=== PATIENT | male | born 1955 | race Caucasian/White ===

== ENCOUNTER 2017-04-14 22:13 | Inpatient (IN) | payer OTHER ==
[2017-04-14] MEDS: ATORVASTATIN 10 MG TAB PO (21:00)
[2017-04-14 23:29] LABS: ADD MAN DIFF? NO
[2017-04-14 23:34] LABS: AADO2 Arterial 567.1 mmHg (7.0-24.0); ABNORMAL IP MESSAGE 1; Allen Test ACCEPTAB; Arterial Base Excess 0.2 mmol/L (-3.0-3); Arterial Blood Gas Oxygen Sat 98.2 mmHG (95.0-98.0); Arterial COHb 0.3 % (0.0-3.0); Arterial Fraction of Oxyhgb 97.5 % (93.0-99.0); Arterial HCO3 23.1 mmol/L (22.0-26.0); Arterial MetHb 0.4 % (0.0-1.5); Arterial Total Hemglobin 18.1 g/dl (12.0-18.0); Arterial pCO2 33.4 mmhg (35-45); BASOPHIL # 0.1 10^3/ul (0.0-0.1); BASOPHILS % 0.5 % (0.0-2.0); Blood Gas IEPAP 20/10; Blood Gas PS 10; EOSINOPHILS % 0.1 % (0.0-7.0); HEMATOCRIT 50.1 % (42.0-52.0); HEMOGLOBIN 17.2 g/dl (14.0-18.0); LYMPHOCYTES # 1.7 10^3/ul (0.8-2.9); LYMPHOCYTES % 10.2 % (15.0-51.0); MEAN CORPUSCULAR HGB CONC 34.3 g/dl (32.0-37.0); MEAN CORPUSCULAR VOLUME 87.4 fl (82.0-101.0); MEAN PLATELET VOLUME 10.7 fl (7.4-10.4); MODE BIPAP - S/T; MONOCYTE # 1.9 10^3/ul (0.3-0.9); MONOCYTES % 11.3 % (0.0-11.0); NEUTROPHIL # 12.9 10^3/ul (1.6-7.5); NEUTROPHILS % 77.5 % (39.0-77.0); PLATELET COUNT 189 10^3/UL (140-415); POSITIVE DIFF @See below; RED BLOOD COUNT 5.73 10^6/ul (4.70-6.10); RED CELL DISTRIBUTION WIDTH 14.6 % (11.5-14.5); Site Left Radial
[2017-04-14 23:34] LABS: WHITE BLOOD COUNT 16.6 10^3/ul (4.8-10.8)
[2017-04-14 23:45] LABS: HEMOGLOBIN A1C 5.5 % (0-5.9)
[2017-04-14 23:52] LABS: ALANINE AMINOTRANSFERASE 55 IU/L (13-69); ALBUMIN 4.2 g/dl (3.3-4.9); ALBUMIN/GLOBULIN RATIO 1.35; ALKALINE PHOSPHATASE 63 IU/L (42-121); ANION GAP 16 (8-16); ASPARTATE AMINO TRANSFERASE 115 IU/L (15-46); BILIRUBIN,INDIRECT 1.4 mg/dl (0-1.1); BILIRUBIN,TOTAL 1.4 mg/dl (0.2-1.3); BLOOD UREA NITROGEN 21 mg/dl (7-20); CALCIUM 9.4 mg/dl (8.4-10.2); CARBON DIOXIDE 23 mmol/L (21-31); CHLORIDE 107 mmol/L (97-110); CHOL/HDL RATIO 2.8 RATIO; CHOLESTEROL 169 mg/dl (100-200); CREATINE KINASE 470 IU/L (23-200); CREATININE 1.26 mg/dl (0.61-1.24); GLUCOSE 142 mg/dl (70-220); HDL CHOLESTEROL 59 mg/dl (30-78); LDL CHOLESTEROL,CALCULATED 89 mg/dl; MAGNESIUM 2.2 mg/dl (1.7-2.5); PHOSPHORUS 3.3 mg/dl (2.5-4.9); POTASSIUM 3.7 mmol/L (3.5-5.1); SODIUM 142 mmol/L (135-144); TOTAL PROTEIN 7.3 g/dl (6.1-8.1); TRIGLYCERIDES 103 mg/dl (0-149)
[2017-04-14] MEDS: AMIODARONE 900 MG in DEXTROSE 5% 482 ML IV (23:54)
[2017-04-14] MEDS: HEPARIN 25000 UNITS/250 ML 250 ML IV (23:58)
[2017-04-15 00:02] LABS: CK INDEX 8.7
[2017-04-15] MEDS: DEXTROSE 5%-0.45% NACL 1,000 ML IV ×2 (00:08→15:26)
[2017-04-15] MEDS: ATORVASTATIN 80 MG TAB PO (00:09)
[2017-04-15 00:21] LABS: THYROID STIMULATING HORMONE 0.615 MIU/L (0.465-4.680)
[2017-04-15 02:06] LABS: INR 1.01; PROTIME 13.4 Sec (11.9-14.9)
[2017-04-15 02:08] LABS: PARTIAL THROMBOPLASTIN TIME 50.3 Sec (25.0-35.0)
[2017-04-15] MEDS ORDERED: FUROSEMIDE 20 MG INJ (05:21)
[2017-04-15] MEDS ORDERED: PROPOFOL 100 ML (05:35)
[2017-04-15] MEDS: FUROSEMIDE 20 MG INJ IV ×2 (05:49→05:50)
[2017-04-15] MEDS: PROPOFOL 100 ML IV ×5 (05:51→21:45)
[2017-04-15 06:16] LABS: CREATINE KINASE 366 IU/L (23-200)
[2017-04-15 06:29] LABS: CK INDEX 6.5
[2017-04-15] MEDS ORDERED: NORepinephrine 8MG/250 ML BAG (07:00)
[2017-04-15] MEDS ORDERED: SUCCINYLCHOLINE CHLORIDE 100 MG/5 ML SYG IV (07:00)
[2017-04-15] MEDS ORDERED: ETOMIDATE 20 MG INJ (07:00)
[2017-04-15 07:14] LABS: PARTIAL THROMBOPLASTIN TIME 96.3 Sec (25.0-35.0)
[2017-04-15] MEDS: NORepinephrine 8MG/250 ML (PMX 250 ML IV (07:32)
[2017-04-15 08:01] LABS: ADD MAN DIFF? NO
[2017-04-15 08:02] LABS: WHITE BLOOD COUNT 23.9 10^3/ul (4.8-10.8)
[2017-04-15 08:02] LABS: ABNORMAL IP MESSAGE 1; BASOPHIL # 0.1 10^3/ul (0.0-0.1); BASOPHILS % 0.4 % (0.0-2.0); EOSINOPHILS % 0.1 % (0.0-7.0); HEMATOCRIT 55.5 % (42.0-52.0); HEMOGLOBIN 18.1 g/dl (14.0-18.0); LYMPHOCYTES # 4.6 10^3/ul (0.8-2.9); LYMPHOCYTES % 19.3 % (15.0-51.0); MEAN CORPUSCULAR HEMOGLOBIN 30.1 pg (29.0-33.0); MEAN CORPUSCULAR HGB CONC 32.6 g/dl (32.0-37.0); MEAN CORPUSCULAR VOLUME 92.2 fl (82.0-101.0); MEAN PLATELET VOLUME 11.4 fl (7.4-10.4); MONOCYTE # 3.8 10^3/ul (0.3-0.9); MONOCYTES % 15.9 % (0.0-11.0); NEUTROPHIL # 15.2 10^3/ul (1.6-7.5); NEUTROPHILS % 63.7 % (39.0-77.0); PLATELET COUNT 230 10^3/UL (140-415); POSITIVE DIFF @See below; RED BLOOD COUNT 6.02 10^6/ul (4.70-6.10); RED CELL DISTRIBUTION WIDTH 14.3 % (11.5-14.5)
[2017-04-15 08:16] LABS: AADO2 Arterial 576.2 mmHg (7.0-24.0); Allen Test ACCEPTAB; Arterial Base Excess -5.5 mmol/L (-3.0-3); Arterial Blood Gas Oxygen Sat 95.7 mmHG (95.0-98.0); Arterial COHb 0.3 % (0.0-3.0); Arterial HCO3 21.4 mmol/L (22.0-26.0); Arterial MetHb 0.4 % (0.0-1.5); Arterial Total Hemglobin 18.6 g/dl (12.0-18.0); Arterial pCO2 46.2 mmhg (35-45); MODE VENT - AC; Site Right Radial
[2017-04-15 08:20] LABS: MAGNESIUM 2.4 mg/dl (1.7-2.5)
[2017-04-15 08:20] LABS: ALANINE AMINOTRANSFERASE 43 IU/L (13-69); ALBUMIN 4.5 g/dl (3.3-4.9); ALBUMIN/GLOBULIN RATIO 1.73; ALKALINE PHOSPHATASE 71 IU/L (42-121); ANION GAP 22 (8-16); ASPARTATE AMINO TRANSFERASE 101 IU/L (15-46); BILIRUBIN,INDIRECT 1.6 mg/dl (0-1.1); BILIRUBIN,TOTAL 1.6 mg/dl (0.2-1.3); BLOOD UREA NITROGEN 20 mg/dl (7-20); CALCIUM 9.2 mg/dl (8.4-10.2); CARBON DIOXIDE 23 mmol/L (21-31); CHLORIDE 107 mmol/L (97-110); CREATININE 1.56 mg/dl (0.61-1.24); GLUCOSE 204 mg/dl (70-220); POTASSIUM 4.5 mmol/L (3.5-5.1); SODIUM 147 mmol/L (135-144); TOTAL PROTEIN 7.1 g/dl (6.1-8.1)
[2017-04-15] MEDS: FUROSEMIDE 40 MG INJ IV ×2 (08:47→11:33)
[2017-04-15] MEDS: LOSARTAN 25 MG TAB PO (09:00)
[2017-04-15] MEDS: ISOSORBIDE MONONITRATE(SR)30 MG TAB PO (09:00)
[2017-04-15] MEDS: CLOPIDOGREL 75 MG TAB PO (09:03)
[2017-04-15] MEDS: ASPIRIN 81 MG TAB PO (09:04)
[2017-04-15] MEDS: POTASSIUM CHLORIDE 100 ML IVPB (09:34)
[2017-04-15] MEDS: DOPamine-D5W 1.6 MG/ML 250 ML IV (09:48)
[2017-04-15] MEDS: FENTAnyl (DRIP) 1000 mcg/100mL 100 ML IV (10:12)
[2017-04-15 10:14] LABS: PARTIAL THROMBOPLASTIN TIME 50.3 Sec (25.0-35.0)
[2017-04-15 10:15] LABS: 50/50 PTT 1 HOUR 46.8 Sec; 50/50 PTT IMMED 36.5 Sec
[2017-04-15] MEDS ORDERED: DEXTROSE 50% 50 ML SYRINGE IV ×2 (10:30)
[2017-04-15] MEDS ORDERED: GLUCOSE GEL 15 GRAM TUBE BUCCAL (10:30)
[2017-04-15] MEDS ORDERED: GLUCAGON 1 MG INJ IM (10:30)
[2017-04-15] MEDS ORDERED: GLUCOSE GEL 15 GRAM TUBE PO ×2 (10:30)
[2017-04-15] MEDS: AZTREONAM 1 GM/NS (PMX) 50 ML IVPB ×2 (11:33→20:39)
[2017-04-15] MEDS: NICOTINE (14 MG/24 HR) PATCH TRANSDERM (11:43)
[2017-04-15] MEDS: LIDOCAINE 1% (MPF) 5 ML VIAL SC (12:15)
[2017-04-15 12:18] LABS: AADO2 Arterial 585.2 mmHg (7.0-24.0); Allen Test ACCEPTAB; Arterial Base Excess -2.4 mmol/L (-3.0-3); Arterial COHb 0.3 % (0.0-3.0); Arterial Fraction of Oxyhgb 96.2 % (93.0-99.0); Arterial HCO3 21.7 mmol/L (22.0-26.0); Arterial MetHb 0.5 % (0.0-1.5); Arterial Total Hemglobin 18.3 g/dl (12.0-18.0); Arterial pCO2 36.4 mmhg (35-45); MODE VENT - AC; Site Left Radial
[2017-04-15] MEDS: INSULIN ASPART [NOVOLOG] 3 ML PEN SC ×3 (14:40→20:44)
[2017-04-15 15:22] LABS: ADD UMIC YES; UR ASCORBIC ACID NEGATIVE (NEGATIVE); UR BILIRUBIN (Dip) NEGATIVE (NEGATIVE); UR BLOOD (Dip) 3+ mg/dL (NEGATIVE); UR CLARITY CLEAR (CLEAR); UR COLOR YELLOW (YELLOW); UR GLUCOSE (Dip) NEGATIVE (NEGATIVE); UR KETONES (Dip) NEGATIVE (NEGATIVE); UR LEUKOCYTE ESTERASE (Dip) NEGATIVE Leu/ul (NEGATIVE); UR MUCUS FEW /HPF (NONE SEEN); UR NITRITE (Dip) NEGATIVE (NEGATIVE); UR RBC 18 /HPF (0-5); UR TOTAL PROTEIN (Dip) NEGATIVE (NEGATIVE); UR UROBILINOGEN (Dip) NEGATIVE (NEGATIVE); UR WBC 1 /HPF (0-5)
[2017-04-15 15:26] LABS: ANION GAP 15 (8-16); BLOOD UREA NITROGEN 27 mg/dl (7-20); CALCIUM 8.7 mg/dl (8.4-10.2); CARBON DIOXIDE 28 mmol/L (21-31); CHLORIDE 105 mmol/L (97-110); CREATININE 1.67 mg/dl (0.61-1.24); GLUCOSE 131 mg/dl (70-220); MAGNESIUM 2.1 mg/dl (1.7-2.5); POTASSIUM 3.6 mmol/L (3.5-5.1); SODIUM 144 mmol/L (135-144)
[2017-04-15] MEDS: POTASSIUM CHLORIDE 50 ML IVPB ×2 (15:31→16:47)
[2017-04-15 15:37] LABS: SODIUM,URINE RANDOM 21 mmol/L (30-90)
[2017-04-15 16:10] LABS: PARTIAL THROMBOPLASTIN TIME 74.8 Sec (25.0-35.0)
[2017-04-16] MEDS: HEPARIN 25000 UNITS/250 ML 250 ML IV (00:02)
[2017-04-16 00:12] LABS: PARTIAL THROMBOPLASTIN TIME 79.6 Sec (25.0-35.0)
[2017-04-16] MEDS: INSULIN ASPART [NOVOLOG] 3 ML PEN SC ×5 (01:00→18:00)
[2017-04-16] MEDS: ACCU-CHEK XX (01:32)
[2017-04-16] MEDS: DOPamine-D5W 1.6 MG/ML 250 ML IV (01:36)
[2017-04-16] MEDS: AMIODARONE 900 MG in DEXTROSE 5% 482 ML IV (02:42)
[2017-04-16] MEDS: PROPOFOL 100 ML IV ×4 (05:09→22:14)
[2017-04-16] MEDS: FENTAnyl (DRIP) 1000 mcg/100mL 100 ML IV (05:18)
[2017-04-16 06:33] LABS: ADD MAN DIFF? NO
[2017-04-16 06:41] LABS: ABNORMAL IP MESSAGE 1; BASOPHILS % 0.3 % (0.0-2.0); EOSINOPHILS # 0.1 10^3/ul (0.0-0.5); EOSINOPHILS % 0.7 % (0.0-7.0); HEMATOCRIT 49.5 % (42.0-52.0); HEMOGLOBIN 16.2 g/dl (14.0-18.0); LYMPHOCYTES # 2.1 10^3/ul (0.8-2.9); LYMPHOCYTES % 14.9 % (15.0-51.0); MEAN CORPUSCULAR HEMOGLOBIN 29.7 pg (29.0-33.0); MEAN CORPUSCULAR HGB CONC 32.7 g/dl (32.0-37.0); MEAN CORPUSCULAR VOLUME 90.7 fl (82.0-101.0); MEAN PLATELET VOLUME 10.5 fl (7.4-10.4); MONOCYTE # 1.8 10^3/ul (0.3-0.9); MONOCYTES % 12.9 % (0.0-11.0); NEUTROPHIL # 9.8 10^3/ul (1.6-7.5); NEUTROPHILS % 70.8 % (39.0-77.0); PLATELET COUNT 150 10^3/UL (140-415); POSITIVE DIFF @See below; RED BLOOD COUNT 5.46 10^6/ul (4.70-6.10); RED CELL DISTRIBUTION WIDTH 14.3 % (11.5-14.5)
[2017-04-16 06:41] LABS: WHITE BLOOD COUNT 13.8 10^3/ul (4.8-10.8)
[2017-04-16 07:05] LABS: PARTIAL THROMBOPLASTIN TIME 64.8 Sec (25.0-35.0)
[2017-04-16 07:14] LABS: ANION GAP 16 (8-16); BLOOD UREA NITROGEN 38 mg/dl (7-20); CALCIUM 8.8 mg/dl (8.4-10.2); CARBON DIOXIDE 27 mmol/L (21-31); CHLORIDE 106 mmol/L (97-110); CREATININE 2.08 mg/dl (0.61-1.24); GLUCOSE 115 mg/dl (70-220); MAGNESIUM 2.4 mg/dl (1.7-2.5); POTASSIUM 4.2 mmol/L (3.5-5.1); SODIUM 145 mmol/L (135-144)
[2017-04-16] MEDS: CLOPIDOGREL 75 MG TAB PO (09:01)
[2017-04-16] MEDS: ASPIRIN 81 MG TAB PO (09:01)
[2017-04-16] MEDS: AMIODARONE 200 MG TAB NGT ×2 (09:02→21:12)
[2017-04-16] MEDS: AZTREONAM 1 GM/NS (PMX) 50 ML IVPB ×2 (09:12→21:11)
[2017-04-16] MEDS: DOBUTamine/D5W 1 MG/ML DRIP 250 ML IV ×2 (09:19→18:53)
[2017-04-16] MEDS: NICOTINE (14 MG/24 HR) PATCH TRANSDERM (09:20)
[2017-04-16 09:56] LABS: AADO2 Arterial 379.3 mmHg (7.0-24.0); Allen Test ACCEPTAB; Arterial Base Excess -0.9 mmol/L (-3.0-3); Arterial Blood Gas Oxygen Sat 95.5 mmHG (95.0-98.0); Arterial COHb 0.5 % (0.0-3.0); Arterial Fraction of Oxyhgb 94.8 % (93.0-99.0); Arterial HCO3 23.5 mmol/L (22.0-26.0); Arterial MetHb 0.2 % (0.0-1.5); Arterial Total Hemglobin 16.4 g/dl (12.0-18.0); Arterial pCO2 38.5 mmhg (35-45); MODE VENT - AC; Site Right Radial
[2017-04-16] MEDS: ACETAZOLAMIDE 500 MG INJ IV (10:16)
[2017-04-16 14:07] LABS: CREATININE, RANDOM URINE 64 mg/dL (20-370); MICROALBUMIN 3.1 mg/dL; MICROALBUMIN/CREATININE RATIO 48 (<30)
[2017-04-16 14:17] LABS: PARTIAL THROMBOPLASTIN TIME 38.4 Sec (25.0-35.0)
[2017-04-16] MEDS: HEPARIN 1000 UNITS/ML 10 ML INJ IV (14:34)
[2017-04-16 14:41] LABS: ANION GAP 13 (8-16); BLOOD UREA NITROGEN 39 mg/dl (7-20); CALCIUM 8.7 mg/dl (8.4-10.2); CARBON DIOXIDE 26 mmol/L (21-31); CHLORIDE 106 mmol/L (97-110); CREATININE 1.94 mg/dl (0.61-1.24); GLUCOSE 114 mg/dl (70-220); MAGNESIUM 2.3 mg/dl (1.7-2.5); POTASSIUM 3.4 mmol/L (3.5-5.1); SODIUM 142 mmol/L (135-144)
[2017-04-16] MEDS ORDERED: POTASSIUM CHLORIDE 50 ML (16:51)
[2017-04-16] MEDS ORDERED: POTASSIUM CHLORIDE 100 ML IVPB (18:00)
[2017-04-16] MEDS: POTASSIUM CHLORIDE 50 ML IVPB (18:05)
[2017-04-16] MEDS: FUROSEMIDE 40 MG INJ IV (19:06)
[2017-04-16] MEDS: ATORVASTATIN 10 MG TAB PO (21:12)
[2017-04-16 21:30] LABS: PARTIAL THROMBOPLASTIN TIME 76.7 Sec (25.0-35.0)
[2017-04-16 22:35] LABS: MAGNESIUM 2.3 mg/dl (1.7-2.5)
[2017-04-16 23:01] LABS: ANION GAP 13 (8-16); BLOOD UREA NITROGEN 37 mg/dl (7-20); CALCIUM 8.5 mg/dl (8.4-10.2); CARBON DIOXIDE 27 mmol/L (21-31); CHLORIDE 104 mmol/L (97-110); CREATININE 1.75 mg/dl (0.61-1.24); GLUCOSE 128 mg/dl (70-220); POTASSIUM 3.4 mmol/L (3.5-5.1); SODIUM 141 mmol/L (135-144)
[2017-04-17] MEDS: HEPARIN 25000 UNITS/250 ML 250 ML IV (00:30)
[2017-04-17] MEDS: DOPamine-D5W 1.6 MG/ML 250 ML IV (00:30)
[2017-04-17] MEDS: FENTAnyl (DRIP) 1000 mcg/100mL 100 ML IV ×2 (00:36→20:54)
[2017-04-17] MEDS: POTASSIUM CHLORIDE 50 ML IVPB ×2 (00:57→10:58)
[2017-04-17] MEDS: ACCU-CHEK XX (02:00)
[2017-04-17] MEDS: DOBUTamine/D5W 1 MG/ML DRIP 250 ML IV ×2 (03:32→05:15)
[2017-04-17] MEDS: PROPOFOL 100 ML IV ×3 (04:57→19:44)
[2017-04-17 05:22] LABS: ADD MAN DIFF? NO
[2017-04-17 05:28] LABS: BASOPHILS % 0.2 % (0.0-2.0); EOSINOPHILS # 0.1 10^3/ul (0.0-0.5); EOSINOPHILS % 0.8 % (0.0-7.0); HEMATOCRIT 39.3 % (42.0-52.0); LYMPHOCYTES # 1.1 10^3/ul (0.8-2.9); LYMPHOCYTES % 10.1 % (15.0-51.0); MEAN CORPUSCULAR HGB CONC 33.1 g/dl (32.0-37.0); MEAN CORPUSCULAR VOLUME 90.6 fl (82.0-101.0); MEAN PLATELET VOLUME 11.2 fl (7.4-10.4); MONOCYTE # 1.4 10^3/ul (0.3-0.9); MONOCYTES % 12.8 % (0.0-11.0); NEUTROPHIL # 8.1 10^3/ul (1.6-7.5); NEUTROPHILS % 75.7 % (39.0-77.0); PLATELET COUNT 122 10^3/UL (140-415); RED BLOOD COUNT 4.34 10^6/ul (4.70-6.10); RED CELL DISTRIBUTION WIDTH 14.2 % (11.5-14.5)
[2017-04-17 05:28] LABS: WHITE BLOOD COUNT 10.7 10^3/ul (4.8-10.8)
[2017-04-17 05:48] LABS: ANION GAP 13 (8-16); BLOOD UREA NITROGEN 32 mg/dl (7-20); CALCIUM 7.8 mg/dl (8.4-10.2); CARBON DIOXIDE 26 mmol/L (21-31); CHLORIDE 101 mmol/L (97-110); CREATININE 1.26 mg/dl (0.61-1.24); GLUCOSE 393 mg/dl (70-220); MAGNESIUM 2.2 mg/dl (1.7-2.5); PHOSPHORUS 3.5 mg/dl (2.5-4.9); SODIUM 133 mmol/L (135-144)
[2017-04-17 05:51] LABS: POTASSIUM 6.6 mmol/L (3.5-5.1)
[2017-04-17 05:57] LABS: PARTIAL THROMBOPLASTIN TIME 65.7 Sec (25.0-35.0)
[2017-04-17] MEDS: INSULIN ASPART [NOVOLOG] 3 ML PEN SC ×4 (06:00→18:00)
[2017-04-17 06:27] LABS: ADD MAN DIFF? NO
[2017-04-17 06:39] LABS: WHITE BLOOD COUNT 10.1 10^3/ul (4.8-10.8)
[2017-04-17 06:39] LABS: ABNORMAL IP MESSAGE 1; BASOPHILS % 0.3 % (0.0-2.0); EOSINOPHILS # 0.8 10^3/ul (0.0-0.5); HEMOGLOBIN 13.2 g/dl (14.0-18.0); LYMPHOCYTES # 1.1 10^3/ul (0.8-2.9); LYMPHOCYTES % 11.1 % (15.0-51.0); MEAN CORPUSCULAR HEMOGLOBIN 30.1 pg (29.0-33.0); MEAN CORPUSCULAR HGB CONC 33.8 g/dl (32.0-37.0); MEAN CORPUSCULAR VOLUME 88.8 fl (82.0-101.0); MEAN PLATELET VOLUME 10.8 fl (7.4-10.4); MONOCYTE # 1.3 10^3/ul (0.3-0.9); MONOCYTES % 12.8 % (0.0-11.0); NEUTROPHIL # 6.8 10^3/ul (1.6-7.5); NEUTROPHILS % 67.6 % (39.0-77.0); PLATELET COUNT 119 10^3/UL (140-415); POSITIVE DIFF @See below; RED BLOOD COUNT 4.39 10^6/ul (4.70-6.10); RED CELL DISTRIBUTION WIDTH 14.5 % (11.5-14.5)
[2017-04-17 06:59] LABS: PARTIAL THROMBOPLASTIN TIME 47.7 Sec (25.0-35.0)
[2017-04-17 07:05] LABS: ANION GAP 14 (8-16); BLOOD UREA NITROGEN 34 mg/dl (7-20); CALCIUM 8.8 mg/dl (8.4-10.2); CARBON DIOXIDE 25 mmol/L (21-31); CHLORIDE 106 mmol/L (97-110); CREATININE 1.51 mg/dl (0.61-1.24); GLUCOSE 124 mg/dl (70-220); MAGNESIUM 2.4 mg/dl (1.7-2.5); POTASSIUM 3.5 mmol/L (3.5-5.1); SODIUM 141 mmol/L (135-144)
[2017-04-17] MEDS: ASPIRIN 81 MG TAB PO (09:00)
[2017-04-17] MEDS: AZTREONAM 1 GM/NS (PMX) 50 ML IVPB ×2 (10:15→20:39)
[2017-04-17] MEDS: AMIODARONE 200 MG TAB NGT ×2 (10:16→20:39)
[2017-04-17] MEDS: CLOPIDOGREL 75 MG TAB PO (10:16)
[2017-04-17] MEDS: NICOTINE (14 MG/24 HR) PATCH TRANSDERM (10:16)
[2017-04-17] MEDS: FUROSEMIDE 40 MG INJ IV ×2 (10:19→18:00)
[2017-04-17 14:10] LABS: PARTIAL THROMBOPLASTIN TIME 106.8 Sec (25.0-35.0)
[2017-04-17] MEDS: ATORVASTATIN 10 MG TAB PO (20:39)
[2017-04-18] MEDS: ACCU-CHEK XX (02:00)
[2017-04-18] MEDS: PROPOFOL 100 ML IV ×3 (04:58→23:56)
[2017-04-18 05:48] LABS: ADD MAN DIFF? NO
[2017-04-18 05:57] LABS: ABNORMAL IP MESSAGE 1; BASOPHILS % 0.2 % (0.0-2.0); EOSINOPHILS # 0.2 10^3/ul (0.0-0.5); EOSINOPHILS % 1.7 % (0.0-7.0); HEMOGLOBIN 13.5 g/dl (14.0-18.0); LYMPHOCYTES % 8.6 % (15.0-51.0); MEAN CORPUSCULAR HEMOGLOBIN 30.5 pg (29.0-33.0); MEAN CORPUSCULAR HGB CONC 33.8 g/dl (32.0-37.0); MEAN CORPUSCULAR VOLUME 90.3 fl (82.0-101.0); MEAN PLATELET VOLUME 11.1 fl (7.4-10.4); MONOCYTE # 1.6 10^3/ul (0.3-0.9); MONOCYTES % 13.1 % (0.0-11.0); NEUTROPHIL # 9.2 10^3/ul (1.6-7.5); PLATELET COUNT 140 10^3/UL (140-415); POSITIVE DIFF @See below; RED BLOOD COUNT 4.43 10^6/ul (4.70-6.10); RED CELL DISTRIBUTION WIDTH 14.5 % (11.5-14.5)
[2017-04-18] MEDS: INSULIN ASPART [NOVOLOG] 3 ML PEN SC ×4 (06:00→18:00)
[2017-04-18] MEDS: FUROSEMIDE 40 MG INJ IV (06:21)
[2017-04-18] MEDS: DOPamine-D5W 1.6 MG/ML 250 ML IV (06:32)
[2017-04-18 06:39] LABS: ANION GAP 16 (8-16); BLOOD UREA NITROGEN 32 mg/dl (7-20); CALCIUM 8.7 mg/dl (8.4-10.2); CARBON DIOXIDE 24 mmol/L (21-31); CHLORIDE 102 mmol/L (97-110); CREATININE 1.13 mg/dl (0.61-1.24); GLUCOSE 205 mg/dl (70-220); MAGNESIUM 2.4 mg/dl (1.7-2.5); PHOSPHORUS 3.6 mg/dl (2.5-4.9); POTASSIUM 3.7 mmol/L (3.5-5.1); SODIUM 138 mmol/L (135-144)
[2017-04-18] MEDS: POTASSIUM CHLORIDE 50 ML IVPB ×2 (08:00)
[2017-04-18] MEDS: AZTREONAM 1 GM/NS (PMX) 50 ML IVPB (08:00)
[2017-04-18 08:06] LABS: AADO2 Arterial 366.5 mmHg (7.0-24.0); Arterial Base Excess 0.5 mmol/L (-3.0-3); Arterial Blood Gas Oxygen Sat 97.1 mmHG (95.0-98.0); Arterial COHb 0.9 % (0.0-3.0); Arterial HCO3 24.8 mmol/L (22.0-26.0); Arterial MetHb 0.2 % (0.0-1.5); Arterial Total Hemglobin 14.5 g/dl (12.0-18.0); Arterial pCO2 38.6 mmhg (35-45); MODE VENT - AC; Site Left Radial
[2017-04-18] MEDS ORDERED: POTASSIUM CHLORIDE 50 ML IVPB (08:30)
[2017-04-18] MEDS: CLOPIDOGREL 75 MG TAB PO (09:01)
[2017-04-18] MEDS: ASPIRIN 81 MG TAB PO (09:01)
[2017-04-18] MEDS: NICOTINE (14 MG/24 HR) PATCH TRANSDERM (09:02)
[2017-04-18] MEDS: AMIODARONE 200 MG TAB NGT ×2 (10:20→20:37)
[2017-04-18] MEDS: POTASSIUM CHLORIDE 10 MEQ in SOD CHLORIDE 0.9% 100 ML IVPB ×2 (10:24→11:29)
[2017-04-18] MEDS: MEROPENEM 1 GM/50ML(PMX) 50 ML IVPB ×3 (10:27→21:33)
[2017-04-18] MEDS: BUMETANIDE 12 MG in DEXTROSE 5% 72 ML IV (13:43)
[2017-04-18] MEDS: ATORVASTATIN 10 MG TAB PO (20:36)
[2017-04-19] MEDS: ACCU-CHEK XX (02:00)
[2017-04-19] MEDS: FENTAnyl (DRIP) 1000 mcg/100mL 100 ML IV (04:24)
[2017-04-19 04:55] LABS: ADD MAN DIFF? NO
[2017-04-19 05:03] LABS: BASOPHILS % 0.3 % (0.0-2.0); EOSINOPHILS # 0.3 10^3/ul (0.0-0.5); EOSINOPHILS % 2.6 % (0.0-7.0); HEMATOCRIT 40.5 % (42.0-52.0); HEMOGLOBIN 13.6 g/dl (14.0-18.0); LYMPHOCYTES # 1.3 10^3/ul (0.8-2.9); LYMPHOCYTES % 12.8 % (15.0-51.0); MEAN CORPUSCULAR HEMOGLOBIN 30.4 pg (29.0-33.0); MEAN CORPUSCULAR HGB CONC 33.6 g/dl (32.0-37.0); MEAN CORPUSCULAR VOLUME 90.4 fl (82.0-101.0); MEAN PLATELET VOLUME 10.9 fl (7.4-10.4); MONOCYTE # 1.1 10^3/ul (0.3-0.9); NEUTROPHIL # 7.4 10^3/ul (1.6-7.5); NEUTROPHILS % 72.8 % (39.0-77.0); PLATELET COUNT 145 10^3/UL (140-415); RED BLOOD COUNT 4.48 10^6/ul (4.70-6.10); RED CELL DISTRIBUTION WIDTH 14.2 % (11.5-14.5)
[2017-04-19 05:03] LABS: WHITE BLOOD COUNT 10.2 10^3/ul (4.8-10.8)
[2017-04-19] MEDS: INSULIN ASPART [NOVOLOG] 3 ML PEN SC ×4 (05:27→18:00)
[2017-04-19] MEDS: MEROPENEM 1 GM/50ML(PMX) 50 ML IVPB ×3 (05:27→21:00)
[2017-04-19 05:29] LABS: ANION GAP 16 (8-16); BLOOD UREA NITROGEN 42 mg/dl (7-20); CALCIUM 8.9 mg/dl (8.4-10.2); CARBON DIOXIDE 28 mmol/L (21-31); CHLORIDE 104 mmol/L (97-110); GLUCOSE 135 mg/dl (70-220); MAGNESIUM 2.5 mg/dl (1.7-2.5); PHOSPHORUS 3.4 mg/dl (2.5-4.9); SODIUM 145 mmol/L (135-144)
[2017-04-19] MEDS ORDERED: POTASSIUM CHLORIDE 50 ML IVPB (08:00)
[2017-04-19 09:08] LABS: AADO2 Arterial 277.4 mmHg (7.0-24.0); Arterial Base Excess 2.7 mmol/L (-3.0-3); Arterial Blood Gas Oxygen Sat 98.1 mmHG (95.0-98.0); Arterial COHb 0.4 % (0.0-3.0); Arterial Fraction of Oxyhgb 97.5 % (93.0-99.0); Arterial HCO3 26.9 mmol/L (22.0-26.0); Arterial MetHb 0.2 % (0.0-1.5); Arterial Total Hemglobin 14.5 g/dl (12.0-18.0); MODE VENT - AC; Site Right Brachial
[2017-04-19] MEDS: AMIODARONE 200 MG TAB NGT ×2 (09:25→20:59)
[2017-04-19] MEDS: CLOPIDOGREL 75 MG TAB PO (09:25)
[2017-04-19] MEDS: NICOTINE (14 MG/24 HR) PATCH TRANSDERM (09:26)
[2017-04-19] MEDS: ASPIRIN 81 MG TAB PO (09:26)
[2017-04-19] MEDS: PROPOFOL 100 ML IV (14:25)
[2017-04-19] MEDS: POTASSIUM CHLORIDE 30 MEQ in SOD CHLORIDE 0.9% 250 ML IV (14:30)
[2017-04-19] MEDS: ATORVASTATIN 10 MG TAB PO (21:00)
[2017-04-20] MEDS: PROPOFOL 100 ML IV ×3 (00:09→18:43)
[2017-04-20] MEDS: FENTAnyl (DRIP) 1000 mcg/100mL 100 ML IV (00:11)
[2017-04-20] MEDS: ACCU-CHEK XX (02:00)
[2017-04-20 04:54] LABS: ADD MAN DIFF? NO
[2017-04-20 05:00] LABS: ABNORMAL IP MESSAGE 1; BASOPHIL # 0.1 10^3/ul (0.0-0.1); BASOPHILS % 0.5 % (0.0-2.0); EOSINOPHILS # 0.4 10^3/ul (0.0-0.5); HEMATOCRIT 37.5 % (42.0-52.0); HEMOGLOBIN 12.6 g/dl (14.0-18.0); LYMPHOCYTES # 1.5 10^3/ul (0.8-2.9); LYMPHOCYTES % 14.1 % (15.0-51.0); MEAN CORPUSCULAR HEMOGLOBIN 30.4 pg (29.0-33.0); MEAN CORPUSCULAR HGB CONC 33.6 g/dl (32.0-37.0); MEAN CORPUSCULAR VOLUME 90.6 fl (82.0-101.0); MEAN PLATELET VOLUME 11.1 fl (7.4-10.4); MONOCYTE # 1.6 10^3/ul (0.3-0.9); MONOCYTES % 15.2 % (0.0-11.0); NEUTROPHIL # 6.8 10^3/ul (1.6-7.5); NEUTROPHILS % 65.7 % (39.0-77.0); PLATELET COUNT 145 10^3/UL (140-415); POSITIVE DIFF @See below; RED BLOOD COUNT 4.14 10^6/ul (4.70-6.10); RED CELL DISTRIBUTION WIDTH 14.4 % (11.5-14.5)
[2017-04-20 05:00] LABS: WHITE BLOOD COUNT 10.3 10^3/ul (4.8-10.8)
[2017-04-20 05:23] LABS: ANION GAP 12 (8-16); BLOOD UREA NITROGEN 47 mg/dl (7-20); CALCIUM 8.8 mg/dl (8.4-10.2); CARBON DIOXIDE 29 mmol/L (21-31); CHLORIDE 107 mmol/L (97-110); CREATININE 1.28 mg/dl (0.61-1.24); GLUCOSE 107 mg/dl (70-220); MAGNESIUM 2.5 mg/dl (1.7-2.5); PHOSPHORUS 3.1 mg/dl (2.5-4.9); POTASSIUM 3.4 mmol/L (3.5-5.1); SODIUM 145 mmol/L (135-144)
[2017-04-20] MEDS: INSULIN ASPART [NOVOLOG] 3 ML PEN SC ×5 (05:50→23:09)
[2017-04-20] MEDS: MEROPENEM 1 GM/50ML(PMX) 50 ML IVPB ×3 (05:50→23:09)
[2017-04-20] MEDS: CLOPIDOGREL 75 MG TAB PO (08:14)
[2017-04-20] MEDS: AMIODARONE 200 MG TAB NGT ×2 (08:15→20:07)
[2017-04-20] MEDS: ASPIRIN 81 MG TAB PO (08:15)
[2017-04-20] MEDS: NICOTINE (14 MG/24 HR) PATCH TRANSDERM (08:16)
[2017-04-20] MEDS: POTASSIUM CHLORIDE 100 ML IVPB ×2 (08:21→10:00)
[2017-04-20] MEDS: ATORVASTATIN 10 MG TAB PO (20:07)
[2017-04-21] MEDS: ACCU-CHEK XX (02:00)
[2017-04-21] MEDS: PROPOFOL 100 ML IV ×3 (02:40→22:56)
[2017-04-21 05:37] LABS: ADD MAN DIFF? NO
[2017-04-21 05:46] LABS: ABNORMAL IP MESSAGE 1; BASOPHIL # 0.1 10^3/ul (0.0-0.1); BASOPHILS % 0.4 % (0.0-2.0); EOSINOPHILS # 0.4 10^3/ul (0.0-0.5); EOSINOPHILS % 3.6 % (0.0-7.0); HEMATOCRIT 38.7 % (42.0-52.0); HEMOGLOBIN 12.8 g/dl (14.0-18.0); LYMPHOCYTES % 17.5 % (15.0-51.0); MEAN CORPUSCULAR HEMOGLOBIN 30.3 pg (29.0-33.0); MEAN CORPUSCULAR HGB CONC 33.1 g/dl (32.0-37.0); MEAN CORPUSCULAR VOLUME 91.5 fl (82.0-101.0); MEAN PLATELET VOLUME 11.4 fl (7.4-10.4); MONOCYTE # 1.6 10^3/ul (0.3-0.9); MONOCYTES % 13.9 % (0.0-11.0); NEUTROPHIL # 7.2 10^3/ul (1.6-7.5); NEUTROPHILS % 63.9 % (39.0-77.0); PLATELET COUNT 158 10^3/UL (140-415); POSITIVE DIFF @See below; RED BLOOD COUNT 4.23 10^6/ul (4.70-6.10); RED CELL DISTRIBUTION WIDTH 14.6 % (11.5-14.5)
[2017-04-21 05:46] LABS: WHITE BLOOD COUNT 11.2 10^3/ul (4.8-10.8)
[2017-04-21] MEDS: INSULIN ASPART [NOVOLOG] 3 ML PEN SC ×3 (06:00→17:31)
[2017-04-21] MEDS: MEROPENEM 1 GM/50ML(PMX) 50 ML IVPB (06:39)
[2017-04-21 06:45] LABS: ANION GAP 13 (8-16); BLOOD UREA NITROGEN 44 mg/dl (7-20); CARBON DIOXIDE 30 mmol/L (21-31); CHLORIDE 108 mmol/L (97-110); CREATININE 1.13 mg/dl (0.61-1.24); GLUCOSE 110 mg/dl (70-220); POTASSIUM 3.7 mmol/L (3.5-5.1); SODIUM 147 mmol/L (135-144)
[2017-04-21] MEDS: POTASSIUM CHLORIDE 50 ML IVPB (08:00)
[2017-04-21] MEDS: AMIODARONE 200 MG TAB NGT ×2 (08:40→20:57)
[2017-04-21] MEDS: NICOTINE (14 MG/24 HR) PATCH TRANSDERM (08:43)
[2017-04-21] MEDS: ASPIRIN 81 MG TAB PO (08:46)
[2017-04-21] MEDS: CLOPIDOGREL 75 MG TAB PO (08:46)
[2017-04-21] MEDS: LEVOFLOXACIN 750 MG TABLET PO (11:18)
[2017-04-21] MEDS: POTASSIUM CHLORIDE 10 MEQ in SOD CHLORIDE 0.9% 100 ML IVPB (13:43)
[2017-04-21] MEDS: FENTAnyl (DRIP) 1000 mcg/100mL 100 ML IV (14:07)
[2017-04-21] MEDS ORDERED: HEPARIN 1000 UNITS/ML 10 ML INJ (15:05)
[2017-04-21] MEDS ORDERED: IOHEXOL 350MG/ML 50 ML BTL (15:10)
[2017-04-21] MEDS ORDERED: IODIXANOL LOCM 100 ML BTL ×2 (15:10→15:37)
[2017-04-21] MEDS ORDERED: LIDOCAINE 1% (MDV) 20 ML INJ (15:37)
[2017-04-21] MEDS ORDERED: CLOPIDOGREL 300 MG TAB (16:05)
[2017-04-21] MEDS: SOD CHLORIDE 0.9% 1,000 ML IV (17:23)
[2017-04-21] MEDS: ATORVASTATIN 10 MG TAB PO (20:56)
[2017-04-21] MEDS: FAMOTIDINE 20 MG TAB NGT (20:57)
[2017-04-22] MEDS: ACCU-CHEK XX (02:00)
[2017-04-22 05:44] LABS: ADD MAN DIFF? NO
[2017-04-22 05:46] LABS: BASOPHIL # 0.1 10^3/ul (0.0-0.1); BASOPHILS % 0.5 % (0.0-2.0); EOSINOPHILS # 0.3 10^3/ul (0.0-0.5); EOSINOPHILS % 2.7 % (0.0-7.0); HEMATOCRIT 35.5 % (42.0-52.0); HEMOGLOBIN 11.7 g/dl (14.0-18.0); LYMPHOCYTES # 1.5 10^3/ul (0.8-2.9); LYMPHOCYTES % 15.5 % (15.0-51.0); MEAN CORPUSCULAR HEMOGLOBIN 30.2 pg (29.0-33.0); MEAN CORPUSCULAR VOLUME 91.5 fl (82.0-101.0); MEAN PLATELET VOLUME 11.6 fl (7.4-10.4); MONOCYTE # 1.3 10^3/ul (0.3-0.9); NEUTROPHIL # 6.2 10^3/ul (1.6-7.5); NEUTROPHILS % 66.1 % (39.0-77.0); PLATELET COUNT 180 10^3/UL (140-415); RED BLOOD COUNT 3.88 10^6/ul (4.70-6.10); RED CELL DISTRIBUTION WIDTH 14.2 % (11.5-14.5)
[2017-04-22 05:46] LABS: WHITE BLOOD COUNT 9.4 10^3/ul (4.8-10.8)
[2017-04-22] MEDS: LEVOFLOXACIN 750 MG TABLET PO (05:46)
[2017-04-22] MEDS: INSULIN ASPART [NOVOLOG] 3 ML PEN SC ×4 (05:47→17:32)
[2017-04-22 06:03] LABS: ANION GAP 12 (8-16); BLOOD UREA NITROGEN 36 mg/dl (7-20); CALCIUM 8.8 mg/dl (8.4-10.2); CARBON DIOXIDE 29 mmol/L (21-31); CHLORIDE 111 mmol/L (97-110); CREATININE 1.06 mg/dl (0.61-1.24); GLUCOSE 94 mg/dl (70-220); POTASSIUM 3.8 mmol/L (3.5-5.1); SODIUM 148 mmol/L (135-144)
[2017-04-22 06:13] LABS: PHOSPHORUS 3.2 mg/dl (2.5-4.9)
[2017-04-22 06:13] LABS: MAGNESIUM 2.2 mg/dl (1.7-2.5)
[2017-04-22] MEDS: AMIODARONE 200 MG TAB NGT ×2 (09:05→20:50)
[2017-04-22] MEDS: NICOTINE (14 MG/24 HR) PATCH TRANSDERM (09:05)
[2017-04-22] MEDS: CLOPIDOGREL 75 MG TAB PO (09:05)
[2017-04-22] MEDS: ASPIRIN 81 MG TAB PO (09:05)
[2017-04-22] MEDS: FAMOTIDINE 20 MG TAB NGT ×2 (09:05→20:50)
[2017-04-22] MEDS: PROPOFOL 100 ML IV (11:12)
[2017-04-22] MEDS: ATORVASTATIN 10 MG TAB PO (20:51)
[2017-04-23] MEDS: ACCU-CHEK XX (02:00)
[2017-04-23] MEDS: PROPOFOL 100 ML IV (03:06)
[2017-04-23 05:47] LABS: ADD MAN DIFF? NO
[2017-04-23 05:55] LABS: ABNORMAL IP MESSAGE 1; BASOPHIL # 0.1 10^3/ul (0.0-0.1); BASOPHILS % 0.5 % (0.0-2.0); EOSINOPHILS # 0.3 10^3/ul (0.0-0.5); EOSINOPHILS % 2.6 % (0.0-7.0); HEMATOCRIT 35.9 % (42.0-52.0); HEMOGLOBIN 11.9 g/dl (14.0-18.0); LYMPHOCYTES # 1.7 10^3/ul (0.8-2.9); LYMPHOCYTES % 15.8 % (15.0-51.0); MEAN CORPUSCULAR HEMOGLOBIN 30.4 pg (29.0-33.0); MEAN CORPUSCULAR HGB CONC 33.1 g/dl (32.0-37.0); MEAN CORPUSCULAR VOLUME 91.8 fl (82.0-101.0); MEAN PLATELET VOLUME 11.8 fl (7.4-10.4); MONOCYTE # 1.6 10^3/ul (0.3-0.9); MONOCYTES % 15.3 % (0.0-11.0); NEUTROPHIL # 6.8 10^3/ul (1.6-7.5); NEUTROPHILS % 64.4 % (39.0-77.0); PLATELET COUNT 200 10^3/UL (140-415); POSITIVE DIFF @See below; RED BLOOD COUNT 3.91 10^6/ul (4.70-6.10); RED CELL DISTRIBUTION WIDTH 14.2 % (11.5-14.5)
[2017-04-23 05:55] LABS: WHITE BLOOD COUNT 10.5 10^3/ul (4.8-10.8)
[2017-04-23] MEDS: INSULIN ASPART [NOVOLOG] 3 ML PEN SC ×3 (06:00→11:30)
[2017-04-23 06:46] LABS: ANION GAP 13 (8-16); BLOOD UREA NITROGEN 37 mg/dl (7-20); CALCIUM 8.7 mg/dl (8.4-10.2); CARBON DIOXIDE 28 mmol/L (21-31); CHLORIDE 109 mmol/L (97-110); CREATININE 1.03 mg/dl (0.61-1.24); GLUCOSE 85 mg/dl (70-220); POTASSIUM 3.8 mmol/L (3.5-5.1); SODIUM 146 mmol/L (135-144)
[2017-04-23] MEDS: LEVOFLOXACIN 750 MG TABLET PO (06:46)
[2017-04-23] MEDS: ASPIRIN 81 MG TAB PO (09:02)
[2017-04-23] MEDS: FUROSEMIDE 40 MG INJ IV (09:02)
[2017-04-23] MEDS: AMIODARONE 200 MG TAB NGT (09:02)
[2017-04-23] MEDS: CLOPIDOGREL 75 MG TAB PO (09:03)
[2017-04-23] MEDS: FAMOTIDINE 20 MG TAB NGT (09:03)
[2017-04-23] MEDS: NICOTINE (14 MG/24 HR) PATCH TRANSDERM (09:03)
[2017-04-23 09:15] LABS: AADO2 Arterial 108.9 mmHg (7.0-24.0); Allen Test ACCEPTAB; Arterial Base Excess 2.6 mmol/L (-3.0-3); Arterial HCO3 25.2 mmol/L (22.0-26.0); Arterial pCO2 33.3 mmhg (35-45); MODE VENT - AC; Site Right Radial
[2017-04-23 11:12] LABS: AADO2 Arterial 82.8 mmHg (7.0-24.0); Allen Test ACCEPTAB; Arterial Base Excess 4.3 mmol/L (-3.0-3); Arterial Blood Gas Oxygen Sat 96.9 mmHG (95.0-98.0); Arterial COHb 0.1 % (0.0-3.0); Arterial Fraction of Oxyhgb 96.6 % (93.0-99.0); Arterial HCO3 27.2 mmol/L (22.0-26.0); Arterial MetHb 0.2 % (0.0-1.5); Arterial Total Hemglobin 13.6 g/dl (12.0-18.0); Arterial pCO2 35.4 mmhg (35-45); Blood Gas PS 10; MODE VENT - CPAP; Site Right Radial
[2017-04-23] MEDS: DOCUSATE SODIUM 10 MG/ML (10ML CUP) NGT ×2 (13:35→21:30)
[2017-04-23] MEDS: ATORVASTATIN 10 MG TAB PO (21:29)
[2017-04-24] MEDS: ACCU-CHEK XX (02:00)
[2017-04-24 05:38] LABS: ADD MAN DIFF? NO
[2017-04-24 05:44] LABS: WHITE BLOOD COUNT 12.1 10^3/ul (4.8-10.8)
[2017-04-24 05:44] LABS: BASOPHIL # 0.1 10^3/ul (0.0-0.1); BASOPHILS % 0.5 % (0.0-2.0); EOSINOPHILS # 0.1 10^3/ul (0.0-0.5); EOSINOPHILS % 0.8 % (0.0-7.0); HEMATOCRIT 39.8 % (42.0-52.0); HEMOGLOBIN 13.1 g/dl (14.0-18.0); LYMPHOCYTES # 1.4 10^3/ul (0.8-2.9); LYMPHOCYTES % 11.7 % (15.0-51.0); MEAN CORPUSCULAR HEMOGLOBIN 29.7 pg (29.0-33.0); MEAN CORPUSCULAR HGB CONC 32.9 g/dl (32.0-37.0); MEAN CORPUSCULAR VOLUME 90.2 fl (82.0-101.0); MEAN PLATELET VOLUME 11.6 fl (7.4-10.4); MONOCYTE # 1.5 10^3/ul (0.3-0.9); NEUTROPHIL # 8.9 10^3/ul (1.6-7.5); NEUTROPHILS % 73.6 % (39.0-77.0); PLATELET COUNT 264 10^3/UL (140-415); RED BLOOD COUNT 4.41 10^6/ul (4.70-6.10); RED CELL DISTRIBUTION WIDTH 13.7 % (11.5-14.5)
[2017-04-24 06:02] LABS: MAGNESIUM 2.2 mg/dl (1.7-2.5)
[2017-04-24 06:07] LABS: ANION GAP 15 (8-16); BLOOD UREA NITROGEN 34 mg/dl (7-20); CALCIUM 9.1 mg/dl (8.4-10.2); CARBON DIOXIDE 29 mmol/L (21-31); CHLORIDE 110 mmol/L (97-110); CREATININE 1.08 mg/dl (0.61-1.24); GLUCOSE 86 mg/dl (70-220); POTASSIUM 3.8 mmol/L (3.5-5.1); SODIUM 150 mmol/L (135-144)
[2017-04-24] MEDS: LEVOFLOXACIN 750 MG TABLET PO (06:36)
[2017-04-24] MEDS: DEXTROSE 5% 1,000 ML IV (08:30)
[2017-04-24] MEDS: DOCUSATE SODIUM 10 MG/ML (10ML CUP) NGT ×2 (11:04→21:09)
[2017-04-24] MEDS: ASPIRIN 81 MG TAB PO (11:04)
[2017-04-24] MEDS: CLOPIDOGREL 75 MG TAB PO (11:05)
[2017-04-24] MEDS: NICOTINE (14 MG/24 HR) PATCH TRANSDERM (11:06)
[2017-04-24] MEDS: VALSARTAN 80 MG TAB PO (13:00)
[2017-04-24] MEDS: ATORVASTATIN 10 MG TAB PO (21:13)
[2017-04-25] MEDS: DEXTROSE 5% 1,000 ML IV ×2 (04:29→08:25)
[2017-04-25] MEDS: LEVOFLOXACIN 750 MG TABLET PO (05:36)
[2017-04-25 07:34] LABS: ADD MAN DIFF? NO
[2017-04-25 07:41] LABS: WHITE BLOOD COUNT 11.4 10^3/ul (4.8-10.8)
[2017-04-25 07:41] LABS: BASOPHIL # 0.1 10^3/ul (0.0-0.1); BASOPHILS % 0.5 % (0.0-2.0); EOSINOPHILS # 0.5 10^3/ul (0.0-0.5); HEMATOCRIT 37.4 % (42.0-52.0); HEMOGLOBIN 12.2 g/dl (14.0-18.0); LYMPHOCYTES # 2.3 10^3/ul (0.8-2.9); MEAN CORPUSCULAR HEMOGLOBIN 29.5 pg (29.0-33.0); MEAN CORPUSCULAR HGB CONC 32.6 g/dl (32.0-37.0); MEAN CORPUSCULAR VOLUME 90.6 fl (82.0-101.0); MEAN PLATELET VOLUME 10.8 fl (7.4-10.4); MONOCYTE # 1.2 10^3/ul (0.3-0.9); MONOCYTES % 10.3 % (0.0-11.0); NEUTROPHIL # 7.3 10^3/ul (1.6-7.5); NEUTROPHILS % 63.9 % (39.0-77.0); PLATELET COUNT 291 10^3/UL (140-415); RED BLOOD COUNT 4.13 10^6/ul (4.70-6.10); RED CELL DISTRIBUTION WIDTH 13.5 % (11.5-14.5)
[2017-04-25 08:01] LABS: ANION GAP 12 (8-16); BLOOD UREA NITROGEN 27 mg/dl (7-20); CALCIUM 9.2 mg/dl (8.4-10.2); CARBON DIOXIDE 30 mmol/L (21-31); CHLORIDE 103 mmol/L (97-110); CREATININE 1.07 mg/dl (0.61-1.24); GLUCOSE 98 mg/dl (70-220); POTASSIUM 3.4 mmol/L (3.5-5.1); SODIUM 142 mmol/L (135-144)
[2017-04-25 08:06] LABS: PHOSPHORUS 3.2 mg/dl (2.5-4.9)
[2017-04-25 08:06] LABS: MAGNESIUM 2.1 mg/dl (1.7-2.5)
[2017-04-25] MEDS: NICOTINE (14 MG/24 HR) PATCH TRANSDERM (08:18)
[2017-04-25] MEDS: DOCUSATE SODIUM 10 MG/ML (10ML CUP) NGT (08:21)
[2017-04-25] MEDS: CLOPIDOGREL 75 MG TAB PO (08:21)
[2017-04-25] MEDS: VALSARTAN 80 MG TAB PO ×2 (08:21→21:00)
[2017-04-25] MEDS: ASPIRIN 81 MG TAB PO (08:21)
[2017-04-25] MEDS: POTASSIUM CHLORIDE (SR) 20 MEQ TAB PO (08:56)
[2017-04-25] MEDS: ATORVASTATIN 10 MG TAB PO (21:17)
[2017-04-25] MEDS: DOCUSATE SODIUM 100 MG CAP PO (21:17)
[2017-04-26] MEDS: LEVOFLOXACIN 750 MG TABLET PO (05:56)
[2017-04-26 08:36] LABS: ADD MAN DIFF? NO
[2017-04-26 08:43] LABS: ABNORMAL IP MESSAGE 1; BASOPHIL # 0.1 10^3/ul (0.0-0.1); BASOPHILS % 0.6 % (0.0-2.0); EOSINOPHILS # 0.5 10^3/ul (0.0-0.5); EOSINOPHILS % 3.8 % (0.0-7.0); HEMATOCRIT 37.2 % (42.0-52.0); HEMOGLOBIN 12.5 g/dl (14.0-18.0); LYMPHOCYTES % 16.9 % (15.0-51.0); MEAN CORPUSCULAR HEMOGLOBIN 29.9 pg (29.0-33.0); MEAN CORPUSCULAR HGB CONC 33.6 g/dl (32.0-37.0); MEAN PLATELET VOLUME 11.1 fl (7.4-10.4); MONOCYTE # 1.6 10^3/ul (0.3-0.9); MONOCYTES % 12.9 % (0.0-11.0); NEUTROPHIL # 7.7 10^3/ul (1.6-7.5); NEUTROPHILS % 64.4 % (39.0-77.0); PLATELET COUNT 302 10^3/UL (140-415); POSITIVE DIFF @See below; RED BLOOD COUNT 4.18 10^6/ul (4.70-6.10); RED CELL DISTRIBUTION WIDTH 13.5 % (11.5-14.5)
[2017-04-26] MEDS: NICOTINE (14 MG/24 HR) PATCH TRANSDERM (08:49)
[2017-04-26] MEDS: CLOPIDOGREL 75 MG TAB PO (08:49)
[2017-04-26] MEDS: VALSARTAN 80 MG TAB PO ×2 (08:49→20:53)
[2017-04-26] MEDS: ASPIRIN 81 MG TAB PO (08:49)
[2017-04-26] MEDS: DOCUSATE SODIUM 100 MG CAP PO ×2 (08:49→21:00)
[2017-04-26] MEDS: METOPROLOL (XL) 25 MG TAB PO (08:50)
[2017-04-26 09:07] LABS: ANION GAP 12 (8-16); BLOOD UREA NITROGEN 22 mg/dl (7-20); CALCIUM 8.9 mg/dl (8.4-10.2); CARBON DIOXIDE 29 mmol/L (21-31); CHLORIDE 103 mmol/L (97-110); GLUCOSE 91 mg/dl (70-220); PHOSPHORUS 3.2 mg/dl (2.5-4.9); POTASSIUM 3.7 mmol/L (3.5-5.1); SODIUM 140 mmol/L (135-144)
[2017-04-26] MEDS: ATORVASTATIN 10 MG TAB PO (21:05)
[2017-04-27] MEDS: LEVOFLOXACIN 750 MG TABLET PO (05:46)
[2017-04-27] MEDS: ASPIRIN 81 MG TAB PO (08:24)
[2017-04-27] MEDS: CLOPIDOGREL 75 MG TAB PO (08:24)
[2017-04-27] MEDS: NICOTINE (14 MG/24 HR) PATCH TRANSDERM (08:24)
[2017-04-27] MEDS: DOCUSATE SODIUM 100 MG CAP PO ×2 (08:24→21:13)
[2017-04-27] MEDS: ATORVASTATIN 10 MG TAB PO (21:13)
[2017-04-28] MEDS: LEVOFLOXACIN 750 MG TABLET PO (05:18)
[2017-04-28 06:42] LABS: ADD MAN DIFF? NO
[2017-04-28 06:48] LABS: WHITE BLOOD COUNT 10.6 10^3/ul (4.8-10.8)
[2017-04-28 06:48] LABS: BASOPHIL # 0.1 10^3/ul (0.0-0.1); BASOPHILS % 0.9 % (0.0-2.0); EOSINOPHILS # 0.5 10^3/ul (0.0-0.5); HEMATOCRIT 35.4 % (42.0-52.0); HEMOGLOBIN 11.8 g/dl (14.0-18.0); MEAN CORPUSCULAR HEMOGLOBIN 29.4 pg (29.0-33.0); MEAN CORPUSCULAR HGB CONC 33.3 g/dl (32.0-37.0); MEAN CORPUSCULAR VOLUME 88.3 fl (82.0-101.0); MEAN PLATELET VOLUME 10.4 fl (7.4-10.4); MONOCYTE # 1.3 10^3/ul (0.3-0.9); MONOCYTES % 11.8 % (0.0-11.0); NEUTROPHIL # 6.5 10^3/ul (1.6-7.5); NEUTROPHILS % 61.8 % (39.0-77.0); PLATELET COUNT 320 10^3/UL (140-415); RED BLOOD COUNT 4.01 10^6/ul (4.70-6.10); RED CELL DISTRIBUTION WIDTH 13.5 % (11.5-14.5)
[2017-04-28 07:33] LABS: ANION GAP 11 (8-16); BLOOD UREA NITROGEN 17 mg/dl (7-20); CALCIUM 8.9 mg/dl (8.4-10.2); CARBON DIOXIDE 29 mmol/L (21-31); CHLORIDE 107 mmol/L (97-110); CREATININE 1.02 mg/dl (0.61-1.24); GLUCOSE 95 mg/dl (70-220); PHOSPHORUS 3.4 mg/dl (2.5-4.9); POTASSIUM 3.8 mmol/L (3.5-5.1); SODIUM 143 mmol/L (135-144)
[2017-04-28] MEDS: ASPIRIN 81 MG TAB PO (09:15)
[2017-04-28] MEDS: CLOPIDOGREL 75 MG TAB PO (09:15)
[2017-04-28] MEDS: DOCUSATE SODIUM 100 MG CAP PO (09:15)
[2017-04-28] MEDS: NICOTINE (14 MG/24 HR) PATCH TRANSDERM (09:15)
== END 2017-04-28 18:55 | disposition home health service (06) | DRG 246 ==
LOC: TEL 04-24 16:01 → PP2 04-26 17:19 → ICU 22:13
PROC: 027034Z Dilation of Coronary Artery, One Artery with Drug-eluting Intraluminal Device, Percutaneous Approach (ICD-10-PCS; principal; 2017-04-21 14:15)
PROC: 5A1955Z Respiratory Ventilation, Greater than 96 Consecutive Hours (ICD-10-PCS; 2017-04-21 14:15)
PROC: 4A023N7 Measurement of Cardiac Sampling and Pressure, Left Heart, Percutaneous Approach (ICD-10-PCS; 2017-04-21 14:15)
PROC: B211YZZ Fluoroscopy of Multiple Coronary Arteries using Other Contrast (ICD-10-PCS; 2017-04-21 14:15)
PROC: 0BH17EZ Insertion of Endotracheal Airway into Trachea, Via Natural or Artificial Opening (ICD-10-PCS; 2017-04-21 14:15)
PROC: 02HV33Z Insertion of Infusion Device into Superior Vena Cava, Percutaneous Approach (ICD-10-PCS; 2017-04-21 14:15)
DX: I21.4 Non-ST elevation (NSTEMI) myocardial infarction (principal); J96.01 Acute respiratory failure with hypoxia; R57.0 Cardiogenic shock; G92 Toxic encephalopathy; J69.0 Pneumonitis due to inhalation of food and vomit; I47.2 Ventricular tachycardia; I50.23 Acute on chronic systolic (congestive) heart failure; J81.1 Chronic pulmonary edema; N17.9 Acute kidney failure, unspecified; E87.0 Hyperosmolality and hypernatremia; I13.0 Hypertensive heart and chronic kidney disease with heart failure and stage 1 through stage 4 chronic kidney disease, or unspecified chronic kidney disease; N18.3 Chronic kidney disease, stage 3 (moderate); I25.5 Ischemic cardiomyopathy; I25.10 Atherosclerotic heart disease of native coronary artery without angina pectoris; I95.9 Hypotension, unspecified; I73.9 Peripheral vascular disease, unspecified; I48.0 Paroxysmal atrial fibrillation; E78.5 Hyperlipidemia, unspecified; F17.200 Nicotine dependence, unspecified, uncomplicated; E87.6 Hypokalemia; E83.9 Disorder of mineral metabolism, unspecified; D64.9 Anemia, unspecified; D69.6 Thrombocytopenia, unspecified; Z95.5 Presence of coronary angioplasty implant and graft; I25.2 Old myocardial infarction; Z95.810 Presence of automatic (implantable) cardiac defibrillator
CPT/HCPCS: 31500; 36569; 36600; 71045; 73060-RT; 76775; 76937; 80048; 80053; 80061; 81001; 81003; 82043; 82550; 82553; 82803; 82962; 83036; 83735; 84100; 84155; 84300; 84443; 84484; 85025; 85335; 85610; 85730; 87070; 87081; 89220; 92526; 92610; 93005; 93306; 93454; 94002; 94003; 94660; 94770; 97116; 97163; 97530; J1120; J1940

== ENCOUNTER 2017-10-09 22:53 | Inpatient (IN) | payer OTHER ==
[2017-10-09] MEDS: DOBUTamine/D5W 1 MG/ML DRIP 250 ML IV (23:18)
[2017-10-09] MEDS: SOD CHLORIDE 0.9% 1,000 ML IV (23:18)
[2017-10-09] MEDS ORDERED: EPINEPHrine 4 MG in DEXTROSE 5% 246 ML IV (23:30)
[2017-10-09 23:55] LABS: WHITE BLOOD COUNT 13.7 10^3/ul (4.8-10.8)
[2017-10-09 23:56] LABS: ABNORMAL IP MESSAGE 1; HEMATOCRIT 45.9 % (42.0-52.0); HEMOGLOBIN 14.1 g/dl (14.0-18.0); MEAN CORPUSCULAR HEMOGLOBIN 29.9 pg (29.0-33.0); MEAN CORPUSCULAR HGB CONC 30.7 g/dl (32.0-37.0); MEAN CORPUSCULAR VOLUME 97.5 fl (82.0-101.0); MEAN PLATELET VOLUME 11.1 fl (7.4-10.4); NUCLEATED RED BLOOD CELLS% 0.4 /100WBC (0.0-0.0); PLATELET COUNT 137 10^3/UL (140-415); POSITIVE DIFF @See below; RED BLOOD COUNT 4.71 10^6/ul (4.70-6.10); RED CELL DISTRIBUTION WIDTH 14.4 % (11.5-14.5)
[2017-10-10] MEDS ORDERED: DOPamine-D5W 1.6 MG/ML 250 ML
[2017-10-10] MEDS ORDERED: EPINEPHrine 0.1 MG/ML SYG
[2017-10-10] MEDS ORDERED: NA BICARBONATE 8.4% 50 ML SYG
[2017-10-10 00:17] LABS: ADD MAN DIFF? YES; ALANINE AMINOTRANSFERASE 42 IU/L (13-69); ALBUMIN 2.6 g/dl (3.3-4.9); ALBUMIN/GLOBULIN RATIO 1.23; ALKALINE PHOSPHATASE 36 IU/L (42-121); ANION GAP 22 (8-16); ASPARTATE AMINO TRANSFERASE 36 IU/L (15-46); BILIRUBIN,INDIRECT 0.2 mg/dl (0-1.1); BILIRUBIN,TOTAL 0.2 mg/dl (0.2-1.3); BLOOD UREA NITROGEN 20 mg/dl (7-20); CALCIUM 7.8 mg/dl (8.4-10.2); CARBON DIOXIDE 22 mmol/L (21-31); CHLORIDE 104 mmol/L (97-110); CREATININE 1.18 mg/dl (0.61-1.24); GLUCOSE 261 mg/dl (70-220); POTASSIUM 3.2 mmol/L (3.5-5.1); SODIUM 145 mmol/L (135-144); TOTAL PROTEIN 4.7 g/dl (6.1-8.1)
[2017-10-10] MEDS: SOD CHLORIDE 0.9% 1,000 ML IV ×3 (00:18→13:10)
[2017-10-10 00:20] LABS: PROTIME 17.4 Sec (11.9-14.9); PT RATIO 1.4
[2017-10-10 00:22] LABS: PARTIAL THROMBOPLASTIN TIME 59.3 Sec (25.0-35.0)
[2017-10-10 00:28] LABS: B-TYPE NATRIURETIC PEPTIDE 4280 PG/ML (0-125); TROPONIN-I 0.016 ng/ml (0.000-0.120)
[2017-10-10] MEDS ORDERED: ONDANSETRON 4 MG INJ IV (00:30)
[2017-10-10] MEDS ORDERED: ACETAMINOPHEN 325 MG TAB PO (00:30)
[2017-10-10] MEDS ORDERED: DOBUTamine/D5W 1 MG/ML DRIP 250 ML IV (00:30)
[2017-10-10 00:35] LABS: AADO2 Arterial 559.6 mmHg (7.0-24.0); Allen Test ACCEPTAB; Arterial Base Excess -11.9 mmol/L (-3.0-3); Arterial Blood Gas Oxygen Sat 90.4 mmHG (95.0-98.0); Arterial COHb 2.3 % (0.0-3.0); Arterial HCO3 19.7 mmol/L (22.0-26.0); Arterial MetHb 0.4 % (0.0-1.5); MODE VENT - AC; Site Right Radial
[2017-10-10] MEDS: NA BICARBONATE 8.4% 50 ML SYG IV (01:00)
[2017-10-10] MEDS: CLINDAMYCIN 900 MG/D5W (PMX) 50 ML IVPB (01:00)
[2017-10-10] MEDS ORDERED: MEPERIDINE 25 MG INJ IV ×2 (01:00)
[2017-10-10 01:01] LABS: ANISOCYTOSIS 1+ (0-0); BAND NEUTROPHILS #M 0.1 10^3/ul (0.0-0.6); BAND NEUTROPHILS % (M) 1 % (0-4); EOSINOPHILS % (M) 1 % (0-7); GIANT THROMBO% (M) 1 % (0-0); LYMPHOCYTES #M 9.4 10^3/ul (0.8-2.9); LYMPHOCYTES % (M) 69 % (15-51); METAMYELOCYTES #M 0.1 10^3/ul (0.0-0.0); METAMYELOCYTES %M 1 % (0-0); MONOCYTE #M 0.4 10^3/ul (0.3-0.9); MONOCYTES % (M) 3 % (0-11); MYELOCYTES #M 0.1 10^3/ul (0.0-0.0); MYELOCYTES % (M) 1 % (0-0); PLATELET ESTIMATE DECREASED; POIKILOCYTOSIS 3+ (0-0); SEG NEUT #M 3.3 10^3/ul (1.6-7.5); SEGMENTED NEUTROPHILS (M) % 24 % (39-77); SMUDGE%M 7 % (0-0)
[2017-10-10] MEDS: PROPOFOL 100 ML IV ×3 (02:17→17:48)
[2017-10-10 02:44] LABS: AADO2 Arterial 433.6 mmHg (7.0-24.0); Allen Test ACCEPTAB; Arterial Base Excess -7.5 mmol/L (-3.0-3); Arterial Blood Gas Oxygen Sat 99.2 mmHG (95.0-98.0); Arterial Fraction of Oxyhgb 97.9 % (93.0-99.0); Arterial HCO3 18.7 mmol/L (22.0-26.0); Arterial MetHb 0.3 % (0.0-1.5); Arterial Total Hemglobin 16.4 g/dl (12.0-18.0); Arterial pCO2 40.5 mmhg (35-45); MODE VENT - AC; Site Right Radial
[2017-10-10] MEDS: DOPamine-D5W 1.6 MG/ML 250 ML IV (03:10)
[2017-10-10] MEDS: NORepinephrine 8MG/250 ML (PMX 250 ML IV (03:14)
[2017-10-10] MEDS ORDERED: FENTAnyl (DRIP) 1000 mcg/100mL 100 ML IV (03:30)
[2017-10-10] MEDS ORDERED: MIDAZOLAM (DRIP) 50 mg/50 mL 50 ML IV (03:30)
[2017-10-10] MEDS: VECURONIUM 100 MG in DEXTROSE 5% 100 ML IV (03:44)
[2017-10-10] MEDS: FUROSEMIDE 40 MG INJ IV (03:55)
[2017-10-10] MEDS: POTASSIUM CHLORIDE 100 ML IVPB ×4 (03:55→16:10)
[2017-10-10] MEDS: ARTIFICIAL TEARS 15 ML OPH BOTH EYES ×4 (05:26→23:21)
[2017-10-10] MEDS: PANTOPRAZOLE 40 MG INJ IV (05:26)
[2017-10-10] MEDS: OCULAR LUBRICANT 3.5 GM OPH OINT BOTH EYES ×4 (05:26→23:20)
[2017-10-10 06:46] LABS: INR 1.25; PROTIME 15.9 Sec (11.9-14.9); PT RATIO 1.2
[2017-10-10 06:47] LABS: PARTIAL THROMBOPLASTIN TIME 33.9 Sec (25.0-35.0)
[2017-10-10] MEDS ORDERED: DEXTROSE 50% 50 ML SYRINGE IV ×2 (07:00)
[2017-10-10] MEDS: ACCU-CHEK XX ×18 (07:00→23:08)
[2017-10-10 07:07] LABS: LIPASE 65 U/L (23-300)
[2017-10-10 07:07] LABS: PHOSPHORUS 1.8 mg/dl (2.5-4.9)
[2017-10-10 07:10] LABS: ALANINE AMINOTRANSFERASE 200 IU/L (13-69); ALBUMIN 3.7 g/dl (3.3-4.9); ALBUMIN/GLOBULIN RATIO 1.37; ALKALINE PHOSPHATASE 134 IU/L (42-121); AMYLASE 141 U/L (11-123); ANION GAP 14 (8-16); ASPARTATE AMINO TRANSFERASE 223 IU/L (15-46); BILIRUBIN,INDIRECT 0.7 mg/dl (0-1.1); BILIRUBIN,TOTAL 0.7 mg/dl (0.2-1.3); BLOOD UREA NITROGEN 24 mg/dl (7-20); CALCIUM 8.1 mg/dl (8.4-10.2); CARBON DIOXIDE 23 mmol/L (21-31); CHLORIDE 109 mmol/L (97-110); CREATININE 1.22 mg/dl (0.61-1.24); GLUCOSE 251 mg/dl (70-220); MAGNESIUM 2.4 mg/dl (1.7-2.5); POTASSIUM 4.1 mmol/L (3.5-5.1); SODIUM 142 mmol/L (135-144); TOTAL PROTEIN 6.4 g/dl (6.1-8.1)
[2017-10-10 07:54] LABS: AADO2 Arterial 493.4 mmHg (7.0-24.0); Allen Test ACCEPTAB; Arterial Base Excess -4.1 mmol/L (-3.0-3); Arterial Blood Gas Oxygen Sat 91.6 mmHG (95.0-98.0); Arterial COHb 0.3 % (0.0-3.0); Arterial Fraction of Oxyhgb 91.1 % (93.0-99.0); Arterial HCO3 21.5 mmol/L (22.0-26.0); Arterial MetHb 0.3 % (0.0-1.5); Arterial Total Hemglobin 18.8 g/dl (12.0-18.0); Arterial pCO2 34.2 mmhg (35-45); MODE VENT - AC; Site Right Radial; Temperature 32.7 C
[2017-10-10 07:57] LABS: CHOLESTEROL 146 mg/dl (100-200)
[2017-10-10 07:57] LABS: CHOL/HDL RATIO 3.5 RATIO; HDL CHOLESTEROL 41 mg/dl (30-78); LDL CHOLESTEROL,CALCULATED 66 mg/dl; TRIGLYCERIDES 195 mg/dl (0-149)
[2017-10-10 08:17] LABS: D-DIMER > 10000.00 ng/ml (<460)
[2017-10-10 08:20] LABS: HEMOGLOBIN A1C 5.8 % (0-5.9)
[2017-10-10] MEDS: INSULIN HUMAN REGULAR 100 UNIT in SOD CHLORIDE 0.9% 99 ML IV (08:25)
[2017-10-10] MEDS: ASPIRIN 81 MG TAB NGT (09:57)
[2017-10-10] MEDS: CLOPIDOGREL 75 MG TAB NGT (09:57)
[2017-10-10] MEDS: POTASSIUM PHOSPHATE 20 MEQ in SOD CHLORIDE 0.9% 250 ML IVPB (10:53)
[2017-10-10 11:08] LABS: LIPASE 40 U/L (23-300); PHOSPHORUS 1.6 mg/dl (2.5-4.9)
[2017-10-10 11:08] LABS: CALCIUM 7.9 mg/dl (8.4-10.2)
[2017-10-10 11:10] LABS: INR 1.34; PROTIME 16.8 Sec (11.9-14.9); PT RATIO 1.3
[2017-10-10 11:11] LABS: PARTIAL THROMBOPLASTIN TIME 31.8 Sec (25.0-35.0)
[2017-10-10] MEDS ORDERED: CEFEPIME HCL 1 GM VIAL IV (11:30)
[2017-10-10 12:35] LABS: ALANINE AMINOTRANSFERASE 179 IU/L (13-69); ALBUMIN 3.7 g/dl (3.3-4.9); ALBUMIN/GLOBULIN RATIO 1.37; ALKALINE PHOSPHATASE 101 IU/L (42-121); AMYLASE 154 U/L (11-123); ANION GAP 10 (8-16); ASPARTATE AMINO TRANSFERASE 176 IU/L (15-46); BILIRUBIN,INDIRECT 0.6 mg/dl (0-1.1); BILIRUBIN,TOTAL 0.6 mg/dl (0.2-1.3); BLOOD UREA NITROGEN 25 mg/dl (7-20); CALCIUM 7.8 mg/dl (8.4-10.2); CARBON DIOXIDE 25 mmol/L (21-31); CHLORIDE 110 mmol/L (97-110); CREATININE 1.26 mg/dl (0.61-1.24); GLUCOSE 146 mg/dl (70-220); MAGNESIUM 2.3 mg/dl (1.7-2.5); POTASSIUM 3.3 mmol/L (3.5-5.1); SODIUM 142 mmol/L (135-144); TOTAL PROTEIN 6.4 g/dl (6.1-8.1)
[2017-10-10 12:54] LABS: D-DIMER > 10000.00 ng/ml (<460)
[2017-10-10] MEDS: CEFEPIME 2GM/50 ML IVPB ×2 (13:04→20:14)
[2017-10-10 13:07] LABS: AADO2 Arterial 319.1 mmHg (7.0-24.0); Allen Test ACCEPTAB; Arterial Base Excess -2.8 mmol/L (-3.0-3); Arterial Blood Gas Oxygen Sat 99.6 mmHG (95.0-98.0); Arterial COHb 0.3 % (0.0-3.0); Arterial MetHb 0.3 % (0.0-1.5); Arterial Total Hemglobin 17.9 g/dl (12.0-18.0); Arterial pCO2 33.7 mmhg (35-45); MODE VENT - AC; Site Right Radial; Temperature 33.9 C
[2017-10-10 13:21] LABS: CREATININE,URINE RANDOM 157.79 mg/dl (20-370)
[2017-10-10 13:21] LABS: SODIUM,URINE RANDOM 50 mmol/L (30-90)
[2017-10-10 13:38] LABS: ADD MAN DIFF? NO
[2017-10-10 13:44] LABS: WHITE BLOOD COUNT 16.8 10^3/ul (4.8-10.8)
[2017-10-10 13:44] LABS: BASOPHIL # 0.1 10^3/ul (0.0-0.1); BASOPHILS % 0.3 % (0.0-2.0); EOSINOPHILS % 0.1 % (0.0-7.0); HEMATOCRIT 51.5 % (42.0-52.0); LYMPHOCYTES # 1.2 10^3/ul (0.8-2.9); LYMPHOCYTES % 7.3 % (15.0-51.0); MEAN CORPUSCULAR HEMOGLOBIN 29.9 pg (29.0-33.0); MEAN CORPUSCULAR VOLUME 90.7 fl (82.0-101.0); MEAN PLATELET VOLUME 10.2 fl (7.4-10.4); MONOCYTE # 0.9 10^3/ul (0.3-0.9); MONOCYTES % 5.3 % (0.0-11.0); NEUTROPHIL # 14.4 10^3/ul (1.6-7.5); PLATELET COUNT 164 10^3/UL (140-415); RED BLOOD COUNT 5.68 10^6/ul (4.70-6.10); RED CELL DISTRIBUTION WIDTH 14.4 % (11.5-14.5)
[2017-10-10 17:06] LABS: ADD MAN DIFF? NO
[2017-10-10 17:07] LABS: BASOPHILS % 0.3 % (0.0-2.0); EOSINOPHILS % 0.1 % (0.0-7.0); HEMATOCRIT 50.8 % (42.0-52.0); HEMOGLOBIN 16.7 g/dl (14.0-18.0); LYMPHOCYTES # 1.1 10^3/ul (0.8-2.9); LYMPHOCYTES % 8.2 % (15.0-51.0); MEAN CORPUSCULAR HEMOGLOBIN 29.5 pg (29.0-33.0); MEAN CORPUSCULAR HGB CONC 32.9 g/dl (32.0-37.0); MEAN CORPUSCULAR VOLUME 89.8 fl (82.0-101.0); MEAN PLATELET VOLUME 9.7 fl (7.4-10.4); MONOCYTE # 0.8 10^3/ul (0.3-0.9); MONOCYTES % 6.1 % (0.0-11.0); NEUTROPHIL # 11.5 10^3/ul (1.6-7.5); PLATELET COUNT 117 10^3/UL (140-415); RED BLOOD COUNT 5.66 10^6/ul (4.70-6.10); RED CELL DISTRIBUTION WIDTH 14.4 % (11.5-14.5)
[2017-10-10 17:07] LABS: WHITE BLOOD COUNT 13.6 10^3/ul (4.8-10.8)
[2017-10-10 17:25] LABS: LIPASE 33 U/L (23-300)
[2017-10-10 17:25] LABS: CALCIUM 7.8 mg/dl (8.4-10.2)
[2017-10-10 17:26] LABS: ALANINE AMINOTRANSFERASE 153 IU/L (13-69); ALBUMIN 3.4 g/dl (3.3-4.9); ALKALINE PHOSPHATASE 87 IU/L (42-121); AMYLASE 152 U/L (11-123); ANION GAP 12 (8-16); ASPARTATE AMINO TRANSFERASE 120 IU/L (15-46); BILIRUBIN,INDIRECT 0.6 mg/dl (0-1.1); BILIRUBIN,TOTAL 0.6 mg/dl (0.2-1.3); BLOOD UREA NITROGEN 29 mg/dl (7-20); CALCIUM 7.7 mg/dl (8.4-10.2); CARBON DIOXIDE 25 mmol/L (21-31); CHLORIDE 109 mmol/L (97-110); CREATININE 1.25 mg/dl (0.61-1.24); GLUCOSE 118 mg/dl (70-220); MAGNESIUM 2.2 mg/dl (1.7-2.5); POTASSIUM 4.2 mmol/L (3.5-5.1); SODIUM 142 mmol/L (135-144)
[2017-10-10 17:32] LABS: AADO2 Arterial 334.2 mmHg (7.0-24.0); Allen Test ACCEPTAB; Arterial Base Excess -3.1 mmol/L (-3.0-3); Arterial Blood Gas Oxygen Sat 98.8 mmHG (95.0-98.0); Arterial COHb 0.3 % (0.0-3.0); Arterial Fraction of Oxyhgb 98.2 % (93.0-99.0); Arterial HCO3 21.7 mmol/L (22.0-26.0); Arterial MetHb 0.3 % (0.0-1.5); Arterial Total Hemglobin 18.1 g/dl (12.0-18.0); Arterial pCO2 31.9 mmhg (35-45); MODE VENT - AC; Site Right Radial; Temperature 32.7 C
[2017-10-10 17:49] LABS: INR 1.29; PROTIME 16.3 Sec (11.9-14.9); PT RATIO 1.3
[2017-10-10 18:43] LABS: D-DIMER > 10000.00 ng/ml (<460)
[2017-10-10] MEDS: CILOSTAZOL 100 MG TAB PO (20:15)
[2017-10-10] MEDS: MAGNESIUM OXIDE 400 MG TAB PO (20:15)
[2017-10-10] MEDS: ATORVASTATIN 80 MG TAB NGT (20:15)
[2017-10-10] MEDS: FAMOTIDINE 20 MG TAB PO (20:15)
[2017-10-10 23:19] LABS: AADO2 Arterial 125.6 mmHg (7.0-24.0); Arterial Base Excess -4.2 mmol/L (-3.0-3); Arterial Blood Gas Oxygen Sat 92.6 mmHG (95.0-98.0); Arterial COHb 0 % (0.0-3.0); Arterial Fraction of Oxyhgb 92.3 % (93.0-99.0); Arterial HCO3 20.7 mmol/L (22.0-26.0); Arterial MetHb 0.3 % (0.0-1.5); Arterial Total Hemglobin 18.9 g/dl (12.0-18.0); Arterial pCO2 32.5 mmhg (35-45); MODE VENT - AC; Site Right Brachial; Temperature 33.4 C
[2017-10-10 23:41] LABS: INR 1.21; PROTIME 15.5 Sec (11.9-14.9); PT RATIO 1.2
[2017-10-10 23:42] LABS: PARTIAL THROMBOPLASTIN TIME 30.8 Sec (25.0-35.0)
[2017-10-10 23:49] LABS: CALCIUM 7.9 mg/dl (8.4-10.2)
[2017-10-10 23:49] LABS: LIPASE 19 U/L (23-300); PHOSPHORUS 3.4 mg/dl (2.5-4.9)
[2017-10-11] MEDS: ACETAMINOPHEN 650 MG SUPP PR ×4 (00:08→17:40)
[2017-10-11] MEDS: ACETAMINOPHEN 650MG/20.3ML CUP PO ×4 (00:09→17:40)
[2017-10-11 00:44] LABS: HEMATOCRIT 51.5 % (42.0-52.0); HEMOGLOBIN 17.1 g/dl (14.0-18.0); MEAN CORPUSCULAR HEMOGLOBIN 29.8 pg (29.0-33.0); MEAN CORPUSCULAR HGB CONC 33.2 g/dl (32.0-37.0); MEAN CORPUSCULAR VOLUME 89.7 fl (82.0-101.0); MEAN PLATELET VOLUME 10.2 fl (7.4-10.4); PLATELET COUNT 117 10^3/UL (140-415); POSITIVE DIFF @See below; RED BLOOD COUNT 5.74 10^6/ul (4.70-6.10); RED CELL DISTRIBUTION WIDTH 14.5 % (11.5-14.5)
[2017-10-11 00:44] LABS: WHITE BLOOD COUNT 14.1 10^3/ul (4.8-10.8)
[2017-10-11 00:59] LABS: ADD MAN DIFF? YES
[2017-10-11] MEDS: ACCU-CHEK XX ×23 (01:00→22:55)
[2017-10-11 01:05] LABS: ALANINE AMINOTRANSFERASE 140 IU/L (13-69); ALBUMIN 3.2 g/dl (3.3-4.9); ALBUMIN/GLOBULIN RATIO 1.18; ALKALINE PHOSPHATASE 83 IU/L (42-121); AMYLASE 140 U/L (11-123); ANION GAP 11 (8-16); ASPARTATE AMINO TRANSFERASE 98 IU/L (15-46); BILIRUBIN,INDIRECT 0.7 mg/dl (0-1.1); BILIRUBIN,TOTAL 0.7 mg/dl (0.2-1.3); BLOOD UREA NITROGEN 32 mg/dl (7-20); CALCIUM 7.9 mg/dl (8.4-10.2); CARBON DIOXIDE 24 mmol/L (21-31); CHLORIDE 110 mmol/L (97-110); CREATININE 1.14 mg/dl (0.61-1.24); GLUCOSE 126 mg/dl (70-220); MAGNESIUM 2.3 mg/dl (1.7-2.5); POTASSIUM 4.4 mmol/L (3.5-5.1); SODIUM 141 mmol/L (135-144); TOTAL PROTEIN 5.9 g/dl (6.1-8.1)
[2017-10-11 01:25] LABS: ANISOCYTOSIS 1+ (0-0); BAND NEUTROPHILS #M 4.5 10^3/ul (0.0-0.6); BAND NEUTROPHILS % (M) 32 % (0-4); EOSINOPHILS % (M) 5 % (0-7); GIANT THROMBO% (M) 1 % (0-0); LYMPHOCYTES #M 0.4 10^3/ul (0.8-2.9); LYMPHOCYTES % (M) 3 % (15-51); MONOCYTE #M 0.8 10^3/ul (0.3-0.9); MONOCYTES % (M) 6 % (0-11); PLATELET ESTIMATE DECREASED; POIKILOCYTOSIS 3+ (0-0); SEG NEUT #M 8.2 10^3/ul (1.6-7.5); SEGMENTED NEUTROPHILS (M) % 54 % (39-77); SMUDGE%M 17 % (0-0)
[2017-10-11] MEDS: VECURONIUM 100 MG in DEXTROSE 5% 100 ML IV (01:39)
[2017-10-11] MEDS: SOD CHLORIDE 0.9% 1,000 ML IV ×2 (01:39→13:32)
[2017-10-11 04:02] LABS: D-DIMER > 10000.00 ng/ml (<460)
[2017-10-11 05:11] LABS: AADO2 Arterial 270.7 mmHg (7.0-24.0); Allen Test ACCEPTAB; Arterial Base Excess -5.5 mmol/L (-3.0-3); Arterial Blood Gas Oxygen Sat 94.1 mmHG (95.0-98.0); Arterial COHb 0.5 % (0.0-3.0); Arterial Fraction of Oxyhgb 93.3 % (93.0-99.0); Arterial HCO3 18.6 mmol/L (22.0-26.0); Arterial MetHb 0.3 % (0.0-1.5); Arterial Total Hemglobin 18.2 g/dl (12.0-18.0); Arterial pCO2 28.8 mmhg (35-45); MODE VENT - AC; Site Right Brachial; Temperature 33.6 C
[2017-10-11] MEDS: OCULAR LUBRICANT 3.5 GM OPH OINT BOTH EYES ×3 (05:15→17:40)
[2017-10-11] MEDS: ARTIFICIAL TEARS 15 ML OPH BOTH EYES ×3 (05:15→17:40)
[2017-10-11 05:30] LABS: ADD MAN DIFF? NO
[2017-10-11 05:38] LABS: BASOPHILS % 0.2 % (0.0-2.0); EOSINOPHILS % 0.1 % (0.0-7.0); HEMATOCRIT 50.5 % (42.0-52.0); HEMOGLOBIN 16.8 g/dl (14.0-18.0); LYMPHOCYTES # 0.8 10^3/ul (0.8-2.9); MEAN CORPUSCULAR HEMOGLOBIN 29.8 pg (29.0-33.0); MEAN CORPUSCULAR HGB CONC 33.3 g/dl (32.0-37.0); MEAN CORPUSCULAR VOLUME 89.5 fl (82.0-101.0); MEAN PLATELET VOLUME 9.9 fl (7.4-10.4); MONOCYTE # 0.8 10^3/ul (0.3-0.9); NEUTROPHIL # 15.1 10^3/ul (1.6-7.5); NEUTROPHILS % 89.2 % (39.0-77.0); PLATELET COUNT 130 10^3/UL (140-415); POSITIVE DIFF @See below; RED BLOOD COUNT 5.64 10^6/ul (4.70-6.10); RED CELL DISTRIBUTION WIDTH 14.8 % (11.5-14.5)
[2017-10-11 05:38] LABS: WHITE BLOOD COUNT 16.9 10^3/ul (4.8-10.8)
[2017-10-11 05:54] LABS: ALANINE AMINOTRANSFERASE 131 IU/L (13-69); ALBUMIN 3.1 g/dl (3.3-4.9); ALBUMIN/GLOBULIN RATIO 1.24; ALKALINE PHOSPHATASE 85 IU/L (42-121); AMYLASE 95 U/L (11-123); ANION GAP 15 (8-16); ASPARTATE AMINO TRANSFERASE 90 IU/L (15-46); BILIRUBIN,INDIRECT 0.6 mg/dl (0-1.1); BILIRUBIN,TOTAL 0.6 mg/dl (0.2-1.3); BLOOD UREA NITROGEN 32 mg/dl (7-20); CALCIUM 7.9 mg/dl (8.4-10.2); CARBON DIOXIDE 21 mmol/L (21-31); CHLORIDE 112 mmol/L (97-110); CREATININE 1.06 mg/dl (0.61-1.24); GLUCOSE 118 mg/dl (70-220); INR 1.18; LIPASE 15 U/L (23-300); MAGNESIUM 2.2 mg/dl (1.7-2.5); PHOSPHORUS 3.7 mg/dl (2.5-4.9); POTASSIUM 3.9 mmol/L (3.5-5.1); PROTIME 15.2 Sec (11.9-14.9); PT RATIO 1.2; SODIUM 144 mmol/L (135-144); TOTAL PROTEIN 5.6 g/dl (6.1-8.1)
[2017-10-11 05:54] LABS: CALCIUM 7.8 mg/dl (8.4-10.2)
[2017-10-11 05:55] LABS: PARTIAL THROMBOPLASTIN TIME 32.5 Sec (25.0-35.0)
[2017-10-11 06:06] LABS: TROPONIN-I 0.948 ng/ml (0.000-0.120)
[2017-10-11] MEDS: PROPOFOL 100 ML IV (06:12)
[2017-10-11 06:59] LABS: D-DIMER 9313.59 ng/ml (<460)
[2017-10-11] MEDS: BUMETANIDE 1 MG INJ IV (08:51)
[2017-10-11] MEDS: POTASSIUM CHLORIDE 50 ML IVPB (08:53)
[2017-10-11] MEDS: CEFEPIME 2GM/50 ML IVPB ×2 (08:53→20:11)
[2017-10-11] MEDS: CILOSTAZOL 100 MG TAB PO ×2 (09:12→20:11)
[2017-10-11] MEDS: ASPIRIN 81 MG TAB NGT (09:12)
[2017-10-11] MEDS: MAGNESIUM OXIDE 400 MG TAB PO ×2 (09:12→20:11)
[2017-10-11] MEDS: CLOPIDOGREL 75 MG TAB NGT (09:12)
[2017-10-11 11:56] LABS: INR 1.21; PROTIME 15.5 Sec (11.9-14.9); PT RATIO 1.2
[2017-10-11 11:57] LABS: PARTIAL THROMBOPLASTIN TIME 31.5 Sec (25.0-35.0)
[2017-10-11 12:01] LABS: LIPASE 17 U/L (23-300); PHOSPHORUS 3.6 mg/dl (2.5-4.9)
[2017-10-11 12:01] LABS: CALCIUM 7.7 mg/dl (8.4-10.2)
[2017-10-11 12:02] LABS: AADO2 Arterial 329.2 mmHg (7.0-24.0); Allen Test ACCEPTAB; Arterial Blood Gas Oxygen Sat 98.1 mmHG (95.0-98.0); Arterial COHb 0.4 % (0.0-3.0); Arterial Fraction of Oxyhgb 97.4 % (93.0-99.0); Arterial HCO3 21.2 mmol/L (22.0-26.0); Arterial MetHb 0.3 % (0.0-1.5); Arterial pCO2 36.3 mmhg (35-45); MODE VENT - AC; Site Right Radial
[2017-10-11 12:14] LABS: D-DIMER 5940.12 ng/ml (<460)
[2017-10-11 12:14] LABS: TROPONIN-I 0.852 ng/ml (0.000-0.120)
[2017-10-11 13:38] LABS: ADD MAN DIFF? NO
[2017-10-11 13:41] LABS: WHITE BLOOD COUNT 15.8 10^3/ul (4.8-10.8)
[2017-10-11 13:41] LABS: ABNORMAL IP MESSAGE 1; BASOPHILS % 0.3 % (0.0-2.0); HEMATOCRIT 48.8 % (42.0-52.0); HEMOGLOBIN 16.3 g/dl (14.0-18.0); LYMPHOCYTES # 0.5 10^3/ul (0.8-2.9); LYMPHOCYTES % 3.3 % (15.0-51.0); MEAN CORPUSCULAR HEMOGLOBIN 29.9 pg (29.0-33.0); MEAN CORPUSCULAR HGB CONC 33.4 g/dl (32.0-37.0); MEAN CORPUSCULAR VOLUME 89.4 fl (82.0-101.0); MEAN PLATELET VOLUME 10.2 fl (7.4-10.4); MONOCYTE # 0.7 10^3/ul (0.3-0.9); MONOCYTES % 4.5 % (0.0-11.0); NEUTROPHIL # 14.5 10^3/ul (1.6-7.5); NEUTROPHILS % 91.4 % (39.0-77.0); PLATELET COUNT 115 10^3/UL (140-415); POSITIVE DIFF @See below; RED BLOOD COUNT 5.46 10^6/ul (4.70-6.10); RED CELL DISTRIBUTION WIDTH 14.6 % (11.5-14.5)
[2017-10-11 14:04] LABS: ALANINE AMINOTRANSFERASE 116 IU/L (13-69); ALBUMIN 3.1 g/dl (3.3-4.9); ALBUMIN/GLOBULIN RATIO 1.14; ALKALINE PHOSPHATASE 74 IU/L (42-121); AMYLASE 91 U/L (11-123); ANION GAP 14 (8-16); ASPARTATE AMINO TRANSFERASE 86 IU/L (15-46); BILIRUBIN,INDIRECT 0.5 mg/dl (0-1.1); BILIRUBIN,TOTAL 0.5 mg/dl (0.2-1.3); BLOOD UREA NITROGEN 32 mg/dl (7-20); CALCIUM 7.7 mg/dl (8.4-10.2); CARBON DIOXIDE 23 mmol/L (21-31); CHLORIDE 111 mmol/L (97-110); CREATININE 1.09 mg/dl (0.61-1.24); GLUCOSE 143 mg/dl (70-220); MAGNESIUM 2.2 mg/dl (1.7-2.5); POTASSIUM 3.4 mmol/L (3.5-5.1); SODIUM 145 mmol/L (135-144); TOTAL PROTEIN 5.8 g/dl (6.1-8.1)
[2017-10-11 15:52] LABS: ALANINE AMINOTRANSFERASE 131 IU/L (13-69); ALBUMIN 3.2 g/dl (3.3-4.9); ALBUMIN/GLOBULIN RATIO 1.33; ALKALINE PHOSPHATASE 81 IU/L (42-121); AMYLASE 76 U/L (11-123); ANION GAP 13 (8-16); ASPARTATE AMINO TRANSFERASE 84 IU/L (15-46); BILIRUBIN,INDIRECT 0.5 mg/dl (0-1.1); BILIRUBIN,TOTAL 0.5 mg/dl (0.2-1.3); BLOOD UREA NITROGEN 34 mg/dl (7-20); CALCIUM 7.8 mg/dl (8.4-10.2); CARBON DIOXIDE 23 mmol/L (21-31); CHLORIDE 110 mmol/L (97-110); CREATININE 1.08 mg/dl (0.61-1.24); GLUCOSE 123 mg/dl (70-220); MAGNESIUM 2.2 mg/dl (1.7-2.5); POTASSIUM 3.5 mmol/L (3.5-5.1); SODIUM 142 mmol/L (135-144); TOTAL PROTEIN 5.6 g/dl (6.1-8.1)
[2017-10-11 18:00] LABS: ADD MAN DIFF? NO
[2017-10-11 18:02] LABS: BASOPHILS % 0.1 % (0.0-2.0); HEMATOCRIT 48.4 % (42.0-52.0); HEMOGLOBIN 16.3 g/dl (14.0-18.0); LYMPHOCYTES # 0.8 10^3/ul (0.8-2.9); LYMPHOCYTES % 4.7 % (15.0-51.0); MEAN CORPUSCULAR HEMOGLOBIN 29.7 pg (29.0-33.0); MEAN CORPUSCULAR HGB CONC 33.7 g/dl (32.0-37.0); MEAN CORPUSCULAR VOLUME 88.3 fl (82.0-101.0); MEAN PLATELET VOLUME 10.3 fl (7.4-10.4); MONOCYTE # 1.1 10^3/ul (0.3-0.9); MONOCYTES % 6.3 % (0.0-11.0); NEUTROPHIL # 15.7 10^3/ul (1.6-7.5); NEUTROPHILS % 88.2 % (39.0-77.0); PLATELET COUNT 120 10^3/UL (140-415); POSITIVE DIFF @See below; RED BLOOD COUNT 5.48 10^6/ul (4.70-6.10); RED CELL DISTRIBUTION WIDTH 14.9 % (11.5-14.5)
[2017-10-11 18:02] LABS: WHITE BLOOD COUNT 17.8 10^3/ul (4.8-10.8)
[2017-10-11 18:08] LABS: AADO2 Arterial 304.2 mmHg (7.0-24.0); Allen Test ACCEPTAB; Arterial Base Excess -4.9 mmol/L (-3.0-3); Arterial Blood Gas Oxygen Sat 98.4 mmHG (95.0-98.0); Arterial COHb 0.2 % (0.0-3.0); Arterial Fraction of Oxyhgb 97.9 % (93.0-99.0); Arterial HCO3 19.4 mmol/L (22.0-26.0); Arterial MetHb 0.3 % (0.0-1.5); Arterial Total Hemglobin 17.3 g/dl (12.0-18.0); Arterial pCO2 33.6 mmhg (35-45); MODE VENT - AC; Site Right Radial; Temperature 36.3 C
[2017-10-11 18:20] LABS: LIPASE 18 U/L (23-300); PHOSPHORUS 3.8 mg/dl (2.5-4.9)
[2017-10-11 18:20] LABS: CALCIUM 7.7 mg/dl (8.4-10.2)
[2017-10-11 18:37] LABS: INR 1.28; PARTIAL THROMBOPLASTIN TIME 33.4 Sec (25.0-35.0); PROTIME 16.2 Sec (11.9-14.9); PT RATIO 1.3
[2017-10-11 18:42] LABS: ANISOCYTOSIS 1+ (0-0); BAND NEUTROPHILS #M 7.8 10^3/ul (0.0-0.6); BAND NEUTROPHILS % (M) 44 % (0-4); EOSINOPHILS % (M) 1 % (0-7); LYMPHOCYTES #M 0.1 10^3/ul (0.8-2.9); LYMPHOCYTES % (M) 1 % (15-51); MONOCYTE #M 0.5 10^3/ul (0.3-0.9); MONOCYTES % (M) 3 % (0-11); PLATELET ESTIMATE DECREASED; POIKILOCYTOSIS 3+ (0-0); POLYCHROMASIA 1+ (0-0); SEG NEUT #M 10.5 10^3/ul (1.6-7.5); SEGMENTED NEUTROPHILS (M) % 51 % (39-77); SMUDGE%M 7 % (0-0)
[2017-10-11] MEDS: FAMOTIDINE 20 MG TAB PO (20:11)
[2017-10-11] MEDS: ATORVASTATIN 80 MG TAB NGT (20:11)
[2017-10-11 23:50] LABS: INR 1.27; PROTIME 16.1 Sec (11.9-14.9); PT RATIO 1.3
[2017-10-11 23:51] LABS: PARTIAL THROMBOPLASTIN TIME 30.5 Sec (25.0-35.0)
[2017-10-11 23:55] LABS: CALCIUM 7.8 mg/dl (8.4-10.2)
[2017-10-11 23:55] LABS: LIPASE 25 U/L (23-300); PHOSPHORUS 4.3 mg/dl (2.5-4.9)
[2017-10-12 00:16] LABS: D-DIMER 4792.25 ng/ml (<460)
[2017-10-12] MEDS: ACCU-CHEK XX (00:23)
[2017-10-12] MEDS: ARTIFICIAL TEARS 15 ML OPH BOTH EYES ×4 (00:25→17:47)
[2017-10-12] MEDS: OCULAR LUBRICANT 3.5 GM OPH OINT BOTH EYES ×4 (00:25→17:47)
[2017-10-12] MEDS ORDERED: GLUCOSE GEL 15 GRAM TUBE PO ×2 (01:00)
[2017-10-12] MEDS ORDERED: GLUCOSE GEL 15 GRAM TUBE BUCCAL (01:00)
[2017-10-12] MEDS ORDERED: GLUCAGON 1 MG INJ IM (01:00)
[2017-10-12] MEDS ORDERED: DEXTROSE 50% 50 ML SYRINGE IV ×2 (01:00)
[2017-10-12] MEDS ORDERED: ACCU-CHEK XX (02:00)
[2017-10-12] MEDS: ACETAMINOPHEN 650MG/20.3ML CUP PO (02:59)
[2017-10-12] MEDS: SOD CHLORIDE 0.9% 1,000 ML IV (02:59)
[2017-10-12] MEDS: INSULIN ASPART [NOVOLOG] 3 ML PEN SC (05:00)
[2017-10-12 05:08] LABS: ADD MAN DIFF? NO
[2017-10-12 05:12] LABS: BASOPHILS % 0.2 % (0.0-2.0); HEMATOCRIT 45.1 % (42.0-52.0); HEMOGLOBIN 15.1 g/dl (14.0-18.0); LYMPHOCYTES % 5.3 % (15.0-51.0); MEAN CORPUSCULAR HEMOGLOBIN 30.2 pg (29.0-33.0); MEAN CORPUSCULAR HGB CONC 33.5 g/dl (32.0-37.0); MEAN CORPUSCULAR VOLUME 90.2 fl (82.0-101.0); MEAN PLATELET VOLUME 10.3 fl (7.4-10.4); MONOCYTE # 1.4 10^3/ul (0.3-0.9); MONOCYTES % 7.2 % (0.0-11.0); NEUTROPHILS % 85.9 % (39.0-77.0); PLATELET COUNT 121 10^3/UL (140-415); POSITIVE DIFF @See below; RED CELL DISTRIBUTION WIDTH 15.2 % (11.5-14.5)
[2017-10-12 05:12] LABS: WHITE BLOOD COUNT 18.7 10^3/ul (4.8-10.8)
[2017-10-12 05:44] LABS: ANION GAP 10 (8-16); BLOOD UREA NITROGEN 29 mg/dl (7-20); CALCIUM 7.7 mg/dl (8.4-10.2); CARBON DIOXIDE 27 mmol/L (21-31); CHLORIDE 112 mmol/L (97-110); CREATININE 1.09 mg/dl (0.61-1.24); GLUCOSE 128 mg/dl (70-220); POTASSIUM 3.4 mmol/L (3.5-5.1); SODIUM 146 mmol/L (135-144)
[2017-10-12] MEDS: ASPIRIN 81 MG TAB NGT (09:07)
[2017-10-12] MEDS: CEFEPIME 2GM/50 ML IVPB ×2 (09:07→21:18)
[2017-10-12] MEDS: POTASSIUM CHLORIDE 50 ML IVPB ×2 (09:08→18:22)
[2017-10-12] MEDS: CILOSTAZOL 100 MG TAB PO ×2 (09:08→21:17)
[2017-10-12] MEDS: MAGNESIUM OXIDE 400 MG TAB PO ×2 (09:08→21:17)
[2017-10-12] MEDS: CLOPIDOGREL 75 MG TAB NGT (09:08)
[2017-10-12] MEDS: DEXTROSE 5%-0.45% NACL 1,000 ML IV ×2 (09:10→23:09)
[2017-10-12] MEDS: ATORVASTATIN 80 MG TAB NGT (21:18)
[2017-10-12] MEDS: FAMOTIDINE 20 MG TAB PO (21:18)
[2017-10-12] MEDS: SOD CHLORIDE 0.9% 500 ML IV (23:09)
[2017-10-12] MEDS: POTASSIUM CHLORIDE 20 MEQ POWDER FOR ORAL SOLN NGT (23:10)
[2017-10-13] MEDS: OCULAR LUBRICANT 3.5 GM OPH OINT BOTH EYES ×4 (01:17→17:22)
[2017-10-13] MEDS: ARTIFICIAL TEARS 15 ML OPH BOTH EYES ×4 (01:17→17:22)
[2017-10-13 05:24] LABS: ABNORMAL IP MESSAGE 1; HEMATOCRIT 38.2 % (42.0-52.0); HEMOGLOBIN 12.5 g/dl (14.0-18.0); MEAN CORPUSCULAR HGB CONC 32.7 g/dl (32.0-37.0); MEAN CORPUSCULAR VOLUME 91.8 fl (82.0-101.0); MEAN PLATELET VOLUME 10.5 fl (7.4-10.4); PLATELET COUNT 83 10^3/UL (140-415); POSITIVE DIFF @See below; RED BLOOD COUNT 4.16 10^6/ul (4.70-6.10); RED CELL DISTRIBUTION WIDTH 15.3 % (11.5-14.5)
[2017-10-13 05:24] LABS: WHITE BLOOD COUNT 14.2 10^3/ul (4.8-10.8)
[2017-10-13 05:25] LABS: ADD MAN DIFF? YES
[2017-10-13 05:56] LABS: ANION GAP 7 (8-16); BLOOD UREA NITROGEN 23 mg/dl (7-20); CALCIUM 7.7 mg/dl (8.4-10.2); CARBON DIOXIDE 26 mmol/L (21-31); CHLORIDE 115 mmol/L (97-110); CREATININE 0.86 mg/dl (0.61-1.24); GLUCOSE 120 mg/dl (70-220); MAGNESIUM 2.6 mg/dl (1.7-2.5); SODIUM 144 mmol/L (135-144)
[2017-10-13 07:47] LABS: ANISOCYTOSIS 1+ (0-0); BAND NEUTROPHILS #M 3.9 10^3/ul (0.0-0.6); BAND NEUTROPHILS % (M) 28 % (0-4); LYMPHOCYTES #M 1.2 10^3/ul (0.8-2.9); LYMPHOCYTES % (M) 9 % (15-51); MONOCYTE #M 0.2 10^3/ul (0.3-0.9); MONOCYTES % (M) 2 % (0-11); PLATELET ESTIMATE NORMAL; SEG NEUT #M 9.2 10^3/ul (1.6-7.5); SEGMENTED NEUTROPHILS (M) % 61 % (39-77); SMUDGE%M 5 % (0-0)
[2017-10-13] MEDS: MAGNESIUM OXIDE 400 MG TAB PO ×2 (09:00→20:47)
[2017-10-13] MEDS: FUROSEMIDE 20 MG INJ IV (09:10)
[2017-10-13] MEDS: CLOPIDOGREL 75 MG TAB NGT (09:10)
[2017-10-13] MEDS: ASPIRIN 81 MG TAB NGT (09:10)
[2017-10-13] MEDS: CILOSTAZOL 100 MG TAB PO ×2 (09:11→20:47)
[2017-10-13] MEDS: CEFEPIME 2GM/50 ML IVPB ×2 (09:12→20:51)
[2017-10-13] MEDS: DEXTROSE 5%-0.45% NACL 1,000 ML IV (13:23)
[2017-10-13] MEDS: ATORVASTATIN 80 MG TAB NGT (20:47)
[2017-10-13] MEDS: FAMOTIDINE 20 MG TAB PO (20:47)
[2017-10-14 05:23] LABS: ADD MAN DIFF? NO
[2017-10-14] MEDS: ARTIFICIAL TEARS 15 ML OPH BOTH EYES ×4 (05:29→18:00)
[2017-10-14] MEDS: DEXTROSE 5%-0.45% NACL 1,000 ML IV (05:29)
[2017-10-14] MEDS: OCULAR LUBRICANT 3.5 GM OPH OINT BOTH EYES ×4 (05:29→18:00)
[2017-10-14 05:32] LABS: WHITE BLOOD COUNT 13.1 10^3/ul (4.8-10.8)
[2017-10-14 05:32] LABS: ABNORMAL IP MESSAGE 1; BASOPHILS % 0.3 % (0.0-2.0); EOSINOPHILS # 0.1 10^3/ul (0.0-0.5); EOSINOPHILS % 0.6 % (0.0-7.0); HEMATOCRIT 36.2 % (42.0-52.0); HEMOGLOBIN 11.9 g/dl (14.0-18.0); LYMPHOCYTES # 1.5 10^3/ul (0.8-2.9); LYMPHOCYTES % 11.1 % (15.0-51.0); MEAN CORPUSCULAR HEMOGLOBIN 29.9 pg (29.0-33.0); MEAN CORPUSCULAR HGB CONC 32.9 g/dl (32.0-37.0); MEAN PLATELET VOLUME 11.3 fl (7.4-10.4); MONOCYTE # 1.4 10^3/ul (0.3-0.9); MONOCYTES % 10.3 % (0.0-11.0); NEUTROPHIL # 10.2 10^3/ul (1.6-7.5); NEUTROPHILS % 77.4 % (39.0-77.0); PLATELET COUNT 78 10^3/UL (140-415); POSITIVE DIFF @See below; RED BLOOD COUNT 3.98 10^6/ul (4.70-6.10); RED CELL DISTRIBUTION WIDTH 15.4 % (11.5-14.5)
[2017-10-14 05:58] LABS: ANION GAP 9 (8-16); BLOOD UREA NITROGEN 23 mg/dl (7-20); CALCIUM 8.3 mg/dl (8.4-10.2); CARBON DIOXIDE 27 mmol/L (21-31); CHLORIDE 112 mmol/L (97-110); CREATININE 0.87 mg/dl (0.61-1.24); GLUCOSE 116 mg/dl (70-220); MAGNESIUM 2.4 mg/dl (1.7-2.5); PHOSPHORUS 1.4 mg/dl (2.5-4.9); POTASSIUM 3.5 mmol/L (3.5-5.1); SODIUM 144 mmol/L (135-144)
[2017-10-14] MEDS: POTASSIUM PHOSPHATE 40 MEQ in SOD CHLORIDE 0.9% 250 ML IVPB (07:59)
[2017-10-14] MEDS: PROPOFOL 100 ML IV ×2 (08:34→23:08)
[2017-10-14] MEDS: ASPIRIN 81 MG TAB NGT (08:36)
[2017-10-14] MEDS: MAGNESIUM OXIDE 400 MG TAB PO ×2 (08:37→20:58)
[2017-10-14] MEDS: CLOPIDOGREL 75 MG TAB NGT (08:37)
[2017-10-14] MEDS: LOSARTAN 25 MG TAB GTB (08:37)
[2017-10-14] MEDS: CILOSTAZOL 100 MG TAB PO ×2 (09:46→20:57)
[2017-10-14] MEDS: CEFEPIME 2GM/50 ML IVPB (09:46)
[2017-10-14] MEDS ORDERED: MAGNESIUM SULFATE (GM) 50% 2 ML INJ IM (10:30)
[2017-10-14] MEDS: POTASSIUM PHOSPHATE 20 MEQ in SOD CHLORIDE 0.9% 250 ML IVPB (16:51)
[2017-10-14] MEDS: FAMOTIDINE 20 MG TAB PO (20:57)
[2017-10-14] MEDS: ATORVASTATIN 80 MG TAB NGT (20:57)
[2017-10-15] MEDS: OCULAR LUBRICANT 3.5 GM OPH OINT BOTH EYES ×4 (01:04→18:39)
[2017-10-15] MEDS: ARTIFICIAL TEARS 15 ML OPH BOTH EYES ×4 (01:04→18:39)
[2017-10-15] MEDS: METOPROLOL 25 MG TAB NGT ×2 (01:08→05:51)
[2017-10-15 06:45] LABS: ANION GAP 8 (8-16); BLOOD UREA NITROGEN 21 mg/dl (7-20); CALCIUM 8.6 mg/dl (8.4-10.2); CARBON DIOXIDE 28 mmol/L (21-31); CHLORIDE 112 mmol/L (97-110); CREATININE 0.82 mg/dl (0.61-1.24); GLUCOSE 116 mg/dl (70-220); MAGNESIUM 2.2 mg/dl (1.7-2.5); PHOSPHORUS 2.8 mg/dl (2.5-4.9); POTASSIUM 3.8 mmol/L (3.5-5.1); SODIUM 144 mmol/L (135-144)
[2017-10-15] MEDS: CILOSTAZOL 100 MG TAB PO ×2 (08:43→21:00)
[2017-10-15] MEDS: ASPIRIN 81 MG TAB NGT (08:43)
[2017-10-15] MEDS: CLOPIDOGREL 75 MG TAB NGT (08:43)
[2017-10-15] MEDS: MAGNESIUM OXIDE 400 MG TAB PO ×2 (08:43→21:00)
[2017-10-15] MEDS: FUROSEMIDE 20 MG INJ IV (08:44)
[2017-10-15] MEDS: LOSARTAN 25 MG TAB GTB (08:44)
[2017-10-15 09:16] LABS: ADD MAN DIFF? NO
[2017-10-15 09:18] LABS: ABNORMAL IP MESSAGE 1; BASOPHILS % 0.2 % (0.0-2.0); EOSINOPHILS # 0.2 10^3/ul (0.0-0.5); EOSINOPHILS % 1.3 % (0.0-7.0); HEMATOCRIT 34.9 % (42.0-52.0); HEMOGLOBIN 11.7 g/dl (14.0-18.0); LYMPHOCYTES % 8.3 % (15.0-51.0); MEAN CORPUSCULAR HEMOGLOBIN 30.8 pg (29.0-33.0); MEAN CORPUSCULAR HGB CONC 33.5 g/dl (32.0-37.0); MEAN CORPUSCULAR VOLUME 91.8 fl (82.0-101.0); MEAN PLATELET VOLUME 11.4 fl (7.4-10.4); MONOCYTE # 1.6 10^3/ul (0.3-0.9); MONOCYTES % 12.9 % (0.0-11.0); NEUTROPHIL # 9.2 10^3/ul (1.6-7.5); NEUTROPHILS % 76.6 % (39.0-77.0); PLATELET COUNT 87 10^3/UL (140-415); POSITIVE DIFF @See below; RED CELL DISTRIBUTION WIDTH 15.3 % (11.5-14.5)
[2017-10-15 09:18] LABS: WHITE BLOOD COUNT 12.1 10^3/ul (4.8-10.8)
[2017-10-15] MEDS: METOPROLOL 50 MG TAB NGT ×2 (12:40→18:46)
[2017-10-15] MEDS: PROPOFOL 100 ML IV (18:39)
[2017-10-15] MEDS: FAMOTIDINE 20 MG TAB PO (21:00)
[2017-10-15] MEDS: ATORVASTATIN 80 MG TAB NGT (21:00)
[2017-10-16] MEDS: ARTIFICIAL TEARS 15 ML OPH BOTH EYES ×4 (00:35→18:48)
[2017-10-16] MEDS: METOPROLOL 50 MG TAB NGT ×4 (00:35→18:49)
[2017-10-16] MEDS: OCULAR LUBRICANT 3.5 GM OPH OINT BOTH EYES ×4 (00:35→18:48)
[2017-10-16 05:23] LABS: ADD MAN DIFF? NO
[2017-10-16 05:30] LABS: WHITE BLOOD COUNT 11.2 10^3/ul (4.8-10.8)
[2017-10-16 05:30] LABS: ABNORMAL IP MESSAGE 1; BASOPHILS % 0.4 % (0.0-2.0); EOSINOPHILS # 0.1 10^3/ul (0.0-0.5); EOSINOPHILS % 1.2 % (0.0-7.0); HEMATOCRIT 36.8 % (42.0-52.0); LYMPHOCYTES # 1.2 10^3/ul (0.8-2.9); LYMPHOCYTES % 10.3 % (15.0-51.0); MEAN CORPUSCULAR HEMOGLOBIN 29.7 pg (29.0-33.0); MEAN CORPUSCULAR HGB CONC 32.6 g/dl (32.0-37.0); MEAN CORPUSCULAR VOLUME 91.1 fl (82.0-101.0); MEAN PLATELET VOLUME 11.6 fl (7.4-10.4); MONOCYTE # 1.6 10^3/ul (0.3-0.9); MONOCYTES % 14.5 % (0.0-11.0); NEUTROPHIL # 8.1 10^3/ul (1.6-7.5); NEUTROPHILS % 72.5 % (39.0-77.0); PLATELET COUNT 115 10^3/UL (140-415); POSITIVE DIFF @See below; RED BLOOD COUNT 4.04 10^6/ul (4.70-6.10); RED CELL DISTRIBUTION WIDTH 15.1 % (11.5-14.5)
[2017-10-16 05:50] LABS: ANION GAP 10 (8-16); BLOOD UREA NITROGEN 23 mg/dl (7-20); CALCIUM 8.9 mg/dl (8.4-10.2); CARBON DIOXIDE 28 mmol/L (21-31); CHLORIDE 109 mmol/L (97-110); CREATININE 0.78 mg/dl (0.61-1.24); GLUCOSE 114 mg/dl (70-220); MAGNESIUM 2.2 mg/dl (1.7-2.5); PHOSPHORUS 2.9 mg/dl (2.5-4.9); POTASSIUM 3.8 mmol/L (3.5-5.1); SODIUM 143 mmol/L (135-144)
[2017-10-16] MEDS: ASPIRIN 81 MG TAB NGT (08:48)
[2017-10-16] MEDS: CLOPIDOGREL 75 MG TAB NGT (08:48)
[2017-10-16] MEDS: CILOSTAZOL 100 MG TAB PO ×2 (08:48→20:06)
[2017-10-16] MEDS: MAGNESIUM OXIDE 400 MG TAB PO ×2 (08:48→20:06)
[2017-10-16] MEDS: FUROSEMIDE 20 MG INJ IV (08:51)
[2017-10-16] MEDS: LOSARTAN 25 MG TAB GTB (08:51)
[2017-10-16] MEDS: PROPOFOL 100 ML IV (19:01)
[2017-10-16] MEDS: ATORVASTATIN 80 MG TAB NGT (20:06)
[2017-10-16] MEDS: FAMOTIDINE 20 MG TAB PO (20:06)
[2017-10-17] MEDS: PROPOFOL 100 ML IV ×2 (04:19→17:59)
[2017-10-17] MEDS: ARTIFICIAL TEARS 15 ML OPH BOTH EYES ×4 (05:43→17:57)
[2017-10-17] MEDS: OCULAR LUBRICANT 3.5 GM OPH OINT BOTH EYES ×4 (05:43→17:58)
[2017-10-17] MEDS: METOPROLOL 50 MG TAB NGT ×4 (05:43→17:58)
[2017-10-17 05:46] LABS: ANION GAP 13 (8-16); BLOOD UREA NITROGEN 27 mg/dl (7-20); CALCIUM 9.1 mg/dl (8.4-10.2); CARBON DIOXIDE 29 mmol/L (21-31); CHLORIDE 109 mmol/L (97-110); CREATININE 0.82 mg/dl (0.61-1.24); GLUCOSE 111 mg/dl (70-220); MAGNESIUM 2.3 mg/dl (1.7-2.5); PHOSPHORUS 2.7 mg/dl (2.5-4.9); POTASSIUM 4.2 mmol/L (3.5-5.1); SODIUM 147 mmol/L (135-144)
[2017-10-17] MEDS: FUROSEMIDE 20 MG INJ IV (08:44)
[2017-10-17] MEDS: CLOPIDOGREL 75 MG TAB NGT (08:44)
[2017-10-17] MEDS: MAGNESIUM OXIDE 400 MG TAB PO ×2 (08:44→21:10)
[2017-10-17] MEDS: ASPIRIN 81 MG TAB NGT (08:44)
[2017-10-17] MEDS: LOSARTAN 25 MG TAB GTB (08:44)
[2017-10-17] MEDS: CILOSTAZOL 100 MG TAB PO ×2 (08:44→21:10)
[2017-10-17] MEDS: ATORVASTATIN 80 MG TAB NGT (21:10)
[2017-10-17] MEDS: FAMOTIDINE 20 MG TAB PO (21:10)
[2017-10-18] MEDS: OCULAR LUBRICANT 3.5 GM OPH OINT BOTH EYES ×5 (00:23→23:25)
[2017-10-18] MEDS: ARTIFICIAL TEARS 15 ML OPH BOTH EYES ×5 (00:23→23:25)
[2017-10-18] MEDS: PROPOFOL 100 ML IV (04:25)
[2017-10-18 05:08] LABS: ADD MAN DIFF? NO
[2017-10-18 05:20] LABS: BASOPHILS % 0.3 % (0.0-2.0); EOSINOPHILS # 0.1 10^3/ul (0.0-0.5); EOSINOPHILS % 0.6 % (0.0-7.0); HEMATOCRIT 34.7 % (42.0-52.0); HEMOGLOBIN 11.5 g/dl (14.0-18.0); LYMPHOCYTES # 1.1 10^3/ul (0.8-2.9); LYMPHOCYTES % 7.4 % (15.0-51.0); MEAN CORPUSCULAR HEMOGLOBIN 30.2 pg (29.0-33.0); MEAN CORPUSCULAR HGB CONC 33.1 g/dl (32.0-37.0); MEAN CORPUSCULAR VOLUME 91.1 fl (82.0-101.0); MEAN PLATELET VOLUME 10.7 fl (7.4-10.4); MONOCYTE # 1.3 10^3/ul (0.3-0.9); MONOCYTES % 8.2 % (0.0-11.0); NEUTROPHIL # 12.6 10^3/ul (1.6-7.5); NEUTROPHILS % 82.7 % (39.0-77.0); PLATELET COUNT 189 10^3/UL (140-415); POSITIVE DIFF @See below; RED BLOOD COUNT 3.81 10^6/ul (4.70-6.10); RED CELL DISTRIBUTION WIDTH 15.4 % (11.5-14.5)
[2017-10-18 05:20] LABS: WHITE BLOOD COUNT 15.3 10^3/ul (4.8-10.8)
[2017-10-18] MEDS: METOPROLOL 50 MG TAB NGT ×5 (05:47→23:25)
[2017-10-18 05:52] LABS: ANION GAP 11 (8-16); BLOOD UREA NITROGEN 27 mg/dl (7-20); CALCIUM 9.1 mg/dl (8.4-10.2); CARBON DIOXIDE 34 mmol/L (21-31); CHLORIDE 104 mmol/L (97-110); CREATININE 0.83 mg/dl (0.61-1.24); GLUCOSE 130 mg/dl (70-220); MAGNESIUM 2.3 mg/dl (1.7-2.5); POTASSIUM 3.8 mmol/L (3.5-5.1); SODIUM 145 mmol/L (135-144)
[2017-10-18] MEDS: ASPIRIN 81 MG TAB NGT (08:22)
[2017-10-18] MEDS: FUROSEMIDE 20 MG INJ IV (08:23)
[2017-10-18] MEDS: CILOSTAZOL 100 MG TAB PO ×2 (08:23→21:24)
[2017-10-18] MEDS: CLOPIDOGREL 75 MG TAB NGT (08:23)
[2017-10-18] MEDS: LOSARTAN 25 MG TAB GTB (08:23)
[2017-10-18] MEDS: MAGNESIUM OXIDE 400 MG TAB PO ×2 (08:23→21:24)
[2017-10-18] MEDS: ACETAMINOPHEN 650MG/20.3ML CUP PO ×2 (08:33→16:35)
[2017-10-18 09:47] LABS: ANISOCYTOSIS 1+ (0-0); BAND NEUTROPHILS #M 1.9 10^3/ul (0.0-0.6); BAND NEUTROPHILS % (M) 13 % (0-4); LYMPHOCYTES #M 1.2 10^3/ul (0.8-2.9); LYMPHOCYTES % (M) 8 % (15-51); MONOCYTE #M 0.6 10^3/ul (0.3-0.9); MONOCYTES % (M) 4 % (0-11); PLATELET ESTIMATE NORMAL; POIKILOCYTOSIS 2+ (0-0); REACTIVE LYMPHOCYTES #M 0.3 10^3/ul (0.0-0.0); REACTIVE LYMPHOCYTES% (M) 2 % (0-0); SEG NEUT #M 11.5 10^3/ul (1.6-7.5); SEGMENTED NEUTROPHILS (M) % 73 % (39-77); SMUDGE%M 5 % (0-0)
[2017-10-18] MEDS ORDERED: NITROGLYCERIN 50 MG/D5W (PMX) 250 ML IV (10:30)
[2017-10-18] MEDS: LORAZEPAM 2 MG INJ IV ×4 (12:17→21:25)
[2017-10-18] MEDS: FAMOTIDINE 20 MG TAB PO (21:25)
[2017-10-18] MEDS: ATORVASTATIN 80 MG TAB NGT (21:25)
[2017-10-19] MEDS: ACETAMINOPHEN 650MG/20.3ML CUP PO ×3 (00:37→11:51)
[2017-10-19 05:36] LABS: ANION GAP 10 (8-16); BLOOD UREA NITROGEN 39 mg/dl (7-20); CALCIUM 9.3 mg/dl (8.4-10.2); CARBON DIOXIDE 37 mmol/L (21-31); CHLORIDE 102 mmol/L (97-110); CREATININE 0.95 mg/dl (0.61-1.24); GLUCOSE 147 mg/dl (70-220); MAGNESIUM 2.9 mg/dl (1.7-2.5); PHOSPHORUS 4.1 mg/dl (2.5-4.9); POTASSIUM 4.2 mmol/L (3.5-5.1); SODIUM 145 mmol/L (135-144)
[2017-10-19] MEDS: METOPROLOL 50 MG TAB NGT ×4 (05:50→23:19)
[2017-10-19] MEDS: OCULAR LUBRICANT 3.5 GM OPH OINT BOTH EYES ×4 (05:53→23:17)
[2017-10-19] MEDS: ARTIFICIAL TEARS 15 ML OPH BOTH EYES ×4 (05:53→23:17)
[2017-10-19] MEDS: CLOPIDOGREL 75 MG TAB NGT (09:00)
[2017-10-19] MEDS: MAGNESIUM OXIDE 400 MG TAB PO ×2 (09:00→21:09)
[2017-10-19] MEDS: CILOSTAZOL 100 MG TAB PO ×2 (09:00→21:09)
[2017-10-19] MEDS: LOSARTAN 25 MG TAB GTB (09:00)
[2017-10-19] MEDS: FUROSEMIDE 20 MG INJ IV (09:00)
[2017-10-19] MEDS: ASPIRIN 81 MG TAB NGT (09:00)
[2017-10-19] MEDS: LORAZEPAM 2 MG INJ IV (09:09)
[2017-10-19] MEDS: AZTREONAM 1 GM/NS (PMX) 50 ML IVPB ×2 (12:23→21:09)
[2017-10-19] MEDS: FAMOTIDINE 20 MG TAB PO (21:09)
[2017-10-19] MEDS: ATORVASTATIN 80 MG TAB NGT (21:09)
[2017-10-19 22:58] LABS: ADD MAN DIFF? NO
[2017-10-19 23:00] LABS: BASOPHIL # 0.1 10^3/ul (0.0-0.1); BASOPHILS % 0.3 % (0.0-2.0); EOSINOPHILS # 0.2 10^3/ul (0.0-0.5); EOSINOPHILS % 1.3 % (0.0-7.0); HEMATOCRIT 36.4 % (42.0-52.0); HEMOGLOBIN 11.5 g/dl (14.0-18.0); LYMPHOCYTES # 0.6 10^3/ul (0.8-2.9); LYMPHOCYTES % 4.1 % (15.0-51.0); MEAN CORPUSCULAR HEMOGLOBIN 29.3 pg (29.0-33.0); MEAN CORPUSCULAR HGB CONC 31.6 g/dl (32.0-37.0); MEAN CORPUSCULAR VOLUME 92.6 fl (82.0-101.0); MONOCYTE # 1.4 10^3/ul (0.3-0.9); MONOCYTES % 9.3 % (0.0-11.0); NEUTROPHIL # 13.1 10^3/ul (1.6-7.5); NEUTROPHILS % 84.2 % (39.0-77.0); RED BLOOD COUNT 3.93 10^6/ul (4.70-6.10); RED CELL DISTRIBUTION WIDTH 15.7 % (11.5-14.5)
[2017-10-19 23:00] LABS: WHITE BLOOD COUNT 15.5 10^3/ul (4.8-10.8)
[2017-10-19 23:13] LABS: PLATELET COUNT 257 10^3/UL (140-415)
[2017-10-19 23:23] LABS: ANION GAP 8 (8-16); BLOOD UREA NITROGEN 37 mg/dl (7-20); CALCIUM 9.3 mg/dl (8.4-10.2); CARBON DIOXIDE 37 mmol/L (21-31); CHLORIDE 98 mmol/L (97-110); CREATININE 0.91 mg/dl (0.61-1.24); GLUCOSE 131 mg/dl (70-220); MAGNESIUM 2.6 mg/dl (1.7-2.5); PHOSPHORUS 3.1 mg/dl (2.5-4.9); POTASSIUM 4.2 mmol/L (3.5-5.1); SODIUM 139 mmol/L (135-144)
[2017-10-20] MEDS: ALBUTEROL HFA 8 GM INHALER INH (02:49)
[2017-10-20] MEDS: IPRATROPIUM (HFA) 12.9 GM INHALER INH (02:49)
[2017-10-20] MEDS: ACETAMINOPHEN 650MG/20.3ML CUP PO ×3 (04:19→21:25)
[2017-10-20 05:16] LABS: ADD MAN DIFF? NO
[2017-10-20 05:25] LABS: BASOPHILS % 0.2 % (0.0-2.0); EOSINOPHILS # 0.2 10^3/ul (0.0-0.5); HEMATOCRIT 32.7 % (42.0-52.0); HEMOGLOBIN 10.5 g/dl (14.0-18.0); LYMPHOCYTES # 0.6 10^3/ul (0.8-2.9); LYMPHOCYTES % 3.9 % (15.0-51.0); MEAN CORPUSCULAR HEMOGLOBIN 29.5 pg (29.0-33.0); MEAN CORPUSCULAR HGB CONC 32.1 g/dl (32.0-37.0); MEAN CORPUSCULAR VOLUME 91.9 fl (82.0-101.0); MEAN PLATELET VOLUME 10.5 fl (7.4-10.4); MONOCYTE # 1.3 10^3/ul (0.3-0.9); MONOCYTES % 8.3 % (0.0-11.0); NEUTROPHIL # 13.7 10^3/ul (1.6-7.5); NEUTROPHILS % 85.8 % (39.0-77.0); PLATELET COUNT 268 10^3/UL (140-415); RED BLOOD COUNT 3.56 10^6/ul (4.70-6.10); RED CELL DISTRIBUTION WIDTH 15.8 % (11.5-14.5)
[2017-10-20] MEDS: ARTIFICIAL TEARS 15 ML OPH BOTH EYES ×3 (05:42→18:05)
[2017-10-20] MEDS: METOPROLOL 50 MG TAB NGT ×3 (05:42→17:39)
[2017-10-20] MEDS: OCULAR LUBRICANT 3.5 GM OPH OINT BOTH EYES ×3 (05:42→18:05)
[2017-10-20 06:05] LABS: ANION GAP 9 (8-16); BLOOD UREA NITROGEN 35 mg/dl (7-20); CALCIUM 9.1 mg/dl (8.4-10.2); CARBON DIOXIDE 36 mmol/L (21-31); CHLORIDE 99 mmol/L (97-110); CREATININE 0.92 mg/dl (0.61-1.24); GLUCOSE 133 mg/dl (70-220); MAGNESIUM 2.4 mg/dl (1.7-2.5); PHOSPHORUS 2.9 mg/dl (2.5-4.9); POTASSIUM 4.1 mmol/L (3.5-5.1); SODIUM 140 mmol/L (135-144)
[2017-10-20 08:50] LABS: AADO2 Arterial 297.5 mmHg (7.0-24.0); Allen Test ACCEPTAB; Arterial Base Excess 6.5 mmol/L (-3.0-3); Arterial Blood Gas Oxygen Sat 90.7 mmHG (95.0-98.0); Arterial COHb 0.3 % (0.0-3.0); Arterial Fraction of Oxyhgb 90.2 % (93.0-99.0); Arterial HCO3 33.6 mmol/L (22.0-26.0); Arterial MetHb 0.3 % (0.0-1.5); Arterial Total Hemglobin 10.8 g/dl (12.0-18.0); Arterial pCO2 62.3 mmhg (35-45); MODE VENT - AC; Site Right Brachial
[2017-10-20] MEDS: CILOSTAZOL 100 MG TAB PO ×2 (08:55→21:23)
[2017-10-20] MEDS: MAGNESIUM OXIDE 400 MG TAB PO ×2 (08:55→21:23)
[2017-10-20] MEDS: LOSARTAN 25 MG TAB GTB (08:55)
[2017-10-20] MEDS: LORAZEPAM 2 MG INJ IV (08:55)
[2017-10-20] MEDS: ASPIRIN 81 MG TAB NGT (08:55)
[2017-10-20] MEDS: CLOPIDOGREL 75 MG TAB NGT (08:55)
[2017-10-20] MEDS: AZTREONAM 1 GM/NS (PMX) 50 ML IVPB ×2 (08:58→21:23)
[2017-10-20] MEDS ORDERED: VANCOMYCIN IV PER PHARMACY XX (10:30)
[2017-10-20] MEDS: SOD CHLORIDE 0.9% 1,000 ML IV (12:44)
[2017-10-20] MEDS: VANCOMYCIN 1.75 GM in SOD CHLORIDE 0.9% 500 ML IVPB (13:01)
[2017-10-20] MEDS ORDERED: SPECIAL NON-STANDARD MEDICATION NGT (15:30)
[2017-10-20] MEDS: SPECIAL NON-STANDARD MEDICATION NGT (15:48)
[2017-10-20 19:10] LABS: ADD UMIC YES; UR ASCORBIC ACID NEGATIVE (NEGATIVE); UR BACTERIA FEW /HPF (NONE SEEN); UR BILIRUBIN (Dip) NEGATIVE (NEGATIVE); UR BLOOD (Dip) NEGATIVE (NEGATIVE); UR CLARITY SLIGHTLY CLOUDY (CLEAR); UR COLOR AMBER (YELLOW); UR GLUCOSE (Dip) NEGATIVE (NEGATIVE); UR GRANULAR CAST FEW /HPF (NONE SEEN); UR KETONES (Dip) NEGATIVE (NEGATIVE); UR LEUKOCYTE ESTERASE (Dip) NEGATIVE Leu/ul (NEGATIVE); UR MUCUS FEW /HPF (NONE SEEN); UR NITRITE (Dip) NEGATIVE (NEGATIVE); UR RBC 2 /HPF (0-5); UR SPECIFIC GRAVITY (Dip) 1.027 (1.003-1.030); UR SQUAMOUS EPITHELIAL CELL FEW /HPF (FEW); UR TOTAL PROTEIN (Dip) 1+ mg/dl (NEGATIVE); UR UROBILINOGEN (Dip) 1+ mg/dL (NEGATIVE); UR WBC 2 /HPF (0-5)
[2017-10-20] MEDS: FAMOTIDINE 20 MG TAB PO (21:23)
[2017-10-20] MEDS: ATORVASTATIN 80 MG TAB NGT (21:23)
[2017-10-21] MEDS: ARTIFICIAL TEARS 15 ML OPH BOTH EYES ×5 (00:55→23:48)
[2017-10-21] MEDS: VANCOMYCIN 1 GM 250 ML IVPB ×2 (00:55→13:59)
[2017-10-21] MEDS: OCULAR LUBRICANT 3.5 GM OPH OINT BOTH EYES ×5 (00:55→23:48)
[2017-10-21] MEDS ORDERED: VANCOMYCIN 1.25 GM in SOD CHLORIDE 0.9% 250 ML IVPB (01:00)
[2017-10-21] MEDS: DOCUSATE SODIUM 10 MG/ML (10ML CUP) NGT ×3 (01:40→21:23)
[2017-10-21] MEDS: ACETAMINOPHEN 650MG/20.3ML CUP PO ×2 (02:17→06:05)
[2017-10-21 04:49] LABS: ADD MAN DIFF? NO
[2017-10-21 04:51] LABS: WHITE BLOOD COUNT 13.7 10^3/ul (4.8-10.8)
[2017-10-21 04:51] LABS: ABNORMAL IP MESSAGE 1; BASOPHILS % 0.2 % (0.0-2.0); EOSINOPHILS # 0.1 10^3/ul (0.0-0.5); HEMATOCRIT 30.1 % (42.0-52.0); HEMOGLOBIN 9.6 g/dl (14.0-18.0); MEAN CORPUSCULAR HEMOGLOBIN 29.9 pg (29.0-33.0); MEAN CORPUSCULAR HGB CONC 31.9 g/dl (32.0-37.0); MEAN CORPUSCULAR VOLUME 93.8 fl (82.0-101.0); MEAN PLATELET VOLUME 10.2 fl (7.4-10.4); MONOCYTE # 1.7 10^3/ul (0.3-0.9); MONOCYTES % 12.5 % (0.0-11.0); NEUTROPHIL # 10.6 10^3/ul (1.6-7.5); NEUTROPHILS % 77.8 % (39.0-77.0); PLATELET COUNT 285 10^3/UL (140-415); POSITIVE DIFF @See below; RED BLOOD COUNT 3.21 10^6/ul (4.70-6.10); RED CELL DISTRIBUTION WIDTH 15.9 % (11.5-14.5)
[2017-10-21 05:15] LABS: ANION GAP 9 (8-16); BLOOD UREA NITROGEN 33 mg/dl (7-20); CALCIUM 8.7 mg/dl (8.4-10.2); CARBON DIOXIDE 35 mmol/L (21-31); CHLORIDE 102 mmol/L (97-110); CREATININE 0.94 mg/dl (0.61-1.24); GLUCOSE 135 mg/dl (70-220); MAGNESIUM 2.3 mg/dl (1.7-2.5); PHOSPHORUS 3.2 mg/dl (2.5-4.9); POTASSIUM 4.5 mmol/L (3.5-5.1); SODIUM 141 mmol/L (135-144)
[2017-10-21] MEDS: METOPROLOL 50 MG TAB NGT ×5 (06:02→23:47)
[2017-10-21] MEDS: LOSARTAN 25 MG TAB GTB (09:00)
[2017-10-21] MEDS: CLOPIDOGREL 75 MG TAB NGT (09:20)
[2017-10-21] MEDS: MAGNESIUM OXIDE 400 MG TAB PO ×2 (09:21→21:23)
[2017-10-21] MEDS: ASPIRIN 81 MG TAB NGT (09:21)
[2017-10-21] MEDS: POLYETHYLENE GLYCOL 17 GM PACKET NGT (09:21)
[2017-10-21] MEDS: CILOSTAZOL 100 MG TAB PO ×2 (09:21→21:23)
[2017-10-21] MEDS: SPECIAL NON-STANDARD MEDICATION NGT (09:22)
[2017-10-21] MEDS: AZTREONAM 1 GM/NS (PMX) 50 ML IVPB ×2 (09:31→21:23)
[2017-10-21] MEDS: ATORVASTATIN 80 MG TAB NGT (21:23)
[2017-10-21] MEDS: FAMOTIDINE 20 MG TAB PO (21:23)
[2017-10-22 00:59] LABS: VANCOMYCIN,TROUGH 10.7 ug/ml (10.0-20.0)
[2017-10-22] MEDS: VANCOMYCIN 1 GM 250 ML IVPB ×2 (01:14→12:36)
[2017-10-22 04:08] LABS: ABNORMAL IP MESSAGE 1; HEMATOCRIT 26.5 % (42.0-52.0); HEMOGLOBIN 8.5 g/dl (14.0-18.0); MEAN CORPUSCULAR HGB CONC 32.1 g/dl (32.0-37.0); MEAN CORPUSCULAR VOLUME 93.6 fl (82.0-101.0); MEAN PLATELET VOLUME 10.2 fl (7.4-10.4); PLATELET COUNT 389 10^3/UL (140-415); POSITIVE DIFF @See below; RED BLOOD COUNT 2.83 10^6/ul (4.70-6.10); RED CELL DISTRIBUTION WIDTH 15.4 % (11.5-14.5)
[2017-10-22 04:10] LABS: ADD MAN DIFF? YES
[2017-10-22 04:15] LABS: ANION GAP 10 (8-16); BLOOD UREA NITROGEN 33 mg/dl (7-20); CALCIUM 8.6 mg/dl (8.4-10.2); CARBON DIOXIDE 33 mmol/L (21-31); CHLORIDE 101 mmol/L (97-110); GLUCOSE 131 mg/dl (70-220); MAGNESIUM 2.3 mg/dl (1.7-2.5); PHOSPHORUS 2.8 mg/dl (2.5-4.9); POTASSIUM 4.6 mmol/L (3.5-5.1); SODIUM 139 mmol/L (135-144)
[2017-10-22 04:33] LABS: BAND NEUTROPHILS #M 0.9 10^3/ul (0.0-0.6); BAND NEUTROPHILS % (M) 7 % (0-4); LYMPHOCYTES #M 0.4 10^3/ul (0.8-2.9); LYMPHOCYTES % (M) 3 % (15-51); METAMYELOCYTES #M 0.5 10^3/ul (0.0-0.0); METAMYELOCYTES %M 4 % (0-0); MONOCYTE #M 0.8 10^3/ul (0.3-0.9); MONOCYTES % (M) 6 % (0-11); MYELOCYTES #M 0.4 10^3/ul (0.0-0.0); MYELOCYTES % (M) 3 % (0-0); PLATELET ESTIMATE NORMAL; POLYCHROMASIA 3+ (0-0); REACTIVE LYMPHOCYTES #M 0.1 10^3/ul (0.0-0.0); REACTIVE LYMPHOCYTES% (M) 1 % (0-0); SEG NEUT #M 10.8 10^3/ul (1.6-7.5); SEGMENTED NEUTROPHILS (M) % 76 % (39-77); SMUDGE%M 3 % (0-0)
[2017-10-22] MEDS: METOPROLOL 50 MG TAB NGT ×4 (05:03→23:29)
[2017-10-22] MEDS: ARTIFICIAL TEARS 15 ML OPH BOTH EYES ×4 (05:16→23:28)
[2017-10-22] MEDS: OCULAR LUBRICANT 3.5 GM OPH OINT BOTH EYES ×4 (05:16→23:28)
[2017-10-22] MEDS: SOD CHLORIDE 0.9% 1,000 ML IV ×2 (05:16→17:03)
[2017-10-22] MEDS: PANTOPRAZOLE 40 MG INJ IV ×2 (05:16→17:03)
[2017-10-22 07:55] LABS: ADD MAN DIFF? NO
[2017-10-22 08:00] LABS: WHITE BLOOD COUNT 15.1 10^3/ul (4.8-10.8)
[2017-10-22 08:00] LABS: ABNORMAL IP MESSAGE 1; BASOPHIL # 0.1 10^3/ul (0.0-0.1); BASOPHILS % 0.3 % (0.0-2.0); EOSINOPHILS # 0.1 10^3/ul (0.0-0.5); EOSINOPHILS % 0.3 % (0.0-7.0); HEMATOCRIT 25.7 % (42.0-52.0); HEMOGLOBIN 8.2 g/dl (14.0-18.0); LYMPHOCYTES # 1.1 10^3/ul (0.8-2.9); LYMPHOCYTES % 7.4 % (15.0-51.0); MEAN CORPUSCULAR HEMOGLOBIN 29.7 pg (29.0-33.0); MEAN CORPUSCULAR HGB CONC 31.9 g/dl (32.0-37.0); MEAN CORPUSCULAR VOLUME 93.1 fl (82.0-101.0); MEAN PLATELET VOLUME 10.2 fl (7.4-10.4); MONOCYTE # 2.1 10^3/ul (0.3-0.9); MONOCYTES % 13.8 % (0.0-11.0); NEUTROPHIL # 11.6 10^3/ul (1.6-7.5); NEUTROPHILS % 76.6 % (39.0-77.0); PLATELET COUNT 372 10^3/UL (140-415); POSITIVE DIFF @See below; RED BLOOD COUNT 2.76 10^6/ul (4.70-6.10); RED CELL DISTRIBUTION WIDTH 15.9 % (11.5-14.5)
[2017-10-22] MEDS: CILOSTAZOL 100 MG TAB PO ×2 (08:16→21:06)
[2017-10-22] MEDS: AZTREONAM 1 GM/NS (PMX) 50 ML IVPB ×2 (08:19→21:06)
[2017-10-22] MEDS: MAGNESIUM OXIDE 400 MG TAB PO ×2 (08:19→21:06)
[2017-10-22] MEDS: SPECIAL NON-STANDARD MEDICATION NGT (08:19)
[2017-10-22] MEDS: ASPIRIN 81 MG TAB NGT (08:19)
[2017-10-22] MEDS: LOSARTAN 25 MG TAB GTB (08:20)
[2017-10-22] MEDS: CLOPIDOGREL 75 MG TAB NGT (08:21)
[2017-10-22] MEDS: ACETAMINOPHEN 650MG/20.3ML CUP PO ×2 (08:29→17:02)
[2017-10-22 12:17] LABS: ADD MAN DIFF? NO
[2017-10-22 12:20] LABS: ABNORMAL IP MESSAGE 1; BASOPHIL # 0.1 10^3/ul (0.0-0.1); BASOPHILS % 0.3 % (0.0-2.0); EOSINOPHILS # 0.1 10^3/ul (0.0-0.5); EOSINOPHILS % 0.3 % (0.0-7.0); HEMATOCRIT 25.3 % (42.0-52.0); HEMOGLOBIN 8.1 g/dl (14.0-18.0); LYMPHOCYTES # 1.5 10^3/ul (0.8-2.9); LYMPHOCYTES % 9.6 % (15.0-51.0); MEAN CORPUSCULAR VOLUME 93.7 fl (82.0-101.0); MEAN PLATELET VOLUME 10.1 fl (7.4-10.4); MONOCYTES % 13.1 % (0.0-11.0); NEUTROPHIL # 11.5 10^3/ul (1.6-7.5); NEUTROPHILS % 74.3 % (39.0-77.0); PLATELET COUNT 372 10^3/UL (140-415); POSITIVE DIFF @See below; RED CELL DISTRIBUTION WIDTH 15.6 % (11.5-14.5)
[2017-10-22 12:20] LABS: WHITE BLOOD COUNT 15.5 10^3/ul (4.8-10.8)
[2017-10-22 19:04] LABS: ADD MAN DIFF? NO
[2017-10-22 19:07] LABS: WHITE BLOOD COUNT 13.4 10^3/ul (4.8-10.8)
[2017-10-22 19:07] LABS: ABNORMAL IP MESSAGE 1; BASOPHIL # 0.1 10^3/ul (0.0-0.1); BASOPHILS % 0.4 % (0.0-2.0); EOSINOPHILS % 0.3 % (0.0-7.0); HEMATOCRIT 23.3 % (42.0-52.0); HEMOGLOBIN 7.4 g/dl (14.0-18.0); LYMPHOCYTES # 1.2 10^3/ul (0.8-2.9); LYMPHOCYTES % 9.3 % (15.0-51.0); MEAN CORPUSCULAR HEMOGLOBIN 29.4 pg (29.0-33.0); MEAN CORPUSCULAR HGB CONC 31.8 g/dl (32.0-37.0); MEAN CORPUSCULAR VOLUME 92.5 fl (82.0-101.0); MEAN PLATELET VOLUME 10.3 fl (7.4-10.4); MONOCYTE # 1.5 10^3/ul (0.3-0.9); MONOCYTES % 11.5 % (0.0-11.0); NEUTROPHIL # 10.2 10^3/ul (1.6-7.5); NEUTROPHILS % 75.9 % (39.0-77.0); PLATELET COUNT 374 10^3/UL (140-415); POSITIVE DIFF @See below; RED BLOOD COUNT 2.52 10^6/ul (4.70-6.10); RED CELL DISTRIBUTION WIDTH 15.7 % (11.5-14.5)
[2017-10-22] MEDS: ATORVASTATIN 80 MG TAB NGT (21:06)
[2017-10-22] MEDS: VANCOMYCIN 1.25 GM in SOD CHLORIDE 0.9% 250 ML IVPB (23:29)
[2017-10-23 00:41] LABS: ADD MAN DIFF? NO
[2017-10-23 00:42] LABS: ABNORMAL IP MESSAGE 1; BASOPHIL # 0.1 10^3/ul (0.0-0.1); BASOPHILS % 0.4 % (0.0-2.0); EOSINOPHILS # 0.1 10^3/ul (0.0-0.5); EOSINOPHILS % 0.4 % (0.0-7.0); HEMATOCRIT 22.7 % (42.0-52.0); HEMOGLOBIN 7.4 g/dl (14.0-18.0); LYMPHOCYTES # 1.4 10^3/ul (0.8-2.9); LYMPHOCYTES % 8.6 % (15.0-51.0); MEAN CORPUSCULAR HEMOGLOBIN 30.2 pg (29.0-33.0); MEAN CORPUSCULAR HGB CONC 32.6 g/dl (32.0-37.0); MEAN CORPUSCULAR VOLUME 92.7 fl (82.0-101.0); MEAN PLATELET VOLUME 10.1 fl (7.4-10.4); MONOCYTE # 1.9 10^3/ul (0.3-0.9); MONOCYTES % 11.7 % (0.0-11.0); NEUTROPHIL # 12.4 10^3/ul (1.6-7.5); PLATELET COUNT 393 10^3/UL (140-415); POSITIVE DIFF @See below; RED BLOOD COUNT 2.45 10^6/ul (4.70-6.10); RED CELL DISTRIBUTION WIDTH 15.5 % (11.5-14.5)
[2017-10-23 00:42] LABS: WHITE BLOOD COUNT 16.5 10^3/ul (4.8-10.8)
[2017-10-23] MEDS: SOD CHLORIDE 0.9% 1,000 ML IV ×2 (05:18→17:00)
[2017-10-23] MEDS: METOPROLOL 50 MG TAB NGT ×4 (05:19→23:14)
[2017-10-23] MEDS: OCULAR LUBRICANT 3.5 GM OPH OINT BOTH EYES ×4 (05:19→23:14)
[2017-10-23] MEDS: ARTIFICIAL TEARS 15 ML OPH BOTH EYES ×4 (05:19→23:14)
[2017-10-23] MEDS: PANTOPRAZOLE 40 MG INJ IV ×2 (05:22→17:00)
[2017-10-23 06:01] LABS: ADD MAN DIFF? NO
[2017-10-23 06:06] LABS: WHITE BLOOD COUNT 16.4 10^3/ul (4.8-10.8)
[2017-10-23 06:06] LABS: ABNORMAL IP MESSAGE 1; BASOPHIL # 0.1 10^3/ul (0.0-0.1); BASOPHILS % 0.4 % (0.0-2.0); EOSINOPHILS # 0.1 10^3/ul (0.0-0.5); EOSINOPHILS % 0.5 % (0.0-7.0); HEMATOCRIT 21.7 % (42.0-52.0); LYMPHOCYTES # 1.5 10^3/ul (0.8-2.9); LYMPHOCYTES % 9.1 % (15.0-51.0); MEAN CORPUSCULAR HGB CONC 32.3 g/dl (32.0-37.0); MEAN CORPUSCULAR VOLUME 93.1 fl (82.0-101.0); MEAN PLATELET VOLUME 10.1 fl (7.4-10.4); MONOCYTE # 1.7 10^3/ul (0.3-0.9); MONOCYTES % 10.1 % (0.0-11.0); NEUTROPHIL # 12.3 10^3/ul (1.6-7.5); NEUTROPHILS % 75.1 % (39.0-77.0); PLATELET COUNT 402 10^3/UL (140-415); POSITIVE DIFF @See below; RED BLOOD COUNT 2.33 10^6/ul (4.70-6.10); RED CELL DISTRIBUTION WIDTH 15.7 % (11.5-14.5)
[2017-10-23 06:56] LABS: ANION GAP 6 (8-16); BLOOD UREA NITROGEN 29 mg/dl (7-20); CALCIUM 8.1 mg/dl (8.4-10.2); CARBON DIOXIDE 33 mmol/L (21-31); CHLORIDE 105 mmol/L (97-110); CREATININE 0.77 mg/dl (0.61-1.24); GLUCOSE 122 mg/dl (70-220); MAGNESIUM 2.5 mg/dl (1.7-2.5); PHOSPHORUS 2.5 mg/dl (2.5-4.9); POTASSIUM 4.3 mmol/L (3.5-5.1); SODIUM 140 mmol/L (135-144)
[2017-10-23] MEDS: LOSARTAN 25 MG TAB GTB (08:43)
[2017-10-23] MEDS: CILOSTAZOL 100 MG TAB PO ×2 (08:48→21:02)
[2017-10-23] MEDS: AZTREONAM 1 GM/NS (PMX) 50 ML IVPB ×2 (08:48→21:01)
[2017-10-23] MEDS: MAGNESIUM OXIDE 400 MG TAB PO ×2 (08:48→21:01)
[2017-10-23] MEDS: SPECIAL NON-STANDARD MEDICATION NGT (08:48)
[2017-10-23] MEDS: VANCOMYCIN 1.25 GM in SOD CHLORIDE 0.9% 250 ML IVPB (12:08)
[2017-10-23 12:12] LABS: ADD MAN DIFF? NO
[2017-10-23 12:14] LABS: ABNORMAL IP MESSAGE 1; BASOPHIL # 0.1 10^3/ul (0.0-0.1); BASOPHILS % 0.4 % (0.0-2.0); EOSINOPHILS # 0.1 10^3/ul (0.0-0.5); EOSINOPHILS % 0.5 % (0.0-7.0); HEMATOCRIT 22.2 % (42.0-52.0); HEMOGLOBIN 7.3 g/dl (14.0-18.0); LYMPHOCYTES # 1.5 10^3/ul (0.8-2.9); LYMPHOCYTES % 8.1 % (15.0-51.0); MEAN CORPUSCULAR HEMOGLOBIN 30.3 pg (29.0-33.0); MEAN CORPUSCULAR HGB CONC 32.9 g/dl (32.0-37.0); MEAN CORPUSCULAR VOLUME 92.1 fl (82.0-101.0); MEAN PLATELET VOLUME 10.3 fl (7.4-10.4); MONOCYTE # 1.8 10^3/ul (0.3-0.9); NEUTROPHIL # 13.8 10^3/ul (1.6-7.5); NEUTROPHILS % 76.5 % (39.0-77.0); NUCLEATED RED BLOOD CELLS% 0.2 /100WBC (0.0-0.0); PLATELET COUNT 400 10^3/UL (140-415); POSITIVE DIFF @See below; RED BLOOD COUNT 2.41 10^6/ul (4.70-6.10); RED CELL DISTRIBUTION WIDTH 15.6 % (11.5-14.5)
[2017-10-23 12:14] LABS: WHITE BLOOD COUNT 18.1 10^3/ul (4.8-10.8)
[2017-10-23] MEDS: ATORVASTATIN 80 MG TAB NGT (21:01)
[2017-10-24] MEDS: VANCOMYCIN 1.25 GM in SOD CHLORIDE 0.9% 250 ML IVPB ×2 (00:05→13:01)
[2017-10-24] MEDS: OCULAR LUBRICANT 3.5 GM OPH OINT BOTH EYES ×3 (05:04→16:57)
[2017-10-24] MEDS: ARTIFICIAL TEARS 15 ML OPH BOTH EYES ×3 (05:04→16:57)
[2017-10-24] MEDS: METOPROLOL 50 MG TAB NGT ×3 (05:05→17:13)
[2017-10-24] MEDS: PANTOPRAZOLE 40 MG INJ IV ×2 (05:05→16:57)
[2017-10-24] MEDS: SOD CHLORIDE 0.9% 1,000 ML IV ×3 (05:05→19:00)
[2017-10-24 05:54] LABS: ABNORMAL IP MESSAGE 1; HEMATOCRIT 24.5 % (42.0-52.0); HEMOGLOBIN 7.7 g/dl (14.0-18.0); MEAN CORPUSCULAR HEMOGLOBIN 30.3 pg (29.0-33.0); MEAN CORPUSCULAR HGB CONC 31.4 g/dl (32.0-37.0); MEAN CORPUSCULAR VOLUME 96.5 fl (82.0-101.0); MEAN PLATELET VOLUME 10.4 fl (7.4-10.4); NUCLEATED RED BLOOD CELLS% 0.8 /100WBC (0.0-0.0); PLATELET COUNT 511 10^3/UL (140-415); POSITIVE DIFF @See below; RED BLOOD COUNT 2.54 10^6/ul (4.70-6.10); RED CELL DISTRIBUTION WIDTH 15.7 % (11.5-14.5)
[2017-10-24 05:54] LABS: WHITE BLOOD COUNT 19.4 10^3/ul (4.8-10.8)
[2017-10-24 06:07] LABS: ADD MAN DIFF? YES
[2017-10-24 06:21] LABS: ANION GAP 8 (8-16); BLOOD UREA NITROGEN 24 mg/dl (7-20); CALCIUM 8.4 mg/dl (8.4-10.2); CARBON DIOXIDE 31 mmol/L (21-31); CHLORIDE 108 mmol/L (97-110); CREATININE 0.67 mg/dl (0.61-1.24); GLUCOSE 106 mg/dl (70-220); MAGNESIUM 2.5 mg/dl (1.7-2.5); PHOSPHORUS 2.8 mg/dl (2.5-4.9); POTASSIUM 4.3 mmol/L (3.5-5.1); SODIUM 143 mmol/L (135-144)
[2017-10-24 08:02] LABS: BAND NEUTROPHILS #M 2.9 10^3/ul (0.0-0.6); BAND NEUTROPHILS % (M) 15 % (0-4); EOSINOPHILS % (M) 2 % (0-7); ERYTHROBLAST% (NRBC) (M) 3 % (0-0); LYMPHOCYTES #M 0.7 10^3/ul (0.8-2.9); LYMPHOCYTES % (M) 4 % (15-51); METAMYELOCYTES #M 0.1 10^3/ul (0.0-0.0); METAMYELOCYTES %M 1 % (0-0); MONOCYTE #M 0.1 10^3/ul (0.3-0.9); MONOCYTES % (M) 1 % (0-11); MYELOCYTES #M 0.3 10^3/ul (0.0-0.0); MYELOCYTES % (M) 2 % (0-0); PLATELET ESTIMATE NORMAL; POLYCHROMASIA 1+ (0-0); PROMYELOCYTES #M 0.1 10^3/ul (0-0); PROMYELOCYTES % (M) 1 % (0-0); SEG NEUT #M 14.9 10^3/ul (1.6-7.5); SEGMENTED NEUTROPHILS (M) % 74 % (39-77); SMUDGE%M 7 % (0-0); SPHEROCYTES 1+ (0-0)
[2017-10-24] MEDS: CILOSTAZOL 100 MG TAB PO ×2 (08:23→21:00)
[2017-10-24] MEDS: LOSARTAN 25 MG TAB GTB (08:23)
[2017-10-24] MEDS: MAGNESIUM OXIDE 400 MG TAB PO ×2 (08:24→21:04)
[2017-10-24] MEDS: AZTREONAM 1 GM/NS (PMX) 50 ML IVPB ×2 (08:24→21:02)
[2017-10-24] MEDS: SPECIAL NON-STANDARD MEDICATION NGT (08:28)
[2017-10-24 12:05] LABS: VANCOMYCIN,TROUGH 15.1 ug/ml (10.0-20.0)
[2017-10-24] MEDS: BALSAM PERU/CASTOR OIL 60 GM TUBE TOP (15:46)
[2017-10-24 16:31] LABS: ABNORMAL IP MESSAGE 1; HEMATOCRIT 19.9 % (42.0-52.0); MEAN CORPUSCULAR HEMOGLOBIN 30.2 pg (29.0-33.0); MEAN CORPUSCULAR HGB CONC 31.2 g/dl (32.0-37.0); MEAN CORPUSCULAR VOLUME 97.1 fl (82.0-101.0); MEAN PLATELET VOLUME 9.9 fl (7.4-10.4); NUCLEATED RED BLOOD CELLS% 1.7 /100WBC (0.0-0.0); PLATELET COUNT 488 10^3/UL (140-415); POSITIVE DIFF @See below; RED BLOOD COUNT 2.05 10^6/ul (4.70-6.10); RED CELL DISTRIBUTION WIDTH 15.6 % (11.5-14.5)
[2017-10-24 16:31] LABS: WHITE BLOOD COUNT 16.3 10^3/ul (4.8-10.8)
[2017-10-24 16:36] LABS: ADD MAN DIFF? YES; HEMOGLOBIN 6.2 g/dl (14.0-18.0)
[2017-10-24 16:53] LABS: LACTIC ACID 1.1 mmol/L (0.5-2.0)
[2017-10-24 17:02] LABS: BAND NEUTROPHILS #M 1.7 10^3/ul (0.0-0.6); BAND NEUTROPHILS % (M) 11 % (0-4); LYMPHOCYTES #M 1.3 10^3/ul (0.8-2.9); LYMPHOCYTES % (M) 8 % (15-51); MONOCYTE #M 0.8 10^3/ul (0.3-0.9); MONOCYTES % (M) 5 % (0-11); MYELOCYTES #M 0.3 10^3/ul (0.0-0.0); MYELOCYTES % (M) 2 % (0-0); PLATELET ESTIMATE NORMAL; POLYCHROMASIA 1+ (0-0); SEG NEUT #M 12.3 10^3/ul (1.6-7.5); SEGMENTED NEUTROPHILS (M) % 74 % (39-77); SMUDGE%M 3 % (0-0)
[2017-10-24] MEDS: ATORVASTATIN 80 MG TAB NGT (21:04)
[2017-10-24 22:51] LABS: IMMEDIATE SPIN CROSSMATCH 1 3
[2017-10-25] MEDS: OCULAR LUBRICANT 3.5 GM OPH OINT BOTH EYES ×4 (00:15→17:28)
[2017-10-25] MEDS: ARTIFICIAL TEARS 15 ML OPH BOTH EYES ×4 (00:15→17:28)
[2017-10-25] MEDS: METOPROLOL 50 MG TAB NGT ×4 (00:18→17:28)
[2017-10-25] MEDS: SOD CHLORIDE 0.9% 1,000 ML IV ×2 (01:07→20:33)
[2017-10-25] MEDS: VANCOMYCIN 1.25 GM in SOD CHLORIDE 0.9% 250 ML IVPB ×2 (01:09→12:43)
[2017-10-25 04:58] LABS: ABNORMAL IP MESSAGE 1; HEMOGLOBIN 9.3 g/dl (14.0-18.0); MEAN CORPUSCULAR HEMOGLOBIN 29.5 pg (29.0-33.0); MEAN CORPUSCULAR HGB CONC 32.1 g/dl (32.0-37.0); MEAN CORPUSCULAR VOLUME 92.1 fl (82.0-101.0); MEAN PLATELET VOLUME 10.5 fl (7.4-10.4); NUCLEATED RED BLOOD CELLS% 1.8 /100WBC (0.0-0.0); POSITIVE DIFF @See below; RED BLOOD COUNT 3.15 10^6/ul (4.70-6.10); RED CELL DISTRIBUTION WIDTH 17.2 % (11.5-14.5)
[2017-10-25 04:58] LABS: WHITE BLOOD COUNT 18.5 10^3/ul (4.8-10.8)
[2017-10-25 05:02] LABS: PLATELET COUNT 356 10^3/UL (140-415)
[2017-10-25 05:03] LABS: ADD MAN DIFF? YES
[2017-10-25 05:24] LABS: ALANINE AMINOTRANSFERASE 162 IU/L (13-69); ALBUMIN 2.2 g/dl (3.3-4.9); ALKALINE PHOSPHATASE 139 IU/L (42-121); ANION GAP 7 (8-16); ASPARTATE AMINO TRANSFERASE 121 IU/L (15-46); BILIRUBIN,INDIRECT 0.8 mg/dl (0-1.1); BILIRUBIN,TOTAL 0.8 mg/dl (0.2-1.3); BLOOD UREA NITROGEN 19 mg/dl (7-20); CALCIUM 8.3 mg/dl (8.4-10.2); CARBON DIOXIDE 29 mmol/L (21-31); CHLORIDE 114 mmol/L (97-110); CREATININE 0.67 mg/dl (0.61-1.24); GLUCOSE 101 mg/dl (70-220); POTASSIUM 3.9 mmol/L (3.5-5.1); SODIUM 146 mmol/L (135-144); TOTAL PROTEIN 5.3 g/dl (6.1-8.1)
[2017-10-25] MEDS: PANTOPRAZOLE 40 MG INJ IV ×2 (06:28→17:28)
[2017-10-25] MEDS: POTASSIUM CHLORIDE 50 ML IVPB (07:28)
[2017-10-25 08:16] LABS: ANISOCYTOSIS 1+ (0-0); BAND NEUTROPHILS #M 0.1 10^3/ul (0.0-0.6); BAND NEUTROPHILS % (M) 1 % (0-4); BASOPHIL #M 0.1 10^3/ul (0.0-0.0); BASOPHILS % (M) 1 % (0-2); ERYTHROBLAST% (NRBC) (M) 5 % (0-0); LYMPHOCYTES #M 0.7 10^3/ul (0.8-2.9); LYMPHOCYTES % (M) 4 % (15-51); METAMYELOCYTES #M 0.7 10^3/ul (0.0-0.0); METAMYELOCYTES %M 4 % (0-0); MONOCYTE #M 1.2 10^3/ul (0.3-0.9); MONOCYTES % (M) 7 % (0-11); MYELOCYTES #M 0.7 10^3/ul (0.0-0.0); MYELOCYTES % (M) 4 % (0-0); PLATELET ESTIMATE NORMAL; POLYCHROMASIA 1+ (0-0); SEG NEUT #M 14.6 10^3/ul (1.6-7.5); SEGMENTED NEUTROPHILS (M) % 79 % (39-77); SMUDGE%M 3 % (0-0)
[2017-10-25] MEDS: MAGNESIUM OXIDE 400 MG TAB PO ×2 (08:29→20:32)
[2017-10-25] MEDS: BALSAM PERU/CASTOR OIL 60 GM TUBE TOP (08:29)
[2017-10-25] MEDS: CILOSTAZOL 100 MG TAB PO ×2 (08:29→20:33)
[2017-10-25] MEDS: SPECIAL NON-STANDARD MEDICATION NGT (08:29)
[2017-10-25] MEDS: AZTREONAM 1 GM/NS (PMX) 50 ML IVPB ×2 (08:29→20:33)
[2017-10-25 08:55] LABS: AADO2 Arterial 237.3 mmHg (7.0-24.0); Allen Test ACCEPTAB; Arterial Base Excess 1.1 mmol/L (-3.0-3); Arterial Blood Gas Oxygen Sat 94.8 mmHG (95.0-98.0); Arterial COHb 0.3 % (0.0-3.0); Arterial Fraction of Oxyhgb 94.3 % (93.0-99.0); Arterial HCO3 25.2 mmol/L (22.0-26.0); Arterial MetHb 0.2 % (0.0-1.5); Arterial Total Hemglobin 10.6 g/dl (12.0-18.0); Arterial pCO2 37.9 mmhg (35-45); MODE VENT - AC; Site Left Radial
[2017-10-25] MEDS: ATORVASTATIN 80 MG TAB NGT (20:33)
[2017-10-25 22:03] LABS: MAGNESIUM 2.3 mg/dl (1.7-2.5)
[2017-10-26] MEDS: OCULAR LUBRICANT 3.5 GM OPH OINT BOTH EYES ×4 (00:29→17:43)
[2017-10-26] MEDS: ARTIFICIAL TEARS 15 ML OPH BOTH EYES ×4 (00:29→17:44)
[2017-10-26] MEDS: METOPROLOL 50 MG TAB NGT ×4 (00:30→17:44)
[2017-10-26] MEDS: VANCOMYCIN 1.25 GM in SOD CHLORIDE 0.9% 250 ML IVPB ×2 (00:30→12:51)
[2017-10-26 05:13] LABS: ABNORMAL IP MESSAGE 1; HEMATOCRIT 28.6 % (42.0-52.0); HEMOGLOBIN 8.9 g/dl (14.0-18.0); MEAN CORPUSCULAR HEMOGLOBIN 29.4 pg (29.0-33.0); MEAN CORPUSCULAR HGB CONC 31.1 g/dl (32.0-37.0); MEAN CORPUSCULAR VOLUME 94.4 fl (82.0-101.0); MEAN PLATELET VOLUME 9.6 fl (7.4-10.4); NUCLEATED RED BLOOD CELLS% 1.3 /100WBC (0.0-0.0); PLATELET COUNT 480 10^3/UL (140-415); POSITIVE DIFF @See below; RED BLOOD COUNT 3.03 10^6/ul (4.70-6.10); RED CELL DISTRIBUTION WIDTH 17.9 % (11.5-14.5)
[2017-10-26 05:13] LABS: WHITE BLOOD COUNT 17.9 10^3/ul (4.8-10.8)
[2017-10-26 05:17] LABS: ADD MAN DIFF? YES
[2017-10-26 05:37] LABS: ALANINE AMINOTRANSFERASE 137 IU/L (13-69); ALBUMIN 2.1 g/dl (3.3-4.9); ALBUMIN/GLOBULIN RATIO 0.75; ALKALINE PHOSPHATASE 127 IU/L (42-121); ANION GAP 6 (8-16); ASPARTATE AMINO TRANSFERASE 105 IU/L (15-46); BILIRUBIN,INDIRECT 0.6 mg/dl (0-1.1); BILIRUBIN,TOTAL 0.6 mg/dl (0.2-1.3); BLOOD UREA NITROGEN 18 mg/dl (7-20); CALCIUM 8.2 mg/dl (8.4-10.2); CARBON DIOXIDE 30 mmol/L (21-31); CHLORIDE 115 mmol/L (97-110); CREATININE 0.75 mg/dl (0.61-1.24); GLUCOSE 99 mg/dl (70-220); POTASSIUM 3.7 mmol/L (3.5-5.1); SODIUM 147 mmol/L (135-144); TOTAL PROTEIN 4.9 g/dl (6.1-8.1)
[2017-10-26] MEDS: PANTOPRAZOLE 40 MG INJ IV ×2 (06:12→17:43)
[2017-10-26] MEDS: LEVOTHYROXINE 50 MCG TAB NGT (06:13)
[2017-10-26] MEDS: POTASSIUM CHLORIDE 50 ML IVPB (07:35)
[2017-10-26] MEDS: SOD CHLORIDE 0.9% 1,000 ML IV (07:37)
[2017-10-26 08:47] LABS: ANISOCYTOSIS 1+ (0-0); BAND NEUTROPHILS #M 0.8 10^3/ul (0.0-0.6); BAND NEUTROPHILS % (M) 5 % (0-4); BURR CELLS 2+ (0-0); EOSINOPHILS % (M) 1 % (0-7); ERYTHROBLAST% (NRBC) (M) 2 % (0-0); LYMPHOCYTES #M 1.2 10^3/ul (0.8-2.9); LYMPHOCYTES % (M) 7 % (15-51); METAMYELOCYTES #M 0.5 10^3/ul (0.0-0.0); METAMYELOCYTES %M 3 % (0-0); MONOCYTE #M 0.3 10^3/ul (0.3-0.9); MONOCYTES % (M) 2 % (0-11); MYELOCYTES #M 0.8 10^3/ul (0.0-0.0); MYELOCYTES % (M) 5 % (0-0); PLATELET ESTIMATE INCREASED; POIKILOCYTOSIS 2+ (0-0); POLYCHROMASIA 2+ (0-0); SEG NEUT #M 13.9 10^3/ul (1.6-7.5); SEGMENTED NEUTROPHILS (M) % 77 % (39-77); SMUDGE%M 46 % (0-0)
[2017-10-26] MEDS: AZTREONAM 1 GM/NS (PMX) 50 ML IVPB ×2 (08:53→21:40)
[2017-10-26] MEDS: MAGNESIUM OXIDE 400 MG TAB PO ×2 (08:53→21:40)
[2017-10-26] MEDS: CILOSTAZOL 100 MG TAB PO (08:53)
[2017-10-26] MEDS: SPECIAL NON-STANDARD MEDICATION NGT (08:53)
[2017-10-26] MEDS: BALSAM PERU/CASTOR OIL 60 GM TUBE TOP (08:59)
[2017-10-26] MEDS: AMIODARONE 200 MG TAB PO ×3 (10:42→21:41)
[2017-10-26] MEDS: POTASSIUM CHLORIDE (SR) 20 MEQ TAB PO (10:42)
[2017-10-26] MEDS: ATORVASTATIN 80 MG TAB NGT (21:40)
[2017-10-27 01:14] LABS: MAGNESIUM 2.2 mg/dl (1.7-2.5)
[2017-10-27 01:14] LABS: POTASSIUM 3.9 mmol/L (3.5-5.1)
[2017-10-27] MEDS: OCULAR LUBRICANT 3.5 GM OPH OINT BOTH EYES ×5 (01:15→23:59)
[2017-10-27] MEDS: VANCOMYCIN 1.25 GM in SOD CHLORIDE 0.9% 250 ML IVPB (01:15)
[2017-10-27] MEDS: ARTIFICIAL TEARS 15 ML OPH BOTH EYES ×5 (01:15→23:59)
[2017-10-27] MEDS: METOPROLOL 50 MG TAB NGT ×5 (01:16→23:59)
[2017-10-27] MEDS: POTASSIUM CHLORIDE 100 ML IVPB ×2 (01:54→05:20)
[2017-10-27] MEDS: PANTOPRAZOLE 40 MG INJ IV ×2 (05:25→17:35)
[2017-10-27] MEDS: LEVOTHYROXINE 50 MCG TAB NGT (05:25)
[2017-10-27] MEDS: AZTREONAM 1 GM/NS (PMX) 50 ML IVPB (09:49)
[2017-10-27] MEDS: SPECIAL NON-STANDARD MEDICATION NGT (09:49)
[2017-10-27] MEDS: BALSAM PERU/CASTOR OIL 60 GM TUBE TOP (09:50)
[2017-10-27] MEDS: MAGNESIUM OXIDE 400 MG TAB PO ×2 (09:50→21:46)
[2017-10-27] MEDS: AMIODARONE 200 MG TAB PO ×3 (09:52→21:47)
[2017-10-27] MEDS: ATORVASTATIN 80 MG TAB NGT (21:47)
[2017-10-28 05:31] LABS: ADD MAN DIFF? NO
[2017-10-28 05:32] LABS: WHITE BLOOD COUNT 17.3 10^3/ul (4.8-10.8)
[2017-10-28 05:32] LABS: ABNORMAL IP MESSAGE 1; BASOPHIL # 0.1 10^3/ul (0.0-0.1); BASOPHILS % 0.5 % (0.0-2.0); EOSINOPHILS # 0.2 10^3/ul (0.0-0.5); EOSINOPHILS % 0.9 % (0.0-7.0); HEMATOCRIT 30.4 % (42.0-52.0); HEMOGLOBIN 9.5 g/dl (14.0-18.0); LYMPHOCYTES # 1.9 10^3/ul (0.8-2.9); LYMPHOCYTES % 10.7 % (15.0-51.0); MEAN CORPUSCULAR HEMOGLOBIN 29.8 pg (29.0-33.0); MEAN CORPUSCULAR HGB CONC 31.3 g/dl (32.0-37.0); MEAN CORPUSCULAR VOLUME 95.3 fl (82.0-101.0); MEAN PLATELET VOLUME 9.7 fl (7.4-10.4); MONOCYTE # 1.1 10^3/ul (0.3-0.9); MONOCYTES % 6.6 % (0.0-11.0); NEUTROPHIL # 13.2 10^3/ul (1.6-7.5); NEUTROPHILS % 75.8 % (39.0-77.0); NUCLEATED RED BLOOD CELLS% 0.2 /100WBC (0.0-0.0); PLATELET COUNT 415 10^3/UL (140-415); POSITIVE DIFF @See below; RED BLOOD COUNT 3.19 10^6/ul (4.70-6.10); RED CELL DISTRIBUTION WIDTH 18.4 % (11.5-14.5)
[2017-10-28 05:49] LABS: ANION GAP 7 (8-16); BLOOD UREA NITROGEN 13 mg/dl (7-20); CALCIUM 8.4 mg/dl (8.4-10.2); CARBON DIOXIDE 30 mmol/L (21-31); CHLORIDE 108 mmol/L (97-110); CREATININE 0.61 mg/dl (0.61-1.24); GLUCOSE 103 mg/dl (70-220); PHOSPHORUS 3.4 mg/dl (2.5-4.9); SODIUM 141 mmol/L (135-144)
[2017-10-28] MEDS: ARTIFICIAL TEARS 15 ML OPH BOTH EYES ×3 (05:57→17:08)
[2017-10-28] MEDS: OCULAR LUBRICANT 3.5 GM OPH OINT BOTH EYES ×3 (05:57→17:08)
[2017-10-28] MEDS: PANTOPRAZOLE 40 MG INJ IV ×2 (05:57→17:11)
[2017-10-28] MEDS: METOPROLOL 50 MG TAB NGT ×3 (05:58→17:11)
[2017-10-28] MEDS: LEVOTHYROXINE 50 MCG TAB NGT (05:58)
[2017-10-28 08:09] LABS: ANISOCYTOSIS 1+ (0-0); BAND NEUTROPHILS % (M) 6 % (0-4); BASOPHIL #M 0.1 10^3/ul (0.0-0.0); BASOPHILS % (M) 1 % (0-2); HYPOCHROMASIA 1+ (0-0); LYMPHOCYTES #M 2.7 10^3/ul (0.8-2.9); LYMPHOCYTES % (M) 16 % (15-51); MONOCYTE #M 0.8 10^3/ul (0.3-0.9); MONOCYTES % (M) 5 % (0-11); MYELOCYTES #M 0.6 10^3/ul (0.0-0.0); MYELOCYTES % (M) 4 % (0-0); PLATELET ESTIMATE NORMAL; POLYCHROMASIA 1+ (0-0); SEG NEUT #M 11.9 10^3/ul (1.6-7.5); SEGMENTED NEUTROPHILS (M) % 68 % (39-77); SMUDGE%M 6 % (0-0)
[2017-10-28] MEDS: MAGNESIUM OXIDE 400 MG TAB PO ×2 (09:00→20:52)
[2017-10-28] MEDS: AMIODARONE 200 MG TAB PO ×3 (09:01→20:52)
[2017-10-28] MEDS: BALSAM PERU/CASTOR OIL 60 GM TUBE TOP (09:02)
[2017-10-28] MEDS: SPECIAL NON-STANDARD MEDICATION NGT (09:03)
[2017-10-28 11:01] LABS: INR 1.03; PROTIME 13.6 Sec (11.9-14.9); PT RATIO 1.1
[2017-10-28 11:02] LABS: PARTIAL THROMBOPLASTIN TIME 35.4 Sec (25.0-35.0)
[2017-10-28] MEDS: IPRATROPIUM (HFA) 12.9 GM INHALER INH (11:32)
[2017-10-28] MEDS: ALBUTEROL HFA 8 GM INHALER INH (11:33)
[2017-10-28] MEDS ORDERED: FENTAnyl 50 MCG/ML VIAL (12:29)
[2017-10-28] MEDS ORDERED: MIDAZOLAM 1 MG/ML 2 ML INJ (12:29)
[2017-10-28] MEDS ORDERED: ROCURONIUM 50 MG INJ (12:30)
[2017-10-28] MEDS ORDERED: LABETALOL HCL 20MG INJ IV (12:30)
[2017-10-28] MEDS ORDERED: hydrALAzine 20 MG INJ IV (12:30)
[2017-10-28] MEDS ORDERED: EPHEDrine SULFATE 50 MG/5 ML SYG IV (12:30)
[2017-10-28] MEDS ORDERED: ONDANSETRON 4 MG INJ IV (12:30)
[2017-10-28] MEDS ORDERED: ALBUMIN HUMAN 5% 250 ML IV (12:30)
[2017-10-28] MEDS ORDERED: FENTAnyl 50 MCG/ML VIAL IV ×2 (12:30)
[2017-10-28] MEDS: ATORVASTATIN 80 MG TAB NGT (20:52)
[2017-10-29] MEDS: ARTIFICIAL TEARS 15 ML OPH BOTH EYES ×5 (00:09→23:23)
[2017-10-29] MEDS: OCULAR LUBRICANT 3.5 GM OPH OINT BOTH EYES ×5 (00:09→23:24)
[2017-10-29 05:17] LABS: ADD MAN DIFF? NO
[2017-10-29 05:18] LABS: WHITE BLOOD COUNT 16.8 10^3/ul (4.8-10.8)
[2017-10-29 05:18] LABS: BASOPHIL # 0.1 10^3/ul (0.0-0.1); BASOPHILS % 0.4 % (0.0-2.0); EOSINOPHILS # 0.1 10^3/ul (0.0-0.5); EOSINOPHILS % 0.7 % (0.0-7.0); HEMATOCRIT 31.5 % (42.0-52.0); HEMOGLOBIN 9.8 g/dl (14.0-18.0); LYMPHOCYTES # 1.4 10^3/ul (0.8-2.9); LYMPHOCYTES % 8.1 % (15.0-51.0); MEAN CORPUSCULAR HEMOGLOBIN 29.3 pg (29.0-33.0); MEAN CORPUSCULAR HGB CONC 31.1 g/dl (32.0-37.0); MEAN CORPUSCULAR VOLUME 94.3 fl (82.0-101.0); MEAN PLATELET VOLUME 9.3 fl (7.4-10.4); MONOCYTE # 1.2 10^3/ul (0.3-0.9); MONOCYTES % 6.9 % (0.0-11.0); NEUTROPHIL # 13.6 10^3/ul (1.6-7.5); NUCLEATED RED BLOOD CELLS% 0.1 /100WBC (0.0-0.0); PLATELET COUNT 375 10^3/UL (140-415); RED BLOOD COUNT 3.34 10^6/ul (4.70-6.10); RED CELL DISTRIBUTION WIDTH 18.2 % (11.5-14.5)
[2017-10-29 06:03] LABS: ANION GAP 6 (8-16); BLOOD UREA NITROGEN 12 mg/dl (7-20); CALCIUM 8.2 mg/dl (8.4-10.2); CARBON DIOXIDE 31 mmol/L (21-31); CHLORIDE 106 mmol/L (97-110); CREATININE 0.58 mg/dl (0.61-1.24); GLUCOSE 116 mg/dl (70-220); MAGNESIUM 1.9 mg/dl (1.7-2.5); PHOSPHORUS 3.4 mg/dl (2.5-4.9); POTASSIUM 4.1 mmol/L (3.5-5.1); SODIUM 139 mmol/L (135-144)
[2017-10-29] MEDS: PANTOPRAZOLE 40 MG INJ IV ×2 (06:23→18:28)
[2017-10-29] MEDS: LEVOTHYROXINE 50 MCG TAB NGT (06:23)
[2017-10-29] MEDS: METOPROLOL 50 MG TAB NGT ×5 (06:24→23:21)
[2017-10-29] MEDS: MAGNESIUM OXIDE 400 MG TAB PO ×2 (09:29→21:52)
[2017-10-29] MEDS: BALSAM PERU/CASTOR OIL 60 GM TUBE TOP (09:31)
[2017-10-29] MEDS: AMIODARONE 200 MG TAB PO ×3 (09:31→21:57)
[2017-10-29] MEDS: SPECIAL NON-STANDARD MEDICATION NGT (09:32)
[2017-10-29] MEDS ORDERED: PENDING SANTYL ORDER FOR WOUND CARE XX (18:30)
[2017-10-29] MEDS: ATORVASTATIN 80 MG TAB NGT (21:52)
[2017-10-30] MEDS: ARTIFICIAL TEARS 15 ML OPH BOTH EYES ×4 (05:26→23:34)
[2017-10-30] MEDS: LEVOTHYROXINE 50 MCG TAB NGT (05:26)
[2017-10-30] MEDS: OCULAR LUBRICANT 3.5 GM OPH OINT BOTH EYES ×4 (05:26→23:35)
[2017-10-30] MEDS: METOPROLOL 50 MG TAB NGT ×4 (05:27→23:34)
[2017-10-30] MEDS: PANTOPRAZOLE 40 MG INJ IV ×2 (05:27→18:08)
[2017-10-30 06:27] LABS: ANION GAP 7 (8-16); BLOOD UREA NITROGEN 10 mg/dl (7-20); CALCIUM 8.3 mg/dl (8.4-10.2); CARBON DIOXIDE 32 mmol/L (21-31); CHLORIDE 104 mmol/L (97-110); CREATININE 0.66 mg/dl (0.61-1.24); GLUCOSE 121 mg/dl (70-220); MAGNESIUM 2.1 mg/dl (1.7-2.5); PHOSPHORUS 4.1 mg/dl (2.5-4.9); POTASSIUM 3.9 mmol/L (3.5-5.1); SODIUM 139 mmol/L (135-144)
[2017-10-30] MEDS: BALSAM PERU/CASTOR OIL 60 GM TUBE TOP (10:30)
[2017-10-30] MEDS: MAGNESIUM OXIDE 400 MG TAB PO ×2 (10:31→21:11)
[2017-10-30] MEDS: AMIODARONE 200 MG TAB PO ×3 (10:32→21:11)
[2017-10-30] MEDS: SPECIAL NON-STANDARD MEDICATION NGT (10:38)
[2017-10-30] MEDS: ATORVASTATIN 80 MG TAB NGT (21:11)
[2017-10-31] MEDS: LEVOTHYROXINE 50 MCG TAB NGT (05:10)
[2017-10-31] MEDS: PANTOPRAZOLE 40 MG INJ IV ×2 (05:10→18:14)
[2017-10-31] MEDS: METOPROLOL 50 MG TAB NGT ×4 (05:10→23:50)
[2017-10-31] MEDS: ARTIFICIAL TEARS 15 ML OPH BOTH EYES ×4 (05:14→23:49)
[2017-10-31] MEDS: OCULAR LUBRICANT 3.5 GM OPH OINT BOTH EYES ×4 (05:14→23:49)
[2017-10-31] MEDS: MAGNESIUM OXIDE 400 MG TAB PO ×2 (09:30→20:46)
[2017-10-31] MEDS: AMIODARONE 200 MG TAB PO ×3 (09:31→20:47)
[2017-10-31] MEDS: SPECIAL NON-STANDARD MEDICATION NGT (09:31)
[2017-10-31] MEDS: BALSAM PERU/CASTOR OIL 60 GM TUBE TOP (09:31)
[2017-10-31] MEDS: ATORVASTATIN 80 MG TAB NGT (20:46)
[2017-11-01] MEDS: PANTOPRAZOLE 40 MG INJ IV ×2 (05:20→18:24)
[2017-11-01] MEDS: OCULAR LUBRICANT 3.5 GM OPH OINT BOTH EYES ×4 (05:20→23:12)
[2017-11-01] MEDS: ARTIFICIAL TEARS 15 ML OPH BOTH EYES ×4 (05:20→23:13)
[2017-11-01] MEDS: METOPROLOL 50 MG TAB NGT ×4 (05:21→23:12)
[2017-11-01] MEDS: LEVOTHYROXINE 50 MCG TAB NGT (05:21)
[2017-11-01] MEDS: MAGNESIUM OXIDE 400 MG TAB PO ×2 (08:14→20:44)
[2017-11-01] MEDS: AMIODARONE 200 MG TAB PO ×3 (08:14→20:45)
[2017-11-01] MEDS: ACETAMINOPHEN 650 MG SUPP PR (08:14)
[2017-11-01] MEDS: BALSAM PERU/CASTOR OIL 60 GM TUBE TOP (08:34)
[2017-11-01] MEDS: SPECIAL NON-STANDARD MEDICATION NGT (09:00)
[2017-11-01] MEDS: ATORVASTATIN 80 MG TAB NGT (20:44)
[2017-11-02] MEDS: LEVOTHYROXINE 50 MCG TAB NGT (05:29)
[2017-11-02] MEDS: PANTOPRAZOLE 40 MG INJ IV ×2 (05:30→17:48)
[2017-11-02] MEDS: ARTIFICIAL TEARS 15 ML OPH BOTH EYES ×3 (05:31→17:48)
[2017-11-02] MEDS: METOPROLOL 50 MG TAB NGT ×3 (05:31→17:48)
[2017-11-02] MEDS: OCULAR LUBRICANT 3.5 GM OPH OINT BOTH EYES ×3 (05:31→17:48)
[2017-11-02 06:03] LABS: ADD MAN DIFF? NO
[2017-11-02 06:16] LABS: WHITE BLOOD COUNT 12.7 10^3/ul (4.8-10.8)
[2017-11-02 06:16] LABS: BASOPHILS % 0.2 % (0.0-2.0); EOSINOPHILS # 0.1 10^3/ul (0.0-0.5); EOSINOPHILS % 0.9 % (0.0-7.0); HEMATOCRIT 24.6 % (42.0-52.0); HEMOGLOBIN 7.7 g/dl (14.0-18.0); LYMPHOCYTES # 1.2 10^3/ul (0.8-2.9); LYMPHOCYTES % 9.1 % (15.0-51.0); MEAN CORPUSCULAR HEMOGLOBIN 29.1 pg (29.0-33.0); MEAN CORPUSCULAR HGB CONC 31.3 g/dl (32.0-37.0); MEAN CORPUSCULAR VOLUME 92.8 fl (82.0-101.0); MEAN PLATELET VOLUME 10.3 fl (7.4-10.4); MONOCYTE # 1.1 10^3/ul (0.3-0.9); MONOCYTES % 8.8 % (0.0-11.0); NEUTROPHIL # 10.2 10^3/ul (1.6-7.5); NEUTROPHILS % 80.4 % (39.0-77.0); PLATELET COUNT 232 10^3/UL (140-415); RED BLOOD COUNT 2.65 10^6/ul (4.70-6.10); RED CELL DISTRIBUTION WIDTH 17.6 % (11.5-14.5)
[2017-11-02 07:08] LABS: ANION GAP 8 (8-16); BLOOD UREA NITROGEN 15 mg/dl (7-20); CALCIUM 8.5 mg/dl (8.4-10.2); CARBON DIOXIDE 31 mmol/L (21-31); CHLORIDE 103 mmol/L (97-110); CREATININE 0.62 mg/dl (0.61-1.24); GLUCOSE 116 mg/dl (70-220); MAGNESIUM 2.2 mg/dl (1.7-2.5); PHOSPHORUS 4.1 mg/dl (2.5-4.9); POTASSIUM 4.2 mmol/L (3.5-5.1); SODIUM 138 mmol/L (135-144)
[2017-11-02] MEDS: BALSAM PERU/CASTOR OIL 60 GM TUBE TOP (09:03)
[2017-11-02] MEDS: SPECIAL NON-STANDARD MEDICATION NGT (09:04)
[2017-11-02] MEDS: MAGNESIUM OXIDE 400 MG TAB PO ×2 (09:04→21:20)
[2017-11-02] MEDS: AMIODARONE 200 MG TAB PO ×3 (09:05→21:21)
[2017-11-02] MEDS: ATORVASTATIN 80 MG TAB NGT (21:20)
[2017-11-03] MEDS: OCULAR LUBRICANT 3.5 GM OPH OINT BOTH EYES ×4 (00:10→17:48)
[2017-11-03] MEDS: ARTIFICIAL TEARS 15 ML OPH BOTH EYES ×4 (00:11→17:48)
[2017-11-03] MEDS: METOPROLOL 50 MG TAB NGT ×4 (00:16→17:47)
[2017-11-03] MEDS: PANTOPRAZOLE 40 MG INJ IV ×2 (06:14→17:48)
[2017-11-03] MEDS: LEVOTHYROXINE 50 MCG TAB NGT (06:15)
[2017-11-03] MEDS: BALSAM PERU/CASTOR OIL 60 GM TUBE TOP (08:51)
[2017-11-03] MEDS: AMIODARONE 200 MG TAB PO ×3 (08:51→22:23)
[2017-11-03] MEDS: MAGNESIUM OXIDE 400 MG TAB PO ×2 (08:51→22:22)
[2017-11-03] MEDS: SPECIAL NON-STANDARD MEDICATION NGT (08:54)
[2017-11-03 17:16] LABS: ADD MAN DIFF? NO
[2017-11-03 17:17] LABS: WHITE BLOOD COUNT 15.3 10^3/ul (4.8-10.8)
[2017-11-03 17:17] LABS: BASOPHILS % 0.2 % (0.0-2.0); EOSINOPHILS # 0.1 10^3/ul (0.0-0.5); EOSINOPHILS % 0.7 % (0.0-7.0); HEMATOCRIT 29.7 % (42.0-52.0); HEMOGLOBIN 9.2 g/dl (14.0-18.0); LYMPHOCYTES # 1.3 10^3/ul (0.8-2.9); LYMPHOCYTES % 8.5 % (15.0-51.0); MEAN CORPUSCULAR HEMOGLOBIN 28.8 pg (29.0-33.0); MEAN CORPUSCULAR VOLUME 92.8 fl (82.0-101.0); MEAN PLATELET VOLUME 9.8 fl (7.4-10.4); MONOCYTE # 1.4 10^3/ul (0.3-0.9); MONOCYTES % 9.3 % (0.0-11.0); NEUTROPHIL # 12.3 10^3/ul (1.6-7.5); NEUTROPHILS % 80.8 % (39.0-77.0); PLATELET COUNT 276 10^3/UL (140-415); RED CELL DISTRIBUTION WIDTH 17.2 % (11.5-14.5)
[2017-11-03] MEDS: ATORVASTATIN 80 MG TAB NGT (22:22)
[2017-11-04] MEDS: METOPROLOL 50 MG TAB NGT ×4 (00:27→18:19)
[2017-11-04] MEDS: OCULAR LUBRICANT 3.5 GM OPH OINT BOTH EYES ×4 (00:27→18:20)
[2017-11-04] MEDS: ARTIFICIAL TEARS 15 ML OPH BOTH EYES ×4 (00:27→18:19)
[2017-11-04] MEDS: PANTOPRAZOLE 40 MG INJ IV ×2 (06:04→18:20)
[2017-11-04] MEDS: LEVOTHYROXINE 50 MCG TAB NGT (06:05)
[2017-11-04] MEDS: MAGNESIUM OXIDE 400 MG TAB PO ×2 (09:06→21:00)
[2017-11-04] MEDS: AMIODARONE 200 MG TAB PO ×3 (09:06→23:53)
[2017-11-04] MEDS: SPECIAL NON-STANDARD MEDICATION NGT (09:06)
[2017-11-04] MEDS: BALSAM PERU/CASTOR OIL 60 GM TUBE TOP (09:06)
[2017-11-04] MEDS: IPRATROPIUM (HFA) 12.9 GM INHALER INH (17:38)
[2017-11-04] MEDS: ALBUTEROL HFA 8 GM INHALER INH (17:38)
[2017-11-04] MEDS ORDERED: VANCOMYCIN IV PER PHARMACY XX (18:00)
[2017-11-04] MEDS: MEROPENEM 1 GM/50ML(PMX) 50 ML IVPB (19:03)
[2017-11-04] MEDS: VANCOMYCIN 1.75 GM in SOD CHLORIDE 0.9% 500 ML IVPB (23:48)
[2017-11-04] MEDS: ATORVASTATIN 80 MG TAB NGT (23:52)
[2017-11-05] MEDS: ARTIFICIAL TEARS 15 ML OPH BOTH EYES ×4 (00:01→17:00)
[2017-11-05] MEDS: OCULAR LUBRICANT 3.5 GM OPH OINT BOTH EYES ×4 (00:01→17:00)
[2017-11-05] MEDS: MEROPENEM 1 GM/50ML(PMX) 50 ML IVPB ×4 (00:05→22:00)
[2017-11-05] MEDS: METOPROLOL 50 MG TAB NGT ×4 (00:54→17:01)
[2017-11-05] MEDS: PANTOPRAZOLE 40 MG INJ IV ×2 (06:23→17:06)
[2017-11-05] MEDS: LEVOTHYROXINE 50 MCG TAB NGT (06:23)
[2017-11-05] MEDS: SPECIAL NON-STANDARD MEDICATION NGT (09:00)
[2017-11-05] MEDS: AMIODARONE 200 MG TAB PO ×2 (09:00→13:36)
[2017-11-05] MEDS: MAGNESIUM OXIDE 400 MG TAB PO ×2 (09:00→20:47)
[2017-11-05] MEDS: VANCOMYCIN 1.25 GM in SOD CHLORIDE 0.9% 250 ML IVPB ×2 (09:20→20:27)
[2017-11-05] MEDS: BALSAM PERU/CASTOR OIL 60 GM TUBE TOP (09:20)
[2017-11-05 11:17] LABS: ADD MAN DIFF? NO
[2017-11-05 11:22] LABS: WHITE BLOOD COUNT 18.5 10^3/ul (4.8-10.8)
[2017-11-05 11:22] LABS: ABNORMAL IP MESSAGE 1; BASOPHILS % 0.1 % (0.0-2.0); EOSINOPHILS % 0.1 % (0.0-7.0); HEMATOCRIT 28.7 % (42.0-52.0); HEMOGLOBIN 8.8 g/dl (14.0-18.0); LYMPHOCYTES # 0.9 10^3/ul (0.8-2.9); LYMPHOCYTES % 4.7 % (15.0-51.0); MEAN CORPUSCULAR HEMOGLOBIN 28.9 pg (29.0-33.0); MEAN CORPUSCULAR HGB CONC 30.7 g/dl (32.0-37.0); MEAN CORPUSCULAR VOLUME 94.1 fl (82.0-101.0); MEAN PLATELET VOLUME 9.9 fl (7.4-10.4); MONOCYTE # 1.8 10^3/ul (0.3-0.9); MONOCYTES % 9.8 % (0.0-11.0); NEUTROPHIL # 15.7 10^3/ul (1.6-7.5); NEUTROPHILS % 84.7 % (39.0-77.0); PLATELET COUNT 289 10^3/UL (140-415); POSITIVE DIFF @See below; RED BLOOD COUNT 3.05 10^6/ul (4.70-6.10); RED CELL DISTRIBUTION WIDTH 17.1 % (11.5-14.5)
[2017-11-05 11:44] LABS: ANION GAP 8 (8-16); BLOOD UREA NITROGEN 23 mg/dl (7-20); CALCIUM 8.7 mg/dl (8.4-10.2); CARBON DIOXIDE 34 mmol/L (21-31); CHLORIDE 102 mmol/L (97-110); CREATININE 0.65 mg/dl (0.61-1.24); GLUCOSE 110 mg/dl (70-220); POTASSIUM 4.7 mmol/L (3.5-5.1); SODIUM 139 mmol/L (135-144)
[2017-11-05] MEDS: ACETYLCYSTEINE 20% 4 ML VIAL NEB ×2 (15:54→20:03)
[2017-11-05] MEDS: ACETAMINOPHEN 650MG/20.3ML CUP PO (18:41)
[2017-11-05] MEDS: IPRATROPIUM (HFA) 12.9 GM INHALER INH (20:03)
[2017-11-05] MEDS: ALBUTEROL HFA 8 GM INHALER INH (20:03)
[2017-11-05] MEDS: ATORVASTATIN 80 MG TAB NGT (20:47)
[2017-11-05] MEDS: ALBUMIN HUMAN 25% 100 ML IV ×2 (20:55→22:00)
[2017-11-06] MEDS: ARTIFICIAL TEARS 15 ML OPH BOTH EYES ×4 (00:07→18:45)
[2017-11-06] MEDS: OCULAR LUBRICANT 3.5 GM OPH OINT BOTH EYES ×4 (00:08→18:45)
[2017-11-06] MEDS: IPRATROPIUM (HFA) 12.9 GM INHALER INH ×4 (01:25→20:08)
[2017-11-06] MEDS: ACETYLCYSTEINE 20% 4 ML VIAL NEB ×4 (01:25→20:07)
[2017-11-06] MEDS: ALBUTEROL HFA 8 GM INHALER INH ×4 (01:25→20:08)
[2017-11-06] MEDS: LEVOTHYROXINE 50 MCG TAB NGT (05:30)
[2017-11-06] MEDS: METOPROLOL 50 MG TAB NGT ×4 (05:30→18:45)
[2017-11-06 05:31] LABS: ADD MAN DIFF? NO; BASOPHILS % 0.1 % (0.0-2.0); HEMATOCRIT 27.3 % (42.0-52.0); HEMOGLOBIN 8.3 g/dl (14.0-18.0); MEAN CORPUSCULAR HGB CONC 30.4 g/dl (32.0-37.0); MEAN CORPUSCULAR VOLUME 95.5 fl (82.0-101.0); MEAN PLATELET VOLUME 10.3 fl (7.4-10.4); MONOCYTE # 1.4 10^3/ul (0.3-0.9); MONOCYTES % 8.9 % (0.0-11.0); NEUTROPHIL # 13.3 10^3/ul (1.6-7.5); NEUTROPHILS % 84.4 % (39.0-77.0); PLATELET COUNT 242 10^3/UL (140-415); RED BLOOD COUNT 2.86 10^6/ul (4.70-6.10)
[2017-11-06 05:31] LABS: WHITE BLOOD COUNT 15.8 10^3/ul (4.8-10.8)
[2017-11-06] MEDS: PANTOPRAZOLE 40 MG INJ IV ×3 (05:32→18:45)
[2017-11-06] MEDS: MEROPENEM 1 GM/50ML(PMX) 50 ML IVPB ×4 (05:33→22:12)
[2017-11-06 06:21] LABS: ANION GAP 11 (8-16); BLOOD UREA NITROGEN 29 mg/dl (7-20); CALCIUM 8.7 mg/dl (8.4-10.2); CARBON DIOXIDE 32 mmol/L (21-31); CHLORIDE 103 mmol/L (97-110); GLUCOSE 133 mg/dl (70-220); MAGNESIUM 2.7 mg/dl (1.7-2.5); SODIUM 141 mmol/L (135-144)
[2017-11-06 07:43] LABS: AADO2 Arterial 551.8 mmHg (7.0-24.0); Allen Test ACCEPTAB; Arterial Base Excess 6.5 mmol/L (-3.0-3); Arterial Blood Gas Oxygen Sat 96.4 mmHG (95.0-98.0); Arterial COHb 0.5 % (0.0-3.0); Arterial Fraction of Oxyhgb 95.9 % (93.0-99.0); Arterial HCO3 33.7 mmol/L (22.0-26.0); Arterial MetHb 0 % (0.0-1.5); Arterial Total Hemglobin 8.9 g/dl (12.0-18.0); Arterial pCO2 65.8 mmhg (35-45); MODE VENT - AC; Site Right Radial
[2017-11-06 07:50] LABS: VANCOMYCIN,TROUGH 23.4 ug/ml (10.0-20.0)
[2017-11-06] MEDS: AMIODARONE 200 MG TAB PO ×3 (09:00→21:00)
[2017-11-06] MEDS: SPECIAL NON-STANDARD MEDICATION NGT (11:05)
[2017-11-06] MEDS: MAGNESIUM OXIDE 400 MG TAB PO ×2 (11:05→21:00)
[2017-11-06] MEDS: BALSAM PERU/CASTOR OIL 60 GM TUBE TOP (11:06)
[2017-11-06] MEDS: VANCOMYCIN 750 MG in SOD CHLORIDE 0.9% 150 ML IVPB (16:57)
[2017-11-06] MEDS: SOD CHLORIDE 0.9% 250 ML IV (21:18)
[2017-11-06] MEDS: ATORVASTATIN 80 MG TAB NGT (21:22)
[2017-11-06] MEDS: SOD CHLORIDE 0.9% 1,000 ML IV (22:10)
[2017-11-07] MEDS: OCULAR LUBRICANT 3.5 GM OPH OINT BOTH EYES ×4 (00:28→17:00)
[2017-11-07] MEDS: ARTIFICIAL TEARS 15 ML OPH BOTH EYES ×4 (00:28→17:00)
[2017-11-07] MEDS: ALBUTEROL HFA 8 GM INHALER INH ×4 (02:14→19:20)
[2017-11-07] MEDS: ACETYLCYSTEINE 20% 4 ML VIAL NEB ×4 (02:14→19:21)
[2017-11-07] MEDS: IPRATROPIUM (HFA) 12.9 GM INHALER INH ×4 (02:14→19:20)
[2017-11-07] MEDS: VANCOMYCIN 750 MG in SOD CHLORIDE 0.9% 150 ML IVPB ×2 (04:00→16:48)
[2017-11-07 05:50] LABS: ADD MAN DIFF? NO
[2017-11-07 05:58] LABS: WHITE BLOOD COUNT 13.2 10^3/ul (4.8-10.8)
[2017-11-07 05:58] LABS: BASOPHILS % 0.2 % (0.0-2.0); EOSINOPHILS % 0.2 % (0.0-7.0); HEMATOCRIT 26.4 % (42.0-52.0); HEMOGLOBIN 7.9 g/dl (14.0-18.0); LYMPHOCYTES # 0.9 10^3/ul (0.8-2.9); MEAN CORPUSCULAR HEMOGLOBIN 28.6 pg (29.0-33.0); MEAN CORPUSCULAR HGB CONC 29.9 g/dl (32.0-37.0); MEAN CORPUSCULAR VOLUME 95.7 fl (82.0-101.0); MONOCYTE # 1.2 10^3/ul (0.3-0.9); MONOCYTES % 8.7 % (0.0-11.0); NEUTROPHILS % 83.3 % (39.0-77.0); PLATELET COUNT 230 10^3/UL (140-415); POSITIVE DIFF @See below; RED BLOOD COUNT 2.76 10^6/ul (4.70-6.10); RED CELL DISTRIBUTION WIDTH 17.2 % (11.5-14.5)
[2017-11-07 06:27] LABS: ALANINE AMINOTRANSFERASE 186 IU/L (13-69); ALBUMIN 2.8 g/dl (3.3-4.9); ALBUMIN/GLOBULIN RATIO 0.77; ALKALINE PHOSPHATASE 151 IU/L (42-121); ANION GAP 7 (8-16); ASPARTATE AMINO TRANSFERASE 120 IU/L (15-46); BILIRUBIN,INDIRECT 0.6 mg/dl (0-1.1); BILIRUBIN,TOTAL 0.6 mg/dl (0.2-1.3); BLOOD UREA NITROGEN 29 mg/dl (7-20); CALCIUM 8.8 mg/dl (8.4-10.2); CARBON DIOXIDE 34 mmol/L (21-31); CHLORIDE 105 mmol/L (97-110); CREATININE 0.57 mg/dl (0.61-1.24); GLUCOSE 104 mg/dl (70-220); POTASSIUM 4.4 mmol/L (3.5-5.1); SODIUM 142 mmol/L (135-144); TOTAL PROTEIN 6.4 g/dl (6.1-8.1)
[2017-11-07] MEDS: LEVOTHYROXINE 50 MCG TAB NGT (06:33)
[2017-11-07] MEDS: PANTOPRAZOLE 40 MG INJ IV ×2 (06:33→17:00)
[2017-11-07] MEDS: METOPROLOL 50 MG TAB NGT ×3 (06:34→13:45)
[2017-11-07] MEDS: MEROPENEM 1 GM/50ML(PMX) 50 ML IVPB ×3 (06:34→21:02)
[2017-11-07] MEDS: SPECIAL NON-STANDARD MEDICATION NGT (08:55)
[2017-11-07] MEDS: AMIODARONE 200 MG TAB PO ×3 (08:55→21:00)
[2017-11-07] MEDS: MAGNESIUM OXIDE 400 MG TAB PO ×2 (09:00→21:01)
[2017-11-07] MEDS: BALSAM PERU/CASTOR OIL 60 GM TUBE TOP (09:54)
[2017-11-07] MEDS: LIDOCAINE 1% (MPF) 5 ML VIAL SC (12:15)
[2017-11-07] MEDS: SOD CHLORIDE 0.9% 1,000 ML IV (12:18)
[2017-11-07] MEDS: SOD CHLORIDE 0.9% 100 ML (12:40)
[2017-11-07] MEDS: ATORVASTATIN 80 MG TAB NGT (21:01)
[2017-11-08] MEDS: ALBUTEROL HFA 8 GM INHALER INH ×4 (01:37→19:30)
[2017-11-08] MEDS: ACETYLCYSTEINE 20% 4 ML VIAL NEB ×4 (01:37→19:30)
[2017-11-08] MEDS: VANCOMYCIN 750 MG in SOD CHLORIDE 0.9% 150 ML IVPB ×2 (04:48→17:02)
[2017-11-08] MEDS: OCULAR LUBRICANT 3.5 GM OPH OINT BOTH EYES ×4 (05:52→17:04)
[2017-11-08] MEDS: PANTOPRAZOLE 40 MG INJ IV ×2 (05:52→17:04)
[2017-11-08] MEDS: LEVOTHYROXINE 50 MCG TAB NGT (05:52)
[2017-11-08] MEDS: ARTIFICIAL TEARS 15 ML OPH BOTH EYES ×4 (05:52→17:04)
[2017-11-08] MEDS: MEROPENEM 1 GM/50ML(PMX) 50 ML IVPB ×2 (05:52→13:52)
[2017-11-08] MEDS: METOPROLOL 25 MG TAB NGT ×4 (05:52→17:03)
[2017-11-08] MEDS: AMIODARONE 200 MG TAB PO ×3 (09:00→21:50)
[2017-11-08] MEDS: MAGNESIUM OXIDE 400 MG TAB PO ×2 (09:23→20:17)
[2017-11-08] MEDS: BALSAM PERU/CASTOR OIL 60 GM TUBE TOP (09:24)
[2017-11-08] MEDS: SPECIAL NON-STANDARD MEDICATION NGT (09:30)
[2017-11-08] MEDS: ATORVASTATIN 80 MG TAB NGT (20:17)
[2017-11-09] MEDS: AMIODARONE 200 MG TAB PO ×4 (00:04→20:39)
[2017-11-09] MEDS: MEROPENEM 1 GM/50ML(PMX) 50 ML IVPB ×4 (00:06→22:02)
[2017-11-09] MEDS: OCULAR LUBRICANT 3.5 GM OPH OINT BOTH EYES ×4 (00:07→18:21)
[2017-11-09] MEDS: ARTIFICIAL TEARS 15 ML OPH BOTH EYES ×4 (00:07→18:21)
[2017-11-09] MEDS: ACETYLCYSTEINE 20% 4 ML VIAL NEB ×4 (01:00→19:21)
[2017-11-09] MEDS: ALBUTEROL HFA 8 GM INHALER INH ×4 (01:00→19:29)
[2017-11-09] MEDS: VANCOMYCIN 750 MG in SOD CHLORIDE 0.9% 150 ML IVPB ×2 (04:50→16:43)
[2017-11-09] MEDS: PANTOPRAZOLE 40 MG INJ IV ×2 (05:13→18:21)
[2017-11-09] MEDS: LEVOTHYROXINE 50 MCG TAB NGT (05:15)
[2017-11-09] MEDS: METOPROLOL 25 MG TAB NGT ×4 (05:15→18:00)
[2017-11-09 05:17] LABS: ADD MAN DIFF? NO
[2017-11-09 05:18] LABS: WHITE BLOOD COUNT 9.9 10^3/ul (4.8-10.8)
[2017-11-09 05:18] LABS: BASOPHILS % 0.2 % (0.0-2.0); EOSINOPHILS # 0.1 10^3/ul (0.0-0.5); HEMATOCRIT 24.4 % (42.0-52.0); HEMOGLOBIN 7.2 g/dl (14.0-18.0); LYMPHOCYTES # 0.9 10^3/ul (0.8-2.9); LYMPHOCYTES % 8.8 % (15.0-51.0); MEAN CORPUSCULAR HEMOGLOBIN 28.2 pg (29.0-33.0); MEAN CORPUSCULAR HGB CONC 29.5 g/dl (32.0-37.0); MEAN CORPUSCULAR VOLUME 95.7 fl (82.0-101.0); MEAN PLATELET VOLUME 9.8 fl (7.4-10.4); MONOCYTE # 0.8 10^3/ul (0.3-0.9); MONOCYTES % 7.8 % (0.0-11.0); NEUTROPHIL # 8.1 10^3/ul (1.6-7.5); NEUTROPHILS % 81.6 % (39.0-77.0); PLATELET COUNT 179 10^3/UL (140-415); RED BLOOD COUNT 2.55 10^6/ul (4.70-6.10); RED CELL DISTRIBUTION WIDTH 17.4 % (11.5-14.5)
[2017-11-09] MEDS: LORAZEPAM 2 MG INJ IV (05:26)
[2017-11-09 05:48] LABS: ANION GAP 5 (8-16); BLOOD UREA NITROGEN 26 mg/dl (7-20); CALCIUM 8.9 mg/dl (8.4-10.2); CARBON DIOXIDE 37 mmol/L (21-31); CHLORIDE 108 mmol/L (97-110); CREATININE 0.51 mg/dl (0.61-1.24); GLUCOSE 123 mg/dl (70-220); MAGNESIUM 2.3 mg/dl (1.7-2.5); PHOSPHORUS 2.9 mg/dl (2.5-4.9); POTASSIUM 4.3 mmol/L (3.5-5.1); SODIUM 146 mmol/L (135-144)
[2017-11-09 08:30] LABS: AADO2 Arterial 418.5 mmHg (7.0-24.0); Allen Test ACCEPTAB; Arterial Base Excess 6.5 mmol/L (-3.0-3); Arterial Blood Gas Oxygen Sat 97.5 mmHG (95.0-98.0); Arterial Fraction of Oxyhgb 96.4 % (93.0-99.0); Arterial HCO3 32.1 mmol/L (22.0-26.0); Arterial MetHb 0.1 % (0.0-1.5); Arterial Total Hemglobin 8.6 g/dl (12.0-18.0); Arterial pCO2 52.8 mmhg (35-45); MODE VENT - AC; Site Right Radial
[2017-11-09] MEDS: MAGNESIUM OXIDE 400 MG TAB PO ×2 (08:48→20:41)
[2017-11-09] MEDS: BALSAM PERU/CASTOR OIL 60 GM TUBE TOP (08:48)
[2017-11-09] MEDS: SPECIAL NON-STANDARD MEDICATION NGT (08:48)
[2017-11-09] MEDS: ATORVASTATIN 80 MG TAB NGT (20:39)
[2017-11-10] MEDS: OCULAR LUBRICANT 3.5 GM OPH OINT BOTH EYES ×5 (00:56→23:40)
[2017-11-10] MEDS: ARTIFICIAL TEARS 15 ML OPH BOTH EYES ×5 (00:57→23:41)
[2017-11-10] MEDS: ACETYLCYSTEINE 20% 4 ML VIAL NEB ×4 (01:07→21:09)
[2017-11-10] MEDS: ALBUTEROL HFA 8 GM INHALER INH (01:07)
[2017-11-10] MEDS: VANCOMYCIN 750 MG in SOD CHLORIDE 0.9% 150 ML IVPB ×2 (04:22→15:12)
[2017-11-10 05:12] LABS: ADD MAN DIFF? NO
[2017-11-10 05:23] LABS: BASOPHILS % 0.1 % (0.0-2.0); EOSINOPHILS # 0.2 10^3/ul (0.0-0.5); EOSINOPHILS % 2.5 % (0.0-7.0); HEMATOCRIT 23.6 % (42.0-52.0); HEMOGLOBIN 7.1 g/dl (14.0-18.0); LYMPHOCYTES # 0.8 10^3/ul (0.8-2.9); LYMPHOCYTES % 10.2 % (15.0-51.0); MEAN CORPUSCULAR HEMOGLOBIN 28.9 pg (29.0-33.0); MEAN CORPUSCULAR HGB CONC 30.1 g/dl (32.0-37.0); MEAN CORPUSCULAR VOLUME 95.9 fl (82.0-101.0); MEAN PLATELET VOLUME 10.2 fl (7.4-10.4); MONOCYTE # 0.6 10^3/ul (0.3-0.9); MONOCYTES % 6.9 % (0.0-11.0); NEUTROPHIL # 6.3 10^3/ul (1.6-7.5); NEUTROPHILS % 79.7 % (39.0-77.0); PLATELET COUNT 188 10^3/UL (140-415); RED BLOOD COUNT 2.46 10^6/ul (4.70-6.10); RED CELL DISTRIBUTION WIDTH 17.3 % (11.5-14.5)
[2017-11-10 05:23] LABS: WHITE BLOOD COUNT 7.9 10^3/ul (4.8-10.8)
[2017-11-10] MEDS: METOPROLOL 25 MG TAB NGT ×5 (06:00→23:41)
[2017-11-10] MEDS: PANTOPRAZOLE 40 MG INJ IV ×2 (06:03→18:33)
[2017-11-10] MEDS: LEVOTHYROXINE 50 MCG TAB NGT (06:03)
[2017-11-10] MEDS: MEROPENEM 1 GM/50ML(PMX) 50 ML IVPB ×3 (06:03→21:02)
[2017-11-10 07:19] LABS: ALANINE AMINOTRANSFERASE 195 IU/L (13-69); ALBUMIN/GLOBULIN RATIO 0.57; ALKALINE PHOSPHATASE 150 IU/L (42-121); ANION GAP 6 (8-16); ASPARTATE AMINO TRANSFERASE 165 IU/L (15-46); BILIRUBIN,INDIRECT 0.5 mg/dl (0-1.1); BILIRUBIN,TOTAL 0.5 mg/dl (0.2-1.3); BLOOD UREA NITROGEN 24 mg/dl (7-20); CALCIUM 8.8 mg/dl (8.4-10.2); CARBON DIOXIDE 38 mmol/L (21-31); CHLORIDE 106 mmol/L (97-110); CREATININE 0.52 mg/dl (0.61-1.24); GLUCOSE 117 mg/dl (70-220); POTASSIUM 4.1 mmol/L (3.5-5.1); SODIUM 146 mmol/L (135-144); TOTAL PROTEIN 5.5 g/dl (6.1-8.1)
[2017-11-10] MEDS: AMIODARONE 200 MG TAB PO ×3 (08:12→21:03)
[2017-11-10] MEDS: MAGNESIUM OXIDE 400 MG TAB PO ×2 (08:12→21:03)
[2017-11-10] MEDS: BALSAM PERU/CASTOR OIL 60 GM TUBE TOP (08:13)
[2017-11-10] MEDS: SPECIAL NON-STANDARD MEDICATION NGT (08:13)
[2017-11-10] MEDS: SOD CHLORIDE 0.9% 1,000 ML IV (17:00)
[2017-11-10 17:01] LABS: IMMEDIATE SPIN CROSSMATCH 1 2
[2017-11-10] MEDS: ATORVASTATIN 80 MG TAB NGT (21:02)
[2017-11-11] MEDS: ACETYLCYSTEINE 20% 4 ML VIAL NEB ×5 (01:45→20:00)
[2017-11-11] MEDS: VANCOMYCIN 750 MG in SOD CHLORIDE 0.9% 150 ML IVPB ×2 (03:02→17:00)
[2017-11-11] MEDS: PANTOPRAZOLE 40 MG INJ IV ×2 (05:56→17:03)
[2017-11-11] MEDS: MEROPENEM 1 GM/50ML(PMX) 50 ML IVPB ×3 (05:56→22:01)
[2017-11-11] MEDS: METOPROLOL 25 MG TAB NGT ×3 (05:57→17:03)
[2017-11-11] MEDS: LEVOTHYROXINE 50 MCG TAB NGT (05:57)
[2017-11-11] MEDS: MAGNESIUM OXIDE 400 MG TAB PO (08:28)
[2017-11-11] MEDS: AMIODARONE 200 MG TAB PO ×3 (08:29→21:00)
[2017-11-11] MEDS: SPECIAL NON-STANDARD MEDICATION NGT (08:29)
[2017-11-11] MEDS: BALSAM PERU/CASTOR OIL 60 GM TUBE TOP (08:30)
[2017-11-11] MEDS: FUROSEMIDE 40 MG INJ IV (11:27)
[2017-11-11] MEDS ORDERED: FUROSEMIDE 40 MG INJ IV (11:30)
[2017-11-11 14:32] LABS: AADO2 Arterial 388.2 mmHg (7.0-24.0); Allen Test ACCEPTAB; Arterial Base Excess 11.6 mmol/L (-3.0-3); Arterial Blood Gas Oxygen Sat 88.2 mmHG (95.0-98.0); Arterial COHb 0.6 % (0.0-3.0); Arterial Fraction of Oxyhgb 87.6 % (93.0-99.0); Arterial HCO3 37.2 mmol/L (22.0-26.0); Arterial MetHb 0.1 % (0.0-1.5); Arterial Total Hemglobin 10.9 g/dl (12.0-18.0); Arterial pCO2 54.4 mmhg (35-45); MODE VENT - AC; Site Right Radial
[2017-11-11] MEDS: BUMETANIDE 2 MG in DEXTROSE 5% 17 ML IV (17:00)
[2017-11-11] MEDS ORDERED: BUMETANIDE 1 MG INJ IV (18:00)
[2017-11-12] MEDS: ALBUTEROL HFA 8 GM INHALER INH ×3 (01:22→19:33)
[2017-11-12] MEDS: ACETYLCYSTEINE 20% 4 ML VIAL NEB ×4 (01:25→19:33)
[2017-11-12 03:33] LABS: ADD MAN DIFF? NO
[2017-11-12 03:36] LABS: WHITE BLOOD COUNT 9.4 10^3/ul (4.8-10.8)
[2017-11-12 03:36] LABS: BASOPHILS % 0.3 % (0.0-2.0); EOSINOPHILS # 0.1 10^3/ul (0.0-0.5); EOSINOPHILS % 0.6 % (0.0-7.0); HEMATOCRIT 29.5 % (42.0-52.0); HEMOGLOBIN 8.9 g/dl (14.0-18.0); LYMPHOCYTES # 0.9 10^3/ul (0.8-2.9); LYMPHOCYTES % 9.4 % (15.0-51.0); MEAN CORPUSCULAR HEMOGLOBIN 28.3 pg (29.0-33.0); MEAN CORPUSCULAR HGB CONC 30.2 g/dl (32.0-37.0); MEAN CORPUSCULAR VOLUME 93.9 fl (82.0-101.0); MEAN PLATELET VOLUME 10.1 fl (7.4-10.4); MONOCYTE # 0.7 10^3/ul (0.3-0.9); MONOCYTES % 7.4 % (0.0-11.0); NEUTROPHIL # 7.6 10^3/ul (1.6-7.5); NEUTROPHILS % 81.7 % (39.0-77.0); PLATELET COUNT 224 10^3/UL (140-415); RED BLOOD COUNT 3.14 10^6/ul (4.70-6.10); RED CELL DISTRIBUTION WIDTH 17.2 % (11.5-14.5)
[2017-11-12 04:17] LABS: ANION GAP 5 (8-16); BLOOD UREA NITROGEN 27 mg/dl (7-20); CALCIUM 8.3 mg/dl (8.4-10.2); CARBON DIOXIDE 36 mmol/L (21-31); CHLORIDE 105 mmol/L (97-110); CREATININE 0.49 mg/dl (0.61-1.24); GLUCOSE 125 mg/dl (70-220); MAGNESIUM 2.4 mg/dl (1.7-2.5); POTASSIUM 3.9 mmol/L (3.5-5.1); SODIUM 142 mmol/L (135-144)
[2017-11-12 04:22] LABS: VANCOMYCIN,TROUGH 16.8 ug/ml (10.0-20.0)
[2017-11-12] MEDS: VANCOMYCIN 750 MG in SOD CHLORIDE 0.9% 150 ML IVPB ×2 (05:07→16:59)
[2017-11-12] MEDS: BUMETANIDE 2 MG in DEXTROSE 5% 17 ML IV ×2 (05:07→17:00)
[2017-11-12] MEDS: PANTOPRAZOLE 40 MG INJ IV ×2 (05:09→17:00)
[2017-11-12] MEDS: MEROPENEM 1 GM/50ML(PMX) 50 ML IVPB ×3 (05:10→21:42)
[2017-11-12] MEDS: METOPROLOL 25 MG TAB NGT ×5 (05:11→23:46)
[2017-11-12] MEDS: LEVOTHYROXINE 50 MCG TAB NGT (06:32)
[2017-11-12 07:31] LABS: AADO2 Arterial 363.5 mmHg (7.0-24.0); Allen Test ACCEPTAB; Arterial Base Excess 13.3 mmol/L (-3.0-3); Arterial Blood Gas Oxygen Sat 93.7 mmHG (95.0-98.0); Arterial COHb 0.8 % (0.0-3.0); Arterial Fraction of Oxyhgb 92.8 % (93.0-99.0); Arterial MetHb 0.2 % (0.0-1.5); Arterial Total Hemglobin 10.7 g/dl (12.0-18.0); Arterial pCO2 63.1 mmhg (35-45); MODE VENT - AC; Site Right Radial
[2017-11-12] MEDS: BALSAM PERU/CASTOR OIL 60 GM TUBE TOP (08:35)
[2017-11-12] MEDS: AMIODARONE 200 MG TAB PO ×3 (08:35→21:00)
[2017-11-12] MEDS: SPECIAL NON-STANDARD MEDICATION NGT (08:35)
[2017-11-12] MEDS ORDERED: FUROSEMIDE 40 MG INJ IV (09:00)
[2017-11-12] MEDS: METHYLPREDNISOLONE 125 MG INJ IV ×2 (17:02→23:40)
[2017-11-13] MEDS: ALBUTEROL HFA 8 GM INHALER INH ×4 (01:20→20:07)
[2017-11-13] MEDS: ACETYLCYSTEINE 20% 4 ML VIAL NEB ×4 (01:20→20:07)
[2017-11-13] MEDS: VANCOMYCIN 500MG/NS (PMX) 100 ML IVPB ×2 (04:56→16:57)
[2017-11-13 05:43] LABS: ADD MAN DIFF? NO
[2017-11-13 05:50] LABS: ABNORMAL IP MESSAGE 1; BASOPHILS % 0.1 % (0.0-2.0); HEMATOCRIT 29.7 % (42.0-52.0); HEMOGLOBIN 9.1 g/dl (14.0-18.0); LYMPHOCYTES # 0.5 10^3/ul (0.8-2.9); LYMPHOCYTES % 4.8 % (15.0-51.0); MEAN CORPUSCULAR HEMOGLOBIN 28.1 pg (29.0-33.0); MEAN CORPUSCULAR HGB CONC 30.6 g/dl (32.0-37.0); MEAN CORPUSCULAR VOLUME 91.7 fl (82.0-101.0); MEAN PLATELET VOLUME 10.3 fl (7.4-10.4); MONOCYTE # 0.1 10^3/ul (0.3-0.9); MONOCYTES % 0.6 % (0.0-11.0); NEUTROPHIL # 8.8 10^3/ul (1.6-7.5); PLATELET COUNT 271 10^3/UL (140-415); POSITIVE DIFF @See below; RED BLOOD COUNT 3.24 10^6/ul (4.70-6.10); RED CELL DISTRIBUTION WIDTH 16.8 % (11.5-14.5)
[2017-11-13 05:50] LABS: WHITE BLOOD COUNT 9.4 10^3/ul (4.8-10.8)
[2017-11-13] MEDS: METOPROLOL 25 MG TAB NGT ×3 (06:00→17:07)
[2017-11-13] MEDS: PANTOPRAZOLE 40 MG INJ IV ×2 (06:03→17:06)
[2017-11-13] MEDS: MEROPENEM 1 GM/50ML(PMX) 50 ML IVPB ×3 (06:03→21:39)
[2017-11-13] MEDS: BUMETANIDE 2 MG in DEXTROSE 5% 17 ML IV ×2 (06:03→17:07)
[2017-11-13] MEDS: METHYLPREDNISOLONE 125 MG INJ IV ×2 (06:05→20:30)
[2017-11-13] MEDS: LEVOTHYROXINE 50 MCG TAB NGT (06:05)
[2017-11-13 06:15] LABS: INR 1.23; PROTIME 15.7 Sec (11.9-14.9); PT RATIO 1.2
[2017-11-13 06:34] LABS: BLOOD UREA NITROGEN 31 mg/dl (7-20); CALCIUM 8.3 mg/dl (8.4-10.2); CHLORIDE 99 mmol/L (97-110); CREATININE 0.55 mg/dl (0.61-1.24); GLUCOSE 144 mg/dl (70-220); MAGNESIUM 2.2 mg/dl (1.7-2.5); POTASSIUM 3.4 mmol/L (3.5-5.1); SODIUM 145 mmol/L (135-144)
[2017-11-13 07:08] LABS: ANION GAP 7 (8-16); CARBON DIOXIDE 42 mmol/L (21-31)
[2017-11-13] MEDS: SPECIAL NON-STANDARD MEDICATION NGT (09:00)
[2017-11-13] MEDS: AMIODARONE 200 MG TAB PO ×3 (09:00→20:30)
[2017-11-13] MEDS: BALSAM PERU/CASTOR OIL 60 GM TUBE TOP (09:00)
[2017-11-14] MEDS: ACETYLCYSTEINE 20% 4 ML VIAL NEB ×4 (01:00→19:58)
[2017-11-14] MEDS: ALBUTEROL HFA 8 GM INHALER INH ×4 (01:01→19:58)
[2017-11-14] MEDS: VANCOMYCIN 500MG/NS (PMX) 100 ML IVPB (04:41)
[2017-11-14] MEDS: BUMETANIDE 2 MG in DEXTROSE 5% 17 ML IV ×2 (05:58→17:46)
[2017-11-14 06:02] LABS: ADD MAN DIFF? NO
[2017-11-14] MEDS: PANTOPRAZOLE 40 MG INJ IV ×2 (06:04→17:41)
[2017-11-14] MEDS: LEVOTHYROXINE 50 MCG TAB NGT (06:04)
[2017-11-14] MEDS: METOPROLOL 25 MG TAB NGT ×5 (06:04→23:39)
[2017-11-14 06:08] LABS: BASOPHILS % 0.1 % (0.0-2.0); HEMATOCRIT 29.9 % (42.0-52.0); HEMOGLOBIN 9.1 g/dl (14.0-18.0); LYMPHOCYTES # 0.6 10^3/ul (0.8-2.9); MEAN CORPUSCULAR HEMOGLOBIN 28.3 pg (29.0-33.0); MEAN CORPUSCULAR HGB CONC 30.4 g/dl (32.0-37.0); MEAN CORPUSCULAR VOLUME 92.9 fl (82.0-101.0); MEAN PLATELET VOLUME 10.2 fl (7.4-10.4); MONOCYTE # 0.7 10^3/ul (0.3-0.9); MONOCYTES % 4.7 % (0.0-11.0); NEUTROPHIL # 14.4 10^3/ul (1.6-7.5); NEUTROPHILS % 90.5 % (39.0-77.0); PLATELET COUNT 323 10^3/UL (140-415); RED BLOOD COUNT 3.22 10^6/ul (4.70-6.10); RED CELL DISTRIBUTION WIDTH 16.8 % (11.5-14.5)
[2017-11-14 06:08] LABS: WHITE BLOOD COUNT 15.9 10^3/ul (4.8-10.8)
[2017-11-14] MEDS: MEROPENEM 1 GM/50ML(PMX) 50 ML IVPB (06:19)
[2017-11-14 06:26] LABS: BLOOD UREA NITROGEN 39 mg/dl (7-20); CALCIUM 8.5 mg/dl (8.4-10.2); CHLORIDE 96 mmol/L (97-110); CREATININE 0.62 mg/dl (0.61-1.24); GLUCOSE 164 mg/dl (70-220); SODIUM 145 mmol/L (135-144)
[2017-11-14 06:39] LABS: ANION GAP 5 (8-16)
[2017-11-14 06:44] LABS: CARBON DIOXIDE 47 mmol/L (21-31); POTASSIUM 2.9 mmol/L (3.5-5.1)
[2017-11-14 06:49] LABS: MAGNESIUM 2.3 mg/dl (1.7-2.5)
[2017-11-14 06:49] LABS: PHOSPHORUS 2.9 mg/dl (2.5-4.9)
[2017-11-14] MEDS: METHYLPREDNISOLONE 125 MG INJ IV ×2 (09:05→21:02)
[2017-11-14] MEDS: POTASSIUM CHLORIDE 100 ML IVPB ×2 (09:05→11:18)
[2017-11-14] MEDS: AMIODARONE 200 MG TAB PO ×3 (09:05→21:00)
[2017-11-14] MEDS: BALSAM PERU/CASTOR OIL 60 GM TUBE TOP (09:06)
[2017-11-14] MEDS: SPECIAL NON-STANDARD MEDICATION NGT (09:06)
[2017-11-14] MEDS: METOCLOPRAMIDE 10 MG INJ IV ×3 (11:21→23:36)
[2017-11-14 16:55] LABS: POTASSIUM 3.4 mmol/L (3.5-5.1)
[2017-11-15] MEDS: ACETYLCYSTEINE 20% 4 ML VIAL NEB ×4 (01:41→19:45)
[2017-11-15] MEDS: ALBUTEROL HFA 8 GM INHALER INH ×2 (01:41→19:50)
[2017-11-15] MEDS: METOPROLOL 25 MG TAB NGT ×4 (05:43→23:18)
[2017-11-15] MEDS: BUMETANIDE 2 MG in DEXTROSE 5% 17 ML IV (05:43)
[2017-11-15] MEDS: LEVOTHYROXINE 50 MCG TAB NGT (05:43)
[2017-11-15] MEDS: METOCLOPRAMIDE 10 MG INJ IV ×4 (05:43→23:49)
[2017-11-15] MEDS: PANTOPRAZOLE 40 MG INJ IV ×2 (05:43→17:15)
[2017-11-15 06:37] LABS: ADD MAN DIFF? NO
[2017-11-15 06:42] LABS: ABNORMAL IP MESSAGE 1; BASOPHILS % 0.1 % (0.0-2.0); HEMATOCRIT 29.2 % (42.0-52.0); HEMOGLOBIN 8.9 g/dl (14.0-18.0); LYMPHOCYTES # 0.6 10^3/ul (0.8-2.9); LYMPHOCYTES % 3.8 % (15.0-51.0); MEAN CORPUSCULAR HEMOGLOBIN 27.9 pg (29.0-33.0); MEAN CORPUSCULAR HGB CONC 30.5 g/dl (32.0-37.0); MEAN CORPUSCULAR VOLUME 91.5 fl (82.0-101.0); MEAN PLATELET VOLUME 9.9 fl (7.4-10.4); MONOCYTE # 0.6 10^3/ul (0.3-0.9); MONOCYTES % 4.2 % (0.0-11.0); NEUTROPHIL # 13.3 10^3/ul (1.6-7.5); NEUTROPHILS % 91.3 % (39.0-77.0); PLATELET COUNT 320 10^3/UL (140-415); POSITIVE DIFF @See below; RED BLOOD COUNT 3.19 10^6/ul (4.70-6.10); RED CELL DISTRIBUTION WIDTH 16.8 % (11.5-14.5)
[2017-11-15 06:42] LABS: WHITE BLOOD COUNT 14.6 10^3/ul (4.8-10.8)
[2017-11-15 07:24] LABS: MAGNESIUM 2.4 mg/dl (1.7-2.5)
[2017-11-15 07:24] LABS: PHOSPHORUS 2.8 mg/dl (2.5-4.9)
[2017-11-15 07:32] LABS: BLOOD UREA NITROGEN 47 mg/dl (7-20); CALCIUM 8.3 mg/dl (8.4-10.2); CHLORIDE 94 mmol/L (97-110); GLUCOSE 177 mg/dl (70-220); SODIUM 145 mmol/L (135-144)
[2017-11-15 07:44] LABS: ANION GAP 5 (8-16); CARBON DIOXIDE 49 mmol/L (21-31)
[2017-11-15] MEDS: METHYLPREDNISOLONE 125 MG INJ IV ×2 (08:54→20:47)
[2017-11-15] MEDS: BALSAM PERU/CASTOR OIL 60 GM TUBE TOP (08:56)
[2017-11-15] MEDS: SPECIAL NON-STANDARD MEDICATION NGT (08:57)
[2017-11-15] MEDS: AMIODARONE 200 MG TAB PO ×3 (09:05→20:43)
[2017-11-15] MEDS: POTASSIUM CHLORIDE 100 ML IVPB ×4 (10:47→17:15)
[2017-11-15 12:08] LABS: AADO2 Arterial 186.7 mmHg (7.0-24.0); Allen Test ACCEPTAB; Arterial Base Excess 21.7 mmol/L (-3.0-3); Arterial Blood Gas Oxygen Sat 97.3 mmHG (95.0-98.0); Arterial Fraction of Oxyhgb 96.1 % (93.0-99.0); Arterial HCO3 50.2 mmol/L (22.0-26.0); Arterial MetHb 0.2 % (0.0-1.5); Arterial Total Hemglobin 16.4 g/dl (12.0-18.0); Arterial pCO2 67.9 mmhg (35-45); MODE VENT - AC; Site Right Radial
[2017-11-15] MEDS: SOD CHLORIDE 0.9% 500 ML IV (17:15)
[2017-11-15 17:41] LABS: BLOOD UREA NITROGEN 38 mg/dl (7-20); CALCIUM 6.9 mg/dl (8.4-10.2); CHLORIDE 104 mmol/L (97-110); CREATININE 0.52 mg/dl (0.61-1.24); GLUCOSE 135 mg/dl (70-220); POTASSIUM 3.2 mmol/L (3.5-5.1); SODIUM 146 mmol/L (135-144)
[2017-11-15 18:00] LABS: ANION GAP 4 (8-16); CARBON DIOXIDE 41 mmol/L (21-31)
[2017-11-16] MEDS: ALBUTEROL HFA 8 GM INHALER INH (01:38)
[2017-11-16] MEDS: ACETYLCYSTEINE 20% 4 ML VIAL NEB ×4 (01:38→19:52)
[2017-11-16] MEDS: PANTOPRAZOLE 40 MG INJ IV ×2 (05:42→17:01)
[2017-11-16] MEDS: LEVOTHYROXINE 50 MCG TAB NGT (05:42)
[2017-11-16] MEDS: METOCLOPRAMIDE 10 MG INJ IV ×4 (05:42→23:56)
[2017-11-16] MEDS: METOPROLOL 25 MG TAB NGT ×4 (05:43→23:58)
[2017-11-16 06:40] LABS: ALANINE AMINOTRANSFERASE 112 IU/L (13-69); ALBUMIN 2.1 g/dl (3.3-4.9); ALBUMIN/GLOBULIN RATIO 0.61; ALKALINE PHOSPHATASE 100 IU/L (42-121); ASPARTATE AMINO TRANSFERASE 86 IU/L (15-46); BILIRUBIN,INDIRECT 0.4 mg/dl (0-1.1); BILIRUBIN,TOTAL 0.4 mg/dl (0.2-1.3); BLOOD UREA NITROGEN 50 mg/dl (7-20); CALCIUM 8.3 mg/dl (8.4-10.2); CHLORIDE 95 mmol/L (97-110); CREATININE 0.53 mg/dl (0.61-1.24); GLUCOSE 172 mg/dl (70-220); MAGNESIUM 2.5 mg/dl (1.7-2.5); POTASSIUM 3.8 mmol/L (3.5-5.1); SODIUM 145 mmol/L (135-144); TOTAL PROTEIN 5.5 g/dl (6.1-8.1)
[2017-11-16 07:17] LABS: ANION GAP 8 (8-16); CARBON DIOXIDE 46 mmol/L (21-31)
[2017-11-16] MEDS: SPECIAL NON-STANDARD MEDICATION NGT ×2 (08:30→08:46)
[2017-11-16] MEDS: AMIODARONE 200 MG TAB PO ×3 (08:44→21:00)
[2017-11-16] MEDS: METHYLPREDNISOLONE 125 MG INJ IV ×2 (08:44→21:21)
[2017-11-16] MEDS: BALSAM PERU/CASTOR OIL 60 GM TUBE TOP (08:46)
[2017-11-16] MEDS: POTASSIUM CHLORIDE (SR) 20 MEQ TAB PO (16:47)
[2017-11-17] MEDS: ACETYLCYSTEINE 20% 4 ML VIAL NEB ×4 (02:06→20:31)
[2017-11-17] MEDS: PANTOPRAZOLE 40 MG INJ IV ×2 (05:35→17:15)
[2017-11-17] MEDS: METOCLOPRAMIDE 10 MG INJ IV ×4 (05:36→23:52)
[2017-11-17] MEDS: LEVOTHYROXINE 50 MCG TAB NGT (05:36)
[2017-11-17] MEDS: METOPROLOL 25 MG TAB NGT ×4 (05:48→23:52)
[2017-11-17] MEDS: AMIODARONE 200 MG TAB PO ×3 (08:19→23:51)
[2017-11-17] MEDS: METHYLPREDNISOLONE 125 MG INJ IV (08:21)
[2017-11-17] MEDS: SPECIAL NON-STANDARD MEDICATION NGT (08:21)
[2017-11-17] MEDS: BALSAM PERU/CASTOR OIL 60 GM TUBE TOP (08:21)
[2017-11-17] MEDS: ACETAMINOPHEN 650MG/20.3ML CUP NGT (08:21)
[2017-11-17 10:52] LABS: BLOOD UREA NITROGEN 45 mg/dl (7-20); CALCIUM 8.6 mg/dl (8.4-10.2); CHLORIDE 98 mmol/L (97-110); CREATININE 0.59 mg/dl (0.61-1.24); GLUCOSE 188 mg/dl (70-220); MAGNESIUM 2.5 mg/dl (1.7-2.5); POTASSIUM 4.2 mmol/L (3.5-5.1); SODIUM 145 mmol/L (135-144)
[2017-11-17 11:02] LABS: ANION GAP 7 (8-16); CARBON DIOXIDE 44 mmol/L (21-31)
[2017-11-17] MEDS: ALBUTEROL HFA 8 GM INHALER INH (23:21)
[2017-11-18] MEDS: ACETYLCYSTEINE 20% 4 ML VIAL NEB ×2 (01:16→07:38)
[2017-11-18] MEDS: METOPROLOL 25 MG TAB NGT ×3 (05:58→17:18)
[2017-11-18] MEDS: PANTOPRAZOLE 40 MG INJ IV ×2 (06:01→17:17)
[2017-11-18] MEDS: LEVOTHYROXINE 50 MCG TAB NGT (06:01)
[2017-11-18] MEDS: METOCLOPRAMIDE 10 MG INJ IV ×3 (06:01→17:18)
[2017-11-18 06:42] LABS: ANION GAP 4 (8-16); BLOOD UREA NITROGEN 40 mg/dl (7-20); CALCIUM 8.7 mg/dl (8.4-10.2); CARBON DIOXIDE 40 mmol/L (21-31); CHLORIDE 104 mmol/L (97-110); GLUCOSE 129 mg/dl (70-220); MAGNESIUM 2.4 mg/dl (1.7-2.5); POTASSIUM 4.3 mmol/L (3.5-5.1); SODIUM 144 mmol/L (135-144)
[2017-11-18] MEDS: AMIODARONE 200 MG TAB PO ×2 (08:40→13:00)
[2017-11-18] MEDS: SPECIAL NON-STANDARD MEDICATION NGT (08:40)
[2017-11-18] MEDS: BALSAM PERU/CASTOR OIL 60 GM TUBE TOP (08:41)
[2017-11-18] MEDS: ACETAMINOPHEN 650MG/20.3ML CUP NGT ×2 (14:29→14:30)
[2017-11-19] MEDS ORDERED: SPECIAL NON-STANDARD MEDICATION NGT (13:00)
== END 2017-11-18 20:03 | DRG 4 ==
LOC: ICU 11-05 15:39 → E/R 22:53 → 6WM 10-29 16:25 → ICU 10-10 00:18
PROVIDERS: Family Medicine
PROC: 0B110F4 Bypass Trachea to Cutaneous with Tracheostomy Device, Open Approach (ICD-10-PCS; principal; 2017-10-28 12:16)
PROC: 5A1955Z Respiratory Ventilation, Greater than 96 Consecutive Hours (ICD-10-PCS; 2017-10-28 12:16)
PROC: 0BH17EZ Insertion of Endotracheal Airway into Trachea, Via Natural or Artificial Opening (ICD-10-PCS; 2017-10-28 12:16)
PROC: 0DH63UZ Insertion of Feeding Device into Stomach, Percutaneous Approach (ICD-10-PCS; 2017-10-28 12:16)
PROC: 06HY33Z Insertion of Infusion Device into Lower Vein, Percutaneous Approach (ICD-10-PCS; 2017-10-28 12:16)
PROC: 5A12012 Performance of Cardiac Output, Single, Manual (ICD-10-PCS; 2017-10-28 12:16)
PROC: 02HV33Z Insertion of Infusion Device into Superior Vena Cava, Percutaneous Approach (ICD-10-PCS; 2017-10-28 12:16)
PROC: 30233N1 Transfusion of Nonautologous Red Blood Cells into Peripheral Vein, Percutaneous Approach (ICD-10-PCS; 2017-10-28 12:16)
DX: J96.01 Acute respiratory failure with hypoxia (principal); I46.9 Cardiac arrest, cause unspecified; I50.43 Acute on chronic combined systolic (congestive) and diastolic (congestive) heart failure; A41.9 Sepsis, unspecified organism; I21.4 Non-ST elevation (NSTEMI) myocardial infarction; N17.9 Acute kidney failure, unspecified; I13.0 Hypertensive heart and chronic kidney disease with heart failure and stage 1 through stage 4 chronic kidney disease, or unspecified chronic kidney disease; E87.0 Hyperosmolality and hypernatremia; G93.1 Anoxic brain damage, not elsewhere classified; D62 Acute posthemorrhagic anemia; R40.3 Persistent vegetative state; K92.1 Melena; J95.851 Ventilator associated pneumonia; E87.3 Alkalosis; I47.2 Ventricular tachycardia; I25.5 Ischemic cardiomyopathy; R00.1 Bradycardia, unspecified; I25.10 Atherosclerotic heart disease of native coronary artery without angina pectoris; I73.9 Peripheral vascular disease, unspecified; F17.200 Nicotine dependence, unspecified, uncomplicated; E78.5 Hyperlipidemia, unspecified; E87.6 Hypokalemia; J44.9 Chronic obstructive pulmonary disease, unspecified; G47.33 Obstructive sleep apnea (adult) (pediatric); I25.2 Old myocardial infarction; N18.3 Chronic kidney disease, stage 3 (moderate); E83.39 Other disorders of phosphorus metabolism; R13.10 Dysphagia, unspecified; K29.70 Gastritis, unspecified, without bleeding; Z95.0 Presence of cardiac pacemaker; Z95.5 Presence of coronary angioplasty implant and graft; Z79.899 Other long term (current) drug therapy; Z79.84 Long term (current) use of oral hypoglycemic drugs
CPT/HCPCS: 31500; 36430; 36569; 36600; 70450; 71045; 74018; 76937; 80048; 80053; 80061; 80202; 81001; 81003; 82043; 82150; 82310; 82803; 82962; 83036; 83605; 83690; 83735; 83880; 84100; 84132; 84155; 84300; 84443; 84484; 85025; 85378; 85384; 85610; 85730; 86850; 86900; 86901; 86920; 87040; 87081; 87086; 92950; 93005; 93306; 93970; 93971; 94002; 94003; 94640; 94667; 94668; 94770; 95819; 99291-25

== ENCOUNTER 2018-01-22 17:43 | Emergency (ER) | payer OTHER ==
[2018-01-22] MEDS: ARTIFICIAL TEARS 15 ML OPH BOTH EYES (20:12)
== END 2018-01-23 12:36 | disposition home or self-care (01) ==
LOC: E/R 01-23 12:36
DX: R06.82 Tachypnea, not elsewhere classified (principal); I50.9 Heart failure, unspecified; R40.2112 Coma scale, eyes open, never, at arrival to emergency department; R40.2212 Coma scale, best verbal response, none, at arrival to emergency department; R40.2312 Coma scale, best motor response, none, at arrival to emergency department; Z79.01 Long term (current) use of anticoagulants; Z79.82 Long term (current) use of aspirin
CPT/HCPCS: 71045; 94002; 94003; 99283-25

== ENCOUNTER 2018-01-25 19:33 | Inpatient (IN) | payer OTHER ==
[2018-01-25] MEDS ORDERED: IPRATROPIUM (HFA) 12.9 GM INHALER INH (20:30)
[2018-01-25] MEDS ORDERED: ACETYLCYSTEINE 20% 4 ML VIAL NEB (20:30)
[2018-01-25] MEDS ORDERED: ALBUTEROL HFA 8 GM INHALER INH (20:30)
[2018-01-25 20:51] LABS: ADD MAN DIFF? NO
[2018-01-25 21:09] LABS: BASOPHILS % 0.2 % (0.0-2.0); EOSINOPHILS # 0.2 10^3/ul (0.0-0.5); EOSINOPHILS % 1.4 % (0.0-7.0); HEMATOCRIT 31.3 % (42.0-52.0); HEMOGLOBIN 9.1 g/dl (14.0-18.0); LYMPHOCYTES # 2.2 10^3/ul (0.8-2.9); LYMPHOCYTES % 18.1 % (15.0-51.0); MEAN CORPUSCULAR HEMOGLOBIN 26.1 pg (29.0-33.0); MEAN CORPUSCULAR HGB CONC 29.1 g/dl (32.0-37.0); MEAN CORPUSCULAR VOLUME 89.7 fl (82.0-101.0); MEAN PLATELET VOLUME 10.1 fl (7.4-10.4); MONOCYTE # 0.9 10^3/ul (0.3-0.9); MONOCYTES % 7.8 % (0.0-11.0); NEUTROPHIL # 8.7 10^3/ul (1.6-7.5); NEUTROPHILS % 72.2 % (39.0-77.0); PLATELET COUNT 274 10^3/UL (140-415); RED BLOOD COUNT 3.49 10^6/ul (4.70-6.10); RED CELL DISTRIBUTION WIDTH 16.8 % (11.5-14.5)
[2018-01-25 21:09] LABS: WHITE BLOOD COUNT 12.1 10^3/ul (4.8-10.8)
[2018-01-25 21:15] LABS: INR 1.09; PROTIME 14.2 Sec (11.9-14.9); PT RATIO 1.1
[2018-01-25 21:23] LABS: ALANINE AMINOTRANSFERASE 31 IU/L (13-69); ALBUMIN 2.7 g/dl (3.3-4.9); ALBUMIN/GLOBULIN RATIO 0.62; ALKALINE PHOSPHATASE 87 IU/L (42-121); ANION GAP 7 (5-13); ASPARTATE AMINO TRANSFERASE 25 IU/L (15-46); BILIRUBIN,INDIRECT 0.6 mg/dl (0-1.1); BILIRUBIN,TOTAL 0.6 mg/dl (0.2-1.3); BLOOD UREA NITROGEN 19 mg/dl (7-20); CALCIUM 8.8 mg/dl (8.4-10.2); CARBON DIOXIDE 33 mmol/L (21-31); CHLORIDE 99 mmol/L (97-110); CREATININE 0.54 mg/dl (0.61-1.24); Estimated GFR > 60 mL/min (>60); GLUCOSE 84 mg/dl (70-220); MAGNESIUM 1.8 mg/dl (1.7-2.5); POTASSIUM 3.4 mmol/L (3.5-5.1); SODIUM 139 mmol/L (135-144)
[2018-01-25 21:37] LABS: AADO2 Arterial 163.8 mmHg (7.0-24.0); Allen Test ACCEPTAB; Arterial Base Excess 3.5 mmol/L (-3.0-3); Arterial COHb 0.3 % (0.0-3.0); Arterial Fraction of Oxyhgb 94.6 % (93.0-99.0); Arterial HCO3 27.8 mmol/L (22.0-26.0); Arterial MetHb 0.1 % (0.0-1.5); Arterial pCO2 40.7 mmhg (35-45); Blood Gas Low PEEP Setting 0 cmH2O; MODE VENT - AC; Site Right Radial
[2018-01-26] MEDS: SOD CHLORIDE 0.9% 1,000 ML IV ×3 (00:19→12:34)
[2018-01-26 02:19] LABS: ADD MAN DIFF? NO
[2018-01-26 02:21] LABS: WHITE BLOOD COUNT 10.6 10^3/ul (4.8-10.8)
[2018-01-26 02:21] LABS: BASOPHILS % 0.3 % (0.0-2.0); EOSINOPHILS # 0.1 10^3/ul (0.0-0.5); EOSINOPHILS % 1.2 % (0.0-7.0); HEMATOCRIT 28.5 % (42.0-52.0); HEMOGLOBIN 8.4 g/dl (14.0-18.0); LYMPHOCYTES # 2.5 10^3/ul (0.8-2.9); LYMPHOCYTES % 23.2 % (15.0-51.0); MEAN CORPUSCULAR HEMOGLOBIN 26.4 pg (29.0-33.0); MEAN CORPUSCULAR HGB CONC 29.5 g/dl (32.0-37.0); MEAN CORPUSCULAR VOLUME 89.6 fl (82.0-101.0); MEAN PLATELET VOLUME 9.6 fl (7.4-10.4); MONOCYTE # 0.8 10^3/ul (0.3-0.9); MONOCYTES % 7.9 % (0.0-11.0); NEUTROPHIL # 7.1 10^3/ul (1.6-7.5); PLATELET COUNT 265 10^3/UL (140-415); RED BLOOD COUNT 3.18 10^6/ul (4.70-6.10); RED CELL DISTRIBUTION WIDTH 16.6 % (11.5-14.5)
[2018-01-26 02:37] LABS: LACTIC ACID 1.1 mmol/L (0.5-2.0)
[2018-01-26 02:37] LABS: CREATINE KINASE 98 IU/L (23-200)
[2018-01-26 02:40] LABS: IRON 20 ug/dl (35-150)
[2018-01-26 02:45] LABS: ALANINE AMINOTRANSFERASE 21 IU/L (13-69); ALBUMIN 2.7 g/dl (3.3-4.9); ALBUMIN/GLOBULIN RATIO 0.64; ALKALINE PHOSPHATASE 77 IU/L (42-121); ANION GAP 5 (5-13); ASPARTATE AMINO TRANSFERASE 29 IU/L (15-46); BILIRUBIN,INDIRECT 0.5 mg/dl (0-1.1); BILIRUBIN,TOTAL 0.5 mg/dl (0.2-1.3); BLOOD UREA NITROGEN 18 mg/dl (7-20); CALCIUM 8.6 mg/dl (8.4-10.2); CARBON DIOXIDE 33 mmol/L (21-31); CHLORIDE 103 mmol/L (97-110); CREATININE 0.51 mg/dl (0.61-1.24); Estimated GFR > 60 mL/min (>60); GLUCOSE 90 mg/dl (70-220); POTASSIUM 3.2 mmol/L (3.5-5.1); SODIUM 141 mmol/L (135-144); TOTAL PROTEIN 6.9 g/dl (6.1-8.1)
[2018-01-26 02:49] LABS: % IRON SATURATION 9 % SAT (22-52); TOTAL IRON BINDING CAPACITY 229 ug/dl (241-421)
[2018-01-26 02:50] LABS: CK INDEX 1.5; CK-MB 1.44 ng/ml (0.0-2.4); TROPONIN-I 0.071 ng/ml (0.000-0.120)
[2018-01-26] MEDS ORDERED: PENDING SANTYL ORDER FOR WOUND CARE XX (05:00)
[2018-01-26] MEDS: MAGNESIUM SULFATE 2 GM/50 ML 50 ML IVPB (05:28)
[2018-01-26] MEDS: POTASSIUM CHLORIDE 20 MEQ POWDER FOR ORAL SOLN PEG (05:28)
[2018-01-26] MEDS: PANTOPRAZOLE 40 MG INJ IV (05:29)
[2018-01-26] MEDS ORDERED: NORepinephrine 8MG/250 ML (PMX 250 ML IV (06:00)
[2018-01-26] MEDS: ENOXAPARIN 30 MG/0.3 ML SYG SC (08:32)
[2018-01-26 09:36] LABS: CREATINE KINASE 129 IU/L (23-200)
[2018-01-26 09:49] LABS: CK INDEX 1.2; CK-MB 1.52 ng/ml (0.0-2.4); TROPONIN-I 0.068 ng/ml (0.000-0.120)
[2018-01-26 10:38] LABS: ADD UMIC YES; UR ASCORBIC ACID 40 mg/dL (NEGATIVE); UR BACTERIA FEW /HPF (NONE SEEN); UR BILIRUBIN (Dip) NEGATIVE (NEGATIVE); UR BLOOD (Dip) NEGATIVE (NEGATIVE); UR CALCIUM OXALATE CRYSTAL FEW /HPF (NONE SEEN); UR CLARITY SLIGHTLY CLOUDY (CLEAR); UR COLOR YELLOW (YELLOW); UR GLUCOSE (Dip) NEGATIVE (NEGATIVE); UR KETONES (Dip) NEGATIVE (NEGATIVE); UR LEUKOCYTE ESTERASE (Dip) 1+ Leu/ul (NEGATIVE); UR MUCUS FEW /HPF (NONE SEEN); UR NITRITE (Dip) NEGATIVE (NEGATIVE); UR RBC 43 /HPF (0-5); UR SPECIFIC GRAVITY (Dip) 1.014 (1.003-1.030); UR TOTAL PROTEIN (Dip) 1+ mg/dl (NEGATIVE); UR UROBILINOGEN (Dip) NEGATIVE (NEGATIVE); UR WBC 23 /HPF (0-5)
[2018-01-26 12:28] LABS: ADD MAN DIFF? NO
[2018-01-26] MEDS: CEFEPIME 1GM/50 ML (PMX) 50 ML IVPB ×2 (12:34→21:12)
[2018-01-26 12:38] LABS: BASOPHILS % 0.4 % (0.0-2.0); EOSINOPHILS # 0.2 10^3/ul (0.0-0.5); EOSINOPHILS % 2.5 % (0.0-7.0); HEMATOCRIT 29.8 % (42.0-52.0); HEMOGLOBIN 8.9 g/dl (14.0-18.0); MEAN CORPUSCULAR HEMOGLOBIN 26.6 pg (29.0-33.0); MEAN CORPUSCULAR HGB CONC 29.9 g/dl (32.0-37.0); MEAN PLATELET VOLUME 10.1 fl (7.4-10.4); MONOCYTES % 10.8 % (0.0-11.0); NEUTROPHIL # 5.3 10^3/ul (1.6-7.5); PLATELET COUNT 281 10^3/UL (140-415); RED BLOOD COUNT 3.35 10^6/ul (4.70-6.10); RED CELL DISTRIBUTION WIDTH 16.9 % (11.5-14.5)
[2018-01-26 12:38] LABS: WHITE BLOOD COUNT 9.6 10^3/ul (4.8-10.8)
[2018-01-26] MEDS: ACETAMINOPHEN 650MG/20.3ML CUP PO (23:37)
[2018-01-27] MEDS: SOD CHLORIDE 0.9% 1,000 ML IV (01:49)
[2018-01-27] MEDS: PANTOPRAZOLE 40 MG INJ IV (05:06)
[2018-01-27 05:56] LABS: ADD MAN DIFF? NO
[2018-01-27 06:47] LABS: ALANINE AMINOTRANSFERASE 27 IU/L (13-69); ALBUMIN 2.6 g/dl (3.3-4.9); ALBUMIN/GLOBULIN RATIO 0.59; ALKALINE PHOSPHATASE 73 IU/L (42-121); ANION GAP 8 (5-13); ASPARTATE AMINO TRANSFERASE 50 IU/L (15-46); BILIRUBIN,INDIRECT 0.4 mg/dl (0-1.1); BILIRUBIN,TOTAL 0.4 mg/dl (0.2-1.3); BLOOD UREA NITROGEN 14 mg/dl (7-20); CALCIUM 8.4 mg/dl (8.4-10.2); CARBON DIOXIDE 27 mmol/L (21-31); CHLORIDE 109 mmol/L (97-110); CREATININE 0.46 mg/dl (0.61-1.24); Estimated GFR > 60 mL/min (>60); GLUCOSE 91 mg/dl (70-220); POTASSIUM 3.8 mmol/L (3.5-5.1); SODIUM 144 mmol/L (135-144)
[2018-01-27 07:02] LABS: WHITE BLOOD COUNT 7.5 10^3/ul (4.8-10.8)
[2018-01-27 07:02] LABS: BASOPHILS % 0.4 % (0.0-2.0); EOSINOPHILS # 0.4 10^3/ul (0.0-0.5); EOSINOPHILS % 5.5 % (0.0-7.0); HEMATOCRIT 30.3 % (42.0-52.0); HEMOGLOBIN 8.8 g/dl (14.0-18.0); LYMPHOCYTES # 2.1 10^3/ul (0.8-2.9); LYMPHOCYTES % 28.2 % (15.0-51.0); MEAN CORPUSCULAR VOLUME 89.6 fl (82.0-101.0); MEAN PLATELET VOLUME 9.6 fl (7.4-10.4); MONOCYTE # 0.7 10^3/ul (0.3-0.9); NEUTROPHIL # 4.2 10^3/ul (1.6-7.5); NEUTROPHILS % 56.5 % (39.0-77.0); PLATELET COUNT 261 10^3/UL (140-415); RED BLOOD COUNT 3.38 10^6/ul (4.70-6.10); RED CELL DISTRIBUTION WIDTH 16.9 % (11.5-14.5)
[2018-01-27 08:39] LABS: MAGNESIUM 2.2 mg/dl (1.7-2.5)
[2018-01-27] MEDS: CEFEPIME 1GM/50 ML (PMX) 50 ML IVPB ×2 (08:42→20:45)
[2018-01-27] MEDS: ENOXAPARIN 30 MG/0.3 ML SYG SC (08:43)
[2018-01-27] MEDS: FUROSEMIDE 20 MG INJ IV ×2 (12:34→18:00)
[2018-01-27] MEDS: ZYVOX 600 MG TAB PO ×2 (15:30→20:46)
[2018-01-27] MEDS ORDERED: traMADol 50 MG TAB PO (16:00)
[2018-01-27] MEDS: ISOSORBIDE MONONITRATE(SR)30 MG TAB PO (18:00)
[2018-01-27] MEDS: BALSAM PERU/CASTOR OIL 60 GM TUBE TOP (19:00)
[2018-01-27] MEDS: ASPIRIN 81 MG TAB PO (19:03)
[2018-01-27] MEDS: TAMSULOSIN (SR) 0.4 MG CAP PO (20:45)
[2018-01-27] MEDS: ATORVASTATIN 10 MG TAB PO (20:46)
[2018-01-27] MEDS: CILOSTAZOL 100 MG TAB PO (20:46)
[2018-01-27] MEDS: FAMOTIDINE 20 MG TAB PO (20:46)
[2018-01-27] MEDS: MAGNESIUM OXIDE 400 MG TAB PO (20:46)
[2018-01-27] MEDS ORDERED: ALBUMIN HUMAN 25% 100 ML (23:02)
[2018-01-27] MEDS: ALBUMIN HUMAN 25% 100 ML IV (23:06)
[2018-01-28] MEDS: ALBUMIN HUMAN 25% 100 ML IV (03:52)
[2018-01-28] MEDS: FUROSEMIDE 20 MG INJ IV ×3 (05:25→22:38)
[2018-01-28] MEDS: PANTOPRAZOLE 40 MG INJ IV (05:25)
[2018-01-28 05:35] LABS: ADD MAN DIFF? NO
[2018-01-28 05:42] LABS: BASOPHILS % 0.7 % (0.0-2.0); EOSINOPHILS # 0.4 10^3/ul (0.0-0.5); HEMATOCRIT 25.7 % (42.0-52.0); HEMOGLOBIN 7.6 g/dl (14.0-18.0); LYMPHOCYTES # 2.4 10^3/ul (0.8-2.9); LYMPHOCYTES % 39.5 % (15.0-51.0); MEAN CORPUSCULAR HEMOGLOBIN 26.4 pg (29.0-33.0); MEAN CORPUSCULAR HGB CONC 29.6 g/dl (32.0-37.0); MEAN CORPUSCULAR VOLUME 89.2 fl (82.0-101.0); MEAN PLATELET VOLUME 10.2 fl (7.4-10.4); MONOCYTE # 0.7 10^3/ul (0.3-0.9); MONOCYTES % 11.3 % (0.0-11.0); NEUTROPHIL # 2.5 10^3/ul (1.6-7.5); PLATELET COUNT 236 10^3/UL (140-415); POSITIVE DIFF @See below; RED BLOOD COUNT 2.88 10^6/ul (4.70-6.10); RED CELL DISTRIBUTION WIDTH 16.8 % (11.5-14.5)
[2018-01-28 06:30] LABS: ALANINE AMINOTRANSFERASE 36 IU/L (13-69); ALBUMIN 3.2 g/dl (3.3-4.9); ALBUMIN/GLOBULIN RATIO 0.91; ALKALINE PHOSPHATASE 59 IU/L (42-121); ANION GAP 8 (5-13); ASPARTATE AMINO TRANSFERASE 38 IU/L (15-46); BILIRUBIN,INDIRECT 0.4 mg/dl (0-1.1); BILIRUBIN,TOTAL 0.4 mg/dl (0.2-1.3); BLOOD UREA NITROGEN 14 mg/dl (7-20); CALCIUM 9.2 mg/dl (8.4-10.2); CARBON DIOXIDE 31 mmol/L (21-31); CHLORIDE 103 mmol/L (97-110); CREATININE 0.53 mg/dl (0.61-1.24); Estimated GFR > 60 mL/min (>60); GLUCOSE 108 mg/dl (70-220); POTASSIUM 3.2 mmol/L (3.5-5.1); SODIUM 142 mmol/L (135-144); TOTAL PROTEIN 6.7 g/dl (6.1-8.1)
[2018-01-28] MEDS: ISOSORBIDE MONONITRATE(SR)30 MG TAB PO (09:00)
[2018-01-28] MEDS: LOSARTAN 25 MG TAB PO (09:00)
[2018-01-28] MEDS: CEFEPIME 1GM/50 ML (PMX) 50 ML IVPB ×2 (09:43→22:29)
[2018-01-28] MEDS: ENOXAPARIN 30 MG/0.3 ML SYG SC (09:44)
[2018-01-28] MEDS: BALSAM PERU/CASTOR OIL 60 GM TUBE TOP (09:45)
[2018-01-28] MEDS: ASPIRIN 81 MG TAB PO (09:45)
[2018-01-28] MEDS: POTASSIUM CHLORIDE 100 ML IVPB ×2 (09:45→14:03)
[2018-01-28] MEDS: FINASTERIDE 5 MG TAB PO (09:46)
[2018-01-28] MEDS: CLOPIDOGREL 75 MG TAB PO (09:48)
[2018-01-28] MEDS: CILOSTAZOL 100 MG TAB PO (09:49)
[2018-01-28] MEDS: ZYVOX 600 MG TAB PO ×2 (09:50→22:36)
[2018-01-28] MEDS: MAGNESIUM OXIDE 400 MG TAB PO ×2 (09:52→22:36)
[2018-01-28] MEDS: FOSFOMYCIN 3 GM PACKET PO (18:55)
[2018-01-28] MEDS ORDERED: TERAZOSIN 1 MG CAP GTB (21:00)
[2018-01-28] MEDS: ATORVASTATIN 10 MG TAB PO (22:36)
[2018-01-28] MEDS: FAMOTIDINE 20 MG TAB PO (22:36)
[2018-01-29 05:35] LABS: ADD MAN DIFF? NO
[2018-01-29 05:46] LABS: BASOPHILS % 0.3 % (0.0-2.0); EOSINOPHILS # 0.5 10^3/ul (0.0-0.5); EOSINOPHILS % 6.5 % (0.0-7.0); HEMATOCRIT 29.9 % (42.0-52.0); HEMOGLOBIN 8.8 g/dl (14.0-18.0); LYMPHOCYTES # 2.9 10^3/ul (0.8-2.9); MEAN CORPUSCULAR HEMOGLOBIN 26.4 pg (29.0-33.0); MEAN CORPUSCULAR HGB CONC 29.4 g/dl (32.0-37.0); MEAN CORPUSCULAR VOLUME 89.8 fl (82.0-101.0); MEAN PLATELET VOLUME 9.4 fl (7.4-10.4); MONOCYTE # 0.8 10^3/ul (0.3-0.9); MONOCYTES % 10.7 % (0.0-11.0); NEUTROPHIL # 3.3 10^3/ul (1.6-7.5); NEUTROPHILS % 43.1 % (39.0-77.0); PLATELET COUNT 270 10^3/UL (140-415); RED BLOOD COUNT 3.33 10^6/ul (4.70-6.10); RED CELL DISTRIBUTION WIDTH 16.6 % (11.5-14.5)
[2018-01-29 05:46] LABS: WHITE BLOOD COUNT 7.5 10^3/ul (4.8-10.8)
[2018-01-29] MEDS: LANSOPRAZOLE 30 MG CAP GTB (06:04)
[2018-01-29 06:13] LABS: ALBUMIN 2.9 g/dl (3.3-4.9); ANION GAP 5 (5-13); ASPARTATE AMINO TRANSFERASE 64 IU/L (15-46); BILIRUBIN,INDIRECT 0.4 mg/dl (0-1.1); BILIRUBIN,TOTAL 0.4 mg/dl (0.2-1.3); CALCIUM 9.2 mg/dl (8.4-10.2); CARBON DIOXIDE 34 mmol/L (21-31); CHLORIDE 104 mmol/L (97-110); CREATININE 0.53 mg/dl (0.61-1.24); Estimated GFR > 60 mL/min (>60); POTASSIUM 3.7 mmol/L (3.5-5.1); SODIUM 143 mmol/L (135-144)
[2018-01-29 06:19] LABS: ALKALINE PHOSPHATASE 69 IU/L (42-121); BLOOD UREA NITROGEN 14 mg/dl (7-20)
[2018-01-29 06:20] LABS: ALANINE AMINOTRANSFERASE 51 IU/L (13-69); GLUCOSE 109 mg/dl (70-220)
[2018-01-29] MEDS: ZYVOX 600 MG TAB PO ×2 (08:42→20:53)
[2018-01-29] MEDS: FINASTERIDE 5 MG TAB PO (08:42)
[2018-01-29] MEDS: CEFEPIME 1GM/50 ML (PMX) 50 ML IVPB ×2 (08:42→20:53)
[2018-01-29] MEDS: MAGNESIUM OXIDE 400 MG TAB PO ×2 (08:42→20:53)
[2018-01-29] MEDS: BALSAM PERU/CASTOR OIL 60 GM TUBE TOP (08:42)
[2018-01-29] MEDS: LOSARTAN 25 MG TAB PO (08:43)
[2018-01-29] MEDS: ENOXAPARIN 30 MG/0.3 ML SYG SC (08:45)
[2018-01-29] MEDS: COLLAGENASE 5 GM (UD JAR) TOP ×2 (08:47→13:04)
[2018-01-29] MEDS: PENDING SANTYL ORDER FOR WOUND CARE XX (08:47)
[2018-01-29] MEDS: POTASSIUM CHLORIDE 20 MEQ POWDER FOR ORAL SOLN JT (16:41)
[2018-01-29] MEDS: FUROSEMIDE 20 MG INJ IV (17:12)
[2018-01-29] MEDS: FAMOTIDINE 20 MG TAB PO (20:53)
[2018-01-29] MEDS: ATORVASTATIN 10 MG TAB PO (20:53)
[2018-01-29] MEDS: ACETAMINOPHEN 650MG/20.3ML CUP PO (23:32)
[2018-01-30 05:39] LABS: ADD MAN DIFF? NO
[2018-01-30 05:47] LABS: WHITE BLOOD COUNT 10.7 10^3/ul (4.8-10.8)
[2018-01-30 05:47] LABS: BASOPHILS % 0.3 % (0.0-2.0); EOSINOPHILS # 0.4 10^3/ul (0.0-0.5); EOSINOPHILS % 3.8 % (0.0-7.0); HEMATOCRIT 32.3 % (42.0-52.0); HEMOGLOBIN 9.4 g/dl (14.0-18.0); LYMPHOCYTES # 2.8 10^3/ul (0.8-2.9); LYMPHOCYTES % 26.2 % (15.0-51.0); MEAN CORPUSCULAR HEMOGLOBIN 25.9 pg (29.0-33.0); MEAN CORPUSCULAR HGB CONC 29.1 g/dl (32.0-37.0); MEAN PLATELET VOLUME 9.5 fl (7.4-10.4); MONOCYTE # 0.9 10^3/ul (0.3-0.9); NEUTROPHIL # 6.5 10^3/ul (1.6-7.5); NEUTROPHILS % 61.2 % (39.0-77.0); PLATELET COUNT 289 10^3/UL (140-415); RED BLOOD COUNT 3.63 10^6/ul (4.70-6.10); RED CELL DISTRIBUTION WIDTH 16.9 % (11.5-14.5)
[2018-01-30 06:11] LABS: ALANINE AMINOTRANSFERASE 55 IU/L (13-69); ALBUMIN/GLOBULIN RATIO 0.71; ALKALINE PHOSPHATASE 72 IU/L (42-121); ANION GAP 6 (5-13); ASPARTATE AMINO TRANSFERASE 59 IU/L (15-46); BILIRUBIN,INDIRECT 0.4 mg/dl (0-1.1); BILIRUBIN,TOTAL 0.4 mg/dl (0.2-1.3); BLOOD UREA NITROGEN 17 mg/dl (7-20); CALCIUM 9.3 mg/dl (8.4-10.2); CARBON DIOXIDE 36 mmol/L (21-31); CHLORIDE 103 mmol/L (97-110); CREATININE 0.57 mg/dl (0.61-1.24); Estimated GFR > 60 mL/min (>60); GLUCOSE 117 mg/dl (70-220); POTASSIUM 3.9 mmol/L (3.5-5.1); SODIUM 145 mmol/L (135-144); TOTAL PROTEIN 7.2 g/dl (6.1-8.1)
[2018-01-30] MEDS: LANSOPRAZOLE 30 MG CAP GTB (06:14)
[2018-01-30] MEDS: FUROSEMIDE 20 MG INJ IV ×2 (06:15→17:59)
[2018-01-30] MEDS: CEFEPIME 1GM/50 ML (PMX) 50 ML IVPB ×2 (08:44→20:52)
[2018-01-30] MEDS: COLLAGENASE 5 GM (UD JAR) TOP (08:44)
[2018-01-30] MEDS: BALSAM PERU/CASTOR OIL 60 GM TUBE TOP (08:45)
[2018-01-30] MEDS: PENDING SANTYL ORDER FOR WOUND CARE XX (08:45)
[2018-01-30] MEDS: ZYVOX 600 MG TAB PO ×2 (08:45→20:53)
[2018-01-30] MEDS: FINASTERIDE 5 MG TAB PO (08:45)
[2018-01-30] MEDS: MAGNESIUM OXIDE 400 MG TAB PO ×2 (08:45→20:53)
[2018-01-30] MEDS: LOSARTAN 25 MG TAB PO (08:46)
[2018-01-30] MEDS: ENOXAPARIN 30 MG/0.3 ML SYG SC (08:51)
[2018-01-30] MEDS: TRIMETHOPRIM/SULFAMETHOX (DS) TAB PO ×2 (11:55→20:53)
[2018-01-30] MEDS: FAMOTIDINE 20 MG TAB PO (20:52)
[2018-01-30] MEDS: ATORVASTATIN 10 MG TAB PO (20:53)
[2018-01-31] MEDS: FUROSEMIDE 20 MG INJ IV ×2 (05:05→17:50)
[2018-01-31] MEDS: LANSOPRAZOLE 30 MG CAP GTB (05:05)
[2018-01-31 05:58] LABS: ADD MAN DIFF? NO
[2018-01-31 06:02] LABS: BASOPHILS % 0.5 % (0.0-2.0); EOSINOPHILS # 0.5 10^3/ul (0.0-0.5); EOSINOPHILS % 5.7 % (0.0-7.0); HEMATOCRIT 35.1 % (42.0-52.0); HEMOGLOBIN 10.3 g/dl (14.0-18.0); LYMPHOCYTES # 2.4 10^3/ul (0.8-2.9); MEAN CORPUSCULAR HGB CONC 29.3 g/dl (32.0-37.0); MEAN CORPUSCULAR VOLUME 88.6 fl (82.0-101.0); MEAN PLATELET VOLUME 9.3 fl (7.4-10.4); MONOCYTE # 0.7 10^3/ul (0.3-0.9); NEUTROPHIL # 4.2 10^3/ul (1.6-7.5); NEUTROPHILS % 53.2 % (39.0-77.0); PLATELET COUNT 276 10^3/UL (140-415); RED BLOOD COUNT 3.96 10^6/ul (4.70-6.10); RED CELL DISTRIBUTION WIDTH 17.2 % (11.5-14.5)
[2018-01-31 06:02] LABS: WHITE BLOOD COUNT 7.9 10^3/ul (4.8-10.8)
[2018-01-31 06:30] LABS: ALANINE AMINOTRANSFERASE 49 IU/L (13-69); ALBUMIN 3.3 g/dl (3.3-4.9); ALBUMIN/GLOBULIN RATIO 0.71; ALKALINE PHOSPHATASE 81 IU/L (42-121); ANION GAP 7 (5-13); ASPARTATE AMINO TRANSFERASE 51 IU/L (15-46); BILIRUBIN,INDIRECT 0.4 mg/dl (0-1.1); BILIRUBIN,TOTAL 0.4 mg/dl (0.2-1.3); BLOOD UREA NITROGEN 17 mg/dl (7-20); CALCIUM 9.6 mg/dl (8.4-10.2); CARBON DIOXIDE 37 mmol/L (21-31); CHLORIDE 101 mmol/L (97-110); CREATININE 0.64 mg/dl (0.61-1.24); Estimated GFR > 60 mL/min (>60); GLUCOSE 133 mg/dl (70-220); POTASSIUM 3.7 mmol/L (3.5-5.1); SODIUM 145 mmol/L (135-144); TOTAL PROTEIN 7.9 g/dl (6.1-8.1)
[2018-01-31] MEDS: PENDING SANTYL ORDER FOR WOUND CARE XX (09:00)
[2018-01-31] MEDS: TRIMETHOPRIM/SULFAMETHOX (DS) TAB PO ×2 (09:11→22:25)
[2018-01-31] MEDS: LOSARTAN 25 MG TAB PO (09:11)
[2018-01-31] MEDS: CEFEPIME 1GM/50 ML (PMX) 50 ML IVPB ×2 (09:11→22:25)
[2018-01-31] MEDS: ZYVOX 600 MG TAB PO ×2 (09:11→22:26)
[2018-01-31] MEDS: FINASTERIDE 5 MG TAB PO (09:11)
[2018-01-31] MEDS: MAGNESIUM OXIDE 400 MG TAB PO ×2 (09:12→22:25)
[2018-01-31] MEDS: ENOXAPARIN 30 MG/0.3 ML SYG SC (09:23)
[2018-01-31] MEDS: COLLAGENASE 5 GM (UD JAR) TOP (17:36)
[2018-01-31] MEDS: BALSAM PERU/CASTOR OIL 60 GM TUBE TOP (17:37)
[2018-01-31] MEDS: ATORVASTATIN 10 MG TAB PO (22:25)
[2018-01-31] MEDS: FAMOTIDINE 20 MG TAB PO (22:25)
[2018-02-01] MEDS: LANSOPRAZOLE 30 MG CAP GTB (05:15)
[2018-02-01] MEDS: FUROSEMIDE 20 MG INJ IV ×2 (05:17→17:26)
[2018-02-01] MEDS: BALSAM PERU/CASTOR OIL 60 GM TUBE TOP (09:00)
[2018-02-01] MEDS: COLLAGENASE 5 GM (UD JAR) TOP (09:00)
[2018-02-01] MEDS: PENDING SANTYL ORDER FOR WOUND CARE XX (09:00)
[2018-02-01] MEDS: ZYVOX 600 MG TAB PO ×2 (09:02→21:06)
[2018-02-01] MEDS: MAGNESIUM OXIDE 400 MG TAB PO ×2 (09:03→21:06)
[2018-02-01] MEDS: TRIMETHOPRIM/SULFAMETHOX (DS) TAB PO ×2 (09:03→21:06)
[2018-02-01] MEDS: FINASTERIDE 5 MG TAB PO (09:03)
[2018-02-01] MEDS: LOSARTAN 25 MG TAB PO (09:04)
[2018-02-01] MEDS: CEFEPIME 1GM/50 ML (PMX) 50 ML IVPB ×2 (09:05→21:03)
[2018-02-01] MEDS: ENOXAPARIN 30 MG/0.3 ML SYG SC (09:20)
[2018-02-01 10:25] LABS: WHITE BLOOD COUNT 9.7 10^3/ul (4.8-10.8)
[2018-02-01 10:25] LABS: ADD MAN DIFF? NO; BASOPHIL # 0.1 10^3/ul (0.0-0.1); BASOPHILS % 0.5 % (0.0-2.0); EOSINOPHILS # 0.4 10^3/ul (0.0-0.5); EOSINOPHILS % 4.4 % (0.0-7.0); HEMOGLOBIN 10.6 g/dl (14.0-18.0); LYMPHOCYTES # 3.2 10^3/ul (0.8-2.9); MEAN CORPUSCULAR HEMOGLOBIN 26.4 pg (29.0-33.0); MEAN CORPUSCULAR HGB CONC 29.4 g/dl (32.0-37.0); MEAN CORPUSCULAR VOLUME 89.6 fl (82.0-101.0); MEAN PLATELET VOLUME 9.4 fl (7.4-10.4); MONOCYTE # 0.9 10^3/ul (0.3-0.9); MONOCYTES % 8.9 % (0.0-11.0); NEUTROPHIL # 5.1 10^3/ul (1.6-7.5); NEUTROPHILS % 52.6 % (39.0-77.0); PLATELET COUNT 301 10^3/UL (140-415); RED BLOOD COUNT 4.02 10^6/ul (4.70-6.10); RED CELL DISTRIBUTION WIDTH 17.1 % (11.5-14.5)
[2018-02-01 10:48] LABS: ALANINE AMINOTRANSFERASE 46 IU/L (13-69); ALBUMIN 3.3 g/dl (3.3-4.9); ALKALINE PHOSPHATASE 73 IU/L (42-121); ANION GAP 7 (5-13); ASPARTATE AMINO TRANSFERASE 49 IU/L (15-46); BILIRUBIN,INDIRECT 0.4 mg/dl (0-1.1); BILIRUBIN,TOTAL 0.4 mg/dl (0.2-1.3); BLOOD UREA NITROGEN 19 mg/dl (7-20); CALCIUM 9.1 mg/dl (8.4-10.2); CARBON DIOXIDE 36 mmol/L (21-31); CHLORIDE 98 mmol/L (97-110); CREATININE 0.61 mg/dl (0.61-1.24); Estimated GFR > 60 mL/min (>60); GLUCOSE 126 mg/dl (70-220); SODIUM 141 mmol/L (135-144)
[2018-02-01] MEDS: ATORVASTATIN 10 MG TAB PO (21:05)
[2018-02-01] MEDS: FAMOTIDINE 20 MG TAB PO (21:06)
[2018-02-01] MEDS: ACETAMINOPHEN 650MG/20.3ML CUP PO (23:30)
[2018-02-02 05:04] LABS: ADD MAN DIFF? NO
[2018-02-02] MEDS: FUROSEMIDE 20 MG INJ IV ×2 (05:10→18:26)
[2018-02-02] MEDS: LANSOPRAZOLE 30 MG CAP GTB (05:11)
[2018-02-02 05:14] LABS: WHITE BLOOD COUNT 9.8 10^3/ul (4.8-10.8)
[2018-02-02 05:14] LABS: BASOPHILS % 0.4 % (0.0-2.0); EOSINOPHILS # 0.4 10^3/ul (0.0-0.5); EOSINOPHILS % 3.9 % (0.0-7.0); HEMATOCRIT 33.8 % (42.0-52.0); LYMPHOCYTES # 3.4 10^3/ul (0.8-2.9); MEAN CORPUSCULAR HEMOGLOBIN 26.3 pg (29.0-33.0); MEAN CORPUSCULAR HGB CONC 29.6 g/dl (32.0-37.0); MEAN CORPUSCULAR VOLUME 88.9 fl (82.0-101.0); MEAN PLATELET VOLUME 9.4 fl (7.4-10.4); MONOCYTE # 0.9 10^3/ul (0.3-0.9); MONOCYTES % 9.3 % (0.0-11.0); NEUTROPHILS % 50.9 % (39.0-77.0); PLATELET COUNT 291 10^3/UL (140-415); RED CELL DISTRIBUTION WIDTH 17.2 % (11.5-14.5)
[2018-02-02 06:10] LABS: ALANINE AMINOTRANSFERASE 45 IU/L (13-69); ALBUMIN 3.1 g/dl (3.3-4.9); ALBUMIN/GLOBULIN RATIO 0.67; ALKALINE PHOSPHATASE 74 IU/L (42-121); ANION GAP 12 (5-13); ASPARTATE AMINO TRANSFERASE 52 IU/L (15-46); BILIRUBIN,INDIRECT 0.3 mg/dl (0-1.1); BILIRUBIN,TOTAL 0.3 mg/dl (0.2-1.3); BLOOD UREA NITROGEN 22 mg/dl (7-20); CALCIUM 9.6 mg/dl (8.4-10.2); CARBON DIOXIDE 36 mmol/L (21-31); CHLORIDE 92 mmol/L (97-110); CREATININE 0.74 mg/dl (0.61-1.24); Estimated GFR > 60 mL/min (>60); GLUCOSE 105 mg/dl (70-220); POTASSIUM 4.2 mmol/L (3.5-5.1); SODIUM 140 mmol/L (135-144); TOTAL PROTEIN 7.7 g/dl (6.1-8.1)
[2018-02-02] MEDS: PENDING SANTYL ORDER FOR WOUND CARE XX (09:00)
[2018-02-02] MEDS: COLLAGENASE 5 GM (UD JAR) TOP (09:08)
[2018-02-02] MEDS: CEFEPIME 1GM/50 ML (PMX) 50 ML IVPB ×2 (09:08→21:06)
[2018-02-02] MEDS: FINASTERIDE 5 MG TAB PO (09:08)
[2018-02-02] MEDS: ZYVOX 600 MG TAB PO ×2 (09:08→21:08)
[2018-02-02] MEDS: MAGNESIUM OXIDE 400 MG TAB PO ×2 (09:08→21:08)
[2018-02-02] MEDS: LOSARTAN 25 MG TAB PO (09:09)
[2018-02-02] MEDS: BALSAM PERU/CASTOR OIL 60 GM TUBE TOP (09:10)
[2018-02-02] MEDS: ENOXAPARIN 30 MG/0.3 ML SYG SC (09:12)
[2018-02-02] MEDS: TRIMETHOPRIM/SULFAMETHOX (DS) TAB PO ×2 (09:16→21:08)
[2018-02-02] MEDS: ACETAMINOPHEN 650MG/20.3ML CUP PO ×2 (12:46→21:08)
[2018-02-02] MEDS: FAMOTIDINE 20 MG TAB PO (21:08)
[2018-02-02] MEDS: ATORVASTATIN 10 MG TAB PO (21:08)
[2018-02-03] MEDS: LANSOPRAZOLE 30 MG CAP GTB (05:04)
[2018-02-03 06:00] LABS: AADO2 Arterial 221.5 mmHg (7.0-24.0); Allen Test ACCEPTAB; Arterial Base Excess 7.8 mmol/L (-3.0-3); Arterial Blood Gas Oxygen Sat 95.2 mmHG (95.0-98.0); Arterial COHb 0.7 % (0.0-3.0); Arterial Fraction of Oxyhgb 94.2 % (93.0-99.0); Arterial MetHb 0.4 % (0.0-1.5); Blood Gas Low PEEP Setting 0 cmH2O; MODE VENT - AC; Site Right Radial
[2018-02-03 06:12] LABS: ADD MAN DIFF? NO
[2018-02-03 06:16] LABS: BASOPHIL # 0.1 10^3/ul (0.0-0.1); BASOPHILS % 0.6 % (0.0-2.0); EOSINOPHILS # 0.4 10^3/ul (0.0-0.5); EOSINOPHILS % 3.3 % (0.0-7.0); HEMATOCRIT 34.5 % (42.0-52.0); HEMOGLOBIN 10.1 g/dl (14.0-18.0); LYMPHOCYTES # 3.5 10^3/ul (0.8-2.9); MEAN CORPUSCULAR HEMOGLOBIN 26.1 pg (29.0-33.0); MEAN CORPUSCULAR HGB CONC 29.3 g/dl (32.0-37.0); MEAN CORPUSCULAR VOLUME 89.1 fl (82.0-101.0); MEAN PLATELET VOLUME 9.6 fl (7.4-10.4); MONOCYTE # 0.9 10^3/ul (0.3-0.9); NEUTROPHIL # 6.2 10^3/ul (1.6-7.5); NEUTROPHILS % 55.7 % (39.0-77.0); PLATELET COUNT 261 10^3/UL (140-415); RED BLOOD COUNT 3.87 10^6/ul (4.70-6.10); RED CELL DISTRIBUTION WIDTH 17.5 % (11.5-14.5)
[2018-02-03 06:16] LABS: WHITE BLOOD COUNT 11.1 10^3/ul (4.8-10.8)
[2018-02-03 07:08] LABS: ALANINE AMINOTRANSFERASE 40 IU/L (13-69); ALBUMIN 3.3 g/dl (3.3-4.9); ALBUMIN/GLOBULIN RATIO 0.76; ALKALINE PHOSPHATASE 71 IU/L (42-121); ANION GAP 7 (5-13); ASPARTATE AMINO TRANSFERASE 46 IU/L (15-46); BILIRUBIN,INDIRECT 0.3 mg/dl (0-1.1); BILIRUBIN,TOTAL 0.3 mg/dl (0.2-1.3); BLOOD UREA NITROGEN 26 mg/dl (7-20); CALCIUM 9.7 mg/dl (8.4-10.2); CARBON DIOXIDE 36 mmol/L (21-31); CHLORIDE 97 mmol/L (97-110); CREATININE 0.79 mg/dl (0.61-1.24); Estimated GFR > 60 mL/min (>60); GLUCOSE 121 mg/dl (70-220); POTASSIUM 4.2 mmol/L (3.5-5.1); SODIUM 140 mmol/L (135-144); TOTAL PROTEIN 7.6 g/dl (6.1-8.1)
[2018-02-03] MEDS: COLLAGENASE 5 GM (UD JAR) TOP (08:44)
[2018-02-03] MEDS: ZYVOX 600 MG TAB PO (08:45)
[2018-02-03] MEDS: MAGNESIUM OXIDE 400 MG TAB PO ×2 (08:45→23:08)
[2018-02-03] MEDS: LOSARTAN 25 MG TAB PO (08:45)
[2018-02-03] MEDS: TRIMETHOPRIM/SULFAMETHOX (DS) TAB PO ×2 (08:45→23:08)
[2018-02-03] MEDS: FINASTERIDE 5 MG TAB PO (08:45)
[2018-02-03] MEDS: CEFEPIME 1GM/50 ML (PMX) 50 ML IVPB ×2 (08:45→23:08)
[2018-02-03] MEDS: ENOXAPARIN 30 MG/0.3 ML SYG SC (08:48)
[2018-02-03] MEDS: FUROSEMIDE 20 MG TAB PO ×2 (08:53→18:48)
[2018-02-03] MEDS: PENDING SANTYL ORDER FOR WOUND CARE XX (08:53)
[2018-02-03] MEDS: BALSAM PERU/CASTOR OIL 60 GM TUBE TOP (08:53)
[2018-02-03] MEDS: ATORVASTATIN 10 MG TAB PO (23:07)
[2018-02-03] MEDS: FAMOTIDINE 20 MG TAB PO (23:07)
== END 2018-02-04 01:30 | DRG 291 ==
LOC: ICU 19:33 → 6WM 01-28 20:52
DX: I50.23 Acute on chronic systolic (congestive) heart failure (principal); J96.21 Acute and chronic respiratory failure with hypoxia; T83.518A Infection and inflammatory reaction due to other urinary catheter, initial encounter; N39.0 Urinary tract infection, site not specified; G93.1 Anoxic brain damage, not elsewhere classified; Z99.11 Dependence on respirator [ventilator] status; J95.851 Ventilator associated pneumonia; J20.9 Acute bronchitis, unspecified; Y84.8 Other medical procedures as the cause of abnormal reaction of the patient, or of later complication, without mention of misadventure at the time of the procedure; Z86.74 Personal history of sudden cardiac arrest; I25.5 Ischemic cardiomyopathy; I25.10 Atherosclerotic heart disease of native coronary artery without angina pectoris; E03.9 Hypothyroidism, unspecified; Z43.0 Encounter for attention to tracheostomy; Z93.1 Gastrostomy status; R13.10 Dysphagia, unspecified; T17.990A Other foreign object in respiratory tract, part unspecified in causing asphyxiation, initial encounter; X58.XXXA Exposure to other specified factors, initial encounter; D64.9 Anemia, unspecified; B96.4 Proteus (mirabilis) (morganii) as the cause of diseases classified elsewhere; Z16.21 Resistance to vancomycin; B95.2 Enterococcus as the cause of diseases classified elsewhere; Y73.8 Miscellaneous gastroenterology and urology devices associated with adverse incidents, not elsewhere classified
CPT/HCPCS: 36600; 71045; 80053; 81001; 82550; 82553; 82728; 82803; 83540; 83605; 83735; 84484; 85025; 85610; 87040; 87070; 87081; 87086; 87103; 89220; 94002; 94003

== ENCOUNTER 2018-02-19 14:29 | Inpatient (IN) | payer OTHER ==
[2018-02-19] MEDS: LEVOFLOXACIN 750MG/D5W (PMX) 150 ML IVPB (14:46)
[2018-02-19] MEDS: SODIUM CHLORIDE 0.9% 1L BAG IV* (14:46)
[2018-02-19 14:59] LABS: ADD MAN DIFF? NO
[2018-02-19 15:04] LABS: BASOPHIL # 0.1 10^3/ul (0.0-0.1); BASOPHILS % 0.3 % (0.0-2.0); HEMATOCRIT 33.7 % (42.0-52.0); HEMOGLOBIN 9.8 g/dl (14.0-18.0); LYMPHOCYTES # 1.1 10^3/ul (0.8-2.9); MEAN CORPUSCULAR HEMOGLOBIN 27.3 pg (29.0-33.0); MEAN CORPUSCULAR HGB CONC 29.1 g/dl (32.0-37.0); MEAN CORPUSCULAR VOLUME 93.9 fl (82.0-101.0); MEAN PLATELET VOLUME 10.6 fl (7.4-10.4); MONOCYTE # 1.5 10^3/ul (0.3-0.9); MONOCYTES % 7.8 % (0.0-11.0); NEUTROPHIL # 16.1 10^3/ul (1.6-7.5); NEUTROPHILS % 85.4 % (39.0-77.0); PLATELET COUNT 318 10^3/UL (140-415); RED BLOOD COUNT 3.59 10^6/ul (4.70-6.10); RED CELL DISTRIBUTION WIDTH 19.4 % (11.5-14.5)
[2018-02-19 15:04] LABS: WHITE BLOOD COUNT 18.9 10^3/ul (4.8-10.8)
[2018-02-19 15:11] LABS: AADO2 Arterial 550.3 mmHg (7.0-24.0); Allen Test ACCEPTAB; Arterial Base Excess 16.1 mmol/L (-3.0-3); Arterial Blood Gas Oxygen Sat 92.5 mmHG (95.0-98.0); Arterial COHb 0.5 % (0.0-3.0); Arterial Fraction of Oxyhgb 91.8 % (93.0-99.0); Arterial HCO3 44.8 mmol/L (22.0-26.0); Arterial MetHb 0.3 % (0.0-1.5); Arterial pCO2 88.2 mmhg (35-45); MODE VENT - AC; Site Left Radial
[2018-02-19 15:26] LABS: ADD UMIC YES; UR ASCORBIC ACID 40 mg/dL (NEGATIVE); UR BACTERIA MANY /HPF (NONE SEEN); UR BILIRUBIN (Dip) NEGATIVE (NEGATIVE); UR BLOOD (Dip) 2+ mg/dL (NEGATIVE); UR CLARITY TURBID (CLEAR); UR COLOR RED (YELLOW); UR GLUCOSE (Dip) NEGATIVE (NEGATIVE); UR KETONES (Dip) NEGATIVE (NEGATIVE); UR LEUKOCYTE ESTERASE (Dip) 3+ Leu/ul (NEGATIVE); UR MUCUS MANY /HPF (NONE SEEN); UR NITRITE (Dip) NEGATIVE (NEGATIVE); UR NONSQUAMOUS EPITHELIAL CELL 1 /HPF (NONE SEEN); UR RBC 66 /HPF (0-5); UR SPECIFIC GRAVITY (Dip) 1.016 (1.003-1.030); UR TOTAL PROTEIN (Dip) 2+ mg/dl (NEGATIVE); UR UROBILINOGEN (Dip) 1+ mg/dL (NEGATIVE); UR WBC > 182 /HPF (0-5)
[2018-02-19 15:29] LABS: ALANINE AMINOTRANSFERASE 41 IU/L (13-69); ALBUMIN 3.3 g/dl (3.3-4.9); ALBUMIN/GLOBULIN RATIO 0.68; ALKALINE PHOSPHATASE 87 IU/L (42-121); ASPARTATE AMINO TRANSFERASE 55 IU/L (15-46); BILIRUBIN,INDIRECT 0.2 mg/dl (0-1.1); BILIRUBIN,TOTAL 0.2 mg/dl (0.2-1.3); BLOOD UREA NITROGEN 58 mg/dl (7-20); CALCIUM 9.6 mg/dl (8.4-10.2); CHLORIDE 91 mmol/L (97-110); CREATININE 0.71 mg/dl (0.61-1.24); Estimated GFR > 60 mL/min (>60); GLUCOSE 142 mg/dl (70-220); POTASSIUM 5.1 mmol/L (3.5-5.1); SODIUM 144 mmol/L (135-144); TOTAL PROTEIN 8.1 g/dl (6.1-8.1)
[2018-02-19 15:30] LABS: INR 1.14; PARTIAL THROMBOPLASTIN TIME 28.5 Sec (23.0-35.0); PROTIME 14.7 Sec (11.9-14.9); PT RATIO 1.1
[2018-02-19] MEDS: LIDOCAINE 1% (MPF) 5 ML VIAL SC (15:30)
[2018-02-19 15:44] LABS: ANION GAP 10 (5-13); CARBON DIOXIDE 43 mmol/L (21-31)
[2018-02-19 15:50] LABS: TROPONIN-I 0.719 ng/ml (0.000-0.120)
[2018-02-19] MEDS: VANCOMYCIN 1 GM (PMX) 250 ML IVPB (16:15)
[2018-02-19] MEDS: NORepinephrine 8MG/250 ML (PMX 250 ML IV ×2 (16:16→23:28)
[2018-02-19] MEDS ORDERED: HYDROCODONE/APAP (5/325) TAB PO (16:30)
[2018-02-19] MEDS ORDERED: ALBUTEROL/IPRATROPIUM (NEB) 3 ML AMP HHN ×2 (16:30→20:00)
[2018-02-19] MEDS ORDERED: ONDANSETRON 4 MG INJ IV (16:30)
[2018-02-19] MEDS ORDERED: VANCOMYCIN IV PER PHARMACY XX (16:30)
[2018-02-19] MEDS ORDERED: HYDROCORTISONE 250 MG INJ IV (16:30)
[2018-02-19] MEDS ORDERED: morphine 2 MG INJ IV (16:30)
[2018-02-19] MEDS ORDERED: NACL 0.9% 3 ML SYG IV (16:30)
[2018-02-19] MEDS: HYDROCORTISONE 100 MG INJ IV (16:36)
[2018-02-19] MEDS ORDERED: EPINEPHrine 4 MG in DEXTROSE 5% 246 ML IV (17:30)
[2018-02-19 17:37] LABS: CREATINE KINASE 74 IU/L (23-200)
[2018-02-19 17:39] LABS: LACTIC ACID 2.5 mmol/L (0.5-2.0)
[2018-02-19 17:47] LABS: CK INDEX 4.2
[2018-02-19 17:48] LABS: CK-MB 3.13 ng/ml (0.0-2.4); TROPONIN-I 0.807 ng/ml (0.000-0.120)
[2018-02-19] MEDS: ACETAMINOPHEN 325 MG TAB PO (17:52)
[2018-02-19] MEDS: SOD CHLORIDE 0.9% 1,000 ML IV ×2 (17:52→20:22)
[2018-02-19 20:42] LABS: AADO2 Arterial 287.4 mmHg (7.0-24.0); Allen Test ACCEPTAB; Arterial Base Excess 11.4 mmol/L (-3.0-3); Arterial Blood Gas Oxygen Sat 99.7 mmHG (95.0-98.0); Arterial COHb 0.3 % (0.0-3.0); Arterial Fraction of Oxyhgb 99.1 % (93.0-99.0); Arterial HCO3 37.9 mmol/L (22.0-26.0); Arterial MetHb 0.3 % (0.0-1.5); Arterial pCO2 61.4 mmhg (35-45); MODE VENT - AC; Site Left Radial
[2018-02-19] MEDS ORDERED: ATORVASTATIN 10 MG TAB GTB (21:00)
[2018-02-19] MEDS: VANCOMYCIN 500 MG (PMX) 100 ML IVPB (21:19)
[2018-02-19] MEDS: ARTIFICIAL TEARS 15 ML OPH BOTH EYES (21:20)
[2018-02-19] MEDS: ATORVASTATIN 80 MG TAB PO (21:21)
[2018-02-19] MEDS: HEPARIN 5,000 UNIT/1 ML VIAL SC (21:27)
[2018-02-19] MEDS: MEROPENEM 1 GM/50ML(PMX) 50 ML IVPB (22:56)
[2018-02-19 22:58] LABS: CREATINE KINASE 99 IU/L (23-200)
[2018-02-19 23:11] LABS: CK INDEX 4.5; CK-MB 4.46 ng/ml (0.0-2.4)
[2018-02-20] MEDS: SOD CHLORIDE 0.9% 1,000 ML IV ×2 (02:25→12:55)
[2018-02-20 04:58] LABS: ADD MAN DIFF? NO
[2018-02-20 04:59] LABS: BASOPHILS % 0.1 % (0.0-2.0); HEMATOCRIT 25.5 % (42.0-52.0); HEMOGLOBIN 7.7 g/dl (14.0-18.0); LYMPHOCYTES % 10.5 % (15.0-51.0); MEAN CORPUSCULAR HEMOGLOBIN 27.9 pg (29.0-33.0); MEAN CORPUSCULAR HGB CONC 30.2 g/dl (32.0-37.0); MEAN CORPUSCULAR VOLUME 92.4 fl (82.0-101.0); MONOCYTE # 1.3 10^3/ul (0.3-0.9); MONOCYTES % 6.8 % (0.0-11.0); NEUTROPHIL # 15.4 10^3/ul (1.6-7.5); NUCLEATED RED BLOOD CELLS% 0.1 /100WBC (0.0-0.0); PLATELET COUNT 320 10^3/UL (140-415); RED BLOOD COUNT 2.76 10^6/ul (4.70-6.10); RED CELL DISTRIBUTION WIDTH 19.1 % (11.5-14.5)
[2018-02-20 04:59] LABS: WHITE BLOOD COUNT 18.8 10^3/ul (4.8-10.8)
[2018-02-20 05:08] LABS: HEMOGLOBIN A1C 5.6 % (0-5.9)
[2018-02-20] MEDS: PANTOPRAZOLE 40 MG INJ IV (05:20)
[2018-02-20] MEDS: MEROPENEM 1 GM/50ML(PMX) 50 ML IVPB ×3 (05:20→21:36)
[2018-02-20] MEDS: HEPARIN 5,000 UNIT/1 ML VIAL SC ×3 (05:23→22:02)
[2018-02-20 05:25] LABS: Allen Test ACCEPTAB; Arterial Base Excess 11.8 mmol/L (-3.0-3); Arterial Blood Gas Oxygen Sat 98.3 mmHG (95.0-98.0); Arterial COHb 0 % (0.0-3.0); Arterial Fraction of Oxyhgb 98.1 % (93.0-99.0); Arterial HCO3 37.2 mmol/L (22.0-26.0); Arterial MetHb 0.2 % (0.0-1.5); Arterial pCO2 53.6 mmhg (35-45); MODE VENT - AC; Site Left Radial
[2018-02-20 05:43] LABS: TROPONIN-I 0.845 ng/ml (0.000-0.120)
[2018-02-20] MEDS: VANCOMYCIN 750 MG (PMX) 250 ML IVPB ×2 (05:56→17:00)
[2018-02-20] MEDS: NORepinephrine 8MG/250 ML (PMX 250 ML IV ×3 (06:32→21:52)
[2018-02-20 06:50] LABS: ALANINE AMINOTRANSFERASE 33 IU/L (13-69); ALBUMIN 2.9 g/dl (3.3-4.9); ALBUMIN/GLOBULIN RATIO 0.64; ALKALINE PHOSPHATASE 97 IU/L (42-121); ANION GAP 8 (5-13); ASPARTATE AMINO TRANSFERASE 49 IU/L (15-46); BILIRUBIN,INDIRECT 0.1 mg/dl (0-1.1); BILIRUBIN,TOTAL 0.1 mg/dl (0.2-1.3); BLOOD UREA NITROGEN 46 mg/dl (7-20); CARBON DIOXIDE 39 mmol/L (21-31); CHLORIDE 100 mmol/L (97-110); CHOL/HDL RATIO 5.6 RATIO; CHOLESTEROL 56 mg/dl (100-200); CREATININE 0.67 mg/dl (0.61-1.24); Estimated GFR > 60 mL/min (>60); GLUCOSE 205 mg/dl (70-220); HDL CHOLESTEROL 10 mg/dl (30-78); LDL CHOLESTEROL,CALCULATED 22 mg/dl; MAGNESIUM 2.3 mg/dl (1.7-2.5); POTASSIUM 3.9 mmol/L (3.5-5.1); SODIUM 147 mmol/L (135-144); TOTAL PROTEIN 7.4 g/dl (6.1-8.1); TRIGLYCERIDES 119 mg/dl (0-149)
[2018-02-20] MEDS: IPRATROPIUM (HFA) 12.9 GM INHALER INH ×3 (08:10→20:55)
[2018-02-20] MEDS: ALBUTEROL HFA 8 GM INHALER INH ×3 (08:10→20:54)
[2018-02-20] MEDS: ARTIFICIAL TEARS 15 ML OPH BOTH EYES ×3 (08:20→21:36)
[2018-02-20] MEDS: CLOPIDOGREL 75 MG TAB GTB (08:21)
[2018-02-20] MEDS: ATORVASTATIN 80 MG TAB PO (21:36)
[2018-02-21] MEDS: SOD CHLORIDE 0.9% 1,000 ML IV ×3 (01:26→17:08)
[2018-02-21 03:20] LABS: ADD MAN DIFF? NO
[2018-02-21 03:22] LABS: WHITE BLOOD COUNT 20.6 10^3/ul (4.8-10.8)
[2018-02-21 03:22] LABS: BASOPHILS % 0.2 % (0.0-2.0); HEMATOCRIT 28.5 % (42.0-52.0); HEMOGLOBIN 8.5 g/dl (14.0-18.0); LYMPHOCYTES # 3.1 10^3/ul (0.8-2.9); LYMPHOCYTES % 15.1 % (15.0-51.0); MEAN CORPUSCULAR HEMOGLOBIN 27.5 pg (29.0-33.0); MEAN CORPUSCULAR HGB CONC 29.8 g/dl (32.0-37.0); MEAN CORPUSCULAR VOLUME 92.2 fl (82.0-101.0); MEAN PLATELET VOLUME 9.7 fl (7.4-10.4); MONOCYTE # 1.3 10^3/ul (0.3-0.9); MONOCYTES % 6.5 % (0.0-11.0); NEUTROPHIL # 15.9 10^3/ul (1.6-7.5); NEUTROPHILS % 77.5 % (39.0-77.0); NUCLEATED RED BLOOD CELLS% 0.1 /100WBC (0.0-0.0); PLATELET COUNT 340 10^3/UL (140-415); RED BLOOD COUNT 3.09 10^6/ul (4.70-6.10); RED CELL DISTRIBUTION WIDTH 19.3 % (11.5-14.5)
[2018-02-21 03:39] LABS: ANION GAP 3 (5-13); BLOOD UREA NITROGEN 34 mg/dl (7-20); CALCIUM 8.9 mg/dl (8.4-10.2); CARBON DIOXIDE 37 mmol/L (21-31); CHLORIDE 107 mmol/L (97-110); CREATININE 0.47 mg/dl (0.61-1.24); Estimated GFR > 60 mL/min (>60); GLUCOSE 138 mg/dl (70-220); POTASSIUM 3.4 mmol/L (3.5-5.1); SODIUM 147 mmol/L (135-144)
[2018-02-21 03:49] LABS: VANCOMYCIN,TROUGH 21.1 ug/ml (10.0-20.0)
[2018-02-21] MEDS: PANTOPRAZOLE 40 MG INJ IV (06:38)
[2018-02-21] MEDS: NORepinephrine 8MG/250 ML (PMX 250 ML IV ×2 (06:46→20:33)
[2018-02-21] MEDS: HEPARIN 5,000 UNIT/1 ML VIAL SC ×3 (06:51→21:38)
[2018-02-21] MEDS: MEROPENEM 1 GM/50ML(PMX) 50 ML IVPB (07:34)
[2018-02-21 08:29] LABS: AADO2 Arterial 169.3 mmHg (7.0-24.0); Allen Test ACCEPTAB; Arterial Base Excess 8.8 mmol/L (-3.0-3); Arterial Blood Gas Oxygen Sat 93.1 mmHG (95.0-98.0); Arterial COHb 0.9 % (0.0-3.0); Arterial Fraction of Oxyhgb 92.1 % (93.0-99.0); Arterial HCO3 32.6 mmol/L (22.0-26.0); Arterial MetHb 0.2 % (0.0-1.5); Arterial pCO2 41.6 mmhg (35-45); MODE VENT - AC; Site Left Radial
[2018-02-21] MEDS: CLOPIDOGREL 75 MG TAB GTB (08:31)
[2018-02-21] MEDS: ARTIFICIAL TEARS 15 ML OPH BOTH EYES ×3 (08:32→21:37)
[2018-02-21] MEDS: VANCOMYCIN 500 MG (PMX) 100 ML IVPB (08:38)
[2018-02-21] MEDS: IPRATROPIUM (HFA) 12.9 GM INHALER INH ×3 (08:49→19:10)
[2018-02-21] MEDS: ALBUTEROL HFA 8 GM INHALER INH ×3 (08:49→19:10)
[2018-02-21] MEDS: POTASSIUM CHLORIDE 100 ML IVPB ×2 (11:42→14:03)
[2018-02-21] MEDS ORDERED: AMIKACIN IV PER PHARMACY XX (13:00)
[2018-02-21] MEDS: BALSAM PERU/CASTOR OIL 60 GM TUBE TOP ×2 (15:54→22:10)
[2018-02-21] MEDS: AMIKACIN 1,000 MG in SOD CHLORIDE 0.9% 250 ML IVPB (16:00)
[2018-02-21] MEDS: COLLAGENASE 5 GM (UD JAR) TOP (18:03)
[2018-02-21] MEDS: ATORVASTATIN 80 MG TAB PO (21:37)
[2018-02-22] MEDS: SOD CHLORIDE 0.9% 1,000 ML IV ×2 (03:29→13:49)
[2018-02-22 04:54] LABS: AADO2 Arterial 165.2 mmHg (7.0-24.0); Allen Test ACCEPTAB; Arterial Base Excess 8.1 mmol/L (-3.0-3); Arterial Blood Gas Oxygen Sat 91.4 mmHG (95.0-98.0); Arterial COHb 0.4 % (0.0-3.0); Arterial Fraction of Oxyhgb 90.9 % (93.0-99.0); Arterial HCO3 33.4 mmol/L (22.0-26.0); Arterial MetHb 0.2 % (0.0-1.5); Arterial pCO2 50.6 mmhg (35-45); MODE VENT - AC; Site Right Radial
[2018-02-22 05:22] LABS: ADD MAN DIFF? NO
[2018-02-22 05:28] LABS: BASOPHILS % 0.3 % (0.0-2.0); EOSINOPHILS # 0.1 10^3/ul (0.0-0.5); EOSINOPHILS % 0.6 % (0.0-7.0); HEMATOCRIT 26.3 % (42.0-52.0); HEMOGLOBIN 7.9 g/dl (14.0-18.0); LYMPHOCYTES # 1.9 10^3/ul (0.8-2.9); LYMPHOCYTES % 17.7 % (15.0-51.0); MEAN CORPUSCULAR VOLUME 93.3 fl (82.0-101.0); MEAN PLATELET VOLUME 10.1 fl (7.4-10.4); MONOCYTE # 0.7 10^3/ul (0.3-0.9); MONOCYTES % 6.8 % (0.0-11.0); NEUTROPHIL # 8.1 10^3/ul (1.6-7.5); NEUTROPHILS % 74.1 % (39.0-77.0); PLATELET COUNT 290 10^3/UL (140-415); RED BLOOD COUNT 2.82 10^6/ul (4.70-6.10); RED CELL DISTRIBUTION WIDTH 19.6 % (11.5-14.5)
[2018-02-22 05:28] LABS: WHITE BLOOD COUNT 10.9 10^3/ul (4.8-10.8)
[2018-02-22] MEDS: PANTOPRAZOLE 40 MG INJ IV (05:52)
[2018-02-22 06:00] LABS: ANION GAP 4 (5-13); BLOOD UREA NITROGEN 21 mg/dl (7-20); CALCIUM 8.7 mg/dl (8.4-10.2); CARBON DIOXIDE 33 mmol/L (21-31); CHLORIDE 110 mmol/L (97-110); CREATININE 0.34 mg/dl (0.61-1.24); Estimated GFR > 60 mL/min (>60); GLUCOSE 118 mg/dl (70-220); SODIUM 147 mmol/L (135-144)
[2018-02-22 06:04] LABS: LACTIC ACID 1.1 mmol/L (0.5-2.0)
[2018-02-22] MEDS: HEPARIN 5,000 UNIT/1 ML VIAL SC ×3 (06:43→21:59)
[2018-02-22] MEDS: ALBUTEROL HFA 8 GM INHALER INH ×3 (07:39→20:23)
[2018-02-22] MEDS: IPRATROPIUM (HFA) 12.9 GM INHALER INH ×3 (07:39→20:23)
[2018-02-22] MEDS: ARTIFICIAL TEARS 15 ML OPH BOTH EYES ×3 (08:36→20:00)
[2018-02-22] MEDS: COLLAGENASE 5 GM (UD JAR) TOP (08:37)
[2018-02-22] MEDS: CLOPIDOGREL 75 MG TAB GTB (08:37)
[2018-02-22] MEDS: BALSAM PERU/CASTOR OIL 60 GM TUBE TOP ×2 (08:37→20:01)
[2018-02-22] MEDS: AMIKACIN 1,000 MG in SOD CHLORIDE 0.9% 250 ML IVPB (15:01)
[2018-02-22] MEDS: NORepinephrine 8MG/250 ML (PMX 250 ML IV (18:20)
[2018-02-22] MEDS: ATORVASTATIN 80 MG TAB PO (20:00)
[2018-02-23] MEDS: SOD CHLORIDE 0.9% 1,000 ML IV ×2 (00:25→02:02)
[2018-02-23] MEDS: ALBUMIN HUMAN 25% 50 ML IV (02:02)
[2018-02-23 05:09] LABS: ADD MAN DIFF? NO
[2018-02-23 05:13] LABS: WHITE BLOOD COUNT 13.2 10^3/ul (4.8-10.8)
[2018-02-23 05:13] LABS: ABNORMAL IP MESSAGE 1; BASOPHILS % 0.2 % (0.0-2.0); EOSINOPHILS # 0.2 10^3/ul (0.0-0.5); EOSINOPHILS % 1.6 % (0.0-7.0); HEMATOCRIT 26.4 % (42.0-52.0); HEMOGLOBIN 7.6 g/dl (14.0-18.0); LYMPHOCYTES # 2.3 10^3/ul (0.8-2.9); LYMPHOCYTES % 17.7 % (15.0-51.0); MEAN CORPUSCULAR HEMOGLOBIN 27.1 pg (29.0-33.0); MEAN CORPUSCULAR HGB CONC 28.8 g/dl (32.0-37.0); MEAN CORPUSCULAR VOLUME 94.3 fl (82.0-101.0); MONOCYTE # 0.8 10^3/ul (0.3-0.9); NEUTROPHIL # 9.7 10^3/ul (1.6-7.5); NEUTROPHILS % 73.9 % (39.0-77.0); PLATELET COUNT 299 10^3/UL (140-415); POSITIVE DIFF @See below; RED CELL DISTRIBUTION WIDTH 19.4 % (11.5-14.5)
[2018-02-23 05:39] LABS: ANION GAP 3 (5-13); BLOOD UREA NITROGEN 14 mg/dl (7-20); CALCIUM 8.8 mg/dl (8.4-10.2); CARBON DIOXIDE 31 mmol/L (21-31); CHLORIDE 112 mmol/L (97-110); CREATININE 0.31 mg/dl (0.61-1.24); Estimated GFR > 60 mL/min (>60); GLUCOSE 129 mg/dl (70-220); POTASSIUM 4.1 mmol/L (3.5-5.1); SODIUM 146 mmol/L (135-144)
[2018-02-23] MEDS: HEPARIN 5,000 UNIT/1 ML VIAL SC ×3 (06:25→21:06)
[2018-02-23] MEDS: PANTOPRAZOLE 40 MG INJ IV (06:25)
[2018-02-23] MEDS: ALBUTEROL HFA 8 GM INHALER INH ×3 (08:32→20:30)
[2018-02-23] MEDS: IPRATROPIUM (HFA) 12.9 GM INHALER INH ×3 (08:33→20:30)
[2018-02-23] MEDS: BALSAM PERU/CASTOR OIL 60 GM TUBE TOP ×2 (09:09→20:52)
[2018-02-23] MEDS: ARTIFICIAL TEARS 15 ML OPH BOTH EYES ×3 (09:09→20:52)
[2018-02-23] MEDS: CLOPIDOGREL 75 MG TAB GTB (09:09)
[2018-02-23] MEDS: COLLAGENASE 5 GM (UD JAR) TOP (09:09)
[2018-02-23] MEDS: AMIKACIN 1,000 MG in SOD CHLORIDE 0.9% 250 ML IVPB (16:47)
[2018-02-23] MEDS: ATORVASTATIN 80 MG TAB PO (20:52)
[2018-02-24] MEDS: HEPARIN 5,000 UNIT/1 ML VIAL SC ×3 (06:24→21:22)
[2018-02-24 07:03] LABS: ANION GAP 4 (5-13); BLOOD UREA NITROGEN 12 mg/dl (7-20); CALCIUM 9.2 mg/dl (8.4-10.2); CARBON DIOXIDE 35 mmol/L (21-31); CHLORIDE 109 mmol/L (97-110); CREATININE 0.33 mg/dl (0.61-1.24); Estimated GFR > 60 mL/min (>60); GLUCOSE 90 mg/dl (70-220); MAGNESIUM 1.9 mg/dl (1.7-2.5); POTASSIUM 3.8 mmol/L (3.5-5.1); SODIUM 148 mmol/L (135-144)
[2018-02-24] MEDS: NORepinephrine 8MG/250 ML (PMX 250 ML IV ×2 (08:01→13:46)
[2018-02-24] MEDS: ARTIFICIAL TEARS 15 ML OPH BOTH EYES ×3 (11:01→21:20)
[2018-02-24] MEDS: BALSAM PERU/CASTOR OIL 60 GM TUBE TOP ×2 (11:01→21:20)
[2018-02-24] MEDS: COLLAGENASE 5 GM (UD JAR) TOP (11:04)
[2018-02-24] MEDS: FAMOTIDINE 20 MG TAB GTB ×2 (11:12→21:20)
[2018-02-24] MEDS: CLOPIDOGREL 75 MG TAB GTB (11:12)
[2018-02-24] MEDS: ALBUTEROL HFA 8 GM INHALER INH ×3 (11:21→19:33)
[2018-02-24] MEDS: IPRATROPIUM (HFA) 12.9 GM INHALER INH ×3 (11:21→19:33)
[2018-02-24] MEDS: AMIKACIN 1,000 MG in SOD CHLORIDE 0.9% 250 ML IVPB (16:31)
[2018-02-24] MEDS: ATORVASTATIN 80 MG TAB PO (21:20)
[2018-02-25 05:21] LABS: ADD MAN DIFF? NO
[2018-02-25 05:25] LABS: BASOPHILS % 0.1 % (0.0-2.0); EOSINOPHILS # 0.4 10^3/ul (0.0-0.5); EOSINOPHILS % 3.2 % (0.0-7.0); HEMATOCRIT 25.9 % (42.0-52.0); HEMOGLOBIN 7.5 g/dl (14.0-18.0); LYMPHOCYTES # 1.7 10^3/ul (0.8-2.9); LYMPHOCYTES % 15.2 % (15.0-51.0); MEAN CORPUSCULAR HEMOGLOBIN 27.3 pg (29.0-33.0); MEAN CORPUSCULAR VOLUME 94.2 fl (82.0-101.0); MEAN PLATELET VOLUME 10.1 fl (7.4-10.4); MONOCYTE # 0.8 10^3/ul (0.3-0.9); MONOCYTES % 7.2 % (0.0-11.0); NEUTROPHIL # 8.2 10^3/ul (1.6-7.5); NEUTROPHILS % 73.6 % (39.0-77.0); PLATELET COUNT 253 10^3/UL (140-415); RED BLOOD COUNT 2.75 10^6/ul (4.70-6.10); RED CELL DISTRIBUTION WIDTH 19.6 % (11.5-14.5)
[2018-02-25 05:25] LABS: WHITE BLOOD COUNT 11.1 10^3/ul (4.8-10.8)
[2018-02-25 05:48] LABS: ANION GAP 3 (5-13); BLOOD UREA NITROGEN 11 mg/dl (7-20); CARBON DIOXIDE 37 mmol/L (21-31); CHLORIDE 105 mmol/L (97-110); CREATININE 0.33 mg/dl (0.61-1.24); Estimated GFR > 60 mL/min (>60); GLUCOSE 116 mg/dl (70-220); MAGNESIUM 1.8 mg/dl (1.7-2.5); POTASSIUM 3.7 mmol/L (3.5-5.1); SODIUM 145 mmol/L (135-144)
[2018-02-25] MEDS: HEPARIN 5,000 UNIT/1 ML VIAL SC ×3 (06:12→21:12)
[2018-02-25] MEDS: IPRATROPIUM (HFA) 12.9 GM INHALER INH ×3 (08:15→19:45)
[2018-02-25] MEDS: ALBUTEROL HFA 8 GM INHALER INH ×3 (08:15→19:45)
[2018-02-25] MEDS: BALSAM PERU/CASTOR OIL 60 GM TUBE TOP ×2 (08:22→21:03)
[2018-02-25] MEDS: FAMOTIDINE 20 MG TAB GTB ×2 (08:22→21:03)
[2018-02-25] MEDS: CLOPIDOGREL 75 MG TAB GTB (08:22)
[2018-02-25] MEDS: ARTIFICIAL TEARS 15 ML OPH BOTH EYES ×3 (08:23→21:03)
[2018-02-25] MEDS: COLLAGENASE 5 GM (UD JAR) TOP (08:23)
[2018-02-25] MEDS: HYDROCORTISONE 100 MG INJ IV ×2 (14:08→21:02)
[2018-02-25] MEDS ORDERED: MEROPENEM 1 GM/50 ML IVPB (16:28)
[2018-02-25] MEDS: CEFEPIME 1GM/50 ML (PMX) 50 ML IVPB ×2 (16:46→21:02)
[2018-02-25] MEDS: AMIKACIN 1,000 MG in SOD CHLORIDE 0.9% 250 ML IVPB (18:34)
[2018-02-25] MEDS: NORepinephrine 8MG/250 ML (PMX 250 ML IV (20:18)
[2018-02-25] MEDS ORDERED: CEFEPIME 1GM/50 ML (PMX) 50 ML IVPB (21:00)
[2018-02-25] MEDS: ATORVASTATIN 80 MG TAB PO (21:03)
[2018-02-26 04:57] LABS: ADD MAN DIFF? NO
[2018-02-26 05:00] LABS: HEMATOCRIT 26.1 % (42.0-52.0); HEMOGLOBIN 7.8 g/dl (14.0-18.0); LYMPHOCYTES # 1.4 10^3/ul (0.8-2.9); LYMPHOCYTES % 19.9 % (15.0-51.0); MEAN CORPUSCULAR HEMOGLOBIN 27.5 pg (29.0-33.0); MEAN CORPUSCULAR HGB CONC 29.9 g/dl (32.0-37.0); MEAN CORPUSCULAR VOLUME 91.9 fl (82.0-101.0); MEAN PLATELET VOLUME 9.8 fl (7.4-10.4); MONOCYTE # 0.2 10^3/ul (0.3-0.9); MONOCYTES % 3.3 % (0.0-11.0); NEUTROPHIL # 5.4 10^3/ul (1.6-7.5); NEUTROPHILS % 75.9 % (39.0-77.0); PLATELET COUNT 303 10^3/UL (140-415); RED BLOOD COUNT 2.84 10^6/ul (4.70-6.10); RED CELL DISTRIBUTION WIDTH 18.9 % (11.5-14.5)
[2018-02-26 05:30] LABS: ANION GAP 2 (5-13); Estimated GFR > 60 mL/min (>60)
[2018-02-26 05:44] LABS: BLOOD UREA NITROGEN 13 mg/dl (7-20); CALCIUM 9.4 mg/dl (8.4-10.2); CARBON DIOXIDE 36 mmol/L (21-31); CHLORIDE 106 mmol/L (97-110); CREATININE 0.36 mg/dl (0.61-1.24); GLUCOSE 156 mg/dl (70-220); POTASSIUM 3.7 mmol/L (3.5-5.1); SODIUM 144 mmol/L (135-144)
[2018-02-26] MEDS: CEFEPIME 1GM/50 ML (PMX) 50 ML IVPB ×3 (05:53→21:32)
[2018-02-26] MEDS: HYDROCORTISONE 100 MG INJ IV ×3 (05:54→21:32)
[2018-02-26] MEDS: HEPARIN 5,000 UNIT/1 ML VIAL SC ×3 (05:59→21:41)
[2018-02-26] MEDS: ALBUTEROL HFA 8 GM INHALER INH ×3 (07:13→20:09)
[2018-02-26] MEDS: IPRATROPIUM (HFA) 12.9 GM INHALER INH ×3 (07:13→20:09)
[2018-02-26] MEDS: COLLAGENASE 5 GM (UD JAR) TOP (10:04)
[2018-02-26] MEDS: FAMOTIDINE 20 MG TAB GTB ×2 (10:06→21:43)
[2018-02-26] MEDS: BALSAM PERU/CASTOR OIL 60 GM TUBE TOP ×2 (10:06→21:33)
[2018-02-26] MEDS: CLOPIDOGREL 75 MG TAB GTB (10:06)
[2018-02-26] MEDS: ARTIFICIAL TEARS 15 ML OPH BOTH EYES ×3 (10:06→21:33)
[2018-02-26] MEDS: MIDODRINE 5 MG TAB PO ×4 (10:10→21:32)
[2018-02-26] MEDS: AMIKACIN 1,000 MG in SOD CHLORIDE 0.9% 250 ML IVPB (16:35)
[2018-02-26] MEDS: ATORVASTATIN 80 MG TAB PO (21:32)
[2018-02-26] MEDS: ALBUMIN HUMAN 25% 100 ML IV (23:16)
[2018-02-27] MEDS: ALBUMIN HUMAN 25% 100 ML IV (00:39)
[2018-02-27 05:04] LABS: ADD MAN DIFF? NO
[2018-02-27 05:08] LABS: ABNORMAL IP MESSAGE 1; BASOPHILS % 0.1 % (0.0-2.0); HEMATOCRIT 22.1 % (42.0-52.0); LYMPHOCYTES # 1.6 10^3/ul (0.8-2.9); LYMPHOCYTES % 14.7 % (15.0-51.0); MEAN CORPUSCULAR HEMOGLOBIN 27.3 pg (29.0-33.0); MEAN CORPUSCULAR HGB CONC 29.9 g/dl (32.0-37.0); MEAN CORPUSCULAR VOLUME 91.3 fl (82.0-101.0); MEAN PLATELET VOLUME 10.3 fl (7.4-10.4); MONOCYTE # 0.6 10^3/ul (0.3-0.9); MONOCYTES % 5.2 % (0.0-11.0); NEUTROPHIL # 8.5 10^3/ul (1.6-7.5); NEUTROPHILS % 78.4 % (39.0-77.0); PLATELET COUNT 268 10^3/UL (140-415); POSITIVE DIFF @See below; RED BLOOD COUNT 2.42 10^6/ul (4.70-6.10); RED CELL DISTRIBUTION WIDTH 19.2 % (11.5-14.5)
[2018-02-27 05:08] LABS: WHITE BLOOD COUNT 10.9 10^3/ul (4.8-10.8)
[2018-02-27 05:15] LABS: HEMOGLOBIN 6.6 g/dl (14.0-18.0)
[2018-02-27 05:24] LABS: ANION GAP 4 (5-13); BLOOD UREA NITROGEN 15 mg/dl (7-20); CALCIUM 9.7 mg/dl (8.4-10.2); CARBON DIOXIDE 34 mmol/L (21-31); CHLORIDE 106 mmol/L (97-110); CREATININE 0.43 mg/dl (0.61-1.24); Estimated GFR > 60 mL/min (>60); GLUCOSE 126 mg/dl (70-220); POTASSIUM 3.5 mmol/L (3.5-5.1); SODIUM 144 mmol/L (135-144)
[2018-02-27] MEDS: HYDROCORTISONE 100 MG INJ IV ×3 (05:55→21:19)
[2018-02-27] MEDS: CEFEPIME 1GM/50 ML (PMX) 50 ML IVPB ×3 (05:56→21:11)
[2018-02-27] MEDS: MIDODRINE 5 MG TAB PO ×3 (05:56→21:18)
[2018-02-27] MEDS: HEPARIN 5,000 UNIT/1 ML VIAL SC ×3 (06:03→21:16)
[2018-02-27] MEDS: COLLAGENASE 5 GM (UD JAR) TOP ×2 (08:55→20:57)
[2018-02-27] MEDS: IPRATROPIUM (HFA) 12.9 GM INHALER INH ×3 (08:55→20:34)
[2018-02-27] MEDS: ALBUTEROL HFA 8 GM INHALER INH ×3 (08:55→20:34)
[2018-02-27] MEDS: ARTIFICIAL TEARS 15 ML OPH BOTH EYES ×3 (09:03→20:56)
[2018-02-27] MEDS: CLOPIDOGREL 75 MG TAB GTB (09:03)
[2018-02-27] MEDS: BALSAM PERU/CASTOR OIL 60 GM TUBE TOP ×2 (09:03→20:56)
[2018-02-27] MEDS: FAMOTIDINE 20 MG TAB GTB ×2 (09:03→20:57)
[2018-02-27 10:57] LABS: ADD MAN DIFF? NO
[2018-02-27 11:03] LABS: WHITE BLOOD COUNT 11.6 10^3/ul (4.8-10.8)
[2018-02-27 11:03] LABS: BASOPHILS % 0.1 % (0.0-2.0); HEMATOCRIT 23.3 % (42.0-52.0); LYMPHOCYTES # 1.5 10^3/ul (0.8-2.9); LYMPHOCYTES % 12.8 % (15.0-51.0); MEAN CORPUSCULAR HEMOGLOBIN 27.7 pg (29.0-33.0); MEAN CORPUSCULAR VOLUME 92.1 fl (82.0-101.0); MEAN PLATELET VOLUME 10.3 fl (7.4-10.4); MONOCYTE # 0.5 10^3/ul (0.3-0.9); MONOCYTES % 4.4 % (0.0-11.0); NEUTROPHIL # 9.5 10^3/ul (1.6-7.5); NEUTROPHILS % 81.7 % (39.0-77.0); PLATELET COUNT 271 10^3/UL (140-415); RED BLOOD COUNT 2.53 10^6/ul (4.70-6.10); RED CELL DISTRIBUTION WIDTH 19.4 % (11.5-14.5)
[2018-02-27 15:10] LABS: IMMEDIATE SPIN CROSSMATCH 1 2
[2018-02-27] MEDS: AMIKACIN 1,000 MG in SOD CHLORIDE 0.9% 250 ML IVPB (17:07)
[2018-02-27] MEDS: ATORVASTATIN 80 MG TAB PO (20:57)
[2018-02-28 04:45] LABS: ADD MAN DIFF? NO
[2018-02-28 04:46] LABS: WHITE BLOOD COUNT 15.9 10^3/ul (4.8-10.8)
[2018-02-28 04:46] LABS: BASOPHILS % 0.1 % (0.0-2.0); HEMATOCRIT 32.6 % (42.0-52.0); LYMPHOCYTES # 1.6 10^3/ul (0.8-2.9); LYMPHOCYTES % 10.2 % (15.0-51.0); MEAN CORPUSCULAR HEMOGLOBIN 27.5 pg (29.0-33.0); MEAN CORPUSCULAR HGB CONC 30.7 g/dl (32.0-37.0); MEAN CORPUSCULAR VOLUME 89.8 fl (82.0-101.0); MEAN PLATELET VOLUME 10.2 fl (7.4-10.4); MONOCYTE # 0.8 10^3/ul (0.3-0.9); MONOCYTES % 5.1 % (0.0-11.0); NEUTROPHIL # 13.1 10^3/ul (1.6-7.5); NEUTROPHILS % 82.3 % (39.0-77.0); PLATELET COUNT 286 10^3/UL (140-415); RED BLOOD COUNT 3.63 10^6/ul (4.70-6.10); RED CELL DISTRIBUTION WIDTH 18.2 % (11.5-14.5)
[2018-02-28 05:08] LABS: ANION GAP 3 (5-13); BLOOD UREA NITROGEN 20 mg/dl (7-20); CALCIUM 9.6 mg/dl (8.4-10.2); CARBON DIOXIDE 34 mmol/L (21-31); CHLORIDE 105 mmol/L (97-110); CREATININE 0.45 mg/dl (0.61-1.24); Estimated GFR > 60 mL/min (>60); GLUCOSE 154 mg/dl (70-220); MAGNESIUM 2.1 mg/dl (1.7-2.5); PHOSPHORUS 3.4 mg/dl (2.5-4.9); POTASSIUM 4.1 mmol/L (3.5-5.1); SODIUM 142 mmol/L (135-144)
[2018-02-28] MEDS: CEFEPIME 1GM/50 ML (PMX) 50 ML IVPB ×3 (05:21→21:24)
[2018-02-28] MEDS: HYDROCORTISONE 100 MG INJ IV ×3 (05:21→21:25)
[2018-02-28] MEDS: HEPARIN 5,000 UNIT/1 ML VIAL SC ×3 (05:28→21:29)
[2018-02-28] MEDS: MIDODRINE 2.5 MG TAB PO ×3 (06:14→21:25)
[2018-02-28] MEDS: ALBUTEROL HFA 8 GM INHALER INH ×3 (08:05→19:45)
[2018-02-28] MEDS: IPRATROPIUM (HFA) 12.9 GM INHALER INH ×3 (08:06→19:45)
[2018-02-28] MEDS: FAMOTIDINE 20 MG TAB GTB ×2 (08:42→21:25)
[2018-02-28] MEDS: BALSAM PERU/CASTOR OIL 60 GM TUBE TOP ×2 (08:42→21:26)
[2018-02-28] MEDS: ARTIFICIAL TEARS 15 ML OPH BOTH EYES ×3 (08:42→21:26)
[2018-02-28] MEDS: morphine LIQ (10 MG/5 ML) CUP GTB (13:37)
[2018-02-28] MEDS: [UNRECOGNIZED DRUG - REMARK] XX (15:00)
[2018-02-28] MEDS: AMIKACIN 1,000 MG in SOD CHLORIDE 0.9% 250 ML IVPB (16:37)
[2018-02-28] MEDS: ATORVASTATIN 80 MG TAB PO (21:25)
[2018-03-01] MEDS: HYDROCORTISONE 100 MG INJ IV ×3 (06:00→21:01)
[2018-03-01] MEDS: MIDODRINE 2.5 MG TAB PO ×3 (06:01→21:20)
[2018-03-01] MEDS: CEFEPIME 1GM/50 ML (PMX) 50 ML IVPB ×3 (06:02→21:01)
[2018-03-01] MEDS: HEPARIN 5,000 UNIT/1 ML VIAL SC ×3 (06:11→21:32)
[2018-03-01] MEDS: ALBUTEROL HFA 8 GM INHALER INH ×3 (08:47→19:14)
[2018-03-01] MEDS: IPRATROPIUM (HFA) 12.9 GM INHALER INH ×3 (08:47→19:14)
[2018-03-01] MEDS: COLLAGENASE 5 GM (UD JAR) TOP (09:00)
[2018-03-01] MEDS: FAMOTIDINE 20 MG TAB GTB ×2 (09:09→21:02)
[2018-03-01] MEDS: ARTIFICIAL TEARS 15 ML OPH BOTH EYES ×3 (09:09→21:03)
[2018-03-01] MEDS: BALSAM PERU/CASTOR OIL 60 GM TUBE TOP ×2 (09:09→21:02)
[2018-03-01] MEDS: ATORVASTATIN 80 MG TAB PO (21:02)
[2018-03-02] MEDS: HYDROCORTISONE 100 MG INJ IV ×3 (06:09→21:58)
[2018-03-02] MEDS: MIDODRINE 2.5 MG TAB PO ×3 (06:10→21:56)
[2018-03-02] MEDS: CEFEPIME 1GM/50 ML (PMX) 50 ML IVPB ×3 (06:11→21:56)
[2018-03-02] MEDS: HEPARIN 5,000 UNIT/1 ML VIAL SC ×2 (06:13→13:42)
[2018-03-02] MEDS: ALBUTEROL HFA 8 GM INHALER INH ×3 (07:31→19:20)
[2018-03-02] MEDS: IPRATROPIUM (HFA) 12.9 GM INHALER INH ×3 (07:31→19:20)
[2018-03-02] MEDS: ARTIFICIAL TEARS 15 ML OPH BOTH EYES ×3 (08:38→21:56)
[2018-03-02] MEDS: FAMOTIDINE 20 MG TAB GTB ×2 (08:38→21:55)
[2018-03-02] MEDS: COLLAGENASE 5 GM (UD JAR) TOP (08:39)
[2018-03-02] MEDS: BALSAM PERU/CASTOR OIL 60 GM TUBE TOP ×2 (09:00→21:58)
[2018-03-02] MEDS ORDERED: AMIKACIN 1,000 MG in SOD CHLORIDE 0.9% 250 ML IVPB (16:00)
[2018-03-02] MEDS: FUROSEMIDE 20 MG INJ IV (17:44)
[2018-03-02] MEDS: ATORVASTATIN 80 MG TAB PO (21:55)
[2018-03-03] MEDS: MIDODRINE 2.5 MG TAB PO ×3 (06:00→21:16)
[2018-03-03] MEDS: HYDROCORTISONE 100 MG INJ IV ×3 (06:28→21:18)
[2018-03-03] MEDS: CEFEPIME 1GM/50 ML (PMX) 50 ML IVPB ×3 (06:28→21:18)
[2018-03-03] MEDS: FUROSEMIDE 20 MG INJ IV ×2 (06:29→17:59)
[2018-03-03] MEDS: IPRATROPIUM (HFA) 12.9 GM INHALER INH ×3 (07:36→20:00)
[2018-03-03] MEDS: ALBUTEROL HFA 8 GM INHALER INH ×3 (07:36→20:00)
[2018-03-03] MEDS: COLLAGENASE 5 GM (UD JAR) TOP (08:38)
[2018-03-03] MEDS: FAMOTIDINE 20 MG TAB GTB ×2 (08:38→21:16)
[2018-03-03] MEDS: BALSAM PERU/CASTOR OIL 60 GM TUBE TOP ×2 (08:38→21:21)
[2018-03-03] MEDS: ARTIFICIAL TEARS 15 ML OPH BOTH EYES ×3 (08:38→21:25)
[2018-03-03] MEDS: ENOXAPARIN 40 MG/0.4 ML SYG SC (08:50)
[2018-03-03] MEDS: AMIODARONE 150MG/D5W BOLUS 100 ML IV (19:06)
[2018-03-03] MEDS: ATORVASTATIN 80 MG TAB PO (21:16)
[2018-03-03] MEDS: DILTIAZEM 25 MG INJ IV (21:20)
[2018-03-03] MEDS: AMIODARONE 900 MG in DEXTROSE 5% 482 ML IV (21:35)
[2018-03-04] MEDS: IPRATROPIUM (HFA) 12.9 GM INHALER INH ×4 (01:39→19:11)
[2018-03-04] MEDS: ALBUTEROL HFA 8 GM INHALER INH ×4 (01:40→19:11)
[2018-03-04] MEDS: HYDROCORTISONE 100 MG INJ IV ×2 (05:01→20:23)
[2018-03-04] MEDS: FUROSEMIDE 20 MG INJ IV ×2 (05:01→18:19)
[2018-03-04] MEDS: MIDODRINE 2.5 MG TAB PO ×3 (05:02→21:32)
[2018-03-04] MEDS: CEFEPIME 1GM/50 ML (PMX) 50 ML IVPB ×2 (05:02→18:00)
[2018-03-04 06:06] LABS: ADD MAN DIFF? NO
[2018-03-04 06:19] LABS: BASOPHILS % 0.1 % (0.0-2.0); HEMATOCRIT 36.2 % (42.0-52.0); HEMOGLOBIN 11.2 g/dl (14.0-18.0); LYMPHOCYTES % 5.9 % (15.0-51.0); MEAN CORPUSCULAR HEMOGLOBIN 28.5 pg (29.0-33.0); MEAN CORPUSCULAR HGB CONC 30.9 g/dl (32.0-37.0); MEAN CORPUSCULAR VOLUME 92.1 fl (82.0-101.0); MEAN PLATELET VOLUME 10.5 fl (7.4-10.4); MONOCYTE # 0.9 10^3/ul (0.3-0.9); MONOCYTES % 5.2 % (0.0-11.0); NEUTROPHIL # 15.1 10^3/ul (1.6-7.5); PLATELET COUNT 204 10^3/UL (140-415); RED BLOOD COUNT 3.93 10^6/ul (4.70-6.10); RED CELL DISTRIBUTION WIDTH 19.3 % (11.5-14.5)
[2018-03-04 06:19] LABS: WHITE BLOOD COUNT 17.2 10^3/ul (4.8-10.8)
[2018-03-04 06:23] LABS: BLOOD UREA NITROGEN 28 mg/dl (7-20); CALCIUM 8.9 mg/dl (8.4-10.2); CHLORIDE 99 mmol/L (97-110); CREATININE 0.41 mg/dl (0.61-1.24); Estimated GFR > 60 mL/min (>60); GLUCOSE 135 mg/dl (70-220); SODIUM 141 mmol/L (135-144)
[2018-03-04 06:31] LABS: ANION GAP 3 (5-13)
[2018-03-04 06:33] LABS: CARBON DIOXIDE 39 mmol/L (21-31); POTASSIUM 2.5 mmol/L (3.5-5.1)
[2018-03-04 07:27] LABS: MAGNESIUM 2.2 mg/dl (1.7-2.5)
[2018-03-04] MEDS: POTASSIUM CHLORIDE 100 ML IVPB ×3 (08:48→14:02)
[2018-03-04] MEDS: ARTIFICIAL TEARS 15 ML OPH BOTH EYES ×3 (09:20→20:25)
[2018-03-04] MEDS: COLLAGENASE 5 GM (UD JAR) TOP (09:21)
[2018-03-04] MEDS: FAMOTIDINE 20 MG TAB GTB ×2 (09:21→20:24)
[2018-03-04] MEDS: BALSAM PERU/CASTOR OIL 60 GM TUBE TOP ×2 (09:22→20:25)
[2018-03-04] MEDS: ENOXAPARIN 40 MG/0.4 ML SYG SC (09:23)
[2018-03-04 16:37] LABS: POTASSIUM 2.9 mmol/L (3.5-5.1)
[2018-03-04] MEDS: POTASSIUM CHLORIDE 20 MEQ POWDER FOR ORAL SOLN GTB (19:20)
[2018-03-04] MEDS: MAGNESIUM SULFATE 2 GM/50 ML 50 ML IVPB (19:51)
[2018-03-04] MEDS: ATORVASTATIN 80 MG TAB PO (20:24)
[2018-03-04] MEDS: SOD CHLORIDE 0.9% 250 ML IV ×2 (20:24→21:32)
[2018-03-04] MEDS: AMIODARONE 200 MG TAB NGT (20:24)
[2018-03-04] MEDS: MIDODRINE 5 MG TAB NGT (20:24)
[2018-03-05] MEDS: CEFEPIME 1GM/50 ML (PMX) 50 ML IVPB ×2 (00:14→05:12)
[2018-03-05] MEDS: MIDODRINE 2.5 MG TAB PO ×2 (05:11→14:01)
[2018-03-05] MEDS: FUROSEMIDE 20 MG INJ IV (05:12)
[2018-03-05 06:19] LABS: MAGNESIUM 2.6 mg/dl (1.7-2.5)
[2018-03-05 06:22] LABS: BLOOD UREA NITROGEN 28 mg/dl (7-20); CALCIUM 8.5 mg/dl (8.4-10.2); CHLORIDE 96 mmol/L (97-110); Estimated GFR > 60 mL/min (>60); GLUCOSE 106 mg/dl (70-220); POTASSIUM 3.3 mmol/L (3.5-5.1); SODIUM 140 mmol/L (135-144)
[2018-03-05 06:31] LABS: ANION GAP 3 (5-13); CARBON DIOXIDE 41 mmol/L (21-31)
[2018-03-05] MEDS: HYDROCORTISONE 100 MG INJ IV (08:59)
[2018-03-05] MEDS: COLLAGENASE 5 GM (UD JAR) TOP (09:00)
[2018-03-05] MEDS: FAMOTIDINE 20 MG TAB GTB (09:00)
[2018-03-05] MEDS: AMIODARONE 200 MG TAB NGT (09:00)
[2018-03-05] MEDS: ARTIFICIAL TEARS 15 ML OPH BOTH EYES ×2 (09:01→14:01)
[2018-03-05] MEDS: BALSAM PERU/CASTOR OIL 60 GM TUBE TOP (09:01)
[2018-03-05] MEDS: ENOXAPARIN 40 MG/0.4 ML SYG SC (09:14)
[2018-03-05] MEDS: POTASSIUM CHLORIDE 20 MEQ POWDER FOR ORAL SOLN PEG (14:00)
[2018-03-06] MEDS ORDERED: FUROSEMIDE 20 MG TAB PO (09:00)
== END 2018-03-05 15:45 | DRG 870 ==
LOC: E/R 14:29 → 6WM 02-28 23:40 → ICU 15:40
PROC: 5A1955Z Respiratory Ventilation, Greater than 96 Consecutive Hours (ICD-10-PCS; principal; 2018-02-19)
PROC: 30233N1 Transfusion of Nonautologous Red Blood Cells into Peripheral Vein, Percutaneous Approach (ICD-10-PCS; 2018-02-27)
DX: A41.9 Sepsis, unspecified organism (principal); L89.153 Pressure ulcer of sacral region, stage 3; R65.21 Severe sepsis with septic shock; J96.21 Acute and chronic respiratory failure with hypoxia; I50.23 Acute on chronic systolic (congestive) heart failure; I21.A1 Myocardial infarction type 2; J15.1 Pneumonia due to Pseudomonas; N39.0 Urinary tract infection, site not specified; G93.1 Anoxic brain damage, not elsewhere classified; E87.0 Hyperosmolality and hypernatremia; I42.8 Other cardiomyopathies; Z99.11 Dependence on respirator [ventilator] status; R40.3 Persistent vegetative state; I25.10 Atherosclerotic heart disease of native coronary artery without angina pectoris; D64.9 Anemia, unspecified; I48.91 Unspecified atrial fibrillation; B96.89 Other specified bacterial agents as the cause of diseases classified elsewhere; Z93.0 Tracheostomy status; Z86.74 Personal history of sudden cardiac arrest; Z98.61 Coronary angioplasty status; Z16.24 Resistance to multiple antibiotics; Z95.810 Presence of automatic (implantable) cardiac defibrillator
CPT/HCPCS: 36415; 36430; 36600; 71045; 80048; 80053; 80061; 80076; 80150; 80202; 81001; 82533; 82550; 82553; 82803; 82962; 83036; 83605; 83735; 84100; 84132; 84443; 84484; 85025; 85610; 85730; 86850; 86900; 86901; 86920; 87040; 87070; 87081; 87086; 93005; 93306; 94002; 94003; 94640; 99291-25

== ENCOUNTER 2018-03-11 23:54 | Inpatient (IN) | payer OTHER ==
[2018-03-12 00:22] LABS: WHITE BLOOD COUNT 17.1 10^3/ul (4.8-10.8)
[2018-03-12 00:22] LABS: ADD MAN DIFF? NO; BASOPHILS % 0.2 % (0.0-2.0); EOSINOPHILS # 0.2 10^3/ul (0.0-0.5); EOSINOPHILS % 0.9 % (0.0-7.0); HEMATOCRIT 39.4 % (42.0-52.0); LYMPHOCYTES # 0.6 10^3/ul (0.8-2.9); LYMPHOCYTES % 3.7 % (15.0-51.0); MEAN CORPUSCULAR HEMOGLOBIN 28.4 pg (29.0-33.0); MEAN CORPUSCULAR HGB CONC 30.5 g/dl (32.0-37.0); MEAN CORPUSCULAR VOLUME 93.1 fl (82.0-101.0); MEAN PLATELET VOLUME 9.9 fl (7.4-10.4); MONOCYTE # 1.2 10^3/ul (0.3-0.9); MONOCYTES % 6.7 % (0.0-11.0); NEUTROPHIL # 15.1 10^3/ul (1.6-7.5); NEUTROPHILS % 88.1 % (39.0-77.0); PLATELET COUNT 168 10^3/UL (140-415); RED BLOOD COUNT 4.23 10^6/ul (4.70-6.10)
[2018-03-12 00:26] LABS: AADO2 Arterial 287.8 mmHg (7.0-24.0); Allen Test ACCEPTAB; Arterial Base Excess 11.6 mmol/L (-3.0-3); Arterial Blood Gas Oxygen Sat 95.1 mmHG (95.0-98.0); Arterial COHb 1.1 % (0.0-3.0); Arterial Fraction of Oxyhgb 93.8 % (93.0-99.0); Arterial HCO3 37.9 mmol/L (22.0-26.0); Arterial MetHb 0.3 % (0.0-1.5); Arterial pCO2 57.2 mmhg (35-45); MODE VENT - AC; Site Right Radial
[2018-03-12 00:37] LABS: INR 1.06; PROTIME 13.9 Sec (11.9-14.9); PT RATIO 1.1
[2018-03-12 00:40] LABS: ALANINE AMINOTRANSFERASE 27 IU/L (13-69); ALBUMIN 3.1 g/dl (3.3-4.9); ALBUMIN/GLOBULIN RATIO 0.79; ALKALINE PHOSPHATASE 56 IU/L (42-121); ANION GAP 10 (5-13); ASPARTATE AMINO TRANSFERASE 26 IU/L (15-46); BILIRUBIN,INDIRECT 0.7 mg/dl (0-1.1); BILIRUBIN,TOTAL 0.7 mg/dl (0.2-1.3); BLOOD UREA NITROGEN 20 mg/dl (7-20); CALCIUM 8.9 mg/dl (8.4-10.2); CARBON DIOXIDE 39 mmol/L (21-31); CHLORIDE 92 mmol/L (97-110); CREATININE 0.47 mg/dl (0.61-1.24); Estimated GFR > 60 mL/min (>60); GLUCOSE 113 mg/dl (70-220); SODIUM 141 mmol/L (135-144)
[2018-03-12 00:54] LABS: TROPONIN-I 0.268 ng/ml (0.000-0.120)
[2018-03-12] MEDS: AZTREONAM 2 GM in DEXTROSE 5% 100 ML IVPB (01:24)
[2018-03-12] MEDS: SODIUM CHLORIDE 0.9% 1L BAG IV* ×2 (01:25→03:51)
[2018-03-12] MEDS: ACETAMINOPHEN 500 MG TAB PO (01:42)
[2018-03-12] MEDS ORDERED: FUROSEMIDE 40 MG INJ IV (02:00)
[2018-03-12] MEDS ORDERED: MAGNESIUM HYDROXIDE 30ML CUP GTB (02:00)
[2018-03-12] MEDS ORDERED: ACETAMINOPHEN 325 MG TAB GTB (02:00)
[2018-03-12] MEDS ORDERED: VANCOMYCIN IV PER PHARMACY XX (02:00)
[2018-03-12] MEDS ORDERED: traMADol 50 MG TAB GTB (02:00)
[2018-03-12] MEDS ORDERED: NACL 0.9% 3 ML SYG IV (02:00)
[2018-03-12] MEDS ORDERED: ACETAMINOPHEN 500 MG TAB PO (02:00)
[2018-03-12] MEDS ORDERED: NA PHOSPHATE/BIPHOS 133 ML ENEMA PR (02:00)
[2018-03-12] MEDS ORDERED: ALBUTEROL 0.083% (NEB) 2.5 MG/3 ML AMP NEB (02:00)
[2018-03-12] MEDS ORDERED: ONDANSETRON 4 MG INJ IV (02:00)
[2018-03-12] MEDS ORDERED: BISACODYL 10 MG SUPP PR (02:00)
[2018-03-12] MEDS: VANCOMYCIN 1 GM (PMX) 250 ML IVPB (02:39)
[2018-03-12] MEDS: ALBUMIN HUMAN 25% 100 ML IV ×2 (02:55→03:52)
[2018-03-12 04:01] LABS: ADD UMIC YES; UR ASCORBIC ACID 40 mg/dL (NEGATIVE); UR BACTERIA FEW /HPF (NONE SEEN); UR BILIRUBIN (Dip) NEGATIVE (NEGATIVE); UR BLOOD (Dip) 1+ mg/dL (NEGATIVE); UR BUDDING YEAST MODERATE /HPF (NONE SEEN); UR CALCIUM OXALATE CRYSTAL FEW /HPF (NONE SEEN); UR CLARITY CLOUDY (CLEAR); UR COLOR AMBER (YELLOW); UR GLUCOSE (Dip) NEGATIVE (NEGATIVE); UR KETONES (Dip) TRACE mg/dL (NEGATIVE); UR LEUKOCYTE ESTERASE (Dip) 2+ Leu/ul (NEGATIVE); UR MUCUS MODERATE /HPF (NONE SEEN); UR NITRITE (Dip) NEGATIVE (NEGATIVE); UR RBC 41 /HPF (0-5); UR TOTAL PROTEIN (Dip) 1+ mg/dl (NEGATIVE); UR UROBILINOGEN (Dip) NEGATIVE (NEGATIVE); UR WBC 94 /HPF (0-5)
[2018-03-12] MEDS ORDERED: LIDOCAINE 1% (MPF) 5 ML VIAL SC (05:00)
[2018-03-12] MEDS ORDERED: NORepinephrine 8MG/250 ML (PMX 250 ML IV (05:00)
[2018-03-12] MEDS: CIPROFLOXACIN 400MG/D5W 200 ML IVPB ×2 (05:30→20:47)
[2018-03-12] MEDS: CHLORHEXIDINE GLUCONATE 15 ML UD CUP MM ×2 (05:33→13:06)
[2018-03-12 05:36] LABS: LACTIC ACID 1.3 mmol/L (0.5-2.0)
[2018-03-12 05:44] LABS: CK-MB 2.13 ng/ml (0.0-2.4)
[2018-03-12 05:46] LABS: CREATINE KINASE < 20 IU/L (23-200); TROPONIN-I 0.387 ng/ml (0.000-0.120)
[2018-03-12] MEDS: SOD CHLORIDE 0.9% 1,000 ML IV ×2 (06:55→17:28)
[2018-03-12 08:11] LABS: AADO2 Arterial 268.4 mmHg (7.0-24.0); Allen Test ACCEPTAB; Arterial Base Excess 7.1 mmol/L (-3.0-3); Arterial Blood Gas Oxygen Sat 97.6 mmHG (95.0-98.0); Arterial COHb 0.3 % (0.0-3.0); Arterial Fraction of Oxyhgb 97.1 % (93.0-99.0); Arterial HCO3 32.5 mmol/L (22.0-26.0); Arterial MetHb 0.2 % (0.0-1.5); Arterial pCO2 49.9 mmhg (35-45); MODE VENT - AC; Site Right Radial
[2018-03-12] MEDS ORDERED: ENOXAPARIN 30 MG/0.3 ML SYG SC (09:00)
[2018-03-12] MEDS ORDERED: NON-FORMULARY/PATIENT OWN MED (Cran/Vitc/Mannose/Inulin/Brom (Uti-Stat Liquid) 30 ML) GTB (09:00)
[2018-03-12] MEDS ORDERED: AZTREONAM 1 GM/NS (PMX) 50 ML IVPB (09:00)
[2018-03-12] MEDS: MULTIVITAMINS 30 ML CUP GTB (09:03)
[2018-03-12] MEDS: ZINC SULFATE 220 MG CAP GTB (09:04)
[2018-03-12] MEDS: CLOPIDOGREL 75 MG TAB GTB (09:04)
[2018-03-12] MEDS: LACTOBACILLUS RHAMNOSUS CAP PO (09:04)
[2018-03-12] MEDS: ASCORBIC ACID 500 MG TAB GTB (09:04)
[2018-03-12] MEDS: MAGNESIUM OXIDE 400 MG TAB GTB ×2 (09:04→21:05)
[2018-03-12 09:13] LABS: B-TYPE NATRIURETIC PEPTIDE 10500 PG/ML (0-125)
[2018-03-12 11:25] LABS: CREATINE KINASE 35 IU/L (23-200)
[2018-03-12 11:37] LABS: CK INDEX 7.5
[2018-03-12 11:38] LABS: CK-MB 2.61 ng/ml (0.0-2.4); TROPONIN-I 0.281 ng/ml (0.000-0.120)
[2018-03-12] MEDS ORDERED: VANCOMYCIN HCL 1.25 GM in SOD CHLORIDE 0.9% 250 ML IVPB (12:00)
[2018-03-12] MEDS: VANCOMYCIN 750 MG (PMX) 250 ML IVPB (13:06)
[2018-03-12] MEDS: ACETAMINOPHEN 325 MG TAB GTB (15:44)
[2018-03-12] MEDS: MEROPENEM 1 GM/50ML(PMX) 50 ML IVPB ×2 (18:16→20:47)
[2018-03-12] MEDS: DOCUSATE SODIUM 100 MG CAP PO (20:48)
[2018-03-12] MEDS: FAMOTIDINE 20 MG TAB GTB (21:05)
[2018-03-12] MEDS: ATORVASTATIN 10 MG TAB GTB (21:05)
[2018-03-13] MEDS: VANCOMYCIN 750 MG (PMX) 250 ML IVPB ×2 (01:10→13:25)
[2018-03-13] MEDS: CHLORHEXIDINE GLUCONATE 15 ML UD CUP MM ×2 (03:12→14:53)
[2018-03-13 05:24] LABS: ADD MAN DIFF? NO
[2018-03-13 05:34] LABS: WHITE BLOOD COUNT 9.8 10^3/ul (4.8-10.8)
[2018-03-13 05:34] LABS: BASOPHILS % 0.2 % (0.0-2.0); EOSINOPHILS # 0.1 10^3/ul (0.0-0.5); EOSINOPHILS % 1.4 % (0.0-7.0); HEMATOCRIT 32.2 % (42.0-52.0); HEMOGLOBIN 9.8 g/dl (14.0-18.0); LYMPHOCYTES # 1.8 10^3/ul (0.8-2.9); LYMPHOCYTES % 18.5 % (15.0-51.0); MEAN CORPUSCULAR HEMOGLOBIN 28.5 pg (29.0-33.0); MEAN CORPUSCULAR HGB CONC 30.4 g/dl (32.0-37.0); MEAN CORPUSCULAR VOLUME 93.6 fl (82.0-101.0); MEAN PLATELET VOLUME 10.5 fl (7.4-10.4); MONOCYTE # 0.9 10^3/ul (0.3-0.9); MONOCYTES % 8.7 % (0.0-11.0); NEUTROPHIL # 6.9 10^3/ul (1.6-7.5); NEUTROPHILS % 70.9 % (39.0-77.0); PLATELET COUNT 115 10^3/UL (140-415); RED BLOOD COUNT 3.44 10^6/ul (4.70-6.10); RED CELL DISTRIBUTION WIDTH 20.1 % (11.5-14.5)
[2018-03-13 06:03] LABS: MAGNESIUM 2.4 mg/dl (1.7-2.5)
[2018-03-13 06:22] LABS: ALANINE AMINOTRANSFERASE 25 IU/L (13-69); ALBUMIN 3.1 g/dl (3.3-4.9); ALBUMIN/GLOBULIN RATIO 0.91; ALKALINE PHOSPHATASE 60 IU/L (42-121); ANION GAP 10 (5-13); ASPARTATE AMINO TRANSFERASE 19 IU/L (15-46); BILIRUBIN,INDIRECT 0.9 mg/dl (0-1.1); BILIRUBIN,TOTAL 0.9 mg/dl (0.2-1.3); BLOOD UREA NITROGEN 16 mg/dl (7-20); CALCIUM 8.7 mg/dl (8.4-10.2); CARBON DIOXIDE 34 mmol/L (21-31); CHLORIDE 98 mmol/L (97-110); CREATININE 0.38 mg/dl (0.61-1.24); Estimated GFR > 60 mL/min (>60); GLUCOSE 98 mg/dl (70-220); POTASSIUM 3.3 mmol/L (3.5-5.1); SODIUM 142 mmol/L (135-144); TOTAL PROTEIN 6.5 g/dl (6.1-8.1)
[2018-03-13] MEDS: CLOPIDOGREL 75 MG TAB GTB (08:31)
[2018-03-13] MEDS: MULTIVITAMINS 30 ML CUP GTB (08:31)
[2018-03-13] MEDS: ZINC SULFATE 220 MG CAP GTB (08:31)
[2018-03-13] MEDS: MAGNESIUM OXIDE 400 MG TAB GTB ×2 (08:31→21:34)
[2018-03-13] MEDS: ASCORBIC ACID 500 MG TAB GTB (08:31)
[2018-03-13] MEDS: LACTOBACILLUS RHAMNOSUS CAP PO (08:31)
[2018-03-13] MEDS: MEROPENEM 1 GM/50ML(PMX) 50 ML IVPB ×2 (08:32→21:34)
[2018-03-13] MEDS: CIPROFLOXACIN 400MG/D5W 200 ML IVPB (08:32)
[2018-03-13] MEDS: LIDOCAINE 1% (MPF) 5 ML VIAL SC ×2 (12:00)
[2018-03-13 12:30] LABS: VANCOMYCIN,TROUGH 12.7 ug/ml (10.0-20.0)
[2018-03-13] MEDS: FLUCONAZOLE 100 MG TAB PO (14:53)
[2018-03-13] MEDS: DOCUSATE SODIUM 100 MG CAP PO (21:34)
[2018-03-13] MEDS: FAMOTIDINE 20 MG TAB GTB (21:34)
[2018-03-13] MEDS: BALSAM PERU/CASTOR OIL 60 GM TUBE TOP (21:34)
[2018-03-13] MEDS: ATORVASTATIN 10 MG TAB GTB (21:34)
[2018-03-13] MEDS: NYSTATIN 30 GM POWDER BTL TOP (21:34)
[2018-03-14] MEDS: ACETAMINOPHEN 325 MG TAB GTB (01:11)
[2018-03-14] MEDS: VANCOMYCIN 750 MG (PMX) 250 ML IVPB ×2 (01:12→13:16)
[2018-03-14] MEDS: CHLORHEXIDINE GLUCONATE 15 ML UD CUP MM ×2 (02:48→13:18)
[2018-03-14 04:37] LABS: ADD MAN DIFF? NO
[2018-03-14 04:42] LABS: WHITE BLOOD COUNT 8.9 10^3/ul (4.8-10.8)
[2018-03-14 04:42] LABS: ABNORMAL IP MESSAGE 1; BASOPHILS % 0.1 % (0.0-2.0); EOSINOPHILS # 0.2 10^3/ul (0.0-0.5); EOSINOPHILS % 2.1 % (0.0-7.0); HEMATOCRIT 31.8 % (42.0-52.0); HEMOGLOBIN 9.7 g/dl (14.0-18.0); LYMPHOCYTES # 1.8 10^3/ul (0.8-2.9); LYMPHOCYTES % 20.4 % (15.0-51.0); MEAN CORPUSCULAR HEMOGLOBIN 28.2 pg (29.0-33.0); MEAN CORPUSCULAR HGB CONC 30.5 g/dl (32.0-37.0); MEAN CORPUSCULAR VOLUME 92.4 fl (82.0-101.0); MEAN PLATELET VOLUME 10.4 fl (7.4-10.4); MONOCYTE # 0.7 10^3/ul (0.3-0.9); MONOCYTES % 8.3 % (0.0-11.0); NEUTROPHIL # 6.1 10^3/ul (1.6-7.5); NEUTROPHILS % 68.8 % (39.0-77.0); PLATELET COUNT 98 10^3/UL (140-415); POSITIVE DIFF @See below; RED BLOOD COUNT 3.44 10^6/ul (4.70-6.10)
[2018-03-14 05:05] LABS: ALANINE AMINOTRANSFERASE 27 IU/L (13-69); ALBUMIN 2.7 g/dl (3.3-4.9); ALKALINE PHOSPHATASE 59 IU/L (42-121); ANION GAP 7 (5-13); ASPARTATE AMINO TRANSFERASE 22 IU/L (15-46); BILIRUBIN,INDIRECT 0.6 mg/dl (0-1.1); BILIRUBIN,TOTAL 0.6 mg/dl (0.2-1.3); BLOOD UREA NITROGEN 13 mg/dl (7-20); CALCIUM 8.9 mg/dl (8.4-10.2); CARBON DIOXIDE 31 mmol/L (21-31); CHLORIDE 104 mmol/L (97-110); CREATININE 0.31 mg/dl (0.61-1.24); Estimated GFR > 60 mL/min (>60); GLUCOSE 123 mg/dl (70-220); POTASSIUM 3.2 mmol/L (3.5-5.1); SODIUM 142 mmol/L (135-144); TOTAL PROTEIN 5.7 g/dl (6.1-8.1)
[2018-03-14] MEDS: FLUCONAZOLE 100 MG TAB PO (08:56)
[2018-03-14] MEDS: MULTIVITAMINS 30 ML CUP GTB (08:56)
[2018-03-14] MEDS: CLOPIDOGREL 75 MG TAB GTB (08:56)
[2018-03-14] MEDS: ZINC SULFATE 220 MG CAP GTB (08:56)
[2018-03-14] MEDS: MEROPENEM 1 GM/50ML(PMX) 50 ML IVPB ×2 (08:56→21:19)
[2018-03-14] MEDS: MAGNESIUM OXIDE 400 MG TAB GTB ×2 (08:56→21:19)
[2018-03-14] MEDS: ASCORBIC ACID 500 MG TAB GTB (08:56)
[2018-03-14] MEDS: NYSTATIN 30 GM POWDER BTL TOP ×2 (11:42→21:19)
[2018-03-14] MEDS: LACTOBACILLUS RHAMNOSUS CAP PO (11:42)
[2018-03-14] MEDS: BALSAM PERU/CASTOR OIL 60 GM TUBE TOP (11:43)
[2018-03-14] MEDS: ATORVASTATIN 10 MG TAB GTB (21:19)
[2018-03-14] MEDS: FAMOTIDINE 20 MG TAB GTB (21:19)
[2018-03-14] MEDS: DOCUSATE SODIUM 100 MG CAP PO (21:19)
[2018-03-14] MEDS: VORICONAZOLE 200 MG TAB PO (21:19)
[2018-03-15] MEDS: CHLORHEXIDINE GLUCONATE 15 ML UD CUP MM ×2 (02:40→15:07)
[2018-03-15] MEDS: VANCOMYCIN 750 MG (PMX) 250 ML IVPB ×2 (02:43→13:00)
[2018-03-15 06:50] LABS: ADD MAN DIFF? NO
[2018-03-15 06:54] LABS: WHITE BLOOD COUNT 7.6 10^3/ul (4.8-10.8)
[2018-03-15 06:54] LABS: ABNORMAL IP MESSAGE 1; BASOPHILS % 0.3 % (0.0-2.0); EOSINOPHILS # 0.3 10^3/ul (0.0-0.5); EOSINOPHILS % 4.2 % (0.0-7.0); HEMATOCRIT 30.3 % (42.0-52.0); HEMOGLOBIN 9.2 g/dl (14.0-18.0); LYMPHOCYTES # 1.9 10^3/ul (0.8-2.9); LYMPHOCYTES % 24.2 % (15.0-51.0); MEAN CORPUSCULAR HEMOGLOBIN 28.1 pg (29.0-33.0); MEAN CORPUSCULAR HGB CONC 30.4 g/dl (32.0-37.0); MEAN CORPUSCULAR VOLUME 92.7 fl (82.0-101.0); MEAN PLATELET VOLUME 10.2 fl (7.4-10.4); MONOCYTE # 0.6 10^3/ul (0.3-0.9); MONOCYTES % 7.3 % (0.0-11.0); NEUTROPHIL # 4.9 10^3/ul (1.6-7.5); NEUTROPHILS % 63.6 % (39.0-77.0); PLATELET COUNT 98 10^3/UL (140-415); POSITIVE DIFF @See below; RED BLOOD COUNT 3.27 10^6/ul (4.70-6.10); RED CELL DISTRIBUTION WIDTH 19.5 % (11.5-14.5)
[2018-03-15 07:13] LABS: ALANINE AMINOTRANSFERASE 30 IU/L (13-69); ALBUMIN 2.7 g/dl (3.3-4.9); ALBUMIN/GLOBULIN RATIO 0.79; ALKALINE PHOSPHATASE 52 IU/L (42-121); ANION GAP 8 (5-13); ASPARTATE AMINO TRANSFERASE 17 IU/L (15-46); BILIRUBIN,INDIRECT 0.6 mg/dl (0-1.1); BILIRUBIN,TOTAL 0.6 mg/dl (0.2-1.3); BLOOD UREA NITROGEN 11 mg/dl (7-20); CALCIUM 8.8 mg/dl (8.4-10.2); CARBON DIOXIDE 33 mmol/L (21-31); CHLORIDE 103 mmol/L (97-110); CREATININE 0.34 mg/dl (0.61-1.24); Estimated GFR > 60 mL/min (>60); GLUCOSE 99 mg/dl (70-220); POTASSIUM 3.3 mmol/L (3.5-5.1); SODIUM 144 mmol/L (135-144); TOTAL PROTEIN 6.1 g/dl (6.1-8.1)
[2018-03-15] MEDS: ZINC SULFATE 220 MG CAP GTB (10:00)
[2018-03-15] MEDS: LACTOBACILLUS RHAMNOSUS CAP PO (10:00)
[2018-03-15] MEDS: MULTIVITAMINS 30 ML CUP GTB (10:00)
[2018-03-15] MEDS: MAGNESIUM OXIDE 400 MG TAB GTB ×2 (10:00→21:05)
[2018-03-15] MEDS: VORICONAZOLE 200 MG TAB PO ×2 (10:00→21:05)
[2018-03-15] MEDS: CLOPIDOGREL 75 MG TAB GTB (10:00)
[2018-03-15] MEDS: ASCORBIC ACID 500 MG TAB GTB (10:00)
[2018-03-15] MEDS: MEROPENEM 1 GM/50ML(PMX) 50 ML IVPB ×2 (10:00→21:04)
[2018-03-15] MEDS: NYSTATIN 30 GM POWDER BTL TOP ×2 (15:00→21:05)
[2018-03-15] MEDS: BALSAM PERU/CASTOR OIL 60 GM TUBE TOP (15:00)
[2018-03-15] MEDS: ACETAMINOPHEN 325 MG TAB GTB (16:10)
[2018-03-15] MEDS: FAMOTIDINE 20 MG TAB GTB (21:04)
[2018-03-15] MEDS: ATORVASTATIN 10 MG TAB GTB (21:05)
[2018-03-15] MEDS: DOCUSATE SODIUM 100 MG CAP PO (21:05)
[2018-03-16] MEDS: VANCOMYCIN 750 MG (PMX) 250 ML IVPB ×2 (01:01→12:59)
[2018-03-16] MEDS: CHLORHEXIDINE GLUCONATE 15 ML UD CUP MM ×2 (02:48→14:00)
[2018-03-16 06:06] LABS: ADD MAN DIFF? NO
[2018-03-16 06:11] LABS: ABNORMAL IP MESSAGE 1; BASOPHILS % 0.4 % (0.0-2.0); EOSINOPHILS # 0.5 10^3/ul (0.0-0.5); EOSINOPHILS % 6.5 % (0.0-7.0); HEMATOCRIT 30.6 % (42.0-52.0); HEMOGLOBIN 9.4 g/dl (14.0-18.0); MEAN CORPUSCULAR HEMOGLOBIN 28.5 pg (29.0-33.0); MEAN CORPUSCULAR HGB CONC 30.7 g/dl (32.0-37.0); MEAN CORPUSCULAR VOLUME 92.7 fl (82.0-101.0); MEAN PLATELET VOLUME 10.4 fl (7.4-10.4); MONOCYTE # 0.6 10^3/ul (0.3-0.9); MONOCYTES % 7.9 % (0.0-11.0); NEUTROPHIL # 3.9 10^3/ul (1.6-7.5); NEUTROPHILS % 55.9 % (39.0-77.0); PLATELET COUNT 99 10^3/UL (140-415); POSITIVE DIFF @See below; RED CELL DISTRIBUTION WIDTH 19.5 % (11.5-14.5)
[2018-03-16 06:56] LABS: ALANINE AMINOTRANSFERASE 27 IU/L (13-69); ALBUMIN 2.7 g/dl (3.3-4.9); ALBUMIN/GLOBULIN RATIO 0.79; ALKALINE PHOSPHATASE 55 IU/L (42-121); ANION GAP 9 (5-13); ASPARTATE AMINO TRANSFERASE 24 IU/L (15-46); BILIRUBIN,INDIRECT 0.4 mg/dl (0-1.1); BILIRUBIN,TOTAL 0.4 mg/dl (0.2-1.3); BLOOD UREA NITROGEN 13 mg/dl (7-20); CALCIUM 8.9 mg/dl (8.4-10.2); CARBON DIOXIDE 33 mmol/L (21-31); CHLORIDE 103 mmol/L (97-110); CREATININE 0.38 mg/dl (0.61-1.24); Estimated GFR > 60 mL/min (>60); GLUCOSE 101 mg/dl (70-220); POTASSIUM 3.5 mmol/L (3.5-5.1); SODIUM 145 mmol/L (135-144); TOTAL PROTEIN 6.1 g/dl (6.1-8.1)
[2018-03-16] MEDS: MULTIVITAMINS 30 ML CUP GTB (09:30)
[2018-03-16] MEDS: CLOPIDOGREL 75 MG TAB GTB (09:30)
[2018-03-16] MEDS: ZINC SULFATE 220 MG CAP GTB (09:30)
[2018-03-16] MEDS: ASCORBIC ACID 500 MG TAB GTB (09:30)
[2018-03-16] MEDS: MAGNESIUM OXIDE 400 MG TAB GTB ×2 (09:30→20:57)
[2018-03-16] MEDS: VORICONAZOLE 200 MG TAB PO ×2 (09:31→20:58)
[2018-03-16] MEDS: BALSAM PERU/CASTOR OIL 60 GM TUBE TOP (09:31)
[2018-03-16] MEDS: LACTOBACILLUS RHAMNOSUS CAP PO (09:31)
[2018-03-16] MEDS: MEROPENEM 1 GM/50ML(PMX) 50 ML IVPB (09:31)
[2018-03-16] MEDS: NYSTATIN 30 GM POWDER BTL TOP ×2 (09:31→20:58)
[2018-03-16 12:38] LABS: VANCOMYCIN,TROUGH 17.6 ug/ml (10.0-20.0)
[2018-03-16] MEDS: CEFTRIAXONE 1 GM/50 ML (PMX) 50 ML IVPB (17:16)
[2018-03-16] MEDS: FAMOTIDINE 20 MG TAB GTB (20:57)
[2018-03-16] MEDS: ATORVASTATIN 10 MG TAB GTB (20:57)
[2018-03-16] MEDS: DOCUSATE SODIUM 100 MG CAP PO (20:57)
[2018-03-17] MEDS ORDERED: VANCOMYCIN 500 MG (PMX) 100 ML IVPB
[2018-03-17] MEDS: CHLORHEXIDINE GLUCONATE 15 ML UD CUP MM ×2 (02:38→14:00)
[2018-03-17 06:53] LABS: ADD MAN DIFF? NO
[2018-03-17 06:54] LABS: BASOPHILS % 0.4 % (0.0-2.0); EOSINOPHILS # 0.5 10^3/ul (0.0-0.5); EOSINOPHILS % 6.4 % (0.0-7.0); HEMATOCRIT 31.9 % (42.0-52.0); HEMOGLOBIN 9.7 g/dl (14.0-18.0); LYMPHOCYTES % 26.3 % (15.0-51.0); MEAN CORPUSCULAR HEMOGLOBIN 28.1 pg (29.0-33.0); MEAN CORPUSCULAR HGB CONC 30.4 g/dl (32.0-37.0); MEAN CORPUSCULAR VOLUME 92.5 fl (82.0-101.0); MEAN PLATELET VOLUME 10.3 fl (7.4-10.4); MONOCYTE # 0.6 10^3/ul (0.3-0.9); MONOCYTES % 7.9 % (0.0-11.0); NEUTROPHIL # 4.4 10^3/ul (1.6-7.5); NEUTROPHILS % 58.7 % (39.0-77.0); PLATELET COUNT 112 10^3/UL (140-415); POSITIVE DIFF @See below; RED BLOOD COUNT 3.45 10^6/ul (4.70-6.10); RED CELL DISTRIBUTION WIDTH 19.4 % (11.5-14.5)
[2018-03-17 06:54] LABS: WHITE BLOOD COUNT 7.5 10^3/ul (4.8-10.8)
[2018-03-17 07:42] LABS: ALANINE AMINOTRANSFERASE 23 IU/L (13-69); ALBUMIN 2.8 g/dl (3.3-4.9); ALBUMIN/GLOBULIN RATIO 0.87; ALKALINE PHOSPHATASE 61 IU/L (42-121); ANION GAP 5 (5-13); ASPARTATE AMINO TRANSFERASE 18 IU/L (15-46); BILIRUBIN,INDIRECT 0.3 mg/dl (0-1.1); BILIRUBIN,TOTAL 0.3 mg/dl (0.2-1.3); BLOOD UREA NITROGEN 13 mg/dl (7-20); CALCIUM 9.1 mg/dl (8.4-10.2); CARBON DIOXIDE 33 mmol/L (21-31); CHLORIDE 105 mmol/L (97-110); CREATININE 0.37 mg/dl (0.61-1.24); Estimated GFR > 60 mL/min (>60); GLUCOSE 102 mg/dl (70-220); POTASSIUM 3.5 mmol/L (3.5-5.1); SODIUM 143 mmol/L (135-144)
[2018-03-17] MEDS: BALSAM PERU/CASTOR OIL 60 GM TUBE TOP (09:54)
[2018-03-17] MEDS: ZINC SULFATE 220 MG CAP GTB (09:54)
[2018-03-17] MEDS: MAGNESIUM OXIDE 400 MG TAB GTB (09:54)
[2018-03-17] MEDS: CLOPIDOGREL 75 MG TAB GTB (09:54)
[2018-03-17] MEDS: NYSTATIN 30 GM POWDER BTL TOP (09:54)
[2018-03-17] MEDS: VORICONAZOLE 200 MG TAB PO (09:54)
[2018-03-17] MEDS: ASCORBIC ACID 500 MG TAB GTB (09:54)
[2018-03-17] MEDS: LACTOBACILLUS RHAMNOSUS CAP PO (09:54)
[2018-03-17] MEDS: MULTIVITAMINS 30 ML CUP GTB (09:54)
[2018-03-17] MEDS: CEFTRIAXONE 1 GM/50 ML (PMX) 50 ML IVPB (18:45)
== END 2018-03-17 20:02 | DRG 870 ==
LOC: E/R 23:54 → TEL 03-14 22:14 → ICU 03-12 01:35
PROC: 5A1955Z Respiratory Ventilation, Greater than 96 Consecutive Hours (ICD-10-PCS; 2018-03-12)
PROC: 02HV33Z Insertion of Infusion Device into Superior Vena Cava, Percutaneous Approach (ICD-10-PCS; principal; 2018-03-13)
DX: A41.3 Sepsis due to Hemophilus influenzae (principal); R65.21 Severe sepsis with septic shock; J18.9 Pneumonia, unspecified organism; J96.21 Acute and chronic respiratory failure with hypoxia; N39.0 Urinary tract infection, site not specified; G93.1 Anoxic brain damage, not elsewhere classified; R40.3 Persistent vegetative state; L89.154 Pressure ulcer of sacral region, stage 4; I50.22 Chronic systolic (congestive) heart failure; Z99.11 Dependence on respirator [ventilator] status; I25.10 Atherosclerotic heart disease of native coronary artery without angina pectoris; I25.5 Ischemic cardiomyopathy; D64.9 Anemia, unspecified; Z86.74 Personal history of sudden cardiac arrest; Z93.1 Gastrostomy status; Z95.810 Presence of automatic (implantable) cardiac defibrillator; Z93.0 Tracheostomy status
CPT/HCPCS: 36415; 36569; 36600; 71045; 76937; 80053; 80202; 81001; 82550; 82553; 82803; 83605; 83735; 83880; 84484; 85025; 85610; 85730; 87040; 87045; 87081; 87086; 93005; 94002; 94003; 96374; 99291-25

== ENCOUNTER 2018-05-10 03:12 | Inpatient (IN) | payer OTHER ==
[2018-05-10 04:10] LABS: ALANINE AMINOTRANSFERASE 59 IU/L (13-69); ALBUMIN/GLOBULIN RATIO 0.56; ALKALINE PHOSPHATASE 174 IU/L (42-121); ASPARTATE AMINO TRANSFERASE 69 IU/L (15-46); BILIRUBIN,INDIRECT 0.2 mg/dl (0-1.1); BILIRUBIN,TOTAL 0.2 mg/dl (0.2-1.3); BLOOD UREA NITROGEN 53 mg/dl (7-20); CALCIUM 10.1 mg/dl (8.4-10.2); CHLORIDE 91 mmol/L (97-110); CREATININE 0.58 mg/dl (0.61-1.24); Estimated GFR > 60 mL/min (>60); GLUCOSE 138 mg/dl (70-220); POTASSIUM 5.8 mmol/L (3.5-5.1); SODIUM 141 mmol/L (135-144); TOTAL PROTEIN 8.3 g/dl (6.1-8.1)
[2018-05-10 04:12] LABS: WHITE BLOOD COUNT 32.4 10^3/ul (4.8-10.8)
[2018-05-10 04:12] LABS: ABNORMAL IP MESSAGE 1; HEMATOCRIT 29.7 % (42.0-52.0); HEMOGLOBIN 8.1 g/dl (14.0-18.0); MEAN CORPUSCULAR HEMOGLOBIN 26.8 pg (29.0-33.0); MEAN CORPUSCULAR HGB CONC 27.3 g/dl (32.0-37.0); MEAN CORPUSCULAR VOLUME 98.3 fl (82.0-101.0); MEAN PLATELET VOLUME 11.2 fl (7.4-10.4); NUCLEATED RED BLOOD CELLS% 0.1 /100WBC (0.0-0.0); POSITIVE DIFF @See below; RED BLOOD COUNT 3.02 10^6/ul (4.70-6.10); RED CELL DISTRIBUTION WIDTH 18.3 % (11.5-14.5)
[2018-05-10 04:13] LABS: ADD MAN DIFF? YES; PLATELET COUNT 448 10^3/UL (140-415)
[2018-05-10 04:16] LABS: ANION GAP 10 (5-13)
[2018-05-10] MEDS: SOD CHLORIDE 0.9% 1,000 ML IV ×2 (04:21→08:37)
[2018-05-10] MEDS: CEFEPIME 1GM/50 ML (PMX) 50 ML IVPB (04:22)
[2018-05-10 04:32] LABS: CARBON DIOXIDE 40 mmol/L (21-31)
[2018-05-10 05:01] LABS: ANISOCYTOSIS 1+ (0-0); BAND NEUTROPHILS #M 6.4 10^3/ul (0.0-0.6); BAND NEUTROPHILS % (M) 20 % (0-4); EOSINOPHILS % (M) 1 % (0-7); LYMPHOCYTES #M 2.5 10^3/ul (0.8-2.9); LYMPHOCYTES % (M) 8 % (15-51); MICROCYTOSIS 1+ (0-0); MONOCYTE #M 1.6 10^3/ul (0.3-0.9); MONOCYTES % (M) 5 % (0-11); PLATELET ESTIMATE NORMAL; POIKILOCYTOSIS 1+ (0-0); POLYCHROMASIA 3+ (0-0); SEG NEUT #M 23.5 10^3/ul (1.6-7.5); SEGMENTED NEUTROPHILS (M) % 66 % (39-77); SMUDGE%M 2 % (0-0)
[2018-05-10] MEDS ORDERED: ACETAMINOPHEN 325 MG TAB PO (06:00)
[2018-05-10] MEDS ORDERED: ONDANSETRON 4 MG INJ IV (06:00)
[2018-05-10] MEDS ORDERED: NACL 0.9% 3 ML SYG IV (06:00)
[2018-05-10] MEDS: PANTOPRAZOLE 40 MG INJ IV (06:00)
[2018-05-10] MEDS: SODIUM CHLORIDE 0.9% 1L BAG IV* (06:45)
[2018-05-10] MEDS: VANCOMYCIN 1 GM (PMX) 250 ML IVPB (06:50)
[2018-05-10] MEDS ORDERED: VANCOMYCIN IV PER PHARMACY XX (07:00)
[2018-05-10] MEDS: ALBUMIN HUMAN 25% 100 ML IV ×2 (07:22→08:35)
[2018-05-10 07:33] LABS: POTASSIUM 4.8 mmol/L (3.5-5.1)
[2018-05-10 07:36] LABS: LACTIC ACID 1.6 mmol/L (0.5-2.0)
[2018-05-10 07:38] LABS: ADD UMIC YES; UR ASCORBIC ACID 40 mg/dL (NEGATIVE); UR BACTERIA FEW /HPF (NONE SEEN); UR BILIRUBIN (Dip) NEGATIVE (NEGATIVE); UR BLOOD (Dip) NEGATIVE (NEGATIVE); UR BUDDING YEAST MODERATE /HPF (NONE SEEN); UR CLARITY CLOUDY (CLEAR); UR COLOR AMBER (YELLOW); UR GLUCOSE (Dip) NEGATIVE (NEGATIVE); UR KETONES (Dip) NEGATIVE (NEGATIVE); UR LEUKOCYTE ESTERASE (Dip) 1+ Leu/ul (NEGATIVE); UR MUCUS FEW /HPF (NONE SEEN); UR NITRITE (Dip) NEGATIVE (NEGATIVE); UR RBC 16 /HPF (0-5); UR SPECIFIC GRAVITY (Dip) 1.018 (1.003-1.030); UR SQUAMOUS EPITHELIAL CELL FEW /HPF (FEW); UR TOTAL PROTEIN (Dip) 1+ mg/dl (NEGATIVE); UR UROBILINOGEN (Dip) 1+ mg/dL (NEGATIVE); UR WBC 28 /HPF (0-5)
[2018-05-10 09:00] LABS: AADO2 Arterial 540.8 mmHg (7.0-24.0); Allen Test ACCEPTAB; Arterial Base Excess 15.3 mmol/L (-3.0-3); Arterial COHb 0.4 % (0.0-3.0); Arterial Fraction of Oxyhgb 93.2 % (93.0-99.0); Arterial HCO3 43.8 mmol/L (22.0-26.0); Arterial MetHb 0.5 % (0.0-1.5); Arterial pCO2 90.8 mmhg (35-45); MODE VENT - AC; Site Right Radial
[2018-05-10] MEDS: MEROPENEM 1 GM/50ML(PMX) 50 ML IVPB ×2 (09:17→20:22)
[2018-05-10 10:02] LABS: LACTIC ACID 1.5 mmol/L (0.5-2.0)
[2018-05-10] MEDS: NORepinephrine 8MG/250 ML (PMX 250 ML IV ×2 (10:28→23:07)
[2018-05-10 12:36] LABS: LACTIC ACID 1.3 mmol/L (0.5-2.0)
[2018-05-10] MEDS: FLUCONAZOLE 200 MG (PMX) 100 ML IVPB (12:41)
[2018-05-10] MEDS: ENOXAPARIN 40 MG/0.4 ML SYG SC (12:43)
[2018-05-10] MEDS: VANCOMYCIN 750 MG (PMX) 250 ML IVPB (14:34)
[2018-05-10] MEDS ORDERED: PENDING SANTYL ORDER FOR WOUND CARE XX (19:00)
[2018-05-11] MEDS: VANCOMYCIN 750 MG (PMX) 250 ML IVPB (02:22)
[2018-05-11 05:06] LABS: AADO2 Arterial 498.8 mmHg (7.0-24.0); Allen Test ACCEPTAB; Arterial Base Excess 16.5 mmol/L (-3.0-3); Arterial COHb 0.8 % (0.0-3.0); Arterial Fraction of Oxyhgb 97.8 % (93.0-99.0); Arterial HCO3 43.3 mmol/L (22.0-26.0); Arterial MetHb 0.4 % (0.0-1.5); Arterial pCO2 71.5 mmhg (35-45); MODE VENT - AC; Site Right Radial
[2018-05-11 05:31] LABS: WHITE BLOOD COUNT 34.4 10^3/ul (4.8-10.8)
[2018-05-11 05:31] LABS: ABNORMAL IP MESSAGE 1; HEMATOCRIT 23.4 % (42.0-52.0); MEAN CORPUSCULAR HEMOGLOBIN 26.8 pg (29.0-33.0); MEAN CORPUSCULAR HGB CONC 28.2 g/dl (32.0-37.0); MEAN CORPUSCULAR VOLUME 95.1 fl (82.0-101.0); MEAN PLATELET VOLUME 10.1 fl (7.4-10.4); NUCLEATED RED BLOOD CELLS% 0.1 /100WBC (0.0-0.0); PLATELET COUNT 376 10^3/UL (140-415); POSITIVE DIFF @See below; RED BLOOD COUNT 2.46 10^6/ul (4.70-6.10); RED CELL DISTRIBUTION WIDTH 18.1 % (11.5-14.5)
[2018-05-11] MEDS: PANTOPRAZOLE 40 MG INJ IV (05:33)
[2018-05-11] MEDS: NORepinephrine 8MG/250 ML (PMX 250 ML IV ×2 (05:40→12:15)
[2018-05-11 05:48] LABS: LACTIC ACID 1.5 mmol/L (0.5-2.0)
[2018-05-11 05:57] LABS: ALANINE AMINOTRANSFERASE 42 IU/L (13-69); ALBUMIN 2.9 g/dl (3.3-4.9); ALKALINE PHOSPHATASE 139 IU/L (42-121); ASPARTATE AMINO TRANSFERASE 36 IU/L (15-46); BILIRUBIN,INDIRECT 0.4 mg/dl (0-1.1); BILIRUBIN,TOTAL 0.4 mg/dl (0.2-1.3); BLOOD UREA NITROGEN 44 mg/dl (7-20); CALCIUM 9.6 mg/dl (8.4-10.2); CHLORIDE 94 mmol/L (97-110); CREATININE 0.64 mg/dl (0.61-1.24); Estimated GFR > 60 mL/min (>60); GLUCOSE 140 mg/dl (70-220); POTASSIUM 4.2 mmol/L (3.5-5.1); SODIUM 143 mmol/L (135-144)
[2018-05-11 05:58] LABS: HEMOGLOBIN 6.6 g/dl (14.0-18.0)
[2018-05-11 05:59] LABS: ADD MAN DIFF? YES
[2018-05-11 06:03] LABS: ANION GAP 9 (5-13)
[2018-05-11] MEDS: SOD CHLORIDE 0.9% 250 ML IV* (06:03)
[2018-05-11 06:09] LABS: CARBON DIOXIDE 40 mmol/L (21-31)
[2018-05-11 07:28] LABS: ANISOCYTOSIS 1+ (0-0); BAND NEUTROPHILS #M 4.8 10^3/ul (0.0-0.6); BAND NEUTROPHILS % (M) 14 % (0-4); HYPOCHROMASIA 1+ (0-0); LYMPHOCYTES #M 1.7 10^3/ul (0.8-2.9); LYMPHOCYTES % (M) 5 % (15-51); MONOCYTE #M 0.3 10^3/ul (0.3-0.9); MONOCYTES % (M) 1 % (0-11); PLATELET ESTIMATE NORMAL; POLYCHROMASIA 2+ (0-0); SEG NEUT #M 29.2 10^3/ul (1.6-7.5); SEGMENTED NEUTROPHILS (M) % 80 % (39-77); SMUDGE%M 51 % (0-0)
[2018-05-11 07:33] LABS: MAGNESIUM 2.4 mg/dl (1.7-2.5)
[2018-05-11 08:22] LABS: IMMEDIATE SPIN CROSSMATCH 1 1
[2018-05-11] MEDS: ACETAMINOPHEN 325 MG TAB PO (09:00)
[2018-05-11] MEDS: ENOXAPARIN 40 MG/0.4 ML SYG SC (09:00)
[2018-05-11] MEDS: MEROPENEM 1 GM/50ML(PMX) 50 ML IVPB ×2 (10:26→20:28)
[2018-05-11] MEDS ORDERED: COLLAGENASE 5 GM (UD JAR) TOP (11:30)
[2018-05-11] MEDS: COLLAGENASE 5 GM (UD JAR) TOP (14:00)
[2018-05-11] MEDS: NYSTATIN 30 GM POWDER BTL TOP ×2 (14:40→20:27)
[2018-05-11] MEDS: BALSAM PERU/CASTOR OIL 60 GM TUBE TOP ×2 (14:40→20:27)
[2018-05-11 14:54] LABS: VANCOMYCIN,TROUGH 17.9 ug/ml (10.0-20.0)
[2018-05-11] MEDS ORDERED: VANCOMYCIN 500 MG (PMX) 100 ML IVPB (18:00)
[2018-05-11] MEDS: ZYVOX 600 MG TAB PO (20:28)
[2018-05-11] MEDS: VORICONAZOLE 200 MG TAB PO (20:28)
[2018-05-11] MEDS: SODIUM HYPOCHLORITE (1/40) 1 LITER BTL IRR (20:31)
[2018-05-12 05:22] LABS: ADD MAN DIFF? NO
[2018-05-12 05:25] LABS: WHITE BLOOD COUNT 22.6 10^3/ul (4.8-10.8)
[2018-05-12 05:25] LABS: BASOPHIL # 0.1 10^3/ul (0.0-0.1); BASOPHILS % 0.3 % (0.0-2.0); EOSINOPHILS # 0.9 10^3/ul (0.0-0.5); EOSINOPHILS % 4.1 % (0.0-7.0); HEMATOCRIT 26.4 % (42.0-52.0); HEMOGLOBIN 7.8 g/dl (14.0-18.0); LYMPHOCYTES # 2.5 10^3/ul (0.8-2.9); MEAN CORPUSCULAR HEMOGLOBIN 27.4 pg (29.0-33.0); MEAN CORPUSCULAR HGB CONC 29.5 g/dl (32.0-37.0); MEAN CORPUSCULAR VOLUME 92.6 fl (82.0-101.0); MEAN PLATELET VOLUME 10.2 fl (7.4-10.4); MONOCYTE # 1.3 10^3/ul (0.3-0.9); MONOCYTES % 5.9 % (0.0-11.0); NEUTROPHIL # 17.6 10^3/ul (1.6-7.5); NEUTROPHILS % 77.7 % (39.0-77.0); PLATELET COUNT 325 10^3/UL (140-415); RED BLOOD COUNT 2.85 10^6/ul (4.70-6.10); RED CELL DISTRIBUTION WIDTH 17.7 % (11.5-14.5)
[2018-05-12] MEDS: LANSOPRAZOLE 30 MG CAP GTB (05:33)
[2018-05-12 05:55] LABS: ALANINE AMINOTRANSFERASE 38 IU/L (13-69); ALBUMIN 2.7 g/dl (3.3-4.9); ALBUMIN/GLOBULIN RATIO 0.64; ALKALINE PHOSPHATASE 205 IU/L (42-121); ASPARTATE AMINO TRANSFERASE 40 IU/L (15-46); BILIRUBIN,INDIRECT 0.4 mg/dl (0-1.1); BILIRUBIN,TOTAL 0.4 mg/dl (0.2-1.3); BLOOD UREA NITROGEN 39 mg/dl (7-20); CALCIUM 9.8 mg/dl (8.4-10.2); CHLORIDE 96 mmol/L (97-110); CREATININE 0.49 mg/dl (0.61-1.24); Estimated GFR > 60 mL/min (>60); GLUCOSE 120 mg/dl (70-220); POTASSIUM 3.6 mmol/L (3.5-5.1); SODIUM 144 mmol/L (135-144); TOTAL PROTEIN 6.9 g/dl (6.1-8.1)
[2018-05-12 06:05] LABS: ANION GAP 9 (5-13)
[2018-05-12 06:46] LABS: CARBON DIOXIDE 39 mmol/L (21-31)
[2018-05-12] MEDS: MEROPENEM 1 GM/50ML(PMX) 50 ML IVPB ×2 (08:35→22:07)
[2018-05-12] MEDS: VORICONAZOLE 200 MG TAB PO ×2 (08:35→22:07)
[2018-05-12] MEDS: ZYVOX 600 MG TAB PO ×2 (08:35→22:07)
[2018-05-12] MEDS: SODIUM HYPOCHLORITE (1/40) 1 LITER BTL IRR ×2 (08:36→22:06)
[2018-05-12] MEDS: BALSAM PERU/CASTOR OIL 60 GM TUBE TOP ×2 (08:36→22:08)
[2018-05-12] MEDS: NYSTATIN 30 GM POWDER BTL TOP ×2 (08:36→22:08)
[2018-05-12] MEDS: ACETAMINOPHEN 325 MG TAB PO (08:36)
[2018-05-12] MEDS: ENOXAPARIN 40 MG/0.4 ML SYG SC (08:37)
[2018-05-13] MEDS: ACETAMINOPHEN 325 MG TAB PO (04:03)
[2018-05-13 05:27] LABS: ADD MAN DIFF? NO
[2018-05-13 05:35] LABS: BASOPHIL # 0.1 10^3/ul (0.0-0.1); BASOPHILS % 0.3 % (0.0-2.0); EOSINOPHILS # 0.5 10^3/ul (0.0-0.5); EOSINOPHILS % 2.4 % (0.0-7.0); HEMATOCRIT 27.8 % (42.0-52.0); HEMOGLOBIN 8.1 g/dl (14.0-18.0); LYMPHOCYTES # 1.8 10^3/ul (0.8-2.9); LYMPHOCYTES % 9.4 % (15.0-51.0); MEAN CORPUSCULAR HEMOGLOBIN 27.2 pg (29.0-33.0); MEAN CORPUSCULAR HGB CONC 29.1 g/dl (32.0-37.0); MEAN CORPUSCULAR VOLUME 93.3 fl (82.0-101.0); MONOCYTE # 1.3 10^3/ul (0.3-0.9); MONOCYTES % 6.6 % (0.0-11.0); NEUTROPHIL # 15.1 10^3/ul (1.6-7.5); NEUTROPHILS % 79.9 % (39.0-77.0); PLATELET COUNT 338 10^3/UL (140-415); RED BLOOD COUNT 2.98 10^6/ul (4.70-6.10); RED CELL DISTRIBUTION WIDTH 17.9 % (11.5-14.5)
[2018-05-13] MEDS: LANSOPRAZOLE 30 MG CAP GTB (05:56)
[2018-05-13 06:06] LABS: ALANINE AMINOTRANSFERASE 35 IU/L (13-69); ALBUMIN 2.5 g/dl (3.3-4.9); ALKALINE PHOSPHATASE 163 IU/L (42-121); ASPARTATE AMINO TRANSFERASE 28 IU/L (15-46); BILIRUBIN,INDIRECT 0.4 mg/dl (0-1.1); BILIRUBIN,TOTAL 0.4 mg/dl (0.2-1.3); BLOOD UREA NITROGEN 32 mg/dl (7-20); CALCIUM 9.6 mg/dl (8.4-10.2); CHLORIDE 101 mmol/L (97-110); CREATININE 0.49 mg/dl (0.61-1.24); Estimated GFR > 60 mL/min (>60); GLUCOSE 131 mg/dl (70-220); POTASSIUM 4.1 mmol/L (3.5-5.1); SODIUM 143 mmol/L (135-144); TOTAL PROTEIN 6.6 g/dl (6.1-8.1)
[2018-05-13 06:15] LABS: ANION GAP 7 (5-13); CARBON DIOXIDE 35 mmol/L (21-31)
[2018-05-13] MEDS: FOLIC ACID 1 MG TAB GTB (09:01)
[2018-05-13] MEDS: ZINC SULFATE 220 MG CAP GTB (09:01)
[2018-05-13] MEDS: ZYVOX 600 MG TAB PO ×2 (09:01→20:34)
[2018-05-13] MEDS: MULTIVITAMINS 30 ML CUP GTB (09:02)
[2018-05-13] MEDS: BALSAM PERU/CASTOR OIL 60 GM TUBE TOP ×2 (09:02→20:35)
[2018-05-13] MEDS: NYSTATIN 30 GM POWDER BTL TOP ×2 (09:02→20:35)
[2018-05-13] MEDS: SODIUM HYPOCHLORITE (1/40) 1 LITER BTL IRR ×2 (09:02→20:47)
[2018-05-13] MEDS: MEROPENEM 1 GM/50ML(PMX) 50 ML IVPB ×2 (09:02→20:34)
[2018-05-13] MEDS: ASCORBIC ACID 500 MG TAB GTB (09:02)
[2018-05-13] MEDS: VORICONAZOLE 200 MG TAB PO ×2 (09:02→20:34)
[2018-05-13] MEDS: ENOXAPARIN 40 MG/0.4 ML SYG SC (09:11)
[2018-05-13 11:22] LABS: MAGNESIUM 2.1 mg/dl (1.7-2.5)
[2018-05-14 05:49] LABS: ADD MAN DIFF? NO
[2018-05-14] MEDS: LANSOPRAZOLE 30 MG CAP GTB (05:53)
[2018-05-14 05:56] LABS: BASOPHILS % 0.2 % (0.0-2.0); EOSINOPHILS # 0.5 10^3/ul (0.0-0.5); EOSINOPHILS % 3.6 % (0.0-7.0); HEMATOCRIT 27.9 % (42.0-52.0); HEMOGLOBIN 8.3 g/dl (14.0-18.0); LYMPHOCYTES # 2.9 10^3/ul (0.8-2.9); LYMPHOCYTES % 19.6 % (15.0-51.0); MEAN CORPUSCULAR HEMOGLOBIN 27.2 pg (29.0-33.0); MEAN CORPUSCULAR HGB CONC 29.7 g/dl (32.0-37.0); MEAN CORPUSCULAR VOLUME 91.5 fl (82.0-101.0); MEAN PLATELET VOLUME 10.9 fl (7.4-10.4); MONOCYTES % 6.8 % (0.0-11.0); NEUTROPHIL # 10.1 10^3/ul (1.6-7.5); POSITIVE DIFF @See below; RED BLOOD COUNT 3.05 10^6/ul (4.70-6.10); RED CELL DISTRIBUTION WIDTH 18.6 % (11.5-14.5)
[2018-05-14 05:56] LABS: WHITE BLOOD COUNT 14.6 10^3/ul (4.8-10.8)
[2018-05-14 05:58] LABS: PLATELET COUNT 229 10^3/UL (140-415)
[2018-05-14 06:58] LABS: ALANINE AMINOTRANSFERASE 31 IU/L (13-69); ALBUMIN 2.4 g/dl (3.3-4.9); ALBUMIN/GLOBULIN RATIO 0.58; ALKALINE PHOSPHATASE 136 IU/L (42-121); ANION GAP 1 (5-13); ASPARTATE AMINO TRANSFERASE 23 IU/L (15-46); BILIRUBIN,INDIRECT 0.3 mg/dl (0-1.1); BILIRUBIN,TOTAL 0.3 mg/dl (0.2-1.3); BLOOD UREA NITROGEN 26 mg/dl (7-20); CALCIUM 9.7 mg/dl (8.4-10.2); CHLORIDE 103 mmol/L (97-110); CREATININE 0.41 mg/dl (0.61-1.24); Estimated GFR > 60 mL/min (>60); GLUCOSE 111 mg/dl (70-220); POTASSIUM 3.6 mmol/L (3.5-5.1); SODIUM 144 mmol/L (135-144); TOTAL PROTEIN 6.5 g/dl (6.1-8.1)
[2018-05-14 07:04] LABS: CARBON DIOXIDE 40 mmol/L (21-31)
[2018-05-14] MEDS: VORICONAZOLE 200 MG TAB PO ×2 (09:09→20:55)
[2018-05-14] MEDS: ZYVOX 600 MG TAB PO ×2 (09:09→20:55)
[2018-05-14] MEDS: ZINC SULFATE 220 MG CAP GTB (09:09)
[2018-05-14] MEDS: MEROPENEM 1 GM/50ML(PMX) 50 ML IVPB ×2 (09:10→20:55)
[2018-05-14] MEDS: FOLIC ACID 1 MG TAB GTB (09:10)
[2018-05-14] MEDS: MULTIVITAMINS 30 ML CUP GTB (09:10)
[2018-05-14] MEDS: NYSTATIN 30 GM POWDER BTL TOP ×2 (09:10→20:55)
[2018-05-14] MEDS: BALSAM PERU/CASTOR OIL 60 GM TUBE TOP ×2 (09:10→20:55)
[2018-05-14] MEDS: SODIUM HYPOCHLORITE (1/40) 1 LITER BTL IRR ×2 (09:10→20:55)
[2018-05-14] MEDS: ENOXAPARIN 40 MG/0.4 ML SYG SC (09:32)
[2018-05-14] MEDS: ASCORBIC ACID 500 MG TAB GTB (10:43)
[2018-05-15] MEDS: LANSOPRAZOLE 30 MG CAP GTB (05:26)
[2018-05-15 05:44] LABS: ADD MAN DIFF? NO
[2018-05-15 05:47] LABS: BASOPHIL # 0.1 10^3/ul (0.0-0.1); BASOPHILS % 0.3 % (0.0-2.0); EOSINOPHILS # 0.5 10^3/ul (0.0-0.5); EOSINOPHILS % 3.2 % (0.0-7.0); HEMATOCRIT 28.4 % (42.0-52.0); HEMOGLOBIN 8.3 g/dl (14.0-18.0); LYMPHOCYTES # 3.4 10^3/ul (0.8-2.9); LYMPHOCYTES % 22.3 % (15.0-51.0); MEAN CORPUSCULAR HEMOGLOBIN 27.2 pg (29.0-33.0); MEAN CORPUSCULAR HGB CONC 29.2 g/dl (32.0-37.0); MEAN CORPUSCULAR VOLUME 93.1 fl (82.0-101.0); MEAN PLATELET VOLUME 10.1 fl (7.4-10.4); MONOCYTES % 6.4 % (0.0-11.0); NEUTROPHIL # 10.1 10^3/ul (1.6-7.5); NEUTROPHILS % 66.7 % (39.0-77.0); PLATELET COUNT 300 10^3/UL (140-415); RED BLOOD COUNT 3.05 10^6/ul (4.70-6.10); RED CELL DISTRIBUTION WIDTH 19.1 % (11.5-14.5)
[2018-05-15 05:47] LABS: WHITE BLOOD COUNT 15.1 10^3/ul (4.8-10.8)
[2018-05-15 06:07] LABS: BLOOD UREA NITROGEN 22 mg/dl (7-20); CALCIUM 9.4 mg/dl (8.4-10.2); CHLORIDE 101 mmol/L (97-110); CREATININE 0.41 mg/dl (0.61-1.24); Estimated GFR > 60 mL/min (>60); GLUCOSE 108 mg/dl (70-220); MAGNESIUM 1.9 mg/dl (1.7-2.5); POTASSIUM 3.6 mmol/L (3.5-5.1); SODIUM 146 mmol/L (135-144)
[2018-05-15 06:25] LABS: ANION GAP 5 (5-13)
[2018-05-15 06:36] LABS: CARBON DIOXIDE 40 mmol/L (21-31)
[2018-05-15] MEDS: NORepinephrine 8MG/250 ML (PMX 250 ML IV (06:54)
[2018-05-15] MEDS: FOLIC ACID 1 MG TAB GTB (09:06)
[2018-05-15] MEDS: MULTIVITAMINS 30 ML CUP GTB (09:06)
[2018-05-15] MEDS: ASCORBIC ACID 500 MG TAB GTB (09:06)
[2018-05-15] MEDS: MEROPENEM 1 GM/50ML(PMX) 50 ML IVPB (09:06)
[2018-05-15] MEDS: ZINC SULFATE 220 MG CAP GTB (09:06)
[2018-05-15] MEDS: VORICONAZOLE 200 MG TAB PO ×2 (09:06→20:57)
[2018-05-15] MEDS: ZYVOX 600 MG TAB PO ×2 (09:07→20:57)
[2018-05-15] MEDS: ENOXAPARIN 40 MG/0.4 ML SYG SC (09:08)
[2018-05-15] MEDS: BALSAM PERU/CASTOR OIL 60 GM TUBE TOP ×2 (09:09→20:57)
[2018-05-15] MEDS: NYSTATIN 30 GM POWDER BTL TOP ×2 (09:09→20:57)
[2018-05-15] MEDS: SODIUM HYPOCHLORITE (1/40) 1 LITER BTL IRR ×2 (09:10→20:57)
[2018-05-15 10:20] LABS: AADO2 Arterial 158.7 mmHg (7.0-24.0); Allen Test ACCEPTAB; Arterial Base Excess 13.7 mmol/L (-3.0-3); Arterial Blood Gas Oxygen Sat 92.6 mmHG (95.0-98.0); Arterial COHb 0.8 % (0.0-3.0); Arterial Fraction of Oxyhgb 91.6 % (93.0-99.0); Arterial HCO3 38.7 mmol/L (22.0-26.0); Arterial MetHb 0.3 % (0.0-1.5); Arterial pCO2 52.2 mmhg (35-45); MODE VENT - AC; Site Right Radial
[2018-05-15] MEDS: MIDODRINE 5 MG TAB GTB (18:11)
[2018-05-15] MEDS: COLISTIMETHATE 75 MG in SOD CHLORIDE 0.9% 100 ML IVPB (21:01)
[2018-05-15] MEDS: metroNIDAZOLE 500 MG TAB PO (21:02)
[2018-05-16 04:38] LABS: ADD MAN DIFF? NO
[2018-05-16 04:40] LABS: BASOPHIL # 0.1 10^3/ul (0.0-0.1); BASOPHILS % 0.4 % (0.0-2.0); EOSINOPHILS # 0.7 10^3/ul (0.0-0.5); EOSINOPHILS % 3.9 % (0.0-7.0); HEMATOCRIT 27.5 % (42.0-52.0); LYMPHOCYTES # 3.2 10^3/ul (0.8-2.9); LYMPHOCYTES % 19.2 % (15.0-51.0); MEAN CORPUSCULAR HEMOGLOBIN 27.1 pg (29.0-33.0); MEAN CORPUSCULAR HGB CONC 29.1 g/dl (32.0-37.0); MEAN CORPUSCULAR VOLUME 93.2 fl (82.0-101.0); MEAN PLATELET VOLUME 9.7 fl (7.4-10.4); MONOCYTE # 0.9 10^3/ul (0.3-0.9); MONOCYTES % 5.4 % (0.0-11.0); NEUTROPHIL # 11.6 10^3/ul (1.6-7.5); NEUTROPHILS % 70.4 % (39.0-77.0); PLATELET COUNT 261 10^3/UL (140-415); RED BLOOD COUNT 2.95 10^6/ul (4.70-6.10)
[2018-05-16 04:40] LABS: WHITE BLOOD COUNT 16.5 10^3/ul (4.8-10.8)
[2018-05-16 04:59] LABS: ANION GAP 1 (5-13); BLOOD UREA NITROGEN 20 mg/dl (7-20); CALCIUM 9.4 mg/dl (8.4-10.2); CARBON DIOXIDE 39 mmol/L (21-31); CHLORIDE 105 mmol/L (97-110); CREATININE 0.39 mg/dl (0.61-1.24); Estimated GFR > 60 mL/min (>60); GLUCOSE 112 mg/dl (70-220); POTASSIUM 3.6 mmol/L (3.5-5.1); SODIUM 145 mmol/L (135-144)
[2018-05-16] MEDS: NORepinephrine 8MG/250 ML (PMX 250 ML IV (05:11)
[2018-05-16] MEDS: LANSOPRAZOLE 30 MG CAP GTB (06:05)
[2018-05-16] MEDS: metroNIDAZOLE 500 MG TAB PO ×3 (06:06→21:21)
[2018-05-16] MEDS: ZYVOX 600 MG TAB PO ×2 (08:44→21:21)
[2018-05-16] MEDS: FOLIC ACID 1 MG TAB GTB (08:44)
[2018-05-16] MEDS: ZINC SULFATE 220 MG CAP GTB (08:44)
[2018-05-16] MEDS: VORICONAZOLE 200 MG TAB PO ×2 (08:44→21:21)
[2018-05-16] MEDS: ASCORBIC ACID 500 MG TAB GTB (08:44)
[2018-05-16] MEDS: MULTIVITAMINS 30 ML CUP GTB (08:44)
[2018-05-16] MEDS: NYSTATIN 30 GM POWDER BTL TOP ×2 (08:45→21:21)
[2018-05-16] MEDS: BALSAM PERU/CASTOR OIL 60 GM TUBE TOP ×2 (08:45→21:21)
[2018-05-16] MEDS: ENOXAPARIN 40 MG/0.4 ML SYG SC (08:46)
[2018-05-16] MEDS: SODIUM HYPOCHLORITE (1/40) 1 LITER BTL IRR ×2 (09:27→21:21)
[2018-05-16] MEDS: COLISTIMETHATE 75 MG in SOD CHLORIDE 0.9% 100 ML IVPB ×2 (09:32→21:20)
[2018-05-16] MEDS: MIDODRINE 5 MG TAB GTB ×2 (12:45→18:23)
[2018-05-16] MEDS: ACETAMINOPHEN 325 MG TAB PO (15:03)
[2018-05-17] MEDS: NORepinephrine 8MG/250 ML (PMX 250 ML IV (02:31)
[2018-05-17] MEDS: LANSOPRAZOLE 30 MG CAP GTB (05:02)
[2018-05-17] MEDS: metroNIDAZOLE 500 MG TAB PO ×3 (05:02→21:44)
[2018-05-17] MEDS: MULTIVITAMINS 30 ML CUP GTB (08:22)
[2018-05-17] MEDS: VORICONAZOLE 200 MG TAB PO ×2 (08:23→21:44)
[2018-05-17] MEDS: FOLIC ACID 1 MG TAB GTB (08:23)
[2018-05-17] MEDS: ZINC SULFATE 220 MG CAP GTB (08:23)
[2018-05-17] MEDS: ZYVOX 600 MG TAB PO ×2 (08:23→21:44)
[2018-05-17] MEDS: MIDODRINE 5 MG TAB GTB ×3 (08:23→19:03)
[2018-05-17] MEDS: COLISTIMETHATE 75 MG in SOD CHLORIDE 0.9% 100 ML IVPB (08:24)
[2018-05-17] MEDS: NYSTATIN 30 GM POWDER BTL TOP ×2 (08:24→21:00)
[2018-05-17] MEDS: ASCORBIC ACID 500 MG TAB GTB (09:24)
[2018-05-17] MEDS: ENOXAPARIN 40 MG/0.4 ML SYG SC (09:55)
[2018-05-17] MEDS: BALSAM PERU/CASTOR OIL 60 GM TUBE TOP ×2 (09:56→21:00)
[2018-05-17] MEDS: SODIUM HYPOCHLORITE (1/40) 1 LITER BTL IRR ×2 (19:04→21:44)
[2018-05-18] MEDS: COLISTIMETHATE 75 MG in SOD CHLORIDE 0.9% 100 ML IVPB ×3 (01:03→20:47)
[2018-05-18] MEDS: LANSOPRAZOLE 30 MG CAP GTB (06:11)
[2018-05-18] MEDS: metroNIDAZOLE 500 MG TAB PO ×3 (06:11→21:00)
[2018-05-18] MEDS: SODIUM HYPOCHLORITE (1/40) 1 LITER BTL IRR ×2 (09:00→20:48)
[2018-05-18] MEDS: VORICONAZOLE 200 MG TAB PO ×2 (09:52→20:48)
[2018-05-18] MEDS: ZINC SULFATE 220 MG CAP GTB (09:52)
[2018-05-18] MEDS: FOLIC ACID 1 MG TAB GTB (09:52)
[2018-05-18] MEDS: ZYVOX 600 MG TAB PO ×2 (09:52→20:48)
[2018-05-18] MEDS: BALSAM PERU/CASTOR OIL 60 GM TUBE TOP ×2 (09:53→20:50)
[2018-05-18] MEDS: NYSTATIN 30 GM POWDER BTL TOP ×2 (09:53→20:49)
[2018-05-18] MEDS: ENOXAPARIN 40 MG/0.4 ML SYG SC (09:57)
[2018-05-18] MEDS: ASCORBIC ACID 500 MG TAB GTB (10:01)
[2018-05-18] MEDS: MULTIVITAMINS 30 ML CUP GTB (11:57)
[2018-05-18] MEDS: MIDODRINE 5 MG TAB GTB ×3 (11:58→18:01)
[2018-05-18] MEDS: FUROSEMIDE 20 MG INJ IV (17:29)
[2018-05-19] MEDS: metroNIDAZOLE 500 MG TAB PO ×3 (05:14→21:14)
[2018-05-19] MEDS: FUROSEMIDE 20 MG INJ IV ×2 (05:14→17:50)
[2018-05-19] MEDS: ACETAMINOPHEN 325 MG TAB PO (05:14)
[2018-05-19] MEDS: LANSOPRAZOLE 30 MG CAP GTB (05:14)
[2018-05-19] MEDS: VORICONAZOLE 200 MG TAB PO ×2 (08:14→21:14)
[2018-05-19] MEDS: COLISTIMETHATE 75 MG in SOD CHLORIDE 0.9% 100 ML IVPB ×2 (08:14→21:15)
[2018-05-19] MEDS: ASCORBIC ACID 500 MG TAB GTB (08:15)
[2018-05-19] MEDS: MULTIVITAMINS 30 ML CUP GTB (08:15)
[2018-05-19] MEDS: ZYVOX 600 MG TAB PO ×2 (08:15→23:17)
[2018-05-19] MEDS: FOLIC ACID 1 MG TAB GTB (08:15)
[2018-05-19] MEDS: ZINC SULFATE 220 MG CAP GTB (08:15)
[2018-05-19] MEDS: SODIUM HYPOCHLORITE (1/40) 1 LITER BTL IRR ×2 (08:17→21:14)
[2018-05-19] MEDS: BALSAM PERU/CASTOR OIL 60 GM TUBE TOP ×2 (08:17→21:14)
[2018-05-19] MEDS: MIDODRINE 5 MG TAB GTB ×3 (08:17→17:49)
[2018-05-19] MEDS: NYSTATIN 30 GM POWDER BTL TOP ×2 (08:17→21:14)
[2018-05-19] MEDS: ENOXAPARIN 40 MG/0.4 ML SYG SC (08:42)
[2018-05-20] MEDS: ACETAMINOPHEN 325 MG TAB PO ×2 (00:02→09:34)
[2018-05-20] MEDS: FUROSEMIDE 20 MG INJ IV ×2 (05:20→17:29)
[2018-05-20] MEDS: metroNIDAZOLE 500 MG TAB PO ×3 (05:21→21:18)
[2018-05-20] MEDS: LANSOPRAZOLE 30 MG CAP GTB (05:21)
[2018-05-20 06:55] LABS: BLOOD UREA NITROGEN 23 mg/dl (7-20)
[2018-05-20 06:55] LABS: CREATININE 0.67 mg/dl (0.61-1.24)
[2018-05-20] MEDS: ZYVOX 600 MG TAB PO ×2 (09:33→21:04)
[2018-05-20] MEDS: FOLIC ACID 1 MG TAB GTB (09:34)
[2018-05-20] MEDS: ASCORBIC ACID 500 MG TAB GTB (09:34)
[2018-05-20] MEDS: ZINC SULFATE 220 MG CAP GTB (09:34)
[2018-05-20] MEDS: MULTIVITAMINS 30 ML CUP GTB (09:35)
[2018-05-20] MEDS: VORICONAZOLE 200 MG TAB PO ×2 (09:35→21:04)
[2018-05-20] MEDS: MIDODRINE 5 MG TAB GTB ×3 (09:35→17:29)
[2018-05-20] MEDS: BALSAM PERU/CASTOR OIL 60 GM TUBE TOP ×2 (09:36→21:08)
[2018-05-20] MEDS: SODIUM HYPOCHLORITE (1/40) 1 LITER BTL IRR ×2 (09:36→21:08)
[2018-05-20] MEDS: NYSTATIN 30 GM POWDER BTL TOP ×2 (09:36→21:08)
[2018-05-20] MEDS: COLISTIMETHATE 75 MG in SOD CHLORIDE 0.9% 100 ML IVPB ×2 (09:41→21:05)
[2018-05-20] MEDS: ENOXAPARIN 40 MG/0.4 ML SYG SC (10:00)
[2018-05-20] MEDS: MEROPENEM 500MG/50 ML (PMX) 50 ML IVPB ×2 (14:52→21:05)
[2018-05-20] MEDS: SOD CHLORIDE 0.9% 1,000 ML IV (15:54)
[2018-05-21] MEDS: metroNIDAZOLE 500 MG TAB PO ×2 (05:29→13:30)
[2018-05-21] MEDS: LANSOPRAZOLE 30 MG CAP GTB (05:29)
[2018-05-21] MEDS: FUROSEMIDE 20 MG INJ IV ×2 (05:30→18:00)
[2018-05-21] MEDS: FOLIC ACID 1 MG TAB GTB (08:40)
[2018-05-21] MEDS: VORICONAZOLE 200 MG TAB PO (08:40)
[2018-05-21] MEDS: ZINC SULFATE 220 MG CAP GTB (08:40)
[2018-05-21] MEDS: ZYVOX 600 MG TAB PO (08:41)
[2018-05-21] MEDS: MULTIVITAMINS 30 ML CUP GTB (08:41)
[2018-05-21] MEDS: ASCORBIC ACID 500 MG TAB GTB (08:41)
[2018-05-21] MEDS: MIDODRINE 5 MG TAB GTB ×3 (08:47→16:37)
[2018-05-21] MEDS: COLISTIMETHATE 75 MG in SOD CHLORIDE 0.9% 100 ML IVPB (08:50)
[2018-05-21] MEDS: ENOXAPARIN 40 MG/0.4 ML SYG SC (08:58)
[2018-05-21] MEDS: BALSAM PERU/CASTOR OIL 60 GM TUBE TOP (09:00)
[2018-05-21] MEDS: NYSTATIN 30 GM POWDER BTL TOP (09:00)
[2018-05-21] MEDS: MEROPENEM 500MG/50 ML (PMX) 50 ML IVPB (09:41)
[2018-05-21] MEDS: SODIUM HYPOCHLORITE (1/40) 1 LITER BTL IRR (12:34)
== END 2018-05-21 21:00 | DRG 870 ==
LOC: E/R 03:12 → 6WM 05-17 20:15 → ICU 08:00
PROC: 02HV33Z Insertion of Infusion Device into Superior Vena Cava, Percutaneous Approach (ICD-10-PCS; principal; 2018-05-10)
PROC: 5A1955Z Respiratory Ventilation, Greater than 96 Consecutive Hours (ICD-10-PCS; 2018-05-10)
DX: A41.9 Sepsis, unspecified organism (principal); L89.154 Pressure ulcer of sacral region, stage 4; L89.894 Pressure ulcer of other site, stage 4; R65.21 Severe sepsis with septic shock; J96.21 Acute and chronic respiratory failure with hypoxia; I50.43 Acute on chronic combined systolic (congestive) and diastolic (congestive) heart failure; J18.9 Pneumonia, unspecified organism; T83.511A Infection and inflammatory reaction due to indwelling urethral catheter, initial encounter; R40.3 Persistent vegetative state; G93.1 Anoxic brain damage, not elsewhere classified; N39.0 Urinary tract infection, site not specified; Z99.11 Dependence on respirator [ventilator] status; I25.10 Atherosclerotic heart disease of native coronary artery without angina pectoris; E87.5 Hyperkalemia; D64.9 Anemia, unspecified; B95.2 Enterococcus as the cause of diseases classified elsewhere; B96.4 Proteus (mirabilis) (morganii) as the cause of diseases classified elsewhere; B96.89 Other specified bacterial agents as the cause of diseases classified elsewhere; B95.62 Methicillin resistant Staphylococcus aureus infection as the cause of diseases classified elsewhere; Z86.74 Personal history of sudden cardiac arrest; Z16.21 Resistance to vancomycin; Z93.0 Tracheostomy status
CPT/HCPCS: 36415; 36430; 36600; 71045; 80048; 80053; 80202; 81001; 82565; 82803; 83605; 83735; 84132; 84520; 85025; 86850; 86900; 86901; 86920; 87040-91; 87070; 87075; 87081; 87086; 87103; 94002; 94003; 95819; 96374; 99285-25